=== PATIENT | male | born 1970 | race Caucasian/White ===

== ENCOUNTER 2016-03-05 14:32 | Inpatient (IN) | payer OTHER, MEDICARE ==
[~2016-03-05] VITALS: Ht 172.7 cm; Wt 78.0 kg
[~2016-03-05 14:32] MED LIST: ATIVAN0.5 M1 PO; AUGMENTIN 875 M1 TAB PO; CHLORDIAZEPOXID25 M3 PO; CLONAZEPAM0.5 MG PO; CLONAZEPAM1 M2 PO; CLONAZEPAM1 MG PO; CLONIDINE HCL0.1 MG PO; CLONIDINE0.1 MG PO; ESCITALOPRAM OX20 MG PO; ESCITALOPRAM20 MG PO; FAMOTIDINE20 MG PO; FOLIC ACID1 M1 PO; GABAPENTIN300 M2 PO; KLONOPIN1 M1 PO; LAMICTAL 25MG25 MG PO; LAMICTAL25 M1 PO; LAMOTRIGINE25 M3 PO; LEXAPRO10 M1 PO; MULTIVITAMINS1 EAC8 PO; NEURONTIN300 M1 PO; NEURONTIN300 MG; NEXIUM20 M1 PO; OMEPRAZOLE20 M2 PO; PERCOCET 5-3251 EACH PO; PRAVASTATIN SOD40 M2 PO; PRAVASTATIN40 MG PO; PROTONIX20 M1 PO; SUCRALFATE1 GM; TRAZODONE HCL100 M1 PO; TRAZODONE50 MG PO; VITAMIN B-1100 MG PO; ZOFRAN4 M2 PO
--- NOTE | 2016-03-05 14:43 | ED PSYCHIATRIC COMPLAINT ---
History of Present Illness General Chief Complaint: ETOH/Drug Related Complaint Stated Complaint: BIBA, ETOH, +SI Source: patient, old records, EMS Exam Limitations: intoxication Vital Signs & Intake/Output Vital Signs & Intake/Output Vital Signs Date Time Temp Pulse Resp B/P Pulse O2 O2 Flow FiO2 Ox Delivery Rate 03/06 814 96.2 93 18 135/96 03/06 0815 96.2 93 18 135/96 97 Room Air 03/06 0628 98.0 72 18 130/75 95 Room Air 03/06 0541 99.2 03/06 0530 Room Air 03/06 0530 99.2 89 18 136/82 03/06 0530 99.2 89 18 136/82 95 Room Air 03/06 0245 95 Room Air 03/06 0232 98.1 87 18 126/79 03/06 0232 98.1 87 18 126/79 95 Room Air 03/06 0010 94 Room Air 03/06 0008 98.4 100 18 132/82 03/06 0008 98.4 100 18 132/82 94 Room Air 03/05 2218 99.0 105 20 154/70 96 Room Air Room Air 03/05 2217 99.0 105 20 154/70 07 2046 97.8 95 18 140/86 03/05 2033 97.8 95 18 140/86 96 Room Air 03/05 1735 98.8 66 18 118/76 03/05 1735 98.8 66 18 118/76 96 Room Air Room Air 03/05 1500 96.6 86 20 134/90 07 1441 96.6 86 20 134/90 96 Room Air ED Intake and Output 03/06 0000 03/05 1200 Intake Total Output Total Balance Patient 200 lb Weight Allergies Coded Allergies: haloperidol (Severe, DIFFICULTY BREATHING 08/13/15) chlorpromazine (DYSTONIC REACTION 08/13/15) Reconcile Medications Clonazepam (Klonopin) 1 MG TABLET 1 TAB PO TID ALC WITHDRAWL Clonidine HCl 0.1 MG TABLET 1 TAB PO TID BP Escitalopram Oxalate (Lexapro) 10 MG TABLET 10 MG PO 0800 MENTAL HEALTH Folic Acid 1 MG TABLET 1 MG PO DAILY SUPPLEMENT Gabapentin (Neurontin) 300 MG CAPSULE 1 CAP PO TID MENTAL HEALTH/NERVE PAIN ( Reported) Lamotrigine 25 MG TABLET 2 TAB PO DAILY MENTAL HEALTH (Reported) Ondansetron HCl (Zofran) 4 MG TABLET 1 TAB PO DAILY PRN NAUSEA Pantoprazole Sodium (Protonix) 20 MG TABLET. 1 TAB PO DAILY HEARTBURN Pravastatin Sodium 40 MG TABLET 1 TAB PO QPM CHOLESTEROL Triage Nurses Notes Reviewed? yes HPI: Patient is a 45-year-old male presents complaining of suicidal ideation and requesting alcohol detox. Patient reports that he woke this morning with thoughts of "I want to kill myself". Patient reports he is having thoughts of hanging himself and has a rope at home. Patient reports stressors include his alcohol abuse and marijuana abuse. Patient with history of alcohol withdrawal seizures and has required ICU admission twice over the past one year. Last drink was approximately 30 minutes prior to arrival. Patient reports that he began drinking again on February 27, drinking approximately one half case to one case of beer a day and approximately 10 "nips" of Leo Beam. Patient is on clonazepam 1 mg 3 times a day, reports that about a week ago he started taking increasing doses to try to not drink, reports that he ran out of the clonazepam 5 days ago. Patient is unsure if he has sustained any traumatic injuries recently. Patient denies homicidal ideation, hallucinations. Patient also reports diffuse abdominal pain 2 days. Patient had associated nausea, he took Zofran prior to arrival with resolution of his nausea. Patient reports pain feels similar to previous pancreatitis. Denies change in bowel movements, urinary symptoms, fevers. (KAREN COLEMAN,JOSE) Past History Travel History Traveled to [place] past 21 day No Medical History Any Pertinent Medical History? see below for history Neurological: SEIZURE w/d EENT: NONE Cardiovascular: hypertension Respiratory: NONE Gastrointestinal: PANCREATITIS Hepatic: NONE Renal: NONE Musculoskeletal: left knee multiple tendon r. 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 Relation not specified for: FH: alcohol abuse Hx Contributory? No (JOSE ROSAS) Review of Systems Review of Systems Constitutional: Denies: chills, fever. EENTM: Reports: no symptoms. Respiratory: Denies: cough, short of breath. Cardiovascular: Denies: chest pain, syncope. GI: Reports: abdominal pain, nausea (took zofran prior to arrival). Genitourinary: Reports: no symptoms. Musculoskeletal: Reports: back pain. Skin: Reports: no symptoms. Neurological/Psychological: Reports: see HPI. Denies: headache. Hematologic/Endocrine: Denies: bruising, bleeding. Immunologic/Allergic: Denies: splenectomy. (JOSE ROSAS) Physical Exam Physical Exam General Appearance: well developed/nourished, alert, awake Head: atraumatic, normal appearance Eyes: Bilateral: normal appearance, PERRL. Ears, Nose, Throat: normal pharynx, normal ENT inspection, hearing grossly normal Neck: normal inspection, supple, full range of motion, no midline tenderness Respiratory: normal breath sounds, chest non-tender, no respiratory distress, lungs clear Cardiovascular: regular rate/rhythm Gastrointestinal: soft, mild diffuse abdominal tenderness. No rebound or guarding Extremities: normal range of motion, no signs of trauma Neurological/Psychiatric: awake, alert, calm, college president II-XII nml as tested, intoxicated appearing Appearance/Memory/Insight: disheveled Behavoir/Eye Contact/Speech: cooperative, good eye contact Thoughts/Hallucinations: no apparent hallucination Skin: intact, normal color, warm/dry SAD PERSONS SAD PERSONS Response Value Male Sex? yes 1 Age <19 or >45 years? yes 1 Depression/Hopelessness? yes 2 Excessive Ethanol/Drug Use? yes 1 Rational Thinking Loss? yes 2 Single//? yes 1 Social Support? has no support 1 Stated Future Intent? yes 2 Total 11 SAD PERSONS Done? yes CAGE (2/more=possible [place] CAGE (2/more=possible [place] Response Value Cut Down? yes 1 Annoyed? yes 1 Guilty? yes 1 Eye Buckle Frame Shaper? yes 1 Total 4 (JOSE ROSAS) Progress Differential Diagnosis: drug intoxication, drug overdose, drug withdrawal, electrolyte abnormality, encephalitis, hypoglycemia, IC hem/mass/tumor, benzodiazepine withdrawal, alcohol withdrawal, pancreatitis, intra-abdominal infection, intra-abdominal trauma Plan of Care: Orders Procedure Date/time Status Heart Healthy Diet 03/06 B Active CBC WITHOUT DIFFERENTIAL 03/06 0600 Complete BASIC ELECTROLYTES PLUS BUN&CR 03/06 06 Complete Teach/Educate 03/06 0545 Active Nutritional Intake, Monitor 03/06 0545 Active Isolation 03/06 0545 Active Patient Care Conference 03/06 0545 Active Activity/Ambulation 03/06 0545 Active TRC EVALUATION (GEN) 03/06 UNK Active Precautions 03/06 UNK Active Hemoccult 03/06 UNK Active EKG 03/06 UNK Active SOCIAL WORK CONSULT 03/06 UNK Active PSYCHIATRIC CONSULT 03/06 UNK Active Regular Diet 03/05 D Complete Saline Lock 03/05 2324 Active Pathway - chart 03/05 2324 Active House Staff 03/05 2324 Active Code Status 03/05 2324 Active Continuous Observation Monitor 03/05 2300 Active Patient Data 03/05 2252 Active Saline Lock 03/05 2221 Active Misc Message 03/05 2221 Active ED Holding Orders 03/05 2221 Active Admit to inpatient 03/05 2221 Active Vital Signs 03/05 2221 Active Code Status 03/05 2221 Complete Continuous Observation Monitor 03/05 1900 Active Add-on Test (ER Only) 03/05 1522 Active Add-on Test (ER Only) 03/05 1501 Active Continuous Observation Monitor 03/05 1500 Active URINALYSIS 03/05 1500 Complete Add-on Test (ER Only) 03/05 1437 Active CIWA 03/05 1437 Active URINE DRUGS OF ABUSE 03/05 1436 Complete MAGNESIUM 03/05 1436 Complete LIPASE 03/05 1436 Complete ETHANOL 03/05 1436 Complete COMPREHENSIVE METABOLIC PANEL 03/05 1436 Complete CBC WITHOUT DIFFERENTIAL 03/05 1436 Complete AMYLASE 03/05 1436 Complete VTE Mechanical Prophylaxis 03/05 UNK Active Vital Signs 03/05 UNK Active Patient Safety Monitor 03/05 UNK Active Intake & Output 03/05 UNK Active Current Medications Sig/Genoveva Start time Last Medication Dose Stop Time Status Admin Pravastatin Sodium 40 MG 1700 03/06 1700 AC (Pravachol) Clonidine 0.1 MG TID 03/06 1000 AC (Catapres) Enoxaparin Sodium 40 MG DAILY 03/06 1000 CAN (Lovenox) Folic Acid 1 MG DAILY 03/06 1000 AC (Folic Acid) Gabapentin 300 MG TID 01/08 1000 AC (Neurontin) Lamotrigine 50 MG DAILY 03/06 999 AC (LaMICtal) Multivitamins 1 TAB DAILY 03/06 999 AC (Theragran Vitamins) Nicotine 14 MG DAILY 03/06 999 AC (Nicotine Cq) Thiamine HCl 100 MG DAILY 03/06 999 AC (Vitamin B1) Acetaminophen 650 MG Q6P PRN 03/05 2329 AC (Tylenol) Ibuprofen 600 MG Q12P PRN 03/05 2329 AC (Motrin) Lorazepam 0 Q1P PRN 03/05 2329 AC (Ativan) Laboratory Tests 03/06/16 0559: CBC w Diff NO MAN DIFF REQ, RBC 4.23 L, MCV 95.3 H, MCH 33.0 H, RDW 13.6, MPV 6.5 L, Gran % 49.9, Lymphocytes % 42.0, Monocytes % 4.5, Eosinophils % 2.7, Basophils % 0.9, Absolute Granulocytes 2.7, Absolute Lymphocytes 2.3, Absolute Monocytes 0.2, Absolute Eosinophils 0.2, Absolute Basophils 0, PUBS MCHC 34.7 03/06/16 0549: Anion Gap 15, Estimated GFR > 60, BUN/Creatinine Ratio 14.4 03/05/16 1556: Urine Opiates Screen < 100.00, Methadone Screen < 40, Barbiturate Screen < 60, Ur Phencyclidine Scrn < 6.00, Amphetamines Screen < 100, U Benzodiazepines Scrn < 85, Urine Cocaine Screen < 50, Urine Cannabis Screen 68.00 H, Urine Color YEL , Urine Clarity CLEAR, Urine pH 6.0, Ur Specific [place] 1.020, Urine Protein TRACE H, Urine Ketones NEG, Urine Nitrite NEG, Urine Bilirubin NEG, Urine Urobilinogen 0.2, Ur Leukocyte Esterase NEG, Ur Microscopic SEDIMENT EXAMINED, Urine RBC RARE, Ur Epithelial Cells RARE, Urine Hemoglobin TRACE-INTACT H, Urine Glucose NEG 03/05/16 1516: Anion Gap 17 H, Estimated GFR > 60, BUN/Creatinine Ratio 13.0, Glucose 110 H, Calcium 9.4, Magnesium 1.9, Total Bilirubin 0.5, AST 69 H, ALT 34, Alkaline Phosphatase 105, Total Protein 7.5, Albumin 4.6, Globulin 2.9, Albumin/Globulin Ratio 1.6, Amylase < 30 L, Lipase 168, CBC w Diff NO MAN DIFF REQ, RBC 4.61 L, MCV 95.8 H, MCH 32.8 H, RDW 13.8, MPV 6.5 L, Gran % 56.4, Lymphocytes % 37.7, Monocytes % 4.0, Eosinophils % 1.1, Basophils % 0.8, Absolute Granulocytes 3.3, Absolute Lymphocytes 2.2, Absolute Monocytes 0.2, Absolute Eosinophils 0.1, Absolute Basophils 0, PUBS MCHC 34.2, Serum Alcohol 382.0 1500: Patient currently intoxicated. No signs of active hallucinations or DT's. While patient reports he has not had his clonazepam in 5 days, there are not any active signs of benzodiazepine withdrawal or alcohol withdrawal. Ativan deferred at this time. 1630: Patient's urine drug screen negative for benzodiazepines. Ativan ordered, patient at risk for benzodiazepine withdrawal seizure. 1840: Patient resting comfortably, results of blood work and CT scan discussed with patient. No apparent hallucinations or change in mental status. Patient continues to endorse suicidal ideation by hanging himself. Reports that he has a rope at home. Will continue to monitor CIWA scoring to determine whether patient needs to be admitted for alcohol detox and to obtain an inpatient psychiatric consultation or if the patient is to receive crisis evaluation once sober in the emergency department. 2100: Patient with CIWA score of 5, no hallucinations. Patient's alcohol level still above given presenting alcohol level. Further Ativan deferred at this time. IV fluids ordered. Signed out to Dr. Dailey(CIWA monitoring, if CIWA elevates then admission for medical detox and inpatient psychiatric evaluation. If CIWA scores remain stable and patient is sober then ED crisis evaluation.) (KAREN COLEMAN,JOSE) Diagnostic Imaging: Viewed by Me: CT Scan. Discussed w/RAD: CT Scan. Radiology Impression: PATIENT: PRAKASH NORRIS PRESENT AGE: 45 PATIENT ACCOUNT NO: [id number] : 68 LOCATION: [facility] ([place]) ORDERING PHYSICIAN: JOSE COLEMAN SERVICE DATE: 03/05/167740 EXAM TYPE: CAT - CT ABD & PELVIS W IV CONTRAST EXAMINATION: CT ABDOMEN AND PELVIS WITH CONTRAST CLINICAL INFORMATION: Diffuse abdominal pain. Low back pain. History of pancreatitis. Concern for trauma. COMPARISON: 09/16/2012. Ultrasound 02/03/2016. TECHNIQUE: Multidetector volumetric imaging was performed of the abdomen and pelvis before and after the IV administration of 95 mL of Optiray 320 intravenous contrast. Sagittal and coronal reformatted images were obtained on the technologist's workstation. DLP: 688.97 mGy-cm. FINDINGS: LUNG BASES: The visualized lung bases are unremarkable. LIVER, GALLBLADDER, AND BILIARY TREE: The liver is normal in size, shape, and attenuation. No focal hepatic lesion or biliary ductal dilatation is present. The gallbladder is somewhat distended measuring 11 cm in sagittal dimension. No wall thickening or pericholecystic fluid. The bile ducts are normal in caliber. PANCREAS: The pancreas enhances uniformly. No pancreatic ductal dilation. No focal pancreatic mass. No peripancreatic fluid or phlegmon. SPLEEN: A small accessory spleen under the left diaphragm is unchanged. The spleen is normal in size without focal findings. ADRENAL GLANDS: Unremarkable. KIDNEYS AND URETERS: The kidneys are symmetrically functioning. No hydronephrosis. Minor peripancreatic fat stranding left more than right is stable compared with 2013. Surgical clips are again noted along the course of the right renal artery unchanged since 2012. The renal arteries appear to enhance uniformly as do the renal veins. No mass or calculus. The ureters are nondilated. BLADDER: Unremarkable. GASTROINTESTINAL TRACT: No bowel obstruction. No free air or free fluid. Normal appendix. ABDOMINAL WALL: No significant hernia is appreciated. LYMPH NODES: Normal. VASCULAR: Unremarkable. PELVIC VISCERA: The prostate and seminal vesicles are within normal limits. No pelvic adenopathy or free fluid. OSSEOUS STRUCTURES: Degenerative changes in the spine. Moderate disc disease and spondylosis most pronounced at the L4-L5 level, increased in severity since 2012. IMPRESSION: 1. Worsening degenerative disease at the L4-L5 level when compared with 2013. 2. No evidence for pancreatitis. The pancreas is normal in appearance. 3. Mild gallbladder distention. No wall thickening, pericholecystic fluid or cholelithiasis noted. 4. Stable postoperative changes associated with the right renal artery. Symmetric renal function. DICTATED BY: DARIN CHEN MD DATE/TIME DICTATED:03/05/161639 AVIONICS REPAIR TECHNICIAN:CINTHIA DATE/TIME TRANSCRIBED:1639 CONFIDENTIAL, DO NOT COPY WITHOUT APPROPRIATE AUTHORIZATION. < Electronically signed in Other Vendor System> SIGNED BY: DARIN CHEN MD 09/12 1751 Hand-Off Endorsed To: JOSEMANUEL DAILEY MD Endorsed Time: 2100 Pending: other (CIWA monitoring, disposition) (JOSE ROSAS) Departure Departure Disposition: STILL A PATIENT Condition: Stable Clinical Impression Primary Impression: Alcoholic intoxication Qualifiers: Complication of substance-induced condition: with unspecified complication Qualified Code: F10.129 - Alcohol abuse with intoxication, unspecified Secondary Impressions: Abdominal pain Qualifiers: Abdominal location: generalized Qualified Code: R10.84 - Generalized abdominal pain Cannabis abuse Suicidal ideation Referrals: PATIENT HAS NO PRIMARY CARE DR Departure Forms: Customer Survey General Discharge Information (JOSE ROSAS) PA/SPINNING OPERATOR Co-Sign Statement Statement: ED Attending supervision documentation- [] I saw and evaluated the patient. I have also reviewed all the pertinent lab results and diagnostic results. I agree with the findings and the plan of care as documented in the PA's/SPINNING OPERATOR's documentation. [X] I have reviewed the ED Record and agree with the PA's/SPINNING OPERATOR's documentation. [] Additions or exceptions (if any) to the PAs/SPINNING OPERATOR's note and plan are summarized below: [] (YOAV ETIENNE,BARRERA) Admission Note Spoke With: WILLY CEBALLOS MD Documentation of Exam: Documentation of any treatments & extenuating circumstances including Concerns Regarding Discharge (functional status, medication knowledge or non-compliance, living conditions, etc.) that warrant an admission rather than observation: pt with alcohol dependence and now with increasing CIWA scores requiring multiple doses of ativan including ativan iv. Pt with recent icu admission requiring ativan gtt... pt merits admission for medical detox. PA/SPINNING OPERATOR Co-Sign Statement Statement: ED Attending supervision documentation- [] I saw and evaluated the patient. I have also reviewed all the pertinent lab results and diagnostic results. I agree with the findings and the plan of care as documented in the PA's/SPINNING OPERATOR's documentation. [x] I have reviewed the ED Record and agree with the PA's/SPINNING OPERATOR's documentation. [] Additions or exceptions (if any) to the PAs/SPINNING OPERATOR's note and plan are summarized below: [] (JOSEMANUEL DAILEY MD)
--- NOTE | 2016-03-05 14:45 | NUR ---
2 Personal belongings put in closet
--- NOTE | 2016-03-05 14:46 | NUR ---
PT BIBA FROM HOME FOR C/O ETOH AND +SI. PT STATED TO HIS MOTHER HE WANTED TO HANG HIMSELF. PT ADMITS TO HEAVY ETOH USE DAILY LATELY (9 NIPS, PINT OF ESTELA KRISTIN AND A CASE OF BEER). STATES TODAY HE HAD "A SIX PACK OF BEER AND A COUPLE SHOTS." ADMITS TO MARIJUANA USE. PT IS CALM/COOPERATIVE. APPEARS INTOXICATED, STRONG ODOR OF ETOH NOTED. VSS. PT AWAITING EVAL. 1:[address] SECURITY AT BEDSIDE FOR WANDING.
[2016-03-05 15:00] VITALS: BP 134/90
--- NOTE | 2016-03-05 15:08 | NUR ---
1 BELONGING BAG LOCKED IN CLOSET. NO VALUABLE BAGS NOTED. 1 BAG CONTAINING PT'S MEDS BROUGHT TO INPATIENT PHARMACY BY THIS RN.
--- NOTE | 2016-03-05 15:10 | NUR ---
urine trio sent to lab.
--- NOTE | 2016-03-05 15:18 | NUR ---
blood drawn and sent to lab. lav,sst
[2016-03-05 15:32] LABS: ABSOLUTE BASOPHIL COUNT 0 /CUMM (0.0-0.2); ABSOLUTE EOSINOPHIL COUNT 0.1 /CUMM (0.0-0.7); ABSOLUTE GRANULOCYTE CT 3.3 /CUMM (1.4-6.5); ABSOLUTE LYMPH COUNT 2.2 /CUMM (1.2-3.4); ABSOLUTE MONOCYTE COUNT 0.2 /CUMM (0.10-0.60); BASOPHIL % 0.8 % (0.0-2.0); EOSINOPHIL % 1.1 % (0-5); GRANULOCYTE % 56.4 % (42.2-75.2); HEMATOCRIT 44.2 % (42-52); MEAN CORPUSCULAR HGB 32.8 PG (27.0-31.0); MEAN CORPUSCULAR HGB CONC 34.2 G/DL (33.0-37.0); MEAN CORPUSCULAR VOLUME 95.8 FL (80.0-94.0); MEAN PLATELET VOLUME 6.5 FL (7.4-10.4); PLATELET COUNT 201 /CUMM (130-400); RBC DISTRIBUTION WIDTH 13.8 % (11.5-14.5); RED BLOOD CELL CT 4.61 /CUMM (4.70-6.10); WHITE BLOOD CELL COUNT 5.9 /CUMM (4.8-10.8)
--- NOTE | 2016-03-05 16:00 | NUR ---
URINE SAMPLE RESENT, CLEAR TOP ONLY.
--- NOTE | 2016-03-05 16:05 | NUR ---
LINE EST #20 TO [facility]FA. MEDICATED WITH TYLENOL FOR C/O HEADACHE. PT AND SITTER AWARE HE CAN NOT EAT UNTIL RESULS OF CAT SCAN ARE BACK.
--- NOTE | 2016-03-05 16:45 | NUR ---
PT MEDICATED PER EMAR.
[2016-03-05 17:35] VITALS: BP 118/76
--- NOTE | 2016-03-05 17:51 | CT SCAN REPORT ---
EXAMINATION: CT ABDOMEN AND PELVIS WITH CONTRAST CLINICAL INFORMATION: Diffuse abdominal pain. Low back pain. History of pancreatitis. Concern for trauma. COMPARISON: 09/16/2012. Ultrasound 02/03/2016. TECHNIQUE: Multidetector volumetric imaging was performed of the abdomen and pelvis before and after the IV administration of 95 mL of Optiray 320 intravenous contrast. Sagittal and coronal reformatted images were obtained on the technologist's workstation. DLP: 688.97 mGy-cm. FINDINGS: LUNG BASES: The visualized lung bases are unremarkable. LIVER, GALLBLADDER, AND BILIARY TREE: The liver is normal in size, shape, and attenuation. No focal hepatic lesion or biliary ductal dilatation is present. The gallbladder is somewhat distended measuring 11 cm in sagittal dimension. No wall thickening or pericholecystic fluid. The bile ducts are normal in caliber. PANCREAS: The pancreas enhances uniformly. No pancreatic ductal dilation. No focal pancreatic mass. No peripancreatic fluid or phlegmon. SPLEEN: A small accessory spleen under the left diaphragm is unchanged. The spleen is normal in size without focal findings. ADRENAL GLANDS: Unremarkable. KIDNEYS AND URETERS: The kidneys are symmetrically functioning. No hydronephrosis. Minor peripancreatic fat stranding left more than right is stable compared with 2013. Surgical clips are again noted along the course of the right renal artery unchanged since 2012. The renal arteries appear to enhance uniformly as do the renal veins. No mass or calculus. The ureters are nondilated. BLADDER: Unremarkable. GASTROINTESTINAL TRACT: No bowel obstruction. No free air or free fluid. Normal appendix. ABDOMINAL WALL: No significant hernia is appreciated. LYMPH NODES: Normal. VASCULAR: Unremarkable. PELVIC VISCERA: The prostate and seminal vesicles are within normal limits. No pelvic adenopathy or free fluid. OSSEOUS STRUCTURES: Degenerative changes in the spine. Moderate disc disease and spondylosis most pronounced at the L4-L5 level, increased in severity since 2012. IMPRESSION: 1. Worsening degenerative disease at the L4-L5 level when compared with 2013. 2. No evidence for pancreatitis. The pancreas is normal in appearance. 3. Mild gallbladder distention. No wall thickening, pericholecystic fluid or cholelithiasis noted. 4. Stable postoperative changes associated with the right renal artery. Symmetric renal function.
[2016-03-05 20:46] VITALS: BP 140/86
--- NOTE | 2016-03-05 20:47 | NUR ---
PT RESTING ON BED, REPORTS FEELING SHAKEY, NO VISIBLE TREMOR NOTED AT THIS TIME. PT REQUESTING A BANANA BAG BECAUSE "I KNOW MY BODY AND I KNOW WHEN I NEED FLUIDS." [place] JONES MADE AWARE. PT ENCOURAGED TO DRINK WATER AT THIS TIME.
--- NOTE | 2016-03-05 21:24 | NUR ---
NS @ 125ML/HR HUNG. PT RESTING ON BED REQUESTING SOME MEDICATION TO RELIEVE HIS SYMPTOMS, PT INFORMED THAT HE WILL BE RECHECKED AT 2200, AGREEABLE TO PLAN AT THIS TIME.
[2016-03-05 22:17] VITALS: BP 154/70
--- NOTE | 2016-03-05 22:27 | NUR ---
PT MEDICATED PER EMAR FOR CIWA SCORE OF 11. NURSING WILL CONTINUE TO MONITOR.
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
--- NOTE | 2016-03-05 22:54 | Admission Certification ---
Admission Certification Certification Statement - As attending physician, I certify that at the time of - admission, based on clinical presentation, severity of - symptoms, need for further diagnostic testing and - therapeutic interventions, and risk of adverse outcomes - without in-hospital treatment, in my clinical assessment, - this patient requires an acute hospital stay for a minimum - of two nights or longer. I have also considered psychsocial - factors such as support system, advanced age, financial - issues, cognitive issues, and failed out-patient treatments, - past re-admission history, safety of patient, and lack of - compliance as applicable. Specific rationale supporting this admission is: Alcohol withdrawal.
--- NOTE | 2016-03-05 23:18 | NUR ---
HOUSE STAFF AT BEDSIDE FOR EVALUATION
[2016-03-06] VITALS (13 sets, daily range): BP systolic 120–168; BP diastolic 70–100
--- NOTE | 2016-03-06 00:09 | NUR ---
PATIENT ALERT AND ORIENTED, CALM AND COOPERATIVE. REPORTING INTERMITTENT SLIGHT LARIOS, STATES "BUT THEY MEDICATED ME SO I AM FEELING MUCH BETTER SINCE THEN." NO OBVIOUS TREMORS NOTED. CIWA-4. PATIENT INFORMED WAITING FOR ADMISSION PROCESS.
--- NOTE | 2016-03-06 00:52 | NUR ---
PT HAS BED #230-1
--- NOTE | 2016-03-06 02:32 | NUR ---
PT SLEEPING AT THIS TIME, BILATERAL CHEST RISE AND FALL NOTED. PT OFFERS NO COMPLAINTS AT THIS TIME. SITTER AT BEDSIDE FOR SAFETY, NAD.
--- NOTE | 2016-03-06 03:54 | NUR ---
PER RN GENETICS TEACHER, WAITING FOR ROOM TO BE CLEANED FOR PATIENT ADMISSION UPDATIRS.
--- NOTE | 2016-03-06 05:46 | NUR ---
PATIENT MEDICATED W/ ATIVAN 2MG PER EMAR. TOLERATED WELL. CIWA-10. BANANA BAG RECIEVED FROM PHARMACY AND INITIATED AT 125ML/HR PER EMAR. TOLERATING WELL. PATIENT VERY CALM AND COOPERATIVE. PROVIDED PITCHER OF WATER PER REQUEST. REPEAT EKG AND LABS BEING COMPLETED.
--- NOTE | 2016-03-06 05:57 | NUR ---
IPOC INITIATED AND UP TO DATE
--- NOTE | 2016-03-06 06:02 | NUR ---
EKG DONE BLOOD DRAWN AND SENT TO LAB [facility]ST L[facility] BL[facility]
[2016-03-06 06:13] LABS: ABSOLUTE BASOPHIL COUNT 0 /CUMM (0.0-0.2); ABSOLUTE EOSINOPHIL COUNT 0.2 /CUMM (0.0-0.7); ABSOLUTE GRANULOCYTE CT 2.7 /CUMM (1.4-6.5); ABSOLUTE LYMPH COUNT 2.3 /CUMM (1.2-3.4); ABSOLUTE MONOCYTE COUNT 0.2 /CUMM (0.10-0.60); BASOPHIL % 0.9 % (0.0-2.0); EOSINOPHIL % 2.7 % (0-5); GRANULOCYTE % 49.9 % (42.2-75.2); HEMATOCRIT 40.3 % (42-52); MEAN CORPUSCULAR HGB CONC 34.7 G/DL (33.0-37.0); MEAN CORPUSCULAR VOLUME 95.3 FL (80.0-94.0); MEAN PLATELET VOLUME 6.5 FL (7.4-10.4); PLATELET COUNT 184 /CUMM (130-400); RBC DISTRIBUTION WIDTH 13.6 % (11.5-14.5); RED BLOOD CELL CT 4.23 /CUMM (4.70-6.10); WHITE BLOOD CELL COUNT 5.5 /CUMM (4.8-10.8)
--- NOTE | 2016-03-06 07:17 | NUR ---
REPORT GIVEN TO MICHAEL BASURTO
--- NOTE | 2016-03-06 08:00 | NUR ---
PER 2N, ROOM NOT CLEAN/READY YET
--- NOTE | 2016-03-06 08:13 | NUR ---
PT WOKEN TO MEDICATED WITH LEXAPRO. TOLERATED PILL WELL. PT REPORTS RELIEF OF SYMPTOMS AFTER PREVIOUSLY GIVEN ATIVAN. ONLY COMPLAINT AT THIS TIME IS "FEELING SWEATING BUT THATS PART OF IT". BANANA BAG CONTINUES TO INFUSE PER MAR. PT AWARE HE IS WAITING TO GO UPSTAIRS. DENIES NEEDING ANYTHING ELSE AT THIS TIME.
--- NOTE | 2016-03-06 08:19 | NUR ---
230 BED 1
--- NOTE | 2016-03-06 08:42 | NUR ---
ROOM READY. PER WOOD CAULKER ARIANA, CURRENT SITTER BASSEM TO ACCOMPANY PT UPSTAIRS UPDATED REPORT GIVEN TO NURSE ON 2N. MESSAGE LEFT ON TRANSPORT
--- NOTE | 2016-03-06 09:10 | NUR ---
PT ARRIVED FROM ER WITH DX: ETOH W/D, + SI, SITTER AT BEDSIDE,DENIES PAIN, SEE ANGELICA, PT ORIENTED TO ROOM, CALL LIGHT, AND PLAN OF CARE
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
--- NOTE | 2016-03-06 18:58 | PN- Gen Med ---
Assessment/Plan Assessment: 45M PMH EtOH dependence with history of withdrawal seizures, HTN, PTSD, bipolar disorder admitted for EtOH withdrawal and suicidal ideation. CIWA scores controlled. Patient reports rash on left abdomen which appears to be dry skin. Stable vitals. Labs reviewed. Problem List: 1. ALCOHOL WITHDRAWAL 2. Suicidal ideation 3. Bipolar affective disorder 4. DVT prophylaxis Plan: - Continue Ativan taper - Psychiatry eval - Continue home medications - ALPS for DVT PPx DVT/Prophylaxis: mechanical, pharmacological Subjective Subjective: Complains only of left abdominal pruritis. Otherwise no complaints. Review of Systems Constitutional: Reports: see HPI. EENTM: Reports: no symptoms. Cardiovascular: Reports: no symptoms. Respiratory: Reports: no symptoms. Gastrointestinal: Reports: no symptoms. Genitourinary: Reports: no symptoms. Musculoskeletal: Reports: no symptoms. Skin: Reports: see HPI. Neurological/Psychological: Reports: no symptoms. Hematologic/Endocrine: Reports: no symptoms. Immunologic/Allergic: Reports: no symptoms. Objective Last 24 Hrs of Vital Signs/I&O Vital Signs Date Time Temp Pulse Resp B/P Pulse O2 O2 Flow FiO2 Ox Delivery Rate 03/06 1744 89 160/88 03/06 1503 98.2 66 20 120/70 93 03/06 1417 Room Air 03/06 1132 97.6 82 20 158/100 /08 1100 97.6 82 20 158/100 94 Room Air 03/06 0930 98.8 90 20 160/100 / 0900 98.8 90 20 160/100 92 Room Air 03/06 0815 96.2 93 18 135/96 03/06 0815 96.2 93 18 135/96 97 Room Air 03/06 0628 98.0 72 18 130/75 95 Room Air 03/06 0541 99.2 03/06 0530 Room Air 03/06 0530 99.2 89 18 136/82 /08 0530 99.2 89 18 136/82 95 Room Air 03/06 0245 95 Room Air 03/06 0232 98.1 87 18 126/79 03/06 0232 98.1 87 18 126/79 95 Room Air 03/06 0010 94 Room Air 03/06 0008 98.4 100 18 132/82 03/06 0008 98.4 100 18 132/82 94 Room Air 03/05 2218 99.0 105 20 154/70 96 Room Air Room Air 03/05 2216 99.0 105 20 154/70 03/05 2045 97.8 95 18 140/86 03/05 2032 97.8 95 18 140/86 96 Room Air Intake & Output 03/06 1600 03/06 0800 03/06 0000 Intake Total 1325 Output Total Balance 1325 Intake, IV 625 Intake, Oral 700 Patient 78.018 kg Weight Physical Exam General Appearance: Alert, Oriented X3, Cooperative, No Acute Distress Skin: Dry skin on left abdomen HEENT: Atraumatic Neck: Supple Cardiovascular: Regular Rate Lungs: Normal Air Movement Abdomen: Soft Neurological: Normal Gait, Normal Speech Extremities: No Edema Vascular: Normal Pulses Last 24 Hrs of Labs/Mics: Laboratory Tests 03/06 03/06 0559 0549 Chemistry Sodium (137 - 145 mmol/L) 143 Potassium (3.5 - 5.1 mmol/L) 4.0 Chloride (98 - 107 mmol/L) 102 Carbon Dioxide (22 - 30 mmol/L) 26 Anion Gap (5 - 16) 15 BUN (9 - 20 mg/dL) 13 Creatinine (0.7 - 1.2 mg/dL) 0.9 Estimated GFR (>60 ml/min) > 60 BUN/Creatinine Ratio (7 - 25 %) 14.4 Hematology CBC w Diff NO MAN DIFF REQ WBC (4.8 - 10.8 /CUMM) 5.5 RBC (4.70 - 6.10 /CUMM) 4.23 L Hgb (14.0 - 18.0 G/DL) 14.0 Hct (42 - 52 %) 40.3 L MCV (80.0 - 94.0 FL) 95.3 H MCH (27.0 - 31.0 PG) 33.0 H RDW (11.5 - 14.5 %) 13.6 Plt Count (130 - 400 /CUMM) 184 MPV (7.4 - 10.4 FL) 6.5 L Gran % (42.2 - 75.2 %) 49.9 Lymphocytes % (20.5 - 51.1 %) 42.0 Monocytes % (1.7 - 9.3 %) 4.5 Eosinophils % (0 - 5 %) 2.7 Basophils % (0.0 - 2.0 %) 0.9 Absolute Granulocytes (1.4 - 6.5 /CUMM) 2.7 Absolute Lymphocytes (1.2 - 3.4 /CUMM) 2.3 Absolute Monocytes (0.10 - 0.60 /CUMM) 0.2 Absolute Eosinophils (0.0 - 0.7 /CUMM) 0.2 Absolute Basophils (0.0 - 0.2 /CUMM) 0 PUBS MCHC (33.0 - 37.0 G/DL) 34.7
[2016-03-07] VITALS: BP 140/94
--- NOTE | 2016-03-07 01:17 | NUR ---
ALERT AND ORIENTED X 3. 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 MEDICATION GIVEN ON ROOM AIR. NO DISTRESS NOTED. WILL CONTINUE TO MONITOR
[2016-03-07 06:00] VITALS: BP 124/100
[2016-03-07 06:59] VITALS: BP 124/100
--- NOTE | 2016-03-07 14:05 | PN- Housestaff ---
See Addendum Subjective Follow-up For: Alcohol intoxication Subjective: Patient seen and examined at bedside. He getting out of bed and ambulating. Reports improvement in anxiety and nausea but tremors and diaphoresis still persist. Denies suicidal/homicidal ideation. CIWA this morning is 0. Received a total of 10mg Ativan (2 doses of IV Ativan 1mg PRN and 3 doses of PO Ativan 2mg Q6). He continues to endorse GI complaints which he had had RIPRAP MAN. Patient reports abdominal pain in the bilateral lower quadrants with intermitten bloody diarrhea. This has been ongoing for 2 years. He was referred by his PCP to see a fabrication and layout craftsman Dr. Davis but he failed to show up at the appointment for colonoscopy because of intoxication. Patient was instructed to follow up with Dr. Davis outpatient. Will provide the referral accordingly. Review of Systems Constitutional: Reports: see HPI. Objective Last 24 Hrs of Vital Signs/I&O Vital Signs Date Time Temp Pulse Resp B/P Pulse O2 O2 Flow FiO2 Ox Delivery Rate 03/07 0843 85 124/100 03/07 0659 97.3 85 20 124/100 96 03/07 0600 97.3 85 20 124/100 03/07 0000 97.8 60 20 140/94 03/06 2233 97.8 60 20 140/94 96 03/06 2230 98.0 91 20 160/92 03/06 2115 90 160/92 03/06 2030 98.0 91 20 160/92 03/06 1830 98.0 20 91 160/92 03/06 1744 89 160/88 03/06 1630 97.8 89 20 168/70 03/06 1630 98.0 91 20 160/92 97 Room Air 03/06 1503 98.2 66 20 120/70 93 08 1417 Room Air Intake & Output 03/07 1600 03/07 0800 03/07 0000 Intake Total 100 600 Output Total Balance 100 600 Intake, IV 0 Intake, Oral 100 600 Number 1 Bowel Movements Physical Exam General Appearance: Alert, Oriented X3, Cooperative, No Acute Distress Other Physical Findings: Skin No Significant Lesion HEENT Atraumatic, PERRLA, EOMI Neck Supple Cardiovascular Regular Rate, Normal S1, Normal S2, No Murmurs, Gallops, Rubs Lungs Clear to Auscultation, Normal Air Movement Abdomen Normal Bowel Sounds, Soft, TTP in lower abdomen Neurological mild slurred speech Extremities Tremors in the UEs. No Edema Other Physical Findings: Skin No Significant Lesion HEENT Atraumatic, PERRLA, EOMI Neck Supple Cardiovascular Regular Rate, Normal S1, Normal S2, No Murmurs, Gallops, Rubs Lungs Clear to Auscultation, Normal Air Movement Abdomen Normal Bowel Sounds, Soft, TTP in lower abdomen Neurological mild slurred speech Extremities Tremors in the UEs. No Edema Current Medications: Current Medications Sig/Genoveva Start time Last Medication Dose Route Stop Time Status Admin Acetaminophen 650 MG Q6P PRN 03/05 2330 AC PO Amlodipine Besylate 5 MG ONCE ONE 03/06 2100 DC 03/06 PO 03/06 2101 2115 Clonidine 0.1 MG TID 03/06 1000 AC 03/07 PO 0943 Cyanocobalamin/ 1 BAG DAILY 03/06 0030 DC 03/06 Thiamine/Pyridoxine IV 0546 Dextrose/Water 1,000 ML Escitalopram Oxalate 10 MG 0800 03/06 0800 AC 03/07 PO 0915 Folic Acid 1 MG DAILY 03/06 1000 AC 03/07 PO 0943 Gabapentin 300 MG TID 03/06 1000 AC 03/07 PO 0945 Ibuprofen 800 MG .STK-MED ONE 03/06 1749 DC PO 03/06 1750 Ibuprofen 600 MG Q12P PRN 03/05 2330 AC 03/06 PO 1753 Lactated Ringer's 1,000 ML Q13H 03/07 1130 DC IV Lactated Ringer's 1,000 ML Q10H 03/07 1115 AC 03/07 IV 1220 Lamotrigine 50 MG DAILY 03/06 1000 AC 03/07 PO 0944 Lorazepam 2 MG Q6 03/05 2359 AC 03/07 PO 1229 Lorazepam 0 Q1P PRN 03/05 2330 AC 03/06 IV 2116 Multivitamins 1 TAB DAILY 03/06 1000 AC 03/07 PO 0945 Nicotine 14 MG DAILY 03/06 1000 AC TOP Omeprazole 20 MG DAILY AC 03/07 0700 AC 03/07 PO 0850 Ondansetron HCl 4 MG Q6P PRN 03/06 1015 AC 03/07 IV 0701 Pravastatin Sodium 40 MG 1700 03/06 1700 AC 03/06 PO 1741 Thiamine HCl 100 MG DAILY 03/06 1000 AC 03/07 PO 0945 Trazodone HCl 100 MG 2200 03/06 2245 AC 03/06 PO 2337 Last 24 Hrs of Lab/Toni Results Last 24 Hrs of Labs/Mics: Laboratory Tests 03/07/16 0600: Sodium Cancelled, Potassium Cancelled, Chloride Cancelled, Carbon Dioxide Cancelled, Anion Gap Cancelled, BUN Cancelled, Creatinine Cancelled, BUN/ Creatinine Ratio Cancelled Microbiology 03/07 1240 STOOL: Clostridium difficile Toxin A & B - RECD Assessment/Plan Assessment: 45-year-old male with PMH of alcohol abuse, alcohol withdrawal seizures, previous ICU admissions for alcohol withdrawal (twice in the past year), anxiety , depression, bipolar disorder, PTSD on marijuana, was brought in by ambulance at the request of his mother for alcohol detox and suicidal ideation. # Alcohol detox CIWA scores and w/d sxs improving on CIWA protocol with IV Ativan PRN. No longer suicidal. * Cont Ativan 2mg PO Q6 * Cont Ativan 1mg IV Q1P per CIWA protocol * Start LR IVF 75mL/hr * Discontinue banana bag. * Continue multivitamin, folic acid, thiamine daily * Social work & psych consulted, appreciate recs * Cont to hold clonazepam * Note: patient is reportedly allergic to Haldol and chlorpromazine # Abdominal pain with intermitten bloody diarrhea and nausea Patient reports chronic abdominal pain in the lower quadrants with bloody diarrhea intermittently for the past 2 years. Also assc with occasional nausea micah in the morning. CT abdomen done this admission negative. Denies any history of IBD, although grandmother had diverticulitis and colectomy. Follows with Dr. Davis outpatient with plan for colonoscopy which he failed to show up for last week. Guaiac stool test positive this morning. * Instruction provided for follow up outpatient with Dr. Davis for colonoscopy * Check C. diff * Continue protonix 20 mg daily * Continue zofran 4 mg # Anxiety, depression, bipolar * Continue lexapro 10 mg * Continue lamotrigine 50 mg daily * Continue gabapentin 300 mg tid * Continue Trazodone 100 mg at night # Nicotine dependence * Nicotine patch # HLD * Continue pravastatin 40 mg # Hypertension * Continue clonidine 0.1 mg tid - Diet: Regular - Pain pathway: Mild - DVT prophylaxis: subcutaneous Lovenox - Code status: Full Problem List: 1. Alcohol intoxication 2. ALCOHOL WITHDRAWAL 3. Feeling suicidal 4. Polysubstance dependence 5. DVT prophylaxis 6. Hyperlipidemia 7. Bipolar affective disorder 8. Anxiety 9. Depression 10. Abdominal pain 11. Tobacco abuse counseling 12. Cannabis abuse Pain Ratin Pain Location: Abdomen Pain Goal: Remain pain free Pain Plan: Mild pathway Tomorrow's Labs & Rationales: BEP to trend K in the setting of recent hypokalemia
[2016-03-07 14:24] VITALS: BP 134/86
--- NOTE | 2016-03-07 20:45 | NUR ---
Referral received this am via electronic border measurer and cutter. Romulo is a 45 year old man, well known to this life insurance underwriter from multiple previous admissions, nearly monthly since the summer. Leo was admitted to the hospital on 03/05 with ETOH dependence with withdrawal. He was placed on the CIWA for observation of withdrawal; currently scoring a 3 for anxiety and tremors having received 11 mg. of ativan in the past 24 hours. I met with Leo this am. He was alert and oriented, pleasant and engaged in interview. When I entered his room, he was finishing a phone call with his Hospice Director, and he did not ask me to speak with him. Most concerning to Leo today was the questionable HUSKY coverage that he has. Since he has been receiving medicare, his HUSKY benefits have been converted to the Qualified Medicare Beneficiary (QMB) benefit. Leo reports that without full HUSKY benefits, he will not be able to start court mandated treatment at the [facility]. He reports that his Hospice Director intends to make a request to get the mandated treatment covered. Leo further reports that he has a follow up appointment with Dr. Hutton later this week. Will follow and will asssit patient with coordinating his follow up appointments.
[2016-03-07 22:17] VITALS: BP 140/90
--- NOTE | 2016-03-08 06:19 | PN- Housestaff ---
See Addendum Subjective Follow-up For: Alcohol detox Subjective: Patient seen and examined at bedside. Continues to improve micah with his tremors and anxiety. Expresses wish to stay one more day on detox however. CIWA scores 0 this morning. Received no IV Ativan PRN doses over the past 24 hours. Getting out of bed and ambulating. Denies suicidal/homicidal ideation. Denies abdominal pain, constipation and diarrhea this morning. Review of Systems Constitutional: Reports: see HPI. Objective Last 24 Hrs of Vital Signs/I&O Vital Signs Date Time Temp Pulse Resp B/P Pulse O2 O2 Flow FiO2 Ox Delivery Rate 03/08 918 64 128/80 03/08 799 97.6 61 20 130/80 03/08 0701 97.6 61 20 130/80 96 Room Air 03/07 2217 97.6 52 20 140/90 96 Room Air 03/07 2102 78 150/90 03/07 1632 126/102 03/07 1424 98.1 65 20 134/86 96 Intake & Output 03/08 1600 03/08 0803/08 0000 Intake Total 100 600 Output Total Balance 100 600 Intake, IV 400 Intake, Oral 100 200 Number 1 Bowel Movements Physical Exam General Appearance: Alert, Oriented X3, Cooperative, No Acute Distress Other Physical Findings: Skin No Significant Lesion HEENT Atraumatic, PERRLA, EOMI Neck Supple Cardiovascular Regular Rate, Normal S1, Normal S2, No Murmurs, Gallops, Rubs Lungs Clear to Auscultation, Normal Air Movement Abdomen Normal Bowel Sounds, Soft, TTP in lower abdomen Neurological mild slurred speech Extremities Tremors in the UEs. No Edema Other Physical Findings: Skin No Significant Lesion Current Medications: Current Medications Sig/Genoveva Start time Last Medication Dose Route Stop Time Status Admin Acetaminophen 650 MG Q6P PRN 03/05 2330 AC PO Clonidine 0.1 MG TID 03/06 1000 AC 03/08 PO 918 Escitalopram Oxalate 10 MG 03/06 AC 03/08 PO 918 Folic Acid 1 MG DAILY 03/06 999 AC 03/08 PO 918 Gabapentin 300 MG TID 03/06 1000 AC 03/08 PO 09 Ibuprofen 600 MG Q12P PRN 03/05 2330 AC 03/06 PO 1753 Lactated Ringer's 1,000 ML Q13H 03/07 1130 DC IV Lactated Ringer's 1,000 ML Q10H 03/07 1115 DC 03/07 IV 03/07 2114 1220 Lamotrigine 50 MG DAILY 03/06 1000 AC 03/08 PO 0919 Lorazepam 2 MG Q8 03/08 1400 AC PO Lorazepam 2 MG Q6 03/05 2359 DC 03/08 PO 0603 Lorazepam 0 Q1P PRN 03/05 2330 AC 03/06 IV 2116 Multivitamins 1 TAB DAILY 03/06 1000 AC 03/08 PO 0919 Nicotine 14 MG DAILY 03/06 1000 AC TOP Omeprazole 20 MG DAILY AC 03/07 0700 AC 03/08 PO 0603 Ondansetron HCl 4 MG Q6P PRN 03/06 1015 AC 03/08 IV 0603 Patient Medication 1 ED .STK-MED ONE 03/07 1358 [place] Teaching ED 03/07 1359 Pravastatin Sodium 40 MG 1700 03/06 1700 AC 03/07 PO 1632 Thiamine HCl 100 MG DAILY 03/06 1000 AC 03/08 PO 0919 Trazodone HCl 100 MG 2200 03/06 2245 AC 03/07 PO 2102 Last 24 Hrs of Lab/Toni Results Last 24 Hrs of Labs/Mics: Laboratory Tests 03/08/16 0710: Anion Gap 15, Estimated GFR > 60, BUN/Creatinine Ratio 12.5 Microbiology 03/07 1402 STOOL: Clostridium difficile Toxin A & B - COLB 03/07 1240 STOOL: Clostridium difficile Toxin A & B - RECD Assessment/Plan Assessment: 45-year-old male with PMH of alcohol abuse, alcohol withdrawal seizures, previous ICU admissions for alcohol withdrawal (twice in the past year), anxiety , depression, bipolar disorder, PTSD on marijuana, was brought in by ambulance at the request of his mother for alcohol detox and suicidal ideation. # Alcohol detox CIWA scores and w/d sxs improving on CIWA protocol with IV Ativan PRN. No longer suicidal. * Decrease Ativan 2mg PO Q6 to Q8 * Cont Ativan 1mg IV Q1P per CIWA protocol * Discontinue LR IVF 75mL/hr * Continue multivitamin, folic acid, thiamine daily * Social work & psych consulted, appreciate recs * Cont to hold clonazepam * Note: patient is reportedly allergic to Haldol and chlorpromazine # Abdominal pain with intermitten bloody diarrhea and nausea Patient reports chronic abdominal pain in the lower quadrants with bloody diarrhea intermittently for the past 2 years. Also assc with occasional nausea micah in the morning. CT abdomen done this admission negative. Denies any history of IBD, although grandmother had diverticulitis and colectomy. Follows with Dr. Davis outpatient with plan for colonoscopy which he failed to show up for last week. Guaiac stool test positive this morning. * Instruction provided for follow up outpatient with Dr. Davis for colonoscopy * Follow C. diff - pending receipt * Continue protonix 20 mg daily * Continue zofran 4 mg # Anxiety, depression, bipolar * Continue lexapro 10 mg * Continue lamotrigine 50 mg daily * Continue gabapentin 300 mg tid * Continue Trazodone 100 mg at night # Nicotine dependence * Nicotine patch # HLD * Continue pravastatin 40 mg # Hypertension * Continue clonidine 0.1 mg tid - Diet: Regular - Pain pathway: Mild - DVT prophylaxis: subcutaneous Lovenox - Code status: Full Problem List: 1. Alcohol intoxication 2. Polysubstance dependence 3. DVT prophylaxis 4. Hyperlipidemia 5. Bipolar affective disorder 6. Anxiety 7. Depression Pain Ratin Pain Location: 0 Pain Goal: Remain pain free Pain Plan: Mild pathway Tomorrow's Labs & Rationales: None
[2016-03-08 07:01] VITALS: BP 130/80
--- NOTE | 2016-03-08 07:48 | Patient Discharge Instructions ---
Discharge Instructions General Discharge Information You were seen/treated for: Alcohol detoxification Special Instructions: Please follow up with Dr. Holly (psychiatry), Dr. Hua (primary care) and Dr. Davis (gastroenterology) within a week of discharge. Please follow up at [facility] as instructed.t. Acute Coronary Syndrome Inclusion Criteria At DC or during hospital stay patient has or had the following: ACS DIAGNOSIS No Discharge Core Measures Meds if any: Prescribed or Continued at Discharge Meds if any: NOT Prescribed or Continued at Discharge Congestive Heart Failure Inclusion Criteria At DC or during hospital stay patient has or had the following: CHF DIAGNOSIS No Discharge Core Measures Meds if any: Prescribed or Continued at Discharge Meds if any: NOT Prescribed or Continued at Discharge Cerebrovascular accident Inclusion Criteria At DC or during hospital stay patient has or had the following: CVA/TIA Diagnosis No Discharge Core Measures Meds if any: Prescribed or Continued at Discharge Meds if any: NOT Prescribed or Continued at Discharge Venous thromboembolism Inclusion Criteria VTE Diagnosis No VTE Type NONE VTE Confirmed by (Test) NONE Discharge Core Measures - Per Current guidelines, there needs to be overlap - treatment for the first 5 days of Warfarin therapy. - If discharged on Warfarin prior to 5 days of - overlap therapy, the patient will need to be - assessed for post discharge needs including - *Post discharge parental anticoagulation - *Warfarin and/or parental anticoagulation education - *Follow up date to check INR post discharge At least 5 days overlap therapy as Inpatient No Meds if any: Prescribed or Continued at Discharge Note: Overlap Therapy is Warfarin and Anticoagulant Meds if any: NOT Prescribed or Continued at Discharge
[2016-03-08 08:00] VITALS: BP 130/80
[2016-03-08 14:27] VITALS: BP 130/90
[2016-03-08 16:00] VITALS: BP 140/98
[2016-03-08 20:00] VITALS: BP 148/96
[2016-03-08 21:59] VITALS: BP 132/90
[2016-03-09] VITALS: BP 132/90
[2016-03-09 04:00] VITALS: BP 140/80
[2016-03-09 04:21] VITALS: BP 140/80
--- NOTE | 2016-03-09 06:19 | PN- Housestaff ---
TYRELL ETIENNE,BORIS 03/09/16 0619: Subjective Follow-up For: Alcohol detox Subjective: Patient seen and examined at bedside. Resting comfortably in bed with no new complaints. Denies diaphoresis, headache and anxiety. Tremors minimal. CIWA score 0 this morning. Received one time dose of PO Ativan 0.5mg last night but none intravenously over the past 24 hours. Getting out of bed and ambulating. Denies suicidal/homicidal ideation. Denies abdominal pain, constipation and diarrhea this morning. Review of Systems Constitutional: Reports: see HPI. Objective Last 24 Hrs of Vital Signs/I&O Vital Signs Date Time Temp Pulse Resp B/P Pulse O2 O2 Flow FiO2 Ox Delivery Rate 03/09 0903 80 128/88 03/09 08 97.7 80 20 128/88 03/09 08 97.7 80 18 128/88 96 Room Air 03/09 0421 97.6 58 20 140/80 96 Room Air 03/09 0400 97.6 58 20 140/80 03/09 0000 97.7 55 20 132/90 03/08 2159 97.7 55 20 132/90 95 03/08 2115 148/96 03/08 1999 148/96 Intake & Output 03/09 1600 03/09 0800 03/09 0000 Intake Total 600 860 610 Output Total Balance 600 860 610 Intake, IV 0 Intake, Oral 600 860 610 Number 1 Bowel Movements Physical Exam General Appearance: Alert, Oriented X3, Cooperative, No Acute Distress Other Physical Findings: Skin No Significant Lesion HEENT Atraumatic, PERRLA, EOMI Neck Supple Cardiovascular Regular Rate, Normal S1, Normal S2, No Murmurs, Gallops, Rubs Lungs Clear to Auscultation, Normal Air Movement Abdomen Normal Bowel Sounds, Soft, TTP in lower abdomen Neurological mild slurred speech Extremities Tremors in the UEs. No Edema Other Physical Findings: Skin No Significant Lesion Current Medications: Current Medications Sig/Genoveva Start time Last Medication Dose Route Stop Time Status Admin Acetaminophen 650 MG Q6P PRN 03/05 2330 DCD PO Clonidine 0.1 MG TID 03/06 999 DCD 03/09 PO 09 Escitalopram Oxalate 10 MG 0803/06 08 DCD 03/09 PO 09 Folic Acid 1 MG DAILY 03/06 999 DCD 03/09 PO 09 Gabapentin 300 MG TID 03/06 999 DCD 03/09 PO 0904 Ibuprofen 600 MG Q12P PRN 03/05 2330 DCD 03/06 PO 1753 Lamotrigine 50 MG DAILY 03/06 1000 DCD 03/09 PO 0904 Lorazepam 2 MG Q12 03/09 1000 DC PO Lorazepam 2 MG 0600,1800 03/09 0600 DCD PO Lorazepam 0.5 MG ONE ONE 03/08 2000 DC 03/08 PO 03/08 Lorazepam 2 MG Q8 03/08 1400 DC 03/09 PO 0539 Lorazepam 0 Q1P PRN 03/05 2330 DCD 03/06 IV 2116 Multivitamins 1 TAB DAILY 03/06 1000 DCD 03/09 PO 0904 Nicotine 14 MG DAILY 03/06 1000 DCD TOP Omeprazole 20 MG DAILY AC 03/07 0700 DCD 03/09 PO 0539 Ondansetron HCl 4 MG Q6P PRN 03/06 1015 DCD 03/09 IV 0540 Patient Medication 1 ED .STK-MED ONE 03/09 1345 [place] Teaching ED 03/09 1346 Pravastatin Sodium 40 MG 1700 03/06 1700 DCD 03/08 PO 1626 Thiamine HCl 100 MG DAILY 03/06 1000 DCD 03/09 PO 0904 Trazodone HCl 100 MG 2200 03/06 2245 DCD 03/08 PO 2115 Assessment/Plan Assessment: 45-year-old male with PMH of alcohol abuse, alcohol withdrawal seizures, previous ICU admissions for alcohol withdrawal (twice in the past year), anxiety , depression, bipolar disorder, PTSD on marijuana, was brought in by ambulance at the request of his mother for alcohol detox and suicidal ideation. # Alcohol detox CIWA scores and w/d sxs improving on CIWA protocol with IV Ativan PRN. No longer suicidal. * Discharge on Ativan at decreased dose 2mg PO Q12 (to be dinscontinued tmrw) * Cont Ativan 1mg IV Q1P per CIWA protocol * Continue multivitamin, folic acid, thiamine daily * Social work & psych consulted, appreciate recs * Cont to hold clonazepam - instructed to resumed after taking lase Ativan dose at home tmrw * Note: patient is reportedly allergic to Haldol and chlorpromazine # Abdominal pain with intermitten bloody diarrhea and nausea Patient reports chronic abdominal pain in the lower quadrants with bloody diarrhea intermittently for the past 2 years. Also assc with occasional nausea micah in the morning. CT abdomen done this admission negative. Denies any history of IBD, although grandmother had diverticulitis and colectomy. Follows with Dr. Davis outpatient with plan for colonoscopy which he failed to show up for last week. Guaiac stool test positive this morning. * Instruction provided for follow up outpatient with Dr. Davis for colonoscopy * Follow C. diff - negative * Continue protonix 20 mg daily * Continue zofran 4 mg # Anxiety, depression, bipolar * Continue lexapro 10 mg * Continue lamotrigine 50 mg daily * Continue gabapentin 300 mg tid * Continue Trazodone 100 mg at night # Nicotine dependence * Nicotine patch # HLD * Continue pravastatin 40 mg # Hypertension * Continue clonidine 0.1 mg tid - Diet: Regular - Pain pathway: Mild - DVT prophylaxis: subcutaneous Lovenox - Code status: Full Problem List: 1. ALCOHOL WITHDRAWAL Pain Ratin Pain Location: 0 Pain Goal: Remain pain free Pain Plan: Mild path Tomorrow's Labs & Rationales: None - d/c KERA ETIENNE,MARBELLA 03/09/16 1210: Attending MD Review Statement Attending Statement Attending MD Statement: examined this patient, discuss w/resident/PA/DESIGN ARCHITECT, agreed w/resident/PA/DESIGN ARCHITECT, reviewed EMR data (avail), discussed with nursing, discussed with case mgmt, amended to note Attending Assessment/Plan: Patient seen and examined. No issues overnight. CIWA remains low. No requirement for IV benzo. He is medically stable for discharge today. He is unable to follow up with our IOP as he is on chronic benzo therapy from his psychiatrist. He will be following up with his psychiathrist as an ou-pt.
[2016-03-09] MEDS ORDERED: LORAZEPAM1 M1 PO ×2 (07:41→11:42)
[2016-03-09 08:00] VITALS: BP 128/88
[2016-03-09 09:03] VITALS: BP 128/88
--- NOTE | 2016-03-09 09:32 | NUR ---
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
[2016-03-09] MEDS ORDERED: KLONOPIN1 M1 PO (11:22)
--- NOTE | 2016-03-09 11:47 | NUR ---
ALL OF PT'S LOCKED UP MEDICATION RETRIEVED FROM PHARMACY AND GIVEN BACK TO PT, PT SIGNED FOR CORRECT COUNT
--- NOTE | 2016-03-09 15:43 | NUR ---
Late Entry: Aware of patients discharge today. I met with patient earlier this morning. He was readying for discharge, but angry that his primary insurance (medicare) was not going to pay for his treatment at [facility]. Romulo was frustrated, "I'm going to have to get an claims attorney". Romulo plan was to report to his [employer] [facility] directly after his mom picked him up.
--- NOTE | 2016-03-09 18:47 | Discharge Summary ---
Visit Information Visit Dates Admission Date: 03/05/16 Discharge Date: 03/09/16 Hospital Course Course Attending Physician: MARBELLA COTE M.D Primary Care Physician: BETTY ETIENNE,GERARD Hammond Hospital Course: 45-year-old male with PMH significant for alcohol abuse, alcohol withdrawal seizures, multiple previous ICU admissions for alcohol withdrawal, anxiety, depression, bipolar disorder, PTSD on marijuana, was brought in by ambulance at the request of his mother for alcohol detox and suicidal ideation. The following problems were addressed and managed with the plans dsicussed as below: # Alcohol detox Patient was placed on Ativan 2mg PO Q6 which was tapered gradually. Patient was discharged on 2mg PO Q12, to be taken for one more day at home. Patient was also kept on Ativan 1mg IV Q1P per CIWA protocol and received a banana bag and IV hydration witl daily supplements including multivitamin, folic acid, and thiamine during the hospital stay. His CIWA scores improved rapidly and by the discharge day his CIWA scores were zero. * Note: patient is reportedly allergic to Haldol and chlorpromazine # Abdominal pain with intermitten bloody diarrhea and nausea Patient reported chronic abdominal pain in the lower quadrants with bloody diarrhea intermittently for the past 2 years. This was also associated with occasional nausea micah in the morning sometimes. CT abdomen done this admission did not show any acute abdominal pathology. Patient denied any history of IBD, although grandmother had diverticulitis and colectomy. Patient reportedly saw Dr. Davis outpatient [employer] with a plan for colonoscopy which he failed to show up for. Guaiac stool test was positive and Follow C. diff negative this admission. He was kept on protonix 20 mg daily and zofran 4 mg PRN. Patient was instructed to follow up outpatient with Dr. Davis for colonoscopy. # Anxiety, depression, bipolar * Continued lexapro 10 mg * Continued lamotrigine 50 mg daily * Continued gabapentin 300 mg tid * Continued Trazodone 100 mg at night # Nicotine dependence * Patient received Nicotine patch # HLD * Continued pravastatin 40 mg # Hypertension * Continued clonidine 0.1 mg tid - Diet: Regular - Pain pathway: Mild - DVT prophylaxis: subcutaneous Lovenox - Code status: Full Allergies: Coded Allergies: haloperidol (Severe, DIFFICULTY BREATHING 08/13/15) chlorpromazine (DYSTONIC REACTION 08/13/15) Disposition Summary Disposition Principal Diagnosis: Alochol intoxication/withdrawal Additional Diagnosis: N/A Discharge Disposition: home or self care Discharge Instructions General Discharge Information Code Status: Full Code Patient's Diet: Regular Patient's Activity: As tolerated Follow-Up Instructions/Appts: 1. Please follow up with Dr. Holly (psychiatry), Dr. Hua (primary care) and Dr. Davis (gastroenterology) within a week of discharge. 2. Please follow up at [facility] or [facility] as instructed. Medications at Discharge Discharge Medications: Continue taking these medications: Gabapentin (Neurontin) 300 MG CAPSULE 1 Capsule ORAL THREE TIMES DAILY Comments: Last Taken: 03/09/16 Time: 0900 Folic Acid (Folic Acid) 1 MG TABLET 1 Milligram ORAL DAILY Days = 18 Comments: Last Taken: 03/09/16 Time: 0900 Escitalopram Oxalate (Lexapro) 10 MG TABLET 10 Milligram ORAL DAILY @8 AM Days = 18 Comments: Last Taken: 03/09/16 Time: 0900 Lamotrigine (Lamotrigine) 25 MG TABLET 2 Tablet ORAL DAILY Qty = 60 Comments: Last Taken: 03/09/16 Time: 0900 Pravastatin Sodium (Pravastatin Sodium) 40 MG TABLET 1 Tablet ORAL Every night Days = 30 Comments: Last Taken: 03/08/16 Time: 5 PM Clonidine HCl (Clonidine HCl) 0.1 MG TABLET 1 Tablet ORAL THREE TIMES DAILY Days = 30 Comments: Last Taken: 03/09/16 Time: 0900 Pantoprazole Sodium (Protonix) 20 MG TABLET.DR 1 Tablet ORAL DAILY Qty = 30 Comments: Last Taken:03/09/16 Time:0600 ( PRILOSEC GIVEN IN HOSPITAL) Ondansetron HCl (Zofran) 4 MG TABLET 1 Tablet ORAL DAILY as needed for NAUSEA Qty = 10 Comments: NOT GIVEN IN HOSPITAL ( IV GIVEN IN HOSPITAL ) Clonazepam (Klonopin) 1 MG TABLET 1 Tablet ORAL THREE TIMES DAILY Qty = 18 Instructions: PLEASE HOLD WHILE TAKING ATIVAN. PLEASE RESUME AFTER YOU FINISH YOUR LAST ATIVAN DOSE TOMORROW (03/10/16). Comments: Last Taken: NOT GIVEN IN HOSPITAL Time: This prescription has been renewed Start taking the following new medications: Lorazepam (Lorazepam) 1 MG TABLET 2 Milligram ORAL EVERY 12 HOURS Qty = 4 No Refills Instructions: TAKE ONE DOSE TONIGHT (03/09) AND ANOTHER DOSE TOMORROW MORNING (03/10). Comments: Last Taken:03/09/16 Time: 0600 Copies To: BETTY ETIENNE,GERARD Hammond; FANNY ETIENNE,NENITA Canela MD Review Statement Documenting Attending: MARBELLA COTE M.D Other Findings: I have reviewed the discharge summary.
== END 2016-03-09 13:59 | DRG 897 ==
LOC: ERH 14:32 → ERHI 22:21 → ENPENDDIS 22:21 → 2NA 22:21
PROVIDERS: Emergency Medicine; Internal Medicine Hematology & Oncology; ADMIT Student in an Organized Health Care Education/Training Program
DX: F10.239 Alcohol dependence with withdrawal, unspecified (principal); F11.20 Opioid dependence, uncomplicated; E87.0 Hyperosmolality and hypernatremia; E87.2 Acidosis; E86.0 Dehydration; Y90.8 Blood alcohol level of 240 mg/100 ml or more; F41.8 Other specified anxiety disorders; F31.9 Bipolar disorder, unspecified; F17.210 Nicotine dependence, cigarettes, uncomplicated; E78.5 Hyperlipidemia, unspecified; F43.10 Post-traumatic stress disorder, unspecified
CPT/HCPCS: 2NASP; ERO; 36415; 74177; 80307; 81001; 82436; 93005; 93010; G0480; J1650; J2405; J3490; J7060; J7120

== ENCOUNTER 2016-03-25 23:41 | Inpatient (IN) | payer OTHER, MEDICARE ==
[~2016-03-25 23:41] MED LIST changes: +LORAZEPAM1 M1 PO
--- NOTE | 2016-03-25 23:59 | ED GENERAL ADULT ---
History of Present Illness General Chief Complaint: ETOH/Drug Related Complaint Stated Complaint: ETOH Source: patient Exam Limitations: no limitations Allergies Coded Allergies: haloperidol (Severe, DIFFICULTY BREATHING 08/13/15) chlorpromazine (DYSTONIC REACTION 08/13/15) Reconcile Medications Clonazepam (Klonopin) 1 MG TABLET 1 TAB PO TID ALC WITHDRAWL PLEASE HOLD WHILE TAKING ATIVAN. PLEASE RESUME AFTER YOU FINISH YOUR LAST ATIVAN DOSE TOMORROW (03/10/16). Clonidine HCl 0.1 MG TABLET 1 TAB PO TID BP Escitalopram Oxalate (Lexapro) 10 MG TABLET 10 MG PO 0800 MENTAL HEALTH Folic Acid 1 MG TABLET 1 MG PO DAILY SUPPLEMENT Gabapentin (Neurontin) 300 MG CAPSULE 1 CAP PO TID MENTAL HEALTH/NERVE PAIN ( Reported) Lamotrigine 25 MG TABLET 2 TAB PO DAILY MENTAL HEALTH (Reported) Lorazepam 1 MG TABLET 2 MG PO Q12 ALCOHOL INTOX TAKE ONE DOSE TONIGHT (03/09) AND ANOTHER DOSE TOMORROW MORNING (03/10). Ondansetron HCl (Zofran) 4 MG TABLET 1 TAB PO DAILY PRN NAUSEA Pantoprazole Sodium (Protonix) 20 MG TABLET.DR 1 TAB PO DAILY HEARTBURN Pravastatin Sodium 40 MG TABLET 1 TAB PO QPM CHOLESTEROL Triage Nurses Notes Reviewed? yes HPI: Patient is a 45-year-old male who was BIBA after feeling that he is going to alcohol and benzo withdrawal. Patient has a previous history of alcoholic withdrawal seizures having been admitted several times at [facility] for alcoholic detox. patient reports that this morning he took two shots of rubber alcohol and this evening started to feel shaky, hallucinating, and feeling that he will have seizures. He reported seeing 'ants on the ceiling' and feeling something is moving on his skin. Patient also reports headache, severe epigastric abdominal pain 9/10, nausea vomiting, loose stool (non bloody). Reports left sided chest pain since he had a fall 2 weeks ago (slipped on ice), reports coughing, sputum production ( yellowish), denies fever chills, denies LOC, or head trauma. reports SOB both at rest and on exertion. (MAY ETIENNE,VIC) Vital Signs & Intake/Output Vital Signs & Intake/Output Vital Signs Date Time Temp Pulse Resp B/P Pulse O2 O2 Flow FiO2 Ox Delivery Rate 03/26 0606 97.5 91 20 129/70 95 Room Air 03/26 0605 97.5 91 20 129/70 03/26 0427 97.8 98 22 144/78 03/26 0421 97.8 98 22 144/78 97 Room Air 03/26 0250 96.7 93 22 149/85 03/26 0230 96.7 93 20 149/85 96 Room Air 03/25 2353 97.8 107 20 153/91 99 Room Air Onset: Gradual Duration: hour(s): Timing: recent history Injury Environment: home Severity: moderate, severe Modifying Factors: Improves With: rest. Associated Symptoms: tremors (AILIN ETIENNE,JOSEMANUEL Ann) Past History Travel History Traveled to [place] past 21 day No Medical History Any Pertinent Medical History? see below for history Neurological: SEIZURE w/d EENT: NONE Cardiovascular: hypertension Respiratory: NONE Gastrointestinal: PANCREATITIS Hepatic: NONE Renal: NONE Musculoskeletal: left knee multiple tendon r. 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 FH: alcohol abuse grandmother FH: diverticulitis MOTHER Anxiety disorder FHx: bipolar disorder Hx Contributory? Yes (VIC OLVERA MD) Review of Systems Review of Systems Constitutional: Denies: chills, fever, weakness. EENTM: Reports: throat pain. Respiratory: Reports: cough, short of breath, sputum production. Cardiovascular: Denies: chest pain, palpitations, peripheral edema, syncope. GI: Reports: abdominal pain, diarrhea, nausea, vomiting. Genitourinary: Reports: no symptoms. Musculoskeletal: Reports: no symptoms. Skin: Reports: no symptoms. Neurological/Psychological: Reports: headache, tremors. Hematologic/Endocrine: Reports: no symptoms. (VIC OLVERA MD) Physical Exam Physical Exam General Appearance: well developed/nourished, no apparent distress, alert, awake , anxious, comfortable Head: atraumatic, normal appearance Eyes: Bilateral: PERRL, EOMI. Ears, Nose, Throat: normal pharynx, normal ENT inspection, hearing grossly normal Neck: normal inspection, supple, full range of motion Respiratory: wheezing and rhonchi bilaterally Cardiovascular: regular rate/rhythm Peripheral Pulses: 2+ radial (R), 2+ radial (L) Gastrointestinal: tenderness in epigaster and generalized mild tenderness in hypogastric, RLQ, LLQ Back: normal inspection, normal range of motion, no vertebral tenderness Extremities: normal inspection, normal capillary refill, normal range of motion, no edema Neurologic/Psych: no motor/sensory deficits, awake, alert, oriented x 3, coarse tremor in the upper extremities, head and trunk Skin: intact, normal color Core Measures ACS in differential dx? No CVA/TIA Diagnosis: No Severe Sepsis Present: No Septic Shock Present: No (VIC OLVERA MD) Progress Differential Diagnoses I considered the following diagnoses in my evaluation of the patient: [alcohol withdrawal, benzodiazepine withdrawal, rule out aspiration pneumonia] Diagnostic Imaging: Viewed by Me: Radiology Read. Discussed w/RAD: Radiology Read. Radiology Impression: no acute abnormality Initial ED EKG: NSR (VIC OLVERA MD) Differential Diagnoses I considered the following diagnoses in my evaluation of the patient: Plan of Care: Orders Procedure Date/time Status Code Status 03/26 0623 Active Pathway - chart 03/26 0547 Active House Staff 03/26 0547 Active Patient Data 03/26 0547 Active Code Status 03/26 0547 Complete Admit to inpatient 03/26 0535 Active Patient Data 03/26 0438 Active Pathway - chart 03/26 0311 Active CIWA 03/26 0311 Active Intake & Output 03/26 0309 Active HEPATIC FUNCTION PANEL 03/26 0010 Complete ETHANOL 03/26 0010 Complete VTE Mechanical Prophylaxis 03/26 UNK Active PSYCHIATRIC CONSULT 03/26 UNK Active EKG 03/25 2352 Active URINE DRUG SCREEN FOR ER ONLY 03/25 2349 Complete URINALYSIS 03/25 2347 Complete TROPONIN LEVEL 03/25 2347 Complete LIPASE 03/25 2347 Complete CBC WITHOUT DIFFERENTIAL 03/25 2347 Complete BASIC METABOLIC PANEL 03/25 2347 Complete Current Medications Sig/Genoveva Start time Last Medication Dose Stop Time Status Admin Cyanocobalamin/ 1 BAG DAILY 03/26 1000 UNVr Thiamine/Pyridoxine (Vitamin in I.V.) Dextrose/Water 1,000 ML (D5W 1000) Enoxaparin Sodium 40 MG DAILY 03/26 1000 UNVr (Lovenox) Acetaminophen 650 MG Q6P PRN 03/26 0630 UNVr (Tylenol) Lorazepam 2 MG Q2P PRN 03/26 314 AC (Ativan) Lorazepam 1 MG Q2P PRN 03/26 314 AC (Ativan) Lorazepam 1 MG Q2P PRN 03/26 314 AC (Ativan) Laboratory Tests 03/26/16 0420: Urine Opiates Screen < 100.00, Methadone Screen < 40, Barbiturate Screen < 60, Ur Phencyclidine Scrn < 6.00, Amphetamines Screen < 100, U Benzodiazepines Scrn 109, Urine Cocaine Screen < 50, Urine Cannabis Screen 39.50, Urine Color YEL, Urine Clarity CLEAR, Urine pH 6.0, Ur Specific Parks >= 1.030, Urine Protein 30 H, Urine Ketones TRACE H, Urine Nitrite NEG, Urine Bilirubin NEG, Urine Urobilinogen 0.2, Ur Leukocyte Esterase NEG, Ur Microscopic SEDIMENT EXAMINED, Urine RBC 1-3, Urine Mucus MANY H, Urine Hemoglobin NEG, Urine Glucose NEG 03/26/16 0010: Anion Gap 12, Estimated GFR > 60, BUN/Creatinine Ratio 7.0, Glucose 133 H, Calcium 9.2, Total Bilirubin 0.7, Direct Bilirubin 0.5 H, AST 90 H, ALT 30, Alkaline Phosphatase 111, Troponin I < 0.01, Total Protein 7.5, Albumin 4.5, Lipase 84, CBC w Diff NO MAN DIFF REQ, RBC 4.89, MCV 94.6 H, MCH 32.5 H, RDW 14.2, MPV 6.2 L, Gran % 46.3, Lymphocytes % 47.2, Monocytes % 5.7, Eosinophils % 0.3, Basophils % 0.5, Absolute Granulocytes 2.2, Absolute Lymphocytes 2.2, Absolute Monocytes 0.3, Absolute Eosinophils 0, Absolute Basophils 0, PUBS MCHC 34.3, Serum Alcohol < 10.0 03/25/16 8422: Total Bilirubin Cancelled, Direct Bilirubin Cancelled, AST Cancelled, ALT Cancelled, Alkaline Phosphatase Cancelled, Total Protein Cancelled, Albumin Cancelled, Serum Alcohol Cancelled Departure Departure Condition: Stable Clinical Impression Primary Impression: Alcohol withdrawal Secondary Impressions: Benzodiazepine abuse, Benzodiazepine withdrawal Referrals: BETTY ETIENNEGERARD (PCP/Family) Departure Forms: Customer Survey General Discharge Information Comments 4 am: Patient received a total of 4mg IV Ativan and 2 mg by mouth Ativan, still having tremors and hallucinating, was put on Ativan per CIWA protocol (MAY ETIENNE,VIC) Departure Disposition: STILL A PATIENT Admission Note Spoke With: ISH BROWN MD Documentation of Exam: Documentation of any treatments & extenuating circumstances including Concerns Regarding Discharge (functional status, medication knowledge or non-compliance, living conditions, etc.) that warrant an admission rather than observation: After ativan 2mg iv x 2, ativan 2mg po x 2, pt still with ciwa score of 13-14... Pt will require large amounts of ativan. Given this, he is best served in the ICU. Resident Co-Sign Statement Statement: ED Attending supervision documentation- [X] I saw and evaluated the patient. I have also reviewed all the pertinent lab results and diagnostic results. I agree with the findings and the plan of care as documented in the Resident's documentation. see admit note. [] I have reviewed the ED Record and agree with the Resident's documentation. [] Additions or exceptions (if any) to the Resident's note and plan are summarized below: [] (AILIN ETIENNE,JOSEMANUEL Ann) Critical Care Note Critical Care Note Critical Care Time: 30-74 min (AILIN ETIENNE,JOSEMANUEL Ann)
[2016-03-26] VITALS (8 sets, daily range): BP systolic 129–156; BP diastolic 70–100
--- NOTE | 2016-03-26 | NUR ---
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
[2016-03-26 00:23] LABS: ABSOLUTE BASOPHIL COUNT 0 /CUMM (0.0-0.2); ABSOLUTE EOSINOPHIL COUNT 0 /CUMM (0.0-0.7); ABSOLUTE GRANULOCYTE CT 2.2 /CUMM (1.4-6.5); ABSOLUTE LYMPH COUNT 2.2 /CUMM (1.2-3.4); ABSOLUTE MONOCYTE COUNT 0.3 /CUMM (0.10-0.60); BASOPHIL % 0.5 % (0.0-2.0); EOSINOPHIL % 0.3 % (0-5); GRANULOCYTE % 46.3 % (42.2-75.2); HEMATOCRIT 46.2 % (42-52); MEAN CORPUSCULAR HGB 32.5 PG (27.0-31.0); MEAN CORPUSCULAR HGB CONC 34.3 G/DL (33.0-37.0); MEAN CORPUSCULAR VOLUME 94.6 FL (80.0-94.0); MEAN PLATELET VOLUME 6.2 FL (7.4-10.4); RBC DISTRIBUTION WIDTH 14.2 % (11.5-14.5); RED BLOOD CELL CT 4.89 /CUMM (4.70-6.10); WHITE BLOOD CELL COUNT 4.7 /CUMM (4.8-10.8)
--- NOTE | 2016-03-26 00:35 | NUR ---
NEFTALI TROY AND SHOWN TO DR. PARISI.
[2016-03-26 00:43] LABS: PLATELET COUNT 218 /CUMM (130-400)
--- NOTE | 2016-03-26 01:00 | NUR ---
TREMORS CONTINUE BUT ARE NOT SEVERE. HR = 86.
--- NOTE | 2016-03-26 01:44 | RADIOLOGY REPORT ---
EXAMINATION: XR PORTABLE CHEST CLINICAL INFORMATION: Coughing/alcohol withdrawal COMPARISON: Chest x-ray 01/05/2016 TECHNIQUE: Portable AP view of the chest was obtained. FINDINGS: Low lung volumes. No focal consolidation, pleural effusion, or pneumothorax. Cardiac silhouette size is normal. There are no acute osseous findings. IMPRESSION: No acute pulmonary process.
--- NOTE | 2016-03-26 02:20 | NUR ---
TREMORS RETURNED. STATES HE IS SEEING"HIS GRANDMOTHER AND SHE HAS BEEN FOR MANY YRS"
--- NOTE | 2016-03-26 02:50 | NUR ---
ATIVAN 2MG IV GIVEN
--- NOTE | 2016-03-26 03:12 | NUR ---
PROGRAM SPECIALIST IN TO [facility]
--- NOTE | 2016-03-26 04:30 | NUR ---
DR PARISI IN TO RE EVAL-- PT TO BE ADMITTED
--- NOTE | 2016-03-26 04:35 | NUR ---
ATIVAN GIVEN ORDERED.
--- NOTE | 2016-03-26 05:11 | NUR ---
HOUSE STAFF HERE TO EVAL AND WRITE ADMIT ICU ORDERS.
--- NOTE | 2016-03-26 06:05 | History & Physical ---
WILMER [facility]TIENNE,[facility] [place]/26/16 0604: General Information and HPI MD Statement: I have seen and personally examined PRAKASH JOHNSON and documented this H&P. The patient is a 45 year old M who presented with a patient stated chief complaint of alcohol withdrawal and suicidal ideation. Source of Information: patient, old records Exam Limitations: no limitations History of Present Illness: Mr. Johnson is a 45 y/o M with PMHx of alcohol abuse c/b alcohol withdrawal seizures and multiple admissions for alcohol withdrawal, bipolar disorder, anxiety and PTSD who presents with alcohol withdrawal symptoms and suicideal ideation. Patient reports drinking 1 L of 90% alcohol in the morning on the day prior to current presentation. In the evening, he developed jitteriness and tremors as well as visual hallucinations. He felt like he was going to have a seizure and called 911 and was subsequently brought to the ED. He endorses visual hallucinations and depression with suicidal ideation. He reports LUQ tenderness, nausea, vomiting and loose stools. He also complains of shortness of breath both at rest and with exertion and cough productive of yellow sputum. He denies fever or chills. He also reports left-sided chest pain which he attributes to a fall after slipping on ice two weeks ago. He denies head trauma or loss of consciousness. Allergies/Medications Allergies: Coded Allergies: haloperidol (Severe, DIFFICULTY BREATHING 08/13/15) chlorpromazine (DYSTONIC REACTION 08/13/15) Past History Travel History Traveled to [place] past 21 day No Medical History Neurological: SEIZURE w/d EENT: NONE Cardiovascular: hypertension Respiratory: NONE Gastrointestinal: PANCREATITIS Hepatic: NONE Renal: NONE Musculoskeletal: left knee multiple tendon r. 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 FH: alcohol abuse grandmother FH: diverticulitis MOTHER Anxiety disorder FHx: bipolar disorder Psychosocial History Where do you live? Home Who Do You Live With? parent Services at Home: None Primary Language: Czech ETOH Use: alcoholic Living Will? no Functional Ability ADLs Independent: dressing, eating, toileting, bathing. Ambulation: independent IADLs Independent: shopping, housework, finances, food prep, telephone, transportation , medication admin. Review of Systems Review of Systems Constitutional: Denies: chills, fever. EENTM: Reports: no symptoms. Cardiovascular: Reports: chest pain. Respiratory: Reports: cough, short of breath, sputum production. GI: Reports: abdominal pain, nausea, changes in stool, vomiting. Genitourinary: Reports: no symptoms. Musculoskeletal: Reports: no symptoms. Skin: Reports: no symptoms. Neurological/Psychological: Reports: depressed, tremors. Hematologic/Endocrine: Reports: no symptoms. Immunologic/Allergic: Reports: no symptoms. All Other Systems: Reviewed and Negative Exam & Diagnostic Data Last 24 Hrs of Vital Signs/I&O Vital Signs Date Time Temp Pulse Resp B/P Pulse O2 O2 Flow FiO2 Ox Delivery Rate 03/26 1001 98.4 86 20 130/75 03/26 0957 98.4 86 20 130/75 96 Room Air 03/26 0900 97.8 89 18 156/91 03/26 0858 97.8 89 18 156/91 96 03/26 0732 97.0 89 22 135/89 03/26 0730 97.0 89 22 135/89 97 Room Air 03/26 0606 97.5 91 20 129/70 95 Room Air 03/26 0605 97.5 91 20 129/70 03/26 0427 97.8 98 22 144/78 03/26 0421 97.8 98 22 144/78 97 Room Air 03/26 0250 96.7 93 22 149/85 03/26 0230 96.7 93 20 149/85 96 Room Air 03/25 2353 97.8 107 20 153/91 99 Room Air Intake & Output 03/26 1600 03/26 0800 03/26 0000 Intake Total 1000 Output Total Balance 1000 Intake, IV 1000 Physical Exam General Appearance Alert, Oriented X3, No Acute Distress Skin No Rashes HEENT PERRLA Neck Supple, No JVD Cardiovascular Regular Rate, Normal S1, Normal S2 Lungs Clear to Auscultation Abdomen Soft, No Tenderness, Positive Bowel Sounds Neurological Normal Speech, Strength at 5/5 X4 Ext, Cranial Nerves 3-12 NL, No Gross Focal Deficits Noted, Tremors Appreciated Extremities No Clubbing, No Cyanosis, No Edema Last 24 Hrs of Labs/Otni: Laboratory Tests 03/26/16 0420: Urine Opiates Screen < 100.00, Methadone Screen < 40, Barbiturate Screen < 60, Ur Phencyclidine Scrn < 6.00, Amphetamines Screen < 100, U Benzodiazepines Scrn 109, Urine Cocaine Screen < 50, Urine Cannabis Screen 39.50, Urine Color YEL, Urine Clarity CLEAR, Urine pH 6.0, Ur Specific [place] >= 1.030, Urine Protein 30 H, Urine Ketones TRACE H, Urine Nitrite NEG, Urine Bilirubin NEG, Urine Urobilinogen 0.2, Ur Leukocyte Esterase NEG, Ur Microscopic SEDIMENT EXAMINED, Urine RBC 1-3, Urine Mucus MANY H, Urine Hemoglobin NEG, Urine Glucose NEG 03/26/16 0010: Anion Gap 12, Estimated GFR > 60, BUN/Creatinine Ratio 7.0, Glucose 133 H, Calcium 9.2, Total Bilirubin 0.7, Direct Bilirubin 0.5 H, AST 90 H, ALT 30, Alkaline Phosphatase 111, Troponin I < 0.01, Total Protein 7.5, Albumin 4.5, Lipase 84, CBC w Diff NO MAN DIFF REQ, RBC 4.89, MCV 94.6 H, MCH 32.5 H, RDW 14.2, MPV 6.2 L, Gran % 46.3, Lymphocytes % 47.2, Monocytes % 5.7, Eosinophils % 0.3, Basophils % 0.5, Absolute Granulocytes 2.2, Absolute Lymphocytes 2.2, Absolute Monocytes 0.3, Absolute Eosinophils 0, Absolute Basophils 0, PUBS MCHC 34.3, Serum Alcohol < 10.0 03/25/16 2352: Total Bilirubin Cancelled, Direct Bilirubin Cancelled, AST Cancelled, ALT Cancelled, Alkaline Phosphatase Cancelled, Total Protein Cancelled, Albumin Cancelled, Serum Alcohol Cancelled Microbiology 03/26 112 UPPER RESP: Surveillance Culture - ORD 03/26 1126 GI: Surveillance Culture - ORD Diagnostic Data EKG Results NSR CXR Results No acute pulmonary process. Assessment/Plan Assessment: 45 y/o M with PMHx of alcohol abuse c/b alcohol withdrawal seizures and multiple admissions for alcohol withdrawal, bipolar disorder and PTSD who presents with alcohol withdrawal symptoms and suicideal ideation. #Alcohol withdrawal: CIWA scores have been elevated to a maximum of 16 despite receiving 7 mg of IV and 6 mg of PO Ativan. * Admit to ICU for IV Ativan drip. * Start IV Ativan drip at 2 mg/hr and uptitrate as needed. * Banana bag started. * Fall and seizure precautions. * Zofran PRN for nausea. #Bipolar disorder/anxiety/PTSD: Has been endorsing suicidal ideation. * Psych consult placed. Appreciate their recs. * Psych medications on hold. Consider resuming after discussing with psychiatrist. #Diet: Regular #DVT PPx: Lovenox and ALPs #CODE: FULL As Ranked By This Provider Problem List: 1. ALCOHOL WITHDRAWAL 2. Suicidal ideation 3. Bipolar 1 disorder 4. Alcohol abuse 5. PTSD (post-traumatic stress disorder) 6. Anxiety Core Measures/Miscellaneous Acute Coronary Syndrome ACS Diagnosis: No Cerebrovascular Accident CVA/TIA Diagnosis: No Congestive Heart Failure CHF Diagnosis: No Venous Thromboembolism VTE Risk Factors: Acute medical illness, Age > 40 VTE Prophylaxis Ordered Inpt: Mech & Pharm No Mech VTE prophylaxis d/t: No contraindications No VTE Pharm Prophylaxis d/t: No contraindications VTE Diagnosis: No VTE Type: NONE VTE Confirmed by (Test): NONE Severe Sepsis Severe Sepsis Present: No Septic Shock Septic Shock Present: No Miscellaneous Documentation Attending Case Discussed With: ISH BROWN MD Primary Care Physician: GERARD HERNÁNDEZ MD Patient sees these Specialists N/A Level of Patient Care: Critical Care (CRI) ELIAZARDOTTIEMEG 03/26/16 0604: Resident Review Statement Resident Statement: examined this patient, discussed with internet developer, agreed with internet developer Other Findings: Patient is a 45-year-old woman with past medical history significant for Alcohol abuse, alcohol withdrawal seizures, multiple previous ICU admissions for alcohol withdrawal, anxiety, depression, bipolar disorder, PTSD on marijuana, recently admitted to [facility] for alcohol abuse and suicidal ideation presented to the ED with a similar complaints. Patient reported that he had 1 L of 90% alcoholic the morning yesterday. In the evening he started feeling shaky/jerky. Also reported visual visual hallucinations and had a feeling that he is going to seize and called 911 and was brought to the ER for further assessment. In the ER patient reported headaches with left upper quadrant tenderness with nausea vomiting, loose stool (non bloody). Reports left sided chest pain since he had a fall 2 weeks ago (slipped on ice), reports coughing, sputum production (yellowish), denies fever chills, denies LOC, or head trauma. reports SOB both at rest and on exertion. In the ER patient was having tremors, he received 12 mg of IV and by mouth Ativan in the ED without much improvement in his symptoms CIWA scores remained high around 15 and also reported visual hallucinations, was depressed and had suicidal ideations. Vitals on admission to , pulse 107, respiratory rate 20, blood pressure 153/91 on room air On examination general Appearance: Alert, No Acute Distress Skin: Grossly normal HEENT: PEERLA Neck: Supple, No JVD Cardiovascular: S1 plus S2 +0 without any murmurs Lungs: bilateral basal crackles Abdomen: Normal Bowel Sounds, Soft, No Tenderness Neurological: Bilateral tremors on exam .Normal Speech, Strength at 5/5 X4 Ext, Cranial Nerves 3-12 NL, Reflexes 2+ Extremities: No edema in the lower lower extremity Pertinent labs on admission The pupils equal 4.7, H&H 15.9, 46.2, MCV 94 elevated direct bilirubin 0.5, AST 90 urine toxicology negative urinalysis benign Chest x-ray no acute pathology Assessment and plan 1. Alcohol abuse with withdrawal with suicidal ideation: * Patient will be admitted to the ICU * We'll start the patient on IV Ativan drip at a rate of 2 mg per hour. * Continue with banana bag * Psych consult in the morning * Continue home medications * Watch for any seizures * Fall precautions * Neurochecks every 2 hours. 2. History of depression, anxiety and bipolar * Resume medications after discussing with the psych. 3 Left upper quadrant pain/epigastric discomfort * IV Protonix * Zofran as needed for nausea 4. History of hypertension * Continue clonidine. 5. Patient is currently very depressed does not want to be this is related please readdress the CODE STATUS in the morning. TALIB VARGHESE MD 03/26/16 8996: General Information and HPI Allergies/Medications Home Med list Clonazepam (Klonopin) 1 MG TABLET 1 TAB PO TID ALC WITHDRAWL PLEASE HOLD WHILE TAKING ATIVAN. PLEASE RESUME AFTER YOU FINISH YOUR LAST ATIVAN DOSE TOMORROW (03/10/16). Clonidine HCl 0.1 MG TABLET 1 TAB PO TID BP Escitalopram Oxalate (Lexapro) 10 MG TABLET 10 MG PO 0800 MENTAL HEALTH Folic Acid 1 MG TABLET 1 MG PO DAILY SUPPLEMENT Gabapentin (Neurontin) 300 MG CAPSULE 1 CAP PO TID MENTAL HEALTH/NERVE PAIN ( Reported) Lamotrigine 25 MG TABLET 2 TAB PO DAILY MENTAL HEALTH (Reported) Lorazepam 1 MG TABLET 2 MG PO Q12 ALCOHOL INTOX TAKE ONE DOSE TONIGHT (03/09) AND ANOTHER DOSE TOMORROW MORNING (03/10). Ondansetron HCl (Zofran) 4 MG TABLET 1 TAB PO DAILY PRN NAUSEA Pantoprazole Sodium (Protonix) 20 MG TABLET.DR 1 TAB PO DAILY HEARTBURN Pravastatin Sodium 40 MG TABLET 1 TAB PO QPM CHOLESTEROL Trazodone HCl 100 MG TABLET 1 TAB PO DAILY ANXIETY (Reported) Review of Systems Review of Systems Constitutional: Denies: no symptoms. Attending MD Review Statement Attending Statement Attending MD Statement: examined this patient, discuss w/resident/PA/MATERIAL DISPATCHER, agreed w/resident/PA/MATERIAL DISPATCHER, reviewed EMR data (avail), discussed with nursing, amended to note Attending Assessment/Plan: The patient is a 45 yo male with h/o EtOH abuse and complicated withdrawals, bipolar disorder, and anxiety who presented in the ED with suicidal ideation and acute alcohol withdrawal. He had been drinking "rubbing alcohol". He was requiring significant amounts of Ativan in ED with high CIWA scores and was placed on an Ativan drip. He also noted some LUQ abdominal discomfort. Physical Exam: VS: T 97.8, P 107, R 20, BP 153/91 PO 99% initial 97.8 89 20 135/89 subsequent HEENT: eyes- PERRLA, non-icteric brendan- dry mucosa Neck: no adenopathy Chest: diminished BS at bases, clear Cor: RRR, nl S1, S2 w/o murm Abd: BS+, soft, non-tender Ext: no edema, pulses 2+ Neuro: alert at time of my exam, anxious, non-focal, + mild tremor Labs/Tests: as above Impression/Plan: #Acute Alcohol Withdrawal/Ingestion- with high CIWA and large amount of Ativan given in ED. Has h/o complicated withdrawal and concern. Was placed on Ativan drip in ED. Concern that ingestion included rubbing alcohol, vanilla extract, Listerine and vodka. He denied any visual blurring, scotomata, blindness, or flank pain/hematuria. Plan: Admit to ICU. Ativan drip and titrate as per CIWA protocol. Watch closely for seizures. Will need social service and psych input when stable MVI, thiamine, folate as per protocol. #Bipolar Disorder/Anxiety/PTSD- known to psychiatry. with Suicidal Ideation. Plan: Psychiatry consult. Close monitoring. Psych to determine psych medications. #GERD- on Pantoprazole as OP. Plan: Omeprazole while in hospital. #HL- on Pravastatin. Plan: Hold at present with GI upset.
--- NOTE | 2016-03-26 06:08 | NUR ---
ATIVAN DRIP STARTED AT 2MG/HR
--- NOTE | 2016-03-26 06:56 | NUR ---
CO LARIOS--TYLENOL 2 TABS PO GIVEN
--- NOTE | 2016-03-26 07:45 | NUR ---
ASSUMED CARE OF THIS PATIENT, REPORT RECEIVED FROM MICHAEL SCHAEFER. PT RESTING ON STRETCHER IN ERH RM 2 COMPLAINS OF FEELING SHAKY, HEAD AND RIB PAIN. STATES RIB PAIN IS S/P FALL ONTO A LOG A FEW WEEKS AGO AND WAS TOLD HE HAD RIB CONTUSIONS. STATES HEAD PAIN IS RELATED TO ALCOHOL WITHDRAWAL. DENIES ANY HALLUCINATIONS AT PRESENT BUT HAS SOME NAUSEA. ATIVAN DRIP INFUSING PER ORDERS, NO CHANGES TO DRIP MADE. SAS SCORE = 4, CIWA SCORE = 14 WILL CONTINUE TO MONITOR.
--- NOTE | 2016-03-26 07:51 | NUR ---
PT MEDICATED WITH PO ATIVAN PER ORDERS
--- NOTE | 2016-03-26 08:50 | Admission Certification ---
Admission Certification Certification Statement - As attending physician, I certify that at the time of - admission, based on clinical presentation, severity of - symptoms, need for further diagnostic testing and - therapeutic interventions, and risk of adverse outcomes - without in-hospital treatment, in my clinical assessment, - this patient requires an acute hospital stay for a minimum - of two nights or longer. I have also considered psychsocial - factors such as support system, advanced age, financial - issues, cognitive issues, and failed out-patient treatments, - past re-admission history, safety of patient, and lack of - compliance as applicable. Specific rationale supporting this admission is: Patient presents with acute alcohol withdrawal/DT's. Requiring large amounts of Ativan. Needs ICU admit for IV Ativan drip and CIWA/detox protocol. Also with epigastric pain (?gastritis). Was drinking rubbing alcohol at home.
--- NOTE | 2016-03-26 09:05 | NUR ---
MEDICATED WITH 1 MG IV ATIVAN FOR CIWA SCORE 10 SAS SCORE REMAINS 4. REFUSED AM BREAKFAST TRAY WHEN DELIVERED BUT NOW REQUESTING COFFEE.
--- NOTE | 2016-03-26 09:18 | NUR ---
PER HERVE GARCÍA MD, PT TO REMAIN ICU ADMIT AT THIS TIME. DANIEL, STAINED GLASS WINDOW DESIGNER, PAGED FOR SAME.
--- NOTE | 2016-03-26 09:28 | NUR ---
BANANA BAG REQUESTED FROM PHARMACY PER ORDERS
--- NOTE | 2016-03-26 09:50 | NUR ---
PT MEDICATED WITH 10 AM LOVENOX INJECTION AND WITH IV ZOFRAN PER ORDERS OF MD SARABIA PAGER #[phone] BANANA BAG NOT YET READY FROM PHARMACY
--- NOTE | 2016-03-26 10:12 | NUR ---
IV PUMP REQUESTED FROM [facility] FOR IV BANANA BAG INFUSION
--- NOTE | 2016-03-26 10:14 | NUR ---
PT GOING TO ICU RM 105 REPORT GIVEN TO ANITA
--- NOTE | 2016-03-26 10:56 | NUR ---
PT TRANSPORTED WITHOUT INCIDENT
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
[2016-03-26] MEDS ORDERED: TRAZODONE HCL100 M1 PO (14:36)
--- NOTE | 2016-03-26 20:55 | NUR ---
PT ADMITTED FROM ER. BEDSIDE REPORT RECEIVED. PT IS ALERT, CIWA IS 19-20, ATIVAN DRIP INCREASED TO 6MG PER HOUR. PO MEDS STARTED. MONITOR NSR.
[2016-03-27] VITALS: BP 150/80
--- NOTE | 2016-03-27 00:32 | NUR ---
PT ALERT AND AWAKE, DENIES PAIN AT THIS TIME. ON ATIVAN GTT AT 6MG. NSR70;S, MANUAL BP 150/80. SATURATION ON RA 95%. VOIDING SPONTANEOUSLY TO CLEAR YELLOW URINE.
[2016-03-27 02:00] VITALS: BP 150/96
[2016-03-27 04:00] VITALS: BP 152/90
--- NOTE | 2016-03-27 04:26 | NUR ---
PT WANTS TO SIGHN OUT AMA. , AND IN TO SEE PT. REFUSED LABS AND TOOK OFF ALL HIS MONITOR LEADS. WANTS ATIVAN GTT OFF WELL.
--- NOTE | 2016-03-27 04:44 | Event Note ---
Event Note Event Note: At 4 AM, we were alerted by nursing staff that patient had expressed his wish to leave AMA. I explained the risks of leaving AMA including seizures and even from alcohol withdrawal to the patient, yet he continued to express his desire to leave. This was followed by a long and detailed conversation between my resident Dr. Minor and attending Dr. Leyva, where we stressed the importance of staying inpatient for continued treatment and the risks of leaving AMA. We offered to discontinue the Ativan IV drip and place the patient on PO scheduled Ativan and IV Ativan per [facility] protocol as he complained about being hooked up to the drip, but he remained adamant about leaving. Patient was discharged AMA around 5:15 AM. Paperwork was completed and signed.
--- NOTE | 2016-03-27 05:05 | Patient Discharge Instructions ---
Discharge Instructions General Discharge Information You were seen/treated for: Alcohol withdrawal Special Instructions: Please see your primary physician Dr. Chan within one week of discharge. Diet Continue normal diet: Yes Activity Full Activity/No Limits: Yes Acute Coronary Syndrome Inclusion Criteria At DC or during hospital stay patient has or had the following: ACS DIAGNOSIS No Discharge Core Measures Meds if any: Prescribed or Continued at Discharge Meds if any: NOT Prescribed or Continued at Discharge Congestive Heart Failure Inclusion Criteria At DC or during hospital stay patient has or had the following: CHF DIAGNOSIS No Discharge Core Measures Meds if any: Prescribed or Continued at Discharge Meds if any: NOT Prescribed or Continued at Discharge Cerebrovascular accident Inclusion Criteria At DC or during hospital stay patient has or had the following: CVA/TIA Diagnosis No Discharge Core Measures Meds if any: Prescribed or Continued at Discharge Meds if any: NOT Prescribed or Continued at Discharge Venous thromboembolism Inclusion Criteria VTE Diagnosis No VTE Type NONE VTE Confirmed by (Test) NONE Discharge Core Measures - Per Current guidelines, there needs to be overlap - treatment for the first 5 days of Warfarin therapy. - If discharged on Warfarin prior to 5 days of - overlap therapy, the patient will need to be - assessed for post discharge needs including - *Post discharge parental anticoagulation - *Warfarin and/or parental anticoagulation education - *Follow up date to check INR post discharge At least 5 days overlap therapy as Inpatient No Meds if any: Prescribed or Continued at Discharge Note: Overlap Therapy is Warfarin and Anticoagulant Meds if any: NOT Prescribed or Continued at Discharge
--- NOTE | 2016-03-27 05:13 | NUR ---
ATIVAN GTT D/C AT 0500 ORDERED. [place] D/C WELL. PT WANTS TO GET THE BUS IN [place] AT 0530 TODAY. AND AWARE.
--- NOTE | 2016-03-27 05:24 | NUR ---
PT MARIA VICTORIA FOR AMA. ASSISTED TO THE [facility] LOBBY.
--- NOTE | 2016-03-28 03:16 | Discharge Summary ---
Visit Information Visit Dates Admission Date: 03/26/16 Discharge Date: 03/27/16 Hospital Course Course Attending Physician: Markel WALLACE MD Primary Care Physician: GERARD HERNÁNDEZ MD Consulting Request: Consulting Specialty: Critical Care Consulting Physician: Trinity Wallace MD Reason for Consult: ETOH withdrawal Hospital Course: 45 y/o M with PMHx of alcohol abuse, bipolar disorder, anxiety, depression and PTSD, with multiple hospitalizations for alcohol detox/withdrawal and suicidal ideation, who presented to the ED with tremors, hallucinations and suicidal ideation after drinking 90% rubbing alcohol, vanilla extract, vodka and Listerine at home. On initial presentation, vitals were significant for tachycardia with heart rate of 107 which later improved and elevated blood pressure of 153/91. Bicarbonate and anion gap were within normal limits. CBC and BMP were unremarkable. ABG showed only very mild respiratory alkalosis. Patient required high doses of Ativan in the ED with persistently elevated CIWA scores, thus was placed on Ativan drip and admitted to the ICU for close monitoring. Below are the issues that were addressed during current admission: #Acute alcohol withdrawal/ingestion: Patient was continued on the Ativan IV drip in the ICU. His CIWA scores initially remained high in the 10-20 range but trended down to <10 within 24 hours. Urine toxicology and serum alcohol were ordered which came back negative, but patient had elevated acetone levels. He received IV multivitamins, thiamine and folate. Approximately 24 hours after admission, he expressed his wish to leave AMA. The risks of leaving AMA including seizures and even from alcohol withdrawal as well as the importance of staying inpatient for continued treatment were explained in detail and length to the patient by the medical team including attending Dr. Leyva. However patient was adamant about leaving AMA and demanded to be unhooked from the Ativan drip. The option of discontinuing the Ativan drip and ordering PO scheduled Ativan and IV Ativan per CIWA protocol was offered to the patient but patient refused and left AMA. #Bipolar disorder/PTSD/anxiety: Patient's prior to admission psychiatric medications were confirmed by speaking to his pharmacy. He was taking gabapentin 300 mg PO TID, trazodone 100 mg PO QD, lamotrigine 50 mg PO QD, Lexapro 10 mg PO QD, clonazepam 1 mg PO TID and clonidine 0.1 mg PO TID. All medications were continued except for clonazepam as patient was on the Ativan IV drip. The plan was to consult psychiatry on Monday03/28/16, but patient had left AMA before then. Allergies: Coded Allergies: haloperidol (Severe, DIFFICULTY BREATHING 08/13/15) chlorpromazine (DYSTONIC REACTION 08/13/15) Disposition Summary Disposition Principal Diagnosis: Acute alcohol ingestion/withdrawal Additional Diagnosis: N/A Discharge Disposition: left against medical adv Discharge Instructions General Discharge Information Code Status: Full Code Patient's Diet: Regular Patient's Activity: Full Activity/No Limits Follow-Up Instructions/Appts: Please see your primary physician Dr. Hernández within one week of discharge. Medications at Discharge Discharge Medications: Stop taking the following medications: Lorazepam (Lorazepam) 1 MG TABLET ORAL EVERY 12 HOURS Qty = 4 Continue taking these medications: Gabapentin (Neurontin) 300 MG CAPSULE 1 Capsule ORAL THREE TIMES DAILY Comments: Last Taken: 03/09/16 Time: 0900 Folic Acid (Folic Acid) 1 MG TABLET 1 Milligram ORAL DAILY Days = 18 Comments: Last Taken: 03/09/16 Time: 0900 Escitalopram Oxalate (Lexapro) 10 MG TABLET 10 Milligram ORAL DAILY @8 AM Days = 18 Comments: Last Taken: 03/09/16 Time: 0900 Lamotrigine (Lamotrigine) 25 MG TABLET 2 Tablet ORAL DAILY Qty = 60 Comments: Last Taken: 03/09/16 Time: 0900 Pravastatin Sodium (Pravastatin Sodium) 40 MG TABLET 1 Tablet ORAL Every night Days = 30 Comments: Last Taken: 03/08/16 Time: 5 PM Clonidine HCl (Clonidine HCl) 0.1 MG TABLET 1 Tablet ORAL THREE TIMES DAILY Days = 30 Comments: Last Taken: 03/09/16 Time: 0900 Pantoprazole Sodium (Protonix) 20 MG TABLET.DR 1 Tablet ORAL DAILY Qty = 30 Comments: Last Taken:03/09/16 Time:0600 ( PRILOSEC GIVEN IN HOSPITAL) Ondansetron HCl (Zofran) 4 MG TABLET 1 Tablet ORAL DAILY as needed for NAUSEA Qty = 10 Comments: NOT GIVEN IN HOSPITAL ( IV GIVEN IN HOSPITAL ) Clonazepam (Klonopin) 1 MG TABLET 1 Tablet ORAL THREE TIMES DAILY Qty = 18 Instructions: PLEASE HOLD WHILE TAKING ATIVAN. PLEASE RESUME AFTER YOU FINISH YOUR LAST ATIVAN DOSE TOMORROW (03/10/16). Comments: Last Taken: NOT GIVEN IN HOSPITAL Time: Trazodone HCl (Trazodone HCl) 100 MG TABLET 1 Tablet ORAL DAILY Copies To: BETTY ETIENNE,GERARD Hammond
== END 2016-03-27 05:30 | disposition left against medical advice (07) | DRG 894 ==
LOC: ENRESERVTM → ENRESERVDT → ERH 23:41 → ERHI 03-26 05:35 → CRI 03-26 05:35 → CMPBEDREQ 03-26 05:52 → ERHI 03-26 06:06 → CRI 03-26 10:42 → ERHI 03-26 10:42 → CRI 03-27 05:30
PROVIDERS: Ophthalmology; ADMIT Internal Medicine
DX: F10.239 Alcohol dependence with withdrawal, unspecified (principal); I10 Essential (primary) hypertension; F31.9 Bipolar disorder, unspecified; F43.10 Post-traumatic stress disorder, unspecified; F41.9 Anxiety disorder, unspecified; Y90.8 Blood alcohol level of 240 mg/100 ml or more
CPT/HCPCS: CCU; 80307; 81001; 82436; 84600; 93005; 93010; 96374; G0480; J1650; J2060; J2405; J2765; J7060

== ENCOUNTER 2016-04-13 20:36 | Inpatient (IN) | payer OTHER, MEDICARE ==
[~2016-04-13] VITALS: Ht 170.2 cm; Wt 90.7 kg
--- NOTE | 2016-04-13 20:42 | ED GI/GU/ABDOMINAL COMPLAINT ---
See Addendum History of Present Illness General Chief Complaint: Abdominal Pain/Flank Pain Stated Complaint: ABD PAIN Source: patient, old records Exam Limitations: intoxication Vital Signs & Intake/Output Vital Signs & Intake/Output Vital Signs Date Time Temp Pulse Resp B/P Pulse O2 O2 Flow FiO2 Ox Delivery Rate 04/14 0542 97.1 77 18 138/87 96 Room Air 04/14 0400 95.8 78 16 148/96 04/14 0400 95.8 78 16 148/96 96 Nasal 2.0L Cannula 04/14 0120 98.0 80 16 131/77 04/14 0114 98.0 80 16 131/77 95 Room Air 04/13 2340 98.2 79 18 138/86 04/13 2340 98.2 79 18 138/86 96 Room Air 04/13 2231 98.0 94 20 156/90 04/13 2043 98.3 87 18 136/89 97 Room Air ED Intake and Output 04/14 0000 04/13 1200 Intake Total 1000 Output Total Balance 1000 Intake, IV 1000 Allergies Coded Allergies: haloperidol (Severe, DIFFICULTY BREATHING 04/13/16) chlorpromazine (DYSTONIC REACTION 04/13/16) Triage Nurses Notes Reviewed? yes Onset: Abrupt Duration: hour(s): (FEW) Timing: recent history Severity Numbers: 10 HPI: 45-year-old male with history of alcohol abuse who presents to the ER with chief complaint of feeling like he is withdrawing. Today he states he didn't have enough money to buy his regular amount of alcohol. Usually drinks about half a gallon of vodka. He states he is also having some abdominal pain and he feels like his previous pancreatic tightness. He thinks he has been having some dark stools. Denies any fever or chills. Denies any SI or HI. (YOAV ETIENNE,BARRERA) Reconcile Medications Clonazepam (Klonopin) 1 MG TABLET 1 TAB PO TID ALC WITHDRAWL PLEASE HOLD WHILE TAKING ATIVAN. PLEASE RESUME AFTER YOU FINISH YOUR LAST ATIVAN DOSE TOMORROW (03/10/16). Clonidine HCl 0.1 MG TABLET 1 TAB PO TID BP Escitalopram Oxalate (Lexapro) 10 MG TABLET 10 MG PO 0800 MENTAL HEALTH Folic Acid 1 MG TABLET 1 MG PO DAILY SUPPLEMENT Gabapentin (Neurontin) 300 MG CAPSULE 1 CAP PO TID MENTAL HEALTH/NERVE PAIN ( Reported) Lamotrigine 25 MG TABLET 2 TAB PO DAILY MENTAL HEALTH (Reported) Lorazepam (Ativan) 1 MG TABLET 1-2 TAB PO TID PRN withdrawal symptoms ten....[id number] Lorazepam 1 MG TABLET 2 MG PO Q12 ALCOHOL INTOX TAKE ONE DOSE TONIGHT (03/09) AND ANOTHER DOSE TOMORROW MORNING (03/10). Ondansetron HCl (Zofran) 4 MG TABLET 1 TAB PO DAILY PRN NAUSEA Pantoprazole Sodium (Protonix) 20 MG TABLET.DR 1 TAB PO DAILY HEARTBURN Pravastatin Sodium 40 MG TABLET 1 TAB PO QPM CHOLESTEROL Trazodone HCl 100 MG TABLET 1 TAB PO DAILY ANXIETY (Reported) (AILIN ETIENNE,JOSEMANUEL Ann) Past History Travel History Traveled to [place] past 21 day No Medical History Any Pertinent Medical History? see below for history Neurological: SEIZURE w/d EENT: NONE Cardiovascular: hypertension Respiratory: NONE Gastrointestinal: PANCREATITIS Hepatic: NONE Renal: NONE Musculoskeletal: left knee multiple tendon r. 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 FH: alcohol abuse grandmother FH: diverticulitis MOTHER Anxiety disorder FHx: bipolar disorder Hx Contributory? No (YOAV ETIENNE,BARRERA) Review of Systems Review of Systems Constitutional: Denies: chills, fever. EENTM: Reports: no symptoms. Respiratory: Denies: cough, short of breath. Cardiovascular: Denies: chest pain, palpitations. GI: Denies: abdominal pain. Genitourinary: Reports: no symptoms. Musculoskeletal: Reports: no symptoms. Skin: Reports: no symptoms. Neurological/Psychological: Reports: depressed, emotional problems. Hematologic/Endocrine: Denies: bruising, bleeding, polyuria, polydipsia. Immunologic/Allergic: Denies: splenectomy. All Other Systems: Reviewed and Negative (BARRERA CASON MD) Physical Exam Physical Exam General Appearance: well developed/nourished, alert, awake, anxious, moderate distress, intoxicated Head: atraumatic, normal appearance Eyes: Bilateral: normal appearance, PERRL, EOMI. Ears, Nose, Throat, Mouth: hearing grossly normal, moist mucous membrane Neck: normal inspection, supple, full range of motion Respiratory: normal breath sounds, chest non-tender, no respiratory distress Cardiovascular: regular rate/rhythm Peripheral Pulses: 2+ radial (R), 2+ radial (L) Gastrointestinal: normal bowel sounds, soft, tenderness (EPIGASTRIC) Back: normal inspection, normal range of motion Extremities: normal range of motion Neurologic/Psych: no motor/sensory deficits, awake, alert, oriented x 3 Core Measures ACS in differential dx? No Severe Sepsis Present: No Septic Shock Present: No (YOAV ETIENNE,BARRERA) Progress Differential Diagnosis: ALCOHOL ABUSE, PANCREATITIS, HEPATITIS Plan of Care: Orders Procedure Date/time Status ED CRISIS PSYCH CONSULT 04/14 516 Active CASE MANAGEMENT CONSULT 04/14 516 Active Add-on Test (ER Only) 04/13 2052 Active CIWA 04/13 2052 Active EKG 04/13 2050 Active ETHANOL 04/13 2044 Complete URINE DRUG SCREEN FOR ER ONLY 04/13 2043 Complete URINALYSIS 04/13 2043 Complete TROPONIN LEVEL 04/13 2043 Complete MAGNESIUM 04/13 2043 Complete LIPASE 04/13 2043 Complete COMPREHENSIVE METABOLIC PANEL 04/13 2043 Complete CBC WITHOUT DIFFERENTIAL 04/13 2043 Complete AMYLASE 04/13 2043 Complete Laboratory Tests 04/13/162052: Urine Opiates Screen < 100.00, Methadone Screen < 40, Barbiturate Screen < 60, Ur Phencyclidine Scrn < 6.00, Amphetamines Screen < 100, U Benzodiazepines Scrn > 800 H, Urine Cocaine Screen < 50, Urine Cannabis Screen 6.00, Urine Color YEL , Urine Clarity CLEAR, Urine pH 6.0, Ur Specific [place] 1.025, Urine Protein NEG, Urine Ketones NEG, Urine Nitrite NEG, Urine Bilirubin NEG, Urine Urobilinogen 0.2, Ur Leukocyte Esterase NEG, Ur Microscopic EXAM NOT REQUIRED, Urine Hemoglobin NEG, Urine Glucose NEG 04/13/162048: CBC w Diff NO MAN DIFF REQ, RBC 4.39 L, MCV 95.7 H, MCH 33.2 H, RDW 14.7 H, MPV 6.3 L, Gran % 48.5, Lymphocytes % 43.9, Monocytes % 5.6, Eosinophils % 0.8, Basophils % 1.2, Absolute Granulocytes 3.2, Absolute Lymphocytes 2.9, Absolute Monocytes 0.4, Absolute Eosinophils 0.1, Absolute Basophils 0.1, PUBS MCHC 34.7 04/13/162044: Anion Gap 11, Estimated GFR > 60, BUN/Creatinine Ratio 17.8, Glucose 97, Calcium 8.8, Magnesium 1.9, Total Bilirubin 0.4, AST 55, ALT 35, Alkaline Phosphatase 94 , Troponin I < 0.01, Total Protein 7.2, Albumin 4.2, Globulin 3.0, Albumin/ Globulin Ratio 1.4, Amylase < 30 L, Lipase 91, Serum Alcohol 298.0 Initial ED EKG: NSR Hand-Off Endorsed To: JOSEMANUEL PARISI MD Endorsed Time: 2302 Pending: other (CIWA MONITORING) (BARRERA CASON MD) Hand-Off Endorsed To: BJ WILL MD Endorsed Time: 0700 Pending: other (and crises) (JOSEMANUEL PARISI MD) Departure Departure Disposition: STILL A PATIENT Condition: Stable Referrals: BETTY ETIENNE,GERARD Hammond (PCP/Family) Departure Forms: Customer Survey General Discharge Information (BARRERA CASON MD) Departure Clinical Impression Primary Impression: Alcoholic intoxication Secondary Impressions: Depression Prescriptions: Current Visit Scripts Lorazepam (Ativan) 1-2 TAB PO TID PRN withdrawal symptoms #10 TAB Ref 1 ten....[id number] Comments 04/14/16, 5:30am... pt reports feeling "a little shakey" but still scores low on his ciwa scale. He notes also, "I am afraid of what I might do to myself." He admits to passive suicidal thoughts. Will have crises and case management evaluate. pt signed out to dr. will at 7am. (AILIN ETIENNE,JOSEMANUEL Ann)
[2016-04-13 20:59] LABS: ABSOLUTE BASOPHIL COUNT 0.1 /CUMM (0.0-0.2); ABSOLUTE EOSINOPHIL COUNT 0.1 /CUMM (0.0-0.7); ABSOLUTE GRANULOCYTE CT 3.2 /CUMM (1.4-6.5); ABSOLUTE LYMPH COUNT 2.9 /CUMM (1.2-3.4); ABSOLUTE MONOCYTE COUNT 0.4 /CUMM (0.10-0.60); BASOPHIL % 1.2 % (0.0-2.0); EOSINOPHIL % 0.8 % (0-5); GRANULOCYTE % 48.5 % (42.2-75.2); MEAN CORPUSCULAR HGB 33.2 PG (27.0-31.0); MEAN CORPUSCULAR HGB CONC 34.7 G/DL (33.0-37.0); MEAN CORPUSCULAR VOLUME 95.7 FL (80.0-94.0); MEAN PLATELET VOLUME 6.3 FL (7.4-10.4); PLATELET COUNT 325 /CUMM (130-400); RBC DISTRIBUTION WIDTH 14.7 % (11.5-14.5); RED BLOOD CELL CT 4.39 /CUMM (4.70-6.10); WHITE BLOOD CELL COUNT 6.6 /CUMM (4.8-10.8)
[2016-04-13 22:31] VITALS: BP 156/90
[2016-04-13 23:40] VITALS: BP 138/86
[2016-04-14] VITALS (10 sets, daily range): BP systolic 131–180; BP diastolic 77–106
[2016-04-14] MEDS ORDERED: ATIVAN1 M1 PO (01:52)
--- NOTE | 2016-04-14 12:03 | History & Physical ---
TOO ETIENNE,SANIA 04/14/16 1203: General Information and HPI MD Statement: I have seen and personally examined PRAKASH NORRIS and documented this H&P. The patient is a 45 year old M who presented with a patient stated chief complaint of [alcohol withdrawal and detox.]. Source of Information: patient, old records History of Present Illness: This is a 45-year-old male with a past medical history of hypertension, previous history of acute alcohol withdrawal and seizures, depression, multiple admissions in the past for alcohol detox/withdrawal/seizures with the last one being in February 2016, anxiety, depression, bipolar disorder and posttraumatic stress disorder. The patient is currently being admitted for acute alcohol detox after he vomited himself in the emergency department today to be admitted for alcohol withdrawal. The patient last drink was 24 hours back and had couple of names of TONIA and Sallie. Two days prior the patient also reported an incident of urinary incontinence, and frothing of the sputum in his mouth and generalized seizure activity that lasted for about less than 1 minute and was witnessed by his friend. The patient was back to his baseline after that . He didn't feel the need to come to the emergency department and continued with his drinking routine. The patient denies any suicidal ideation, homicidal ideation at this point. He also denies any ingestion of antifreeze or any other toxic substance. He denies any IV drug use or any sniffing products. The patient has multiple admissions reported in the past in which he left AMA. Allergies/Medications Allergies: Coded Allergies: haloperidol (Severe, DIFFICULTY BREATHING 04/13/16) chlorpromazine (DYSTONIC REACTION 04/13/16) Home Med list Clonazepam (Klonopin) 1 MG TABLET 1 TAB PO TID ALC WITHDRAWL PLEASE HOLD WHILE TAKING ATIVAN. PLEASE RESUME AFTER YOU FINISH YOUR LAST ATIVAN DOSE TOMORROW (03/10/16). Clonidine HCl 0.1 MG TABLET 1 TAB PO TID BP Escitalopram Oxalate (Lexapro) 10 MG TABLET 10 MG PO 0800 MENTAL HEALTH Folic Acid 1 MG TABLET 1 MG PO DAILY SUPPLEMENT Gabapentin (Neurontin) 300 MG CAPSULE 1 CAP PO TID MENTAL HEALTH/NERVE PAIN ( Reported) Lamotrigine 25 MG TABLET 2 TAB PO DAILY MENTAL HEALTH (Reported) Ondansetron HCl (Zofran) 4 MG TABLET 1 TAB PO DAILY PRN NAUSEA Pantoprazole Sodium (Protonix) 20 MG TABLET.DR 1 TAB PO DAILY HEARTBURN Pravastatin Sodium 40 MG TABLET 1 TAB PO QPM CHOLESTEROL Trazodone HCl 100 MG TABLET 1 TAB PO DAILY ANXIETY (Reported) Compliance With Home Meds: POOR Past History Travel History Traveled to [place] past 21 day No Medical History Neurological: SEIZURE w/d EENT: NONE Cardiovascular: hypertension Respiratory: NONE Gastrointestinal: PANCREATITIS Hepatic: NONE Renal: NONE Musculoskeletal: left knee multiple tendon r. 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 FH: alcohol abuse grandmother FH: diverticulitis MOTHER Anxiety disorder FHx: bipolar disorder Psychosocial History Who Do You Live With? parent Services at Home: None Primary Language: Tuvaluan Living Will? no Functional Ability ADLs Independent: dressing, eating, toileting, bathing. Ambulation: independent IADLs Independent: shopping, housework, finances, food prep, telephone, transportation , medication admin. Review of Systems Review of Systems Constitutional: Reports: see HPI. EENTM: Reports: see HPI. Cardiovascular: Denies: see HPI, chest pain, edema, orthopena. Respiratory: Reports: see HPI. Denies: cough, hemoptysis, orthopnea, short of breath, sputum production. GI: Denies: abdominal pain, bloating, constipation, diarrhea, bowel incontinence, melena. Genitourinary: Denies: discharge, dysuria, frequency, hematuria. Musculoskeletal: Denies: back pain, gout, joint pain, joint swelling. Skin: Denies: change in skin color, change in hair/nails, dryness, erythema, jaundice. Neurological/Psychological: Denies: ataxia, cognitive dysfunction, confusion, depressed, dementia, headache. Exam & Diagnostic Data Last 24 Hrs of Vital Signs/I&O Vital Signs Date Time Temp Pulse Resp B/P Pulse O2 O2 Flow FiO2 Ox Delivery Rate 04/14 1055 97.5 87 18 143/85 96 Nasal 2.5L Cannula 04/14 0919 91 148/106 04/14 0838 97.7 04/14 0833 97.7 91 20 148/106 97 Nasal 2.0L Cannula 04/14 0831 97.7 91 20 148/106 04/14 0542 97.1 77 18 138/87 96 Room Air 04/14 0400 95.8 78 16 148/96 04/14 0400 95.8 78 16 148/96 96 Nasal 2.0L Cannula 04/14 0120 98.0 80 16 131/77 04/14 0114 98.0 80 16 131/77 95 Room Air 04/13 2340 98.2 79 18 138/86 04/13 2340 98.2 79 18 138/86 96 Room Air 04/13 2231 98.0 94 20 156/90 04/13 204 98.3 87 18 136/89 97 Room Air Intake & Output 04/14 1600 04/14 0800 04/14 0000 Intake Total 1000 Output Total Balance 1000 Intake, IV 1000 Physical Exam General Appearance Alert, Oriented X3, Cooperative Skin No Rashes, No Breakdown HEENT Atraumatic, PERRLA Neck Supple, No JVD, No thryomegaly Lymphatic Axillary nl, Cervical nl Cardiovascular Regular Rate, Normal S1, Normal S2 Lungs Clear to Auscultation, Normal Air Movement Abdomen Normal Bowel Sounds, Soft, No Tenderness Neurological Normal Speech, Strength at 5/5 X4 Ext, Normal Tone, Sensation Intact Last 24 Hrs of Labs/Toni: Laboratory Tests 04/13/162052: Urine Opiates Screen < 100.00, Methadone Screen < 40, Barbiturate Screen < 60, Ur Phencyclidine Scrn < 6.00, Amphetamines Screen < 100, U Benzodiazepines Scrn > 800 H, Urine Cocaine Screen < 50, Urine Cannabis Screen 6.00, Urine Color YEL , Urine Clarity CLEAR, Urine pH 6.0, Ur Specific [place] 1.025, Urine Protein NEG, Urine Ketones NEG, Urine Nitrite NEG, Urine Bilirubin NEG, Urine Urobilinogen 0.2, Ur Leukocyte Esterase NEG, Ur Microscopic EXAM NOT REQUIRED, Urine Hemoglobin NEG, Urine Glucose NEG 04/13/162048: CBC w Diff NO MAN DIFF REQ, RBC 4.39 L, MCV 95.7 H, MCH 33.2 H, RDW 14.7 H, MPV 6.3 L, Gran % 48.5, Lymphocytes % 43.9, Monocytes % 5.6, Eosinophils % 0.8, Basophils % 1.2, Absolute Granulocytes 3.2, Absolute Lymphocytes 2.9, Absolute Monocytes 0.4, Absolute Eosinophils 0.1, Absolute Basophils 0.1, PUBS MCHC 34.7 04/13/162044: Anion Gap 11, Estimated GFR > 60, BUN/Creatinine Ratio 17.8, Glucose 97, Calcium 8.8, Magnesium 1.9, Total Bilirubin 0.4, AST 55, ALT 35, Alkaline Phosphatase 94 , Troponin I < 0.01, Total Protein 7.2, Albumin 4.2, Globulin 3.0, Albumin/ Globulin Ratio 1.4, Amylase < 30 L, Lipase 91, Serum Alcohol 298.0 Assessment/Plan Assessment: This is a 45-year-old male with a past medical history of alcohol withdrawal, detox, multiple admissions for detox and 68 out AMA, alcohol induced seizures, bipolar disorder, anxiety, depression who presented to the [facility] emergency department with the intention to go through alcohol withdrawal. The patient had an episode of seizure-like activity prior coming to the emergency department 2 days back. The patient currently denies any suicidal or homicidal ideation Vitals : Temperature 97.5, pulse rate of 87, respiration rate of 18, blood pressure 143/ 85, saturation of 96% on room air. Labs shows Normal WBC and hemoglobin and hematocrit serum alcohol level of 298,, normal lipase and amylase levels. EKG shows normal sinus rhythm Assessment 1. Acute alcohol withdrawal 2. Alcohol withdrawal/induced seizures 3. History of anxiety and depression, 4. History of bipolar disorder 5. History of suicidal and homicidal ideation 6. History of hypertension Plan Admit to general medicine floor Start the patient on IV Ativan 2 mg every 6 and continue with IV Ativan as per [facility] protocol Continue with patient's home medications including clonazepam and gabapentin.( This was discussed with the psychiatric staff who recommended to not to hold these medications while the patient is being Ativan) Continue with clonidine for blood pressure control We will discontinue the patient's one-to-one sitter as the patient doesn't have any suicidal or homicidal ideation. Continue with multivitamin, thiamine, and folate supplementation The patient would require a social work consult for final disposition. Psych consult has been appreciated. dvt PPX at all time FC As Ranked By This Provider Problem List: 1. ALCOHOL WITHDRAWAL 2. Alcoholic gastritis 3. Alcoholic psychosis with hallucinosis 4. Alcohol dependence with withdrawal 5. DVT prophylaxis 6. Full code status Core Measures/Miscellaneous Acute Coronary Syndrome ACS Diagnosis: No Cerebrovascular Accident CVA/TIA Diagnosis: No Congestive Heart Failure CHF Diagnosis: No Venous Thromboembolism VTE Risk Factors: Acute medical illness, Age > 40 VTE Prophylaxis Ordered Inpt: Pharm- Lovenox No Mech VTE prophylaxis d/t: No contraindications No VTE Pharm Prophylaxis d/t: No contraindications VTE Diagnosis: No VTE Type: NONE VTE Confirmed by (Test): NONE Severe Sepsis Severe Sepsis Present: No Septic Shock Septic Shock Present: No Miscellaneous Documentation Attending Case Discussed With: TALIB VARGHESE MD Primary Care Physician: GERARD HERNÁNDEZ MD Patient sees these Specialists none Level of Patient Care: General Medicine TALIB VARGHESE MD 04/14/16 6945: Attending MD Review Statement Attending Statement Attending Statement: examined this patient, discuss w/resident/PA/WEB PRESS OPERATOR HELPER OFFSET, agreed w/resident/PA/WEB PRESS OPERATOR HELPER OFFSET, reviewed EMR data (avail), discussed with nursing, reviewed images, amended to note Attending Assessment/Plan: The patient is a 45 yo male with h/o HTN, ETOH abuse and multiple admissions, depression, ?seizures, and PTSD who presented on the day of admission in the ED after vomiting with epigastric discomfort. States he has been drinking large amounts of vodka at home. Last admission he signed out of ICU AMA at night. On prior admit he also had drank rubbing alcohol and vanilla extract. He denies any other ingestions at present. No hematemesis. ED note mentions "passive suicidal ideation", however not noted when I questioned him myself. He has a h/o non- compliance with follow-up. CIWA score was 10 in the ED. He stated that prior to coming in he "may have had a seizure" as friend stated he was frothing at mouth and he had urinary incontinence, however his blood alcohol level on arrival was 296 so withdrawal seizure would be unlikely. Physical Exam: VS: T 97.5, P 87, R 18, BP 143/85, PO 96% on nasal 2 L HEENT: eyes- PERRLA, EOMI, non-icteric brendan- dry mucosa Neck: no bruits or JVD Chest: clear Cor: RRR, nl S1, S2 w/o murm Abd: BS+, soft, minimal epigastric tenderness w/o guarding or rebound Ext: no edema Neuro: sedated, however easily aroused and oriented, non-focal exam, + mild tremor Labs- as above Impression/Plan: #Alcohol Dependence and Acute Alcohol Withdrawal- chart states h/o complicated withdrawal in past. Appears under control at present with Ativan given in ED. Plan: Admit to medical floor. CIWA scoring, Ativan, MVI, thiamine, MVI, folic acid as per protocol. Social Service Consult. #Anxiety/Depression/?Passive Suicidal Ideation (per ED note)- patient with long history. Plan: Psych consult appreciated. Patient normally on Lexapro/Klonopin/Trazodone #Abdominal Pain- most c/w alcohol induced gastritis. No evidence of bleeding and amylase/lipase normal. Plan: Will hydrate IV and give Zofran prn. Add PPI omeprazole when able to take oral. Follow symptoms. #Hyperlipidemia- on Atorvastatin as OP. Plan: Hold due to GI upset and restart once taking food po. #HTN- ? patient on Clonidine for Hypertension? Plan: Will need to review chart regarding this medication. Unclear why this was chosen. May consider alternative.
--- NOTE | 2016-04-14 16:46 | Admission Certification ---
Admission Certification Certification Statement - As attending physician, I certify that at the time of - admission, based on clinical presentation, severity of - symptoms, need for further diagnostic testing and - therapeutic interventions, and risk of adverse outcomes - without in-hospital treatment, in my clinical assessment, - this patient requires an acute hospital stay for a minimum - of two nights or longer. I have also considered psychsocial - factors such as support system, advanced age, financial - issues, cognitive issues, and failed out-patient treatments, - past re-admission history, safety of patient, and lack of - compliance as applicable. Specific rationale supporting this admission is: The patient presents initially with alcohol intoxication and then severe withdrawal with "h/o seizures". Needs admission for medical detox. IV Ativan, MVI, thiamine, etc. Social service consult. Psych evaluation for "passive suicidal ideation" noted by ED physician.
--- NOTE | 2016-04-14 19:22 | Event Note ---
See Addendum Event Note Event Note: I visited the patient in ED room [address] Thomas Montoya today, 04/14/16, in the early afternoon, prior to the patient's admission to the medical service, and prior to the consult request. He presented on 04/13/16 with a request to be treated for alcohol withdrawal, with his last drink in the morning of 04/13/16. The patient reports a seizure in his friends truck two days before presentation; the patient was not driving. He has a history of delirium tremens and seizures in the setting of alcohol withdrawal. He denied SI/HI! and denied AVH. He is not currently suicidal, delirious, nor psychotic. He does not need a sitter at this time. He reports that he is followed by Dr. Adalgisa Holly for psychiatry, who prescibes his home dosing of clonazepam. Suggestions: 1. Confirm the patients psychotropic medications with his psychiatrist. 2. Hold psychotropic medications for now, with the exception of his clonazepam, which should be converted to the equivalent of lorazepam, and added to the current ETOH Detox regimen, holding it for oversedation or respiratory depression. 3. Please start the 5 day 'ETOH Detox' order set, including vitamins. 4. Notifiy test conductor psychiatry if you need assist with management of hallucinosis or DTs, if they occur. 5. SW consult to assist with aftercare. 6. Baseline EKG. We had not been requested to consult on the patient at the time of this visit, but understand a consult request was placed later in the day. We will continue to follow. Shadi Bravo APRN, Pager [phone]
[2016-04-15] VITALS (7 sets, daily range): BP systolic 138–156; BP diastolic 78–114
--- NOTE | 2016-04-15 07:19 | PN- Housestaff ---
DMITRY WILLINGHAM 04/15/16 0718: Subjective Follow-up For: alcohol withdrawal and detox Subjective: Patient seen and examined at bedside. His CIWA scores over the past 24 hours have ranged between 0-12. He currently denies any symptoms including hallucinations, tremors. Review of Systems Constitutional: Denies: chills, fever. EENTM: Reports: no symptoms. Cardiovascular: Denies: chest pain, palpitations, peripheral edema. Respiratory: Denies: cough, short of breath, sputum production. Gastrointestinal: Denies: abdominal pain, nausea, vomiting. Genitourinary: Reports: no symptoms. Musculoskeletal: Reports: no symptoms. Neurological/Psychological: Denies: headache, numbness, tonic-clonic seizures, weakness. Objective Last 24 Hrs of Vital Signs/I&O Vital Signs Date Time Temp Pulse Resp B/P Pulse O2 O2 Flow FiO2 Ox Delivery Rate 04/15 0044 98.0 58 20 148/94 99 Room Air 04/14 2200 98.1 88 18 176/96 04/14 2154 80 158/98 04/14 2000 97.9 82 18 178/98 04/14 1800 97.9 80 18 160/82 04/14 1640 88 170/96 04/14 1609 98.4 80 20 180/100 96 04/14 1600 98.0 88 18 170/96 04/14 1337 99.0 80 18 140/100 94 Room Air Room Air 04/14 1230 97.7 84 15 144/86 04/14 1230 97.7 86 15 144/86 94 Room Air Room Air 04/14 1055 97.5 87 18 143/85 96 Nasal 2.5L Cannula 04/14 0919 91 148/106 04/14 0838 97.7 04/14 0833 97.7 91 20 148/106 97 Nasal 2.0L Cannula 04/14 0831 97.7 91 20 148/106 Intake & Output 04/15 0800 04/15 0000 04/14 1600 Intake Total 300 120 Output Total Balance 300 120 Intake, Oral 300 120 Number 1 Bowel Movements Patient 200 lb Weight Physical Exam General Appearance: Alert, Oriented X3, Cooperative, No Acute Distress HEENT: Atraumatic, PERRLA, EOMI, Mucous Membr. moist/pink Neck: Supple, No JVD, No thryomegaly, +2 Carotid Pulse wo Bruit, No LAD Cardiovascular: Regular Rate, Normal S1, Normal S2, No Murmurs Lungs: Clear to Auscultation, Normal Air Movement Abdomen: Normal Bowel Sounds, Soft Neurological: Normal Gait, Normal Speech, Strength at 5/5 X4 Ext, Normal Tone, Sensation Intact, Cranial Nerves 3-12 NL, Reflexes 2+ Extremities: No Clubbing, No Cyanosis, No Edema, Normal Pulses, No Tenderness/ Swelling Current Medications: Current Medications Sig/Genoveva Start time Last Medication Dose Route Stop Time Status Admin Acetaminophen 650 MG Q6P PRN 04/14 1215 AC PO Clonazepam 1 MG TID 04/14 1600 AC 04/14 PO 04/21 1559 2256 Clonidine 0.1 MG TID 04/14 1000 AC 04/14 PO 2154 Clonidine 0.1 MG ONCE ONE 04/14 0915 DC PO 04/14 0916 Clonidine 0 .STK-MED ONE 04/14 0909 DC PO Enoxaparin Sodium 40 MG DAILY 04/14 1300 AC 04/14 SC 1640 Escitalopram Oxalate 10 MG 0800 04/15 0800 AC PO Folic Acid 1 MG DAILY 04/15 1000 AC PO Gabapentin 300 MG TID 04/14 1000 AC 04/14 PO 2152 Gabapentin 0 .STK-MED ONE 04/14 0911 DC PO Lamotrigine 50 MG DAILY 04/14 1000 AC 04/14 PO 0919 Lorazepam 2 MG Q6 04/14 1800 AC 04/15 IV 0535 Lorazepam 0 Q1P PRN 04/14 1300 AC 04/15 IV 0136 Lorazepam 0 .STK-MED ONE 04/14 1121 DC PO Lorazepam 0 .STK-MED ONE 04/14 1121 DC .ROUTE Lorazepam 2 MG ONE ONE 04/14 1115 DC 04/14 IV 04/14 1116 1125 Lorazepam 2 MG ONCE ONE 04/14 1115 DC 04/14 PO 04/14 1116 1125 Multivitamins 1 TAB DAILY 04/14 1353 AC 04/14 PO 1641 Omeprazole 20 MG DAILY AC 04/15 0700 AC 04/15 PO 0535 Oxycodone HCl 10 MG Q6P PRN 04/14 1215 AC 04/15 PO 0657 Oxycodone/ 1 TAB Q6P PRN 04/14 1215 AC Acetaminophen PO Pravastatin Sodium 20 MG 1700 04/14 1700 AC 04/14 PO 1642 Thiamine HCl 100 MG DAILY 04/14 1353 AC 04/14 PO 1640 Trazodone HCl 100 MG ONCE ONE 04/14 2345 DC 04/15 PO 04/14 2346 0134 Last 24 Hrs of Lab/Toni Results Last 24 Hrs of Labs/Mics: Laboratory Tests 04/15/16 0617: Sodium Pending, Potassium Pending, Chloride Pending, Carbon Dioxide Pending, Anion Gap Pending, BUN Pending, Creatinine Pending, BUN/Creatinine Ratio Pending , Magnesium Pending Orders CIWA Score (last 24 hrs): 0-12 Assessment/Plan Assessment: This is a 45-year-old male with a past medical history of alcohol withdrawal, detox, multiple admissions for detox and 70 out AMA, alcohol induced seizures, bipolar disorder, anxiety, depression who presented to the [facility] emergency department with the intention to go through alcohol withdrawal. The patient had an episode of seizure-like activity prior coming to the emergency department 2 days back. The patient currently denies any suicidal or homicidal ideation Assessment 1. Acute alcohol withdrawal 2. Alcohol withdrawal/induced seizures 3. History of anxiety and depression, 4. History of bipolar disorder 5. History of suicidal and homicidal ideation 6. History of hypertension 7. Chronic abdominal pain Plan We'll transition to Ativan 1.5 mg every 6 by mouth and continue with IV Ativan as per CIWA protocol Continue with patient's home medications including clonazepam and gabapentin.( This was discussed with the psychiatric staff who recommended to not to hold these medications while the patient is being Ativan) Continue with clonidine for blood pressure control. Will discuss with his primary care physician regarding tapering off clonidine Continue with multivitamin, thiamine, and folate supplementation Follow-up social work consult for final disposition. Psych consult has been appreciated. We'll discontinue Lamictal as per their recommendations. He has an outpatient appointment with Dr. Davis on 12 May 2016 for OP colonoscopy. I spoke with Dr. Davis's office today. dvt PPX at all time FC Problem List: 1. ALCOHOL WITHDRAWAL Pain Ratin Pain Location: abdominal Pain Goal: Pain 4 or less Pain Plan: tyelnol Tomorrow's Labs & Rationales: n/a TALIB VARGHESE MD 04/15/16 1726: Attending MD Review Statement Attending Statement Attending MD Statement: examined this patient, discuss w/resident/PA/DAY SPA MANAGER, agreed w/resident/PA/DAY SPA MANAGER, reviewed EMR data (avail), discussed with nursing, amended to note Attending Assessment/Plan: The patient was seen and discussed with house staff. Will increase PPI to bid for gastritis. Continue CIWA/Ativan taper as per protocol.
--- NOTE | 2016-04-15 20:54 | Cons- Psychiatry ---
Psychiatric Consult Date of Consult: 04/15/16 Reason for Consult: "Alcohol detox, ?SI" History of Present Illness: 04/15/2016 1045: A formal consult had not been placed this morning; we added the following to the event note from yesterday when we were asked to look in on the patient, found that his suicidality had resolved, and wanted to followup today, 04/15/2016. MSE: A+OX4, denies AVH/no luh delusions, denies SI/HI. Insight and judgment intact. Impression: The patient is stating that he cannot drink anymore. He reacts to stressors by drinking, and realizes that this is maladaptive. He states that he will be "going right from here to my probation office, and ask that he see if he can commit me for six months, and I'm also going right to my classes at [employer] [employer] ( [facility]). He reports that he is still being followed by Dr. Holly for psychiatry. He is willing to give AA another change, with a goal of finding a sponsor. CIWA [id number] VS: 146/78, 76, 97.7, 20RR, 96% RA The patient's PCP, Dr. Chan, is discussing a referral to neurology, given the patient's history of concussions/?TBI. The patient missed an appointment for a colonoscopy/?EGD yesterday, 04/14/16, with Dr. Davis. With the patient's written permission, I spoke with his psychiatrist today, Dr. Adalgisa Mcknight, who reports that she will continue to follow him as an outpatient , and agrees with the decision to discontinue the lamotrigine, to continue clonazepam 1 mg by mouth 3 times per day as his baseline and to continue escitalopram 10 mg by mouth daily Plan: 1. Continue 'ETOH Detox' order set for Ativan taper a. Change to PO administration of lorazepam/Ativan b. Continue daily thiamine, folate and MVI c. Decrease scheduled Ativan by no more than 20% daily 2. Continue home dosing of clonazepam. 3. Stop lamotrigine. The patient reports his psychiatrist had been tapering him off this med, and the last order on 04/08/16 was for 50 mg PO daily for one week and stop. The patient had stopped this med at home. 4. Continue escitalopram 10 mg PO daily 5. Continue gabapentin 300 mg PO 3X/day 6. SW to assist with aftercare planning. 7. Assist the patient in resetting his outpatient appt with Dr. Davis. 8. Consider discussing neurology referral with the patient and Dr. Kayleen Chan. 9. Please notify us if the patient becomes delirious or begins to exhibit signs of DTs. We do not anticipate further visits. Please consult if psychiatric matters arise. Shadi Bravo APRN, Pager [phone] Allergies: Coded Allergies: haloperidol (Severe, DIFFICULTY BREATHING 04/13/16) chlorpromazine (DYSTONIC REACTION 04/13/16) Current Medications: Current Medications Sig/Genoveva Start time Last Medication Dose Route Stop Time Status Admin Acetaminophen 650 MG Q6P PRN 04/14 1215 AC PO Clonazepam 1 MG TID 04/14 1600 AC 04/15 PO 04/21 1559 1634 Clonidine 0.1 MG TID 04/14 1000 AC 04/15 PO 1634 Enoxaparin Sodium 40 MG DAILY@1600 04/15 1600 AC 04/15 SC 1636 Enoxaparin Sodium 40 MG DAILY 04/14 1300 DC 04/14 SC 1640 Escitalopram Oxalate 10 MG 0800 04/15 0800 AC 04/15 PO 0822 Folic Acid 1 MG DAILY 04/15 1000 AC 04/15 PO 0822 Gabapentin 300 MG TID 04/14 1000 AC 04/15 PO 1634 Lamotrigine 50 MG DAILY 04/14 1000 DC 04/15 PO 0822 Lorazepam 1.5 MG Q6 04/15 0826 AC 04/15 PO 1752 Lorazepam 2 MG Q6 04/14 1800 DC 04/15 IV 0535 Lorazepam 0 Q1P PRN 04/14 1300 AC 04/15 IV 1931 Multivitamins 1 TAB DAILY 04/14 1353 AC 04/15 PO 0822 Omeprazole 40 MG DAILY AC 04/16 0700 AC PO Omeprazole 20 MG DAILY AC 04/15 0700 DC 04/15 PO 0535 Oxycodone HCl 10 MG Q6P PRN 04/14 1215 AC 04/15 PO 1751 Oxycodone/ 1 TAB Q6P PRN 04/14 1215 AC Acetaminophen PO Pravastatin Sodium 20 MG 1700 04/14 1700 AC 04/15 PO 1634 Thiamine HCl 100 MG DAILY 04/14 1353 AC 04/15 PO 0823 Trazodone HCl 100 MG AT BEDTIME 04/150 DC PO Trazodone HCl 150 MG AT BEDTIME 04/15 2200 AC PO Trazodone HCl 100 MG ONCE ONE 04/14 2345 DC 04/15 PO 04/14 2346 0134 Past History Past Medical History Neurological: SEIZURE w/d EENT: NONE Cardiovascular: hypertension Respiratory: NONE Gastrointestinal: PANCREATITIS Hepatic: NONE Renal: NONE Musculoskeletal: left knee multiple tendon r. 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 Lab Results: Laboratory Tests 04/15 0617 Chemistry Sodium (137 - 145 mmol/L) 138 Potassium (3.5 - 5.1 mmol/L) 3.6 Chloride (98 - 107 mmol/L) 102 Carbon Dioxide (22 - 30 mmol/L) 26 Anion Gap (5 - 16) 9 BUN (9 - 20 mg/dL) 11 Creatinine (0.7 - 1.2 mg/dL) 0.9 Estimated GFR (>60 ml/min) > 60 BUN/Creatinine Ratio (7 - 25 %) 12.2 Magnesium (1.6 - 2.3 mg/dL) 1.8 Impression: See above. Provisional Treatment Plan: See above.
[2016-04-16 00:13] VITALS: BP 120/96
[2016-04-16 08:00] VITALS: BP 140/100
[2016-04-16 08:44] VITALS: BP 146/98
--- NOTE | 2016-04-16 10:30 | PN- Housestaff ---
EVARISTO ETIENNE,INA 04/16/16 1011: Subjective Follow-up For: Alcohol withdrawal and detoxification Complaints: abdominal pain Subjective: Patient seen and examined at bedside. Complains of abdominal pain that has been present since admission today ranging 5/10, dull aching, centrally located. Denies fevers, chills, reports eating well, and having a bowel movement yesterday. Review of Systems Constitutional: Denies: chills, fever, malaise, weakness. EENTM: Reports: no symptoms. Cardiovascular: Denies: chest pain, edema, orthopena, palpitations. Respiratory: Denies: cough, short of breath, sputum production, wheezing. Gastrointestinal: Reports: abdominal pain. Denies: constipation, diarrhea, distention, melena, nausea, bloody stool, changes in stool, vomiting. Genitourinary: Reports: no symptoms. Musculoskeletal: Reports: no symptoms. Neurological/Psychological: Reports: no symptoms. Objective Last 24 Hrs of Vital Signs/I&O Vital Signs Date Time Temp Pulse Resp B/P Pulse O2 O2 Flow FiO2 Ox Delivery Rate 04/16 0848 79 146/98 04/16 0844 97.8 79 18 146/98 94 Room Air 04/16 0013 97.5 63 19 120/96 94 Room Air 04/15 2153 79 138/92 04/15 2000 79 138/92 04/15 1634 81 144/80 04/15 1611 97.7 81 20 144/80 97 04/15 1600 97.7 81 20 144/80 Intake & Output 04/16 1600 04/16 0800 04/16 0000 Intake Total 500 800 Output Total Balance 500 800 Intake, Oral 500 800 Physical Exam General Appearance: Alert, Oriented X3, Cooperative, No Acute Distress Skin: No Rashes, No Breakdown HEENT: Atraumatic, PERRLA, EOMI, Mucous Membr. moist/pink Neck: Supple, No JVD Cardiovascular: Regular Rate, Normal S1, Normal S2, No Murmurs Lungs: Clear to Auscultation, Normal Air Movement Abdomen: Normal Bowel Sounds, Soft, mild epigastric tenderness Neurological: Normal Gait, Normal Speech, Strength at 5/5 X4 Ext, Normal Tone Extremities: No Clubbing, No Cyanosis, No Edema, Normal Pulses Current Medications: Current Medications Sig/Genoveva Start time Last Medication Dose Route Stop Time Status Admin Acetaminophen 650 MG Q6P PRN 04/14 1215 AC PO Clonazepam 1 MG TID 04/14 1600 AC 04/16 PO 04/21 1559 0847 Clonidine 0.1 MG TID 04/14 1000 AC 04/16 PO 0848 Enoxaparin Sodium 40 MG DAILY@1600 04/15 1600 AC 04/15 SC 1636 Escitalopram Oxalate 10 MG 0800 04/15 0800 AC 04/16 PO 0847 Folic Acid 1 MG DAILY 04/15 1000 AC 04/16 PO 0847 Gabapentin 300 MG TID 04/14 1000 AC 04/16 PO 0848 Lamotrigine 50 MG DAILY 04/14 1000 DC 04/15 PO 0822 Lorazepam 1.5 MG Q6 04/15 0826 AC 04/16 PO 0556 Lorazepam 0 Q1P PRN 04/14 1300 AC 04/16 IV 0452 Multivitamins 1 TAB DAILY 04/14 1353 AC 04/16 PO 0848 Omeprazole 40 MG DAILY AC 04/16 0700 AC 04/16 PO 0619 Omeprazole 20 MG DAILY AC 04/15 0700 DC 04/15 PO 0535 Oxycodone HCl 10 MG Q6P PRN 04/14 1215 AC 04/16 PO 0557 Oxycodone/ 1 TAB Q6P PRN 04/14 1215 AC Acetaminophen PO Pravastatin Sodium 20 MG 1700 04/14 1700 AC 04/15 PO 1634 Tetrahydrozoline HCl 1 GTT Q8 04/16 0600 AC 04/16 OPH 0619 Thiamine HCl 100 MG DAILY 04/14 1353 AC 04/16 PO 0848 Trazodone HCl 100 MG AT BEDTIME 04/15 2200 DC PO Trazodone HCl 150 MG AT BEDTIME 04/15 2200 AC 04/15 PO 2153 Orders CIWA Score (last 24 hrs): 3, 3, 10, 0, 4, 1, 3, 8 Assessment/Plan Assessment: 45-year-old male with a past medical history of alcohol withdrawal, detox, multiple admissions for detox. Has left AMA in the past, alcohol induced seizures, bipolar disorder, anxiety, depression who presented to the [facility] emergency department with the intention to go through alcohol withdrawal. The patient had an episode of seizure-like activity prior coming to the emergency department 2 days back. He currently denies any suicidal or homicidal ideation. Is motivated to undergo treatment, reports having set up follow-up appointments as outpatient. He reports ongoing abdominal pain, that has been present since admission. Today 5 out of 10 in intensity. Reports eating well, with regular bowel movements, denies any recent fever or chills. Was seen earlier in the morning walking around the unit comfortably. Labs done 04/15/2016 did not display any abnormalities. Amylase and lipase were checked on 04/13/16, amylase 30, lipase 91. We will continue his Prilosec at this time we will monitor his pain, and if it increases in intensity we will work it up further. Assessment 1. Acute alcohol withdrawal 2. Alcohol withdrawal/induced seizures 3. History of anxiety and depression, 4. History of bipolar disorder 5. History of suicidal and homicidal ideation 6. History of hypertension 7. Chronic abdominal pain Plan We'll transition to Ativan 1.5 mg every 6 by mouth and continue with IV Ativan as per [facility] protocol Continue with patient's home medications including clonazepam and gabapentin.( This was discussed with the psychiatric staff who recommended to not to hold these medications while the patient is being Ativan) Continue with clonidine for blood pressure control. Will discuss with his primary care physician regarding tapering off clonidine Continue with multivitamin, thiamine, and folate supplementation Follow-up social work consult for final disposition. Psych consult has been appreciated. We'll discontinue Lamictal as per their recommendations. dvt PPX at all time FC Problem List: 1. ALCOHOL WITHDRAWAL 2. Abdominal pain 3. Full code status 4. DVT prophylaxis Pain Ratin Pain Location: Abdominal pain Pain Goal: Pain 4 or less Pain Plan: monitor pain, will need further workup if pain levels persist Tomorrow's Labs & Rationales: will check labs if pain intensifies DVT/Prophylaxis: pharmacological Consulting Request: Consulting Specialty: Psychiatry MONICA ETIENNE,[facility] 04/16/16 1354: Attending MD Review Statement Attending Statement Attending MD Statement: examined this patient, discuss w/resident/PA/HOTEL SERVICES SALES REPRESENTATIVE, agreed w/resident/PA/HOTEL SERVICES SALES REPRESENTATIVE, discussed with family, reviewed EMR data (avail), discussed with nursing, discussed with case mgmt, reviewed images, amended to note Attending Assessment/Plan: Sitting comfortably in bed has been ambulating without any issues. Reports of some abdominal pain/discomfort points to what is the epigastric region. He says it is present since admission and is stable. Denies any nausea, vomiting, difficulty in bowel movements, he had a bowel movement yesterday and has been passing gas today. Abdominal exam: mild tenderness in epigastric area. If the pain worsens can check Lipase & Amylse. Plan: 1. Continue Ativan as per CIWA protocol. 2. Continue PPI.
[2016-04-16 15:52] VITALS: BP 130/88
[2016-04-17 00:04] VITALS: BP 124/84
[2016-04-17 08:04] VITALS: BP 130/92
--- NOTE | 2016-04-17 10:17 | PN- Housestaff ---
MEG MARI 04/17/16 1017: Subjective Follow-up For: Alcohol withdrawal and detoxification Complaints: insomnia Subjective: Patient is seen and examined .Could not sleep well overnight, reports hallucinations/recent thoughts. Abdominal pain is better today. Denies fevers, chills, nausea. CIWA scores in the last 24 hours remained low, continue Ativan as per CIWA protocol. Taper schedule Ativan to 1.5 mg 3 times a day. Review of Systems Constitutional: Denies: chills, diaphoresis, fever. EENTM: Denies: blurred vision, visual changes, eye pain, eye drainage. Cardiovascular: Denies: chest pain, edema, orthopena. Respiratory: Denies: cough, hemoptysis, orthopnea. Gastrointestinal: Denies: abdominal pain, bloating, constipation. Genitourinary: Denies: discharge, dysuria, frequency. Musculoskeletal: Denies: back pain, gout, joint pain. Objective Last 24 Hrs of Vital Signs/I&O Vital Signs Date Time Temp Pulse Resp B/P Pulse O2 O2 Flow FiO2 Ox Delivery Rate 04/17 0813 74 130/92 04/17 0804 97.5 74 20 130/92 97 Room Air 04/17 0004 98.0 80 19 124/84 96 Room Air 04/16 2128 140/88 04/16 1601 80 130/88 04/16 1552 97.4 77 18 130/88 95 Intake & Output 04/17 1600 04/17 0800 04/17 0000 Intake Total 650 Output Total Balance 650 Intake, Oral 650 Physical Exam General Appearance: Alert, Oriented X3 Skin: No Rashes, No Breakdown HEENT: Atraumatic, PERRLA Neck: Supple, No JVD Cardiovascular: Regular Rate, Normal S1 Lungs: Clear to Auscultation, Normal Air Movement Current Medications: Current Medications Sig/Genoveva Start time Last Medication Dose Route Stop Time Status Admin Acetaminophen 650 MG Q6P PRN 04/14 1215 AC PO Clonazepam 1 MG TID 04/14 1600 AC 04/17 PO 04/21 1559 0813 Clonidine 0.1 MG TID 04/14 1000 AC 04/17 PO 0813 Enoxaparin Sodium 40 MG DAILY@1600 04/15 1600 AC 04/16 SC 1601 Escitalopram Oxalate 10 MG 0800 04/15 0800 AC 04/17 PO 0812 Folic Acid 1 MG DAILY 04/15 1000 AC 04/17 PO 0813 Gabapentin 300 MG TID 04/14 1000 AC 04/17 PO 0813 Lorazepam 1.5 MG Q8 04/17 1400 UNVr PO Lorazepam 1.5 MG Q6 04/15 0826 DC 04/17 PO 0612 Lorazepam 0 Q1P PRN 04/14 1300 AC 04/17 IV 0457 Multivitamins 1 TAB DAILY 04/14 1353 AC 04/17 PO 0813 Omeprazole 40 MG DAILY AC 04/16 0700 AC 04/17 PO 0612 Oxycodone HCl 10 MG Q6P PRN 04/14 1215 AC 04/17 PO 0813 Oxycodone/ 1 TAB Q6P PRN 04/14 1215 AC Acetaminophen PO Pravastatin Sodium 20 MG 1700 04/14 1700 AC 04/16 PO 1601 Tetrahydrozoline HCl 1 GTT Q8 04/16 0600 AC 04/16 OPH 1401 Thiamine HCl 100 MG DAILY 04/14 1353 AC 04/17 PO 0813 Trazodone HCl 150 MG AT BEDTIME 04/15 2200 AC 04/17 PO 0043 Assessment/Plan Assessment: 45-year-old male with a past medical history of alcohol withdrawal, detox, multiple admissions for detox. Has left AMA in the past, alcohol induced seizures, bipolar disorder, anxiety, depression who presented to the [facility] emergency department with the intention to go through alcohol withdrawal. The patient had an episode of seizure-like activity prior coming to the emergency department 2 days back. He currently denies any suicidal or homicidal ideation. Is motivated to undergo treatment, reports having set up follow-up appointments as outpatient. He reports ongoing abdominal pain, that has been present since admission. Today 5 out of 10 in intensity. Reports eating well, with regular bowel movements, denies any recent fever or chills. Was seen earlier in the morning walking around the unit comfortably. Labs done 04/15/2016 did not display any abnormalities. Amylase and lipase were checked on 04/13/16, amylase 30, lipase 91. We will continue his Prilosec at this time we will monitor his pain, and if it increases in intensity we will work it up further. Assessment 1. Acute alcohol withdrawal 2. Alcohol withdrawal/induced seizures 3. History of anxiety and depression, 4. History of bipolar disorder 5. History of suicidal and homicidal ideation 6. History of hypertension 7. Chronic abdominal pain Plan CIWA scores in the last 24 hours remained low, continue Ativan as per CIWA protocol. Taper schedule Ativan to 1.5 mg 3 times a day. Continue with patient's home medications including clonazepam and gabapentin.( This was discussed with the psychiatric staff who recommended to not to hold these medications while the patient is being Ativan) Continue with clonidine for blood pressure control. Will discuss with his primary care physician regarding tapering off clonidine Continue with multivitamin, thiamine, and folate supplementation Follow-up social work consult for final disposition. Psych consult has been appreciated. We'll discontinue Lamictal as per their recommendations. dvt PPX at all time FC Problem List: 1. ALCOHOL WITHDRAWAL Pain Ratin Pain Location: No pain at this time Pain Goal: Remain pain free Pain Plan: When necessary Tylenol Tomorrow's Labs & Rationales: No need of labs tomorrow Consulting Request: Consulting Specialty: Psychiatry MONICA ETIENNE,ENRIQUETA 04/17/16 1200: Attending Review Statement Attending Statement Attending MD Statement: examined this patient, discuss w/resident/PA/PLATE GRINDER, agreed w/resident/PA/PLATE GRINDER, discussed with family, reviewed EMR data (avail), discussed with nursing, discussed with case mgmt, reviewed images, amended to note Attending Assessment/Plan: Sitting comfortably in bed has been ambulating without any issues. Denies any nausea, vomiting, difficulty in bowel movements. Plan: 1. Continue Ativan as per CIWA protocol. 2. Continue PPI. He scheduled for outpatient GI workup with Dr. Davis on May 12.
[2016-04-17 15:47] VITALS: BP 114/94
[2016-04-17 16:00] VITALS: BP 114/94
[2016-04-17 23:33] VITALS: BP 130/78
--- NOTE | 2016-04-18 07:19 | PN- Housestaff ---
TOO ETIENNE,SANIA 04/18/16 0718: Subjective Follow-up For: Alcohol Withdrawal Complaints: no complaints Subjective: Patient is doing better and has been scoring low on the CIWA. He has been complaining of persistent right upper quadrant pain. No episodes of diarrhea or vomiting. The patient had solid formed bowel movement yesterday. Patient remained afebrile. Review of Systems Constitutional: Reports: see HPI. Objective Last 24 Hrs of Vital Signs/I&O Vital Signs Date Time Temp Pulse Resp B/P Pulse O2 O2 Flow FiO2 Ox Delivery Rate 04/18 0817 98.1 65 20 132/78 96 Room Air 04/17 2333 97.5 61 20 130/78 95 04/17 2110 75 140/80 04/17 1613 60 114/94 04/17 1600 97.6 60 20 114/94 04/17 1547 97.6 60 20 114/94 96 Intake & Output 04/18 1600 04/18 0800 04/18 0000 Intake Total 800 Output Total Balance 800 Intake, Oral 800 Physical Exam General Appearance: Alert, Oriented X3, Cooperative, No Acute Distress Skin: No Rashes, No Breakdown HEENT: Atraumatic, PERRLA Neck: Supple, No JVD Lymphatic: Axillary nl Cardiovascular: Normal S1, Normal S2 Lungs: Clear to Auscultation, Normal Air Movement Abdomen: normal bowel sounds, right upper quadrant pain Neurological: Normal Gait, Normal Speech Assessment/Plan Assessment: 45-year-old male with a past medical history of alcohol withdrawal, detox, multiple admissions for detox. Has left AMA in the past, alcohol induced seizures, bipolar disorder, anxiety, depression who presented to the [facility] emergency department with the intention to go through alcohol withdrawal. The patient had an episode of seizure-like activity prior coming to the emergency department 2 days back. He currently denies any suicidal or homicidal ideation. Is motivated to undergo treatment, reports having set up follow-up appointments as outpatient. He reports ongoing abdominal pain, that has been present since admission. Today 7 out of 10 in intensity. Reports eating well, with regular bowel movements, denies any recent fever or chills. Was seen earlier in the morning walking around the unit comfortably. Labs done 04/15/2016 did not display any abnormalities. Amylase and lipase were checked on 04/13/16, amylase 30, lipase 91. Assessment 1. Acute alcohol withdrawal 2. Alcohol withdrawal/induced seizures 3. History of anxiety and depression, 4. History of bipolar disorder 5. History of suicidal and homicidal ideation 6. History of hypertension 7. Chronic abdominal pain Plan CIWA scores in the last 24 hours remained low, 0-8-0-0-9, She required 3 mg of IV Ativan in the last 24 hours. We will continue with Ativan taper and was switched to by mouth Ativan 1 mg every 12 The patient already has an appointment at [facility] on 04/21/2015 We will repeat basic electrolyte panel along with LFTs and amylase and lipase and elevated we will do an ultrasound to rule out any gallbladder stones Continue with patient's home medications including clonazepam and gabapentin.( This was discussed with the psychiatric staff who recommended to not to hold these medications while the patient is being Ativan) Continue with clonidine for blood pressure control. Continue with multivitamin, thiamine, and folate supplementation Psych consult has been appreciated. We'll discontinue Lamictal as per their recommendations. dvt PPX at all time FC Problem List: 1. ALCOHOL WITHDRAWAL 2. PTSD (post-traumatic stress disorder) 3. DVT prophylaxis 4. Full code status Pain Ratin Pain Location: Abdominal pain Pain Goal: Pain 4 or less Pain Plan: . Tylenol as needed Tomorrow's Labs & Rationales: Basic electrolyte panel Consulting Request: Consulting Specialty: Psychiatry TALIB VARGHESE MD 04/18/16 1350: Attending Review Statement Attending Statement Attending Statement: examined this patient, discuss w/resident/PA/DIAGNOSTIC IMAGING MANAGER, agreed w/resident/PA/DIAGNOSTIC IMAGING MANAGER, reviewed EMR data (avail), discussed with nursing, amended to note Attending Assessment/Plan: The patient was seen and discussed with house staff. Agree with the plan of care as outlined.
[2016-04-18 08:17] VITALS: BP 132/78
--- NOTE | 2016-04-18 11:34 | Discharge Summary ---
Visit Information Visit Dates Admission Date: 04/14/16 Discharge Date: 04/19/16 Hospital Course Course Attending Physician: TALIB VARGHESE MD Primary Care Physician: BETTY ETIENNE,GERARD Hammond Consulting Request: Consulting Specialty: Psychiatry Hospital Course: This is a 45-year-old male with a past medical history of alcohol withdrawal, alcohol detox, alcohol withdrawal seizures, post traumatic stress disorder, liver disorder, anxiety, depression presented to the [facility] with the intention to get involved in alcohol withdrawal. The patient also apparently had a generalized seizures prior coming to the hospital.. his last drink was 24 hours prior coming to the hospital. The patient didn't have any suicidal or homicidal ideation at the time of admission Vital signs, labs were within normal limits. The patient alcohol levels were greater than 290 Assessment 1. Acute alcohol withdrawal 2. Alcohol dependence 3. Acute delirium 4. Chronic abdominal pain 5. History of pancreatitis 6. History of posttraumatic stress disorder 7. History of anxiety and bipolar disorder Hospital course The patient was admitted to the general medicine floor and was started on Ativan taper. Completed the Ativan taper in the hospital The patient would be discharged on an Ativan taper 1 mg TID on 04/19,1mg BID on 04/20,0.5 mg BD on 04/21 and then 0.5 mg one dose and then stop The patient has an appointment at [facility] on 04/21/2016 for an outpatient rehabilitation and detox alcohol The patient lamotrigine was discontinued in the hospital for the post matter disorder which the patient was not taking at home as well. The patient complained of persistent abdominal pain. The patient's hepatic function and pancreatic function test were within normal limits. No imaging was done. This was most likely gastritis and hence the patient was continued on omeprazole which we increased to 40 mg BID. The patient has an appointment with Dr. Davis on 05/12/2016 to follow-up for his history of pancreatitis. Allergies: Coded Allergies: haloperidol (Severe, DIFFICULTY BREATHING 04/13/16) chlorpromazine (DYSTONIC REACTION 04/13/16) Pertinent Lab Results: Laboratory Tests 04/18 04/18 0837 0837 Chemistry Sodium (137 - 145 mmol/L) 139 Potassium (3.5 - 5.1 mmol/L) 4.1 Chloride (98 - 107 mmol/L) 103 Carbon Dioxide (22 - 30 mmol/L) 29 Anion Gap (5 - 16) 8 BUN (9 - 20 mg/dL) 15 Creatinine (0.7 - 1.2 mg/dL) 0.8 Estimated GFR (>60 ml/min) > 60 BUN/Creatinine Ratio (7 - 25 %) 18.8 Total Bilirubin (0.2 - 1.3 mg/dL) 0.4 Direct Bilirubin (< 0.4 mg/dL) 0.4 AST (17 - 59 U/L) 53 ALT (21 - 72 U/L) 34 Alkaline Phosphatase (< 127 U/L) 118 Total Protein (6.3 - 8.2 g/dL) 6.9 Albumin (3.5 - 5.0 g/dL) 4.0 Amylase (30 - 110 U/L) < 30 L Lipase (23 - 300 U/L) 82 Disposition Summary Disposition Principal Diagnosis: ALCOHOL WITHDRAWAL Additional Diagnosis: HYPERTENSION ANXIETY PTSD Discharge Disposition: home or self care Discharge Instructions General Discharge Information Code Status: Full Code Patient's Diet: TOLERATED Patient's Activity: TOLERATED Follow-Up Instructions/Appts: PLEASE F/U WITH PCP IN1 WEEK Medications at Discharge Discharge Medications: Stop taking the following medications: Pantoprazole Sodium (Protonix) 20 MG TABLET.DR ORAL DAILY Qty = 30 Continue taking these medications: Gabapentin (Neurontin) 300 MG CAPSULE 1 Capsule ORAL THREE TIMES DAILY Comments: Last Taken: 04/19/16 Time: 0800 Folic Acid (Folic Acid) 1 MG TABLET 1 Milligram ORAL DAILY Days = 18 Comments: Last Taken: 04/19/16 Time: 0800 Escitalopram Oxalate (Lexapro) 10 MG TABLET 10 Milligram ORAL DAILY @8 AM Days = 18 Comments: Last Taken: 04/19/16 Time: 0800AM Pravastatin Sodium (Pravastatin Sodium) 40 MG TABLET 1 Tablet ORAL Every night Days = 30 Comments: Last Taken: 04/18/16 Time: 5 PM Clonidine HCl (Clonidine HCl) 0.1 MG TABLET 1 Tablet ORAL THREE TIMES DAILY Days = 30 Comments: Last Taken: 04/19/16 Time: 0800AM Ondansetron HCl (Zofran) 4 MG TABLET 1 Tablet ORAL DAILY as needed for NAUSEA Qty = 10 Comments: NOT GIVEN IN HOSPITAL ( IV GIVEN IN HOSPITAL ) Clonazepam (Klonopin) 1 MG TABLET 1 Tablet ORAL THREE TIMES DAILY Qty = 18 Instructions: PLEASE HOLD WHILE TAKING ATIVAN. PLEASE RESUME AFTER YOU FINISH YOUR LAST ATIVAN DOSE TOMORROW (03/10/16). Comments: Last Taken: 04/19/16 Time: 0800AM Trazodone HCl (Trazodone HCl) 100 MG TABLET 1 Tablet ORAL DAILY Comments: Last Taken:04/18/16 Time: 2200PM Start taking the following new medications: Thiamine HCl (Vitamin B-1) 100 MG TABLET 100 Milligram ORAL DAILY Qty = 60 No Refills Comments: Last Taken: 04/19/16 Time: 0800AM Multivitamin (One Daily Multivitamin) 1 EACH TABLET 1 Tablet ORAL DAILY Qty = 60 No Refills Comments: Last Taken: 04/19/16 Time: 0800AM Lorazepam (Ativan) 1 MG TABLET 1 Tablet ORAL SEE ADMIN CR Qty = 6 No Refills Instructions: take 1 mg 3 times(breakfast,lunch,dinner) on 04/19/16 take 1 mg 2 times(breakfat and dinner) on 04/20/16 take 0.5 mg 2 times(breakfast and dinner) on 04/21/16 take 0.5 mg once on 04/22/16(breakfast) and then stop Comments: Last Taken: 04/19/16 Time: 0800AM Pantoprazole Sodium (Protonix) 40 MG TABLET.DR 1 Tablet ORAL TWICE DAILY Qty = 30 No Refills Comments: PRILOSEC GIVEN 04/19/16 @0800AM Copies To: BETTY ETIENNE,GERARD Hammond Attending MD Review Statement Documenting Attending: TALIB VARGHESE MD Other Findings: The patient was seen on the day of discharge and agree with the plan of care as outlined.
[2016-04-18] MEDS ORDERED: ONE DAILY MULT1 EAC2 PO (11:35)
[2016-04-18] MEDS ORDERED: VITAMIN B-1100 MG PO (11:35)
--- NOTE | 2016-04-18 11:36 | Patient Discharge Instructions ---
Discharge Instructions General Discharge Information You were seen/treated for: acute alcohol withdrawal Special Instructions: please f/u with pcp in 1 week please f/u with Dr Davis in 05/12/16 Acute Coronary Syndrome Inclusion Criteria At DC or during hospital stay patient has or had the following: ACS DIAGNOSIS No Discharge Core Measures Meds if any: Prescribed or Continued at Discharge Meds if any: NOT Prescribed or Continued at Discharge Congestive Heart Failure Inclusion Criteria At DC or during hospital stay patient has or had the following: CHF DIAGNOSIS No Discharge Core Measures Meds if any: Prescribed or Continued at Discharge Meds if any: NOT Prescribed or Continued at Discharge Cerebrovascular accident Inclusion Criteria At DC or during hospital stay patient has or had the following: CVA/TIA Diagnosis No Discharge Core Measures Meds if any: Prescribed or Continued at Discharge Meds if any: NOT Prescribed or Continued at Discharge Venous thromboembolism Inclusion Criteria VTE Diagnosis No VTE Type NONE VTE Confirmed by (Test) NONE Discharge Core Measures - Per Current guidelines, there needs to be overlap - treatment for the first 5 days of Warfarin therapy. - If discharged on Warfarin prior to 5 days of - overlap therapy, the patient will need to be - assessed for post discharge needs including - *Post discharge parental anticoagulation - *Warfarin and/or parental anticoagulation education - *Follow up date to check INR post discharge At least 5 days overlap therapy as Inpatient No Meds if any: Prescribed or Continued at Discharge Note: Overlap Therapy is Warfarin and Anticoagulant Meds if any: NOT Prescribed or Continued at Discharge
[2016-04-18 16:01] VITALS: BP 110/94
[2016-04-18 23:00] VITALS: BP 115/88
--- NOTE | 2016-04-19 05:06 | PN- Housestaff ---
TOO ETIENNE,SANIA 04/19/16 0506: Subjective Follow-up For: Alcohol withdrawal and detox Complaints: no complaints Subjective: HAS BEEEN DOING WELL. Has been reuqiring less IV ativan as on PRN basis. Review of Systems Constitutional: Reports: see HPI. Objective Last 24 Hrs of Vital Signs/I&O Vital Signs Date Time Temp Pulse Resp B/P Pulse O2 O2 Flow FiO2 Ox Delivery Rate 04/19 0814 98.3 78 18 130/90 96 04/18 2300 97.9 77 18 115/88 97 Room Air 04/18 2126 77 115/88 04/18 1614 87 128/88 04/18 1601 97.4 87 19 110/94 96 04/18 0924 98.1 65 20 132/78 Physical Exam General Appearance: Alert, Oriented X3 Skin: No Rashes, No Breakdown HEENT: Atraumatic, PERRLA Neck: Supple, No JVD, No thryomegaly Lymphatic: Axillary nl, Cervical nl Cardiovascular: Normal S1, Normal S2 Lungs: Clear to Auscultation, Normal Air Movement Assessment/Plan Assessment: 45-year-old male with a past medical history of alcohol withdrawal, detox, multiple admissions for detox. Has left AMA in the past, alcohol induced seizures, bipolar disorder, anxiety, depression who presented to the [facility] emergency department with the intention to go through alcohol withdrawal. The patient had an episode of seizure-like activity prior coming to the emergency department 2 days back. He currently denies any suicidal or homicidal ideation. Is motivated to undergo treatment, reports having set up follow-up appointments as outpatient. He reports ongoing abdominal pain, that has been present since admission. Today 7 out of 10 in intensity. Reports eating well, with regular bowel movements, denies any recent fever or chills. Was seen earlier in the morning walking around the unit comfortably. Labs done 04/15/2016 did not display any abnormalities. Amylase and lipase were checked on 04/13/16, amylase 30, lipase 91. Assessment 1. Acute alcohol withdrawal 2. Alcohol withdrawal/induced seizures 3. History of anxiety and depression, 4. History of bipolar disorder 5. History of suicidal and homicidal ideation 6. History of hypertension 7. Chronic abdominal pain Plan CIWA scores in the last 24 hours remained low, 0-1--01-2 She required 2 mg of IV Ativan in the last 24 hours. We will continue with Ativan taper and was switched to by mouth Ativan 1mg q8 and then q12 in 24 hrs -->0.5 mg BID-->0.5 daily and then stop He will complete the taper at home-will provide him with scripts for the ativan The patient already has an appointment at [facility] on 04/21/2015 Continue with patient's home medications including clonazepam and gabapentin.( This was discussed with the psychiatric staff who recommended to not to hold these medications while the patient is being Ativan) Continue with clonidine for blood pressure control. Continue with multivitamin, thiamine, and folate supplementation Will increase his Omperazaole to 40 mg BID Psych consult has been appreciated. We'll discontinue Lamictal as per their recommendations. dvt PPX at all time FC Patient is stable for discharge at this point. The plan of care was discussd with the patinet in detail and was in agrremnet with the plan. He will arrange for his mother for transport Problem List: 1. PTSD (post-traumatic stress disorder) 2. DVT prophylaxis 3. Full code status Pain Ratin Pain Location: abdomnla pain Pain Goal: Remain pain free Pain Plan: po tylenol as needed Tomorrow's Labs & Rationales: none Consulting Request: Consulting Specialty: Psychiatry TALIB VARGHESE MD 04/19/16 1410: Attending MD Review Statement Attending Statement Attending MD Statement: examined this patient, discuss w/resident/PA/WARP PREPARER, agreed w/resident/PA/WARP PREPARER, reviewed EMR data (avail), discussed with nursing, amended to note Attending Assessment/Plan: The patient was seen and discussed with house staff. Agree with the plan of care as outlined.
[2016-04-19] MEDS ORDERED: PROTONIX40 M3 PO (08:02)
[2016-04-19 08:14] VITALS: BP 130/90
[2016-04-19] MEDS ORDERED: ATIVAN1 M1 PO (08:52)
== END 2016-04-19 09:43 | DRG 897 ==
LOC: ENRESERVDT → ENRESERVTM → ERH 20:36 → 2NB 04-14 11:49 → ERHI 04-14 11:49 → ENPENDDIS 04-14 11:49 → 2NB 04-14 13:28
PROVIDERS: Emergency Medicine; ADMIT Internal Medicine
DX: F10.239 Alcohol dependence with withdrawal, unspecified (principal); F11.20 Opioid dependence, uncomplicated; I10 Essential (primary) hypertension; F10.229 Alcohol dependence with intoxication, unspecified; K29.20 Alcoholic gastritis without bleeding; Y90.8 Blood alcohol level of 240 mg/100 ml or more; F13.10 Sedative, hypnotic or anxiolytic abuse, uncomplicated; F31.9 Bipolar disorder, unspecified; E78.5 Hyperlipidemia, unspecified; F41.8 Other specified anxiety disorders
CPT/HCPCS: 2NBSP; 86618; 36415; 80307; 81003; 82436; 93005; 93010; 96374; 96375; 96376; 99232; G0463; G0480; J0131; J1650; J3490

== ENCOUNTER 2016-04-26 02:11 | Inpatient (IN) | payer OTHER, MEDICARE ==
[2016-04-26] VITALS (10 sets, daily range): BP systolic 128–167; BP diastolic 73–101
[~2016-04-26] VITALS: Ht 170.2 cm; Wt 90.7 kg
[~2016-04-26 02:11] MED LIST changes: +ATIVAN1 M1 PO; +ONE DAILY MULT1 EAC2 PO; +PROTONIX40 M3 PO
--- NOTE | 2016-04-26 02:20 | ED GENERAL ADULT ---
History of Present Illness General Chief Complaint: Abdominal Pain/Flank Pain Stated Complaint: BIBA, LOWER ABD PAIN Source: patient, old records, EMS Exam Limitations: no limitations Vital Signs & Intake/Output Vital Signs & Intake/Output Vital Signs Date Time Temp Pulse Resp B/P Pulse O2 O2 Flow FiO2 Ox Delivery Rate 04/27 0958 140/80 04/27 0800 Room Air 04/27 0048 97.5 68 20 130/80 97 Room Air 04/26 2134 146/84 04/26 1945 98.2 71 20 136/90 04/26 1917 98.2 71 20 136/90 97 04/26 1831 66 16 167/99 04/26 1830 66 16 167/99 99 Room Air 04/26 1636 96.8 85 16 152/98 04/26 1635 96.8 85 16 152/98 98 Room Air 04/26 1303 97.5 90 16 145/101 04/26 1302 97.5 90 16 145/101 96 Room Air ED Intake and Output 04/27 0000 04/26 1200 Intake Total 780 Output Total Balance 780 Intake, IV 300 Intake, Oral 480 Patient 200 lb 185 lb Weight Allergies Coded Allergies: haloperidol (Severe, DIFFICULTY BREATHING 04/13/16) chlorpromazine (DYSTONIC REACTION 04/13/16) Reconcile Medications Clonazepam (Klonopin) 1 MG TABLET 1 TAB PO TID ALC WITHDRAWL PLEASE HOLD WHILE TAKING ATIVAN. PLEASE RESUME AFTER YOU FINISH YOUR LAST ATIVAN DOSE TOMORROW (03/10/16). Clonidine HCl 0.1 MG TABLET 1 TAB PO TID BP Escitalopram Oxalate (Lexapro) 10 MG TABLET 10 MG PO 0800 MENTAL HEALTH Folic Acid 1 MG TABLET 1 MG PO DAILY SUPPLEMENT Gabapentin (Neurontin) 300 MG CAPSULE 1 CAP PO TID MENTAL HEALTH/NERVE PAIN ( Reported) Lorazepam (Ativan) 1 MG TABLET 1 TAB PO SEE ADMIN CR alcohol detox take 1 mg 3 times(breakfast,lunch,dinner) on 04/19/16 take 1 mg 2 times(breakfat and dinner) on 04/20/16 take 0.5 mg 2 times(breakfast and dinner) on 04/21/16 take 0.5 mg once on 04/22/16(breakfast) and then stop Multivitamin (One Daily Multivitamin) 1 EACH TABLET 1 TAB PO DAILY supplement Ondansetron HCl (Zofran) 4 MG TABLET 1 TAB PO DAILY PRN NAUSEA Pantoprazole Sodium (Protonix) 40 MG TABLET.DR 1 TAB PO BID heartburn Pravastatin Sodium 40 MG TABLET 1 TAB PO QPM CHOLESTEROL Thiamine HCl (Vitamin B-1) 100 MG TABLET 100 MG PO DAILY supplement Trazodone HCl 100 MG TABLET 1 TAB PO DAILY ANXIETY (Reported) Triage Nurses Notes Reviewed? yes HPI: Patient presents with abdominal pain and requesting detox from alcohol. Patient is released from [facility] 1 week ago after admission for alcohol detox. Patient has multiple admissions over the past few months for the same. Patient states that he started drinking immediately upon discharge. Patient states that his abdominal pain is constant for the past week. The pain is sharp and stabbing in nature. Pain is periumbilical. Patient denies radiation. The pain is 10 out of 10. Patient denies nausea or vomiting. (INOCENTE ETIENNE,STACEY Martinez) Past History Travel History Traveled to [facility] past 21 day No Medical History Any Pertinent Medical History? see below for history Neurological: SEIZURE w/d EENT: NONE Cardiovascular: hypertension Respiratory: NONE Gastrointestinal: PANCREATITIS Hepatic: NONE Renal: NONE Musculoskeletal: left knee multiple tendon r. rotator Psychiatric: alcohol dependence, anxiety, bipolar disease, depression, opioid dependence, PTSD benzodiazepine abuse Endocrine: NONE Blood Disorders: NONE Cancer(s): NONE CT TECHNICIAN/Reproductive: NONE History of MRSA: No History of VRE: No History of CDIFF: No Surgical History Surgical History: EXPLORATORY LAPAROTOMY Psychosocial History Who do you live with Mother Services at Home None What is your primary language American Tobacco Use: Current Daily Use Daily Tobacco Use Amount/Type: => 5 Cigarettes daily ETOH Use: alcoholic Illicit Drug Use: denies illicit drug use Family History Family History, If Any: FATHER, . FH: alcohol abuse grandmother FH: diverticulitis MOTHER Anxiety disorder FHx: bipolar disorder Hx Contributory? No (INOCENTE ETIENNE,STACEY Martinez) Review of Systems Review of Systems Constitutional: Reports: no symptoms. EENTM: Reports: no symptoms. Respiratory: Reports: no symptoms. Cardiovascular: Reports: no symptoms. GI: Reports: see HPI, abdominal pain. Genitourinary: Reports: no symptoms. Musculoskeletal: Reports: no symptoms. Skin: Reports: no symptoms. Neurological/Psychological: Reports: no symptoms. Hematologic/Endocrine: Reports: no symptoms. Immunologic/Allergic: Reports: no symptoms. All Other Systems: Reviewed and Negative (INOCENTE ETIENNE,STACEY Martinez) Physical Exam Physical Exam General Appearance: well developed/nourished, alert, awake, anxious, moderate distress Head: atraumatic, normal appearance Eyes: Bilateral: PERRL, EOMI, other (ANICTERIC). Ears, Nose, Throat: normal pharynx, normal ENT inspection, hearing grossly normal Neck: normal inspection, supple, full range of motion Respiratory: normal breath sounds, chest non-tender, no respiratory distress, lungs clear Cardiovascular: regular rate/rhythm, normal peripheral pulses Gastrointestinal: normal bowel sounds, soft, non-tender, no organomegaly Back: normal inspection, normal range of motion Extremities: normal inspection, normal capillary refill, normal range of motion, no edema Neurologic/Psych: no motor/sensory deficits, awake, alert, oriented x 3, normal gait, normal mood/affect Skin: intact, normal color, warm/dry Lymphatic: no anterior cervical douglas Core Measures ACS in differential dx? No CVA/TIA Diagnosis: No Severe Sepsis Present: No Septic Shock Present: No (INOCENTE ETIENNE,STACEY Martinez) Progress Differential Diagnoses I considered the following diagnoses in my evaluation of the patient: [Alcohol withdrawal, dependency, pancreatitis, or abnormality] Plan of Care: Orders Procedure Date/time Status Regular Diet 04/27 B Active LYME TITRE 04/27 2052 Active Continuous Observation Monitor 04/27 0811 Complete CBC WITHOUT DIFFERENTIAL 04/27 06 Complete BASIC ELECTROLYTES PLUS BUN&CR 04/27 0600 Complete Regular Diet 04/26 D Complete Vital Signs 04/26 1927 Complete Teach/Educate 04/26 1927 Active Nutritional Intake, Monitor 04/26 1927 Active Isolation 04/26 1928 Active Intake & Output 04/26 192 Complete Patient Care Conference 04/26 192 Active Activity/Ambulation 04/26 1928 Active Pathway - chart 04/26 1635 Active House Staff 04/26 1635 Active Patient Data 04/26 1635 Active Code Status 04/26 1635 Active Pathway - chart 04/26 1633 Active Misc Message 04/26 1449 Active ED Holding Orders 04/26 1449 Active Vital Signs 04/26 1449 Active Code Status 04/26 1449 Complete Patient Data 04/26 1347 Active Admit to inpatient 04/26 1316 Active Intake & Output 04/26 0255 Active VTE Mechanical Prophylaxis 04/26 UNK Active Nursing Misc 04/26 UNK Active CIWA 04/26 UNK Complete SOCIAL WORK CONSULT 04/26 UNK Active PSYCHIATRIC CONSULT 04/26 UNK Active Current Medications Sig/Genoveva Start time Last Medication Dose Stop Time Status Admin Trazodone HCl 50 MG AT BEDTIME 04/27 2200 CAN (Desyrel) Lorazepam 1.5 MG Q6 04/27 1200 AC (Ativan) Lorazepam 1.5 MG Q6H 04/27 0000 CAN (Ativan) 04/27 1201 Lorazepam 2 MG Q6 04/26 1800 CAN (Ativan) Laboratory Tests 04/27/16 0700: Anion Gap 8, Estimated GFR > 60, BUN/Creatinine Ratio 13.3, CBC w Diff NO MAN DIFF REQ, RBC 4.20 L, MCV 95.8 H, MCH 32.8 H, RDW 14.5, MPV 7.2 L, Gran % 44.0, Lymphocytes % 44.2, Monocytes % 7.1, Eosinophils % 3.7, Basophils % 1.0, Absolute Granulocytes 1.9, Absolute Lymphocytes 1.9, Absolute Monocytes 0.3, Absolute Eosinophils 0.2, Absolute Basophils 0, PUBS MCHC 34.2 Initial ED EKG: none Hand-Off Endorsed To: REBEKAH ETIENNE,BJ Kim Endorsed Time: 0700 Pending: consult (CRISIS) Comments: I advised the patient that he really needs long-term inpatient treatment for his alcoholism. Patient has multiple hospital admission for the same in a very short period of time. Patient advised that the patient to the hospital is not going to help him that he really needs long-term care. Patient states that [facility] has a three-month wait list. Patient advised that [facility] also had a detox facility and he can do both right there however if he were to find a long-term inpatient rehabilitation at does not offer detox and he can come back here and we will get him medically detoxed and then be able to discharge her straight to long-term inpatient rehabilitation. When presented with this the patient then stated that he told himself that if he were to drink again he was going to kill himself and that he really means it and is now having suicidal thoughts. (INOCENTE ETIENNE,STACEY Martinez) Comments: 04/26/2016 1:06:24 PM patient's case discussed with Dr. Rowley, patient to be admitted. 04/26/2016 4:44:20 PM I was just notified by the glass blowing lathe operator that this patient has a history of drinking rubbing alcohol. I have conveyed this to the MOD. (BJ WELCH MD) Departure Departure Disposition: STILL A PATIENT Condition: Stable Departure Forms: Customer Survey General Discharge Information (STACEY BROWRE MD) Departure Clinical Impression Primary Impression: Alcohol withdrawal Qualifiers: Complication of substance-induced condition: uncomplicated Qualified Code: F10.230 - Alcohol dependence with withdrawal, uncomplicated Secondary Impressions: Alcohol abuse Alcoholic intoxication Qualifiers: Complication of substance-induced condition: uncomplicated Qualified Code: F10.120 - Alcohol abuse with intoxication, uncomplicated Suicidal ideation Referrals: GERARD HERNÁNDEZ MD (PCP/Family) Admission Note Spoke With: ROSA ROWLEY MD Documentation of Exam: Documentation of any treatments & extenuating circumstances including Concerns Regarding Discharge (functional status, medication knowledge or non-compliance, living conditions, etc.) that warrant an admission rather than observation: pt is in active etoh w/d. he hx of recent etoh w/d seizure. he is at high risk of seizures, injury and respiratory arrest. he is also at risk of hallucinations and delerium tremens. he is therefor a poor candidate for outpt treatment. he has also has a hx of sobriety non compliance and would likely continue drinking. this would place him at high risk of liver diease (hepatitis and cirrhosis), aspiration and injury secondary to falling. i therefor feel he requires a multiple day hospitalization for detox, treatment with ativan to prevent w/d complications. psychiatry consult should be obtained due to expressed si. (BJ WELCH MD) Critical Care Note Critical Care Note Critical Care Time: non-applicable (STACEY BROWER MD) Critical Care Note Critical Care Time: 30-74 min (BJ WELCH MD)
--- NOTE | 2016-04-26 02:21 | NUR ---
PT BIBA C/O LOWER ABDOMINAL PAIN 10/06. PT STATES HE HAS HX OF PANCREATITIS. PT ADMITS TO USING ALCOHOL DAILY, LAST DRINK WAS 5 HOURS AGO. LAST TIME PT WAS HERE PT HAD A SEZIURE AND WAS ADMITTED FOR ETOH DETOX.
--- NOTE | 2016-04-26 02:35 | NUR ---
LABS DRAWN --- SST,LAV,BLUE ALL SENT
--- NOTE | 2016-04-26 02:44 | NUR ---
EKG DONE AND SHOWN TO DR. BROWER.
--- NOTE | 2016-04-26 02:55 | NUR ---
PATIENT AMBULATORY TO BATHROOM W/ STABLE GAIT NOTED TO OBTAIN URINE SPECIMEN.
[2016-04-26 03:21] LABS: ABSOLUTE BASOPHIL COUNT 0.1 /CUMM (0.0-0.2); ABSOLUTE EOSINOPHIL COUNT 0.1 /CUMM (0.0-0.7); ABSOLUTE GRANULOCYTE CT 1.5 /CUMM (1.4-6.5); ABSOLUTE LYMPH COUNT 2.1 /CUMM (1.2-3.4); ABSOLUTE MONOCYTE COUNT 0.2 /CUMM (0.10-0.60); GRANULOCYTE % 38.8 % (42.2-75.2); HEMATOCRIT 34.8 % (42-52); MEAN CORPUSCULAR HGB 33.6 PG (27.0-31.0); MEAN CORPUSCULAR VOLUME 93.4 FL (80.0-94.0); MEAN PLATELET VOLUME 7.2 FL (7.4-10.4); PLATELET COUNT 105 /CUMM (130-400); RBC DISTRIBUTION WIDTH 14.3 % (11.5-14.5); RED BLOOD CELL CT 3.73 /CUMM (4.70-6.10)
--- NOTE | 2016-04-26 03:37 | NUR ---
PATIENT SPEAKING TO MD BROWER AT THIS TIME.
--- NOTE | 2016-04-26 03:40 | NUR ---
PATIENT INFORMED BY MD BROWER THAT NO ATIVAN WILL BE GIVEN AT THIS TIME, PATIENT NOW STATING HE IS +SI AND IS REQUESTING CRISIS EVAL. PATIENT MOVED TO , OKAY PER MD. SITTER MADE AWARE OF PATIENT HX AND AWARE TO INFORM RN IS ANY SEIZURE ACTIVITY. RNS WILL CONTINUE TO CLOSELY MONITOR.
--- NOTE | 2016-04-26 04:02 | NUR ---
PER PT "CAN I GET SOMETHING TO HELP ME CALM DOWN, EVERY TIME I COME HERE THEY GIVE ME ATIVAN. I NEED SOMETHING TO CALM DOWN, I SHOULD HAVE GONE TO ANOTHER HOSPITAL. GET THE DOCTOR I NEED ATIVAN."
--- NOTE | 2016-04-26 06:22 | NUR ---
PT SLEEPING AT THIS TIME, OFFERING NO COMPLAINTS, AWAKE FOR VITAL SIGNS, NO DISTRESS NOTED. SITTER IN PLACE.
--- NOTE | 2016-04-26 07:39 | NUR ---
ASSUMED CARE OF THIS PATIENT, REPORT RECEIVED FROM MICHAEL BLACKMON PT SLEEPING IN SIDE LYING POSITION WITH REGULAR RESPIRATIONS NOTED BREAKFAST TRAY AT BEDSIDE SITTER REMAINS AT DOOR
--- NOTE | 2016-04-26 09:35 | NUR ---
PT BREATHOLYZED .116 AT THIS TIME
--- NOTE | 2016-04-26 10:11 | NUR ---
FINGER FOOD TRAY ORDERED
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
--- NOTE | 2016-04-26 11:02 | NUR ---
PT COMPLAINS OF FEELING LIKE HE IS GOING TO HAVE A SEIZURE. COMPLAINS OF ABD PAIN, NAUSEA, RINGING IN EARS AND TIGHTENING IN JAW. CIWA SCORE = 11, NO VISIBLE SIGNS OF TREMORS NOTED. DR WELCH MADE AWARE OF SAME.
--- NOTE | 2016-04-26 12:18 | NUR ---
PT MEDICATED WITH ATIVAN 1MG PO
--- NOTE | 2016-04-26 13:05 | NUR ---
PT REPORTS NO RELIEF FROM ATIVAN 1MG. PT AMBULATORY TO RESTROOM. PT VISIBLY TREMULOUS AND REPORTS NAUSEA. WILL LET DR WELCH KNOW
--- NOTE | 2016-04-26 13:22 | NUR ---
PT MEDICATED WITH ATIVAN 2MG AND ZOFRAN 4MG ODT
--- NOTE | 2016-04-26 14:17 | NUR ---
PT REPORTS NAUSEA HAS LESSENED AND PT'S TREMORS HAVE DECREASED
--- NOTE | 2016-04-26 15:53 | NUR ---
HOUSE STAFF MD AT BEDSIDE
--- NOTE | 2016-04-26 16:07 | History & Physical ---
NAHUM ETIENNE,HOOD 04/26/16 1606: General Information and HPI MD Statement: I have seen and personally examined PRAKASH NORRIS and documented this H&P. The patient is a 45 year old M who presented with a patient stated chief complaint of [alcohol detoxification]. Source of Information: patient, EMS Exam Limitations: no limitations History of Present Illness: patient is a 45 YO M with PMH significant for extensive psychiatric history including Bipolar, Anxiety, depression, PTSD, polysubstance abuse, Pancreatitits , alcoholic seizure, multiple alcohol withdrawls with last being a week ago ( discharged on 04/19/16). He came to the ER today with severe abdominal pain, nausea, diarrhea for the past few days and requesting for detoxification. His last drink was yesterday with vokda and beer. After his recent discharge he has been on and off alcohol, he consumed around 2L of vokda, 12 pack beers which was less than his usual. Currently he denies any suicidal/homicidal ideation with depressed mood. He was recently joined in [employer] program, claims he went. He reports that his abdominal pain is similar to his pancreatitis pain. he denies any fever, shortness of breath, chills, chest pain, changes in urination. Allergies/Medications Allergies: Coded Allergies: haloperidol (Severe, DIFFICULTY BREATHING 04/13/16) chlorpromazine (DYSTONIC REACTION 04/13/16) Home Med list Clonazepam (Klonopin) 1 MG TABLET 1 TAB PO TID ALC WITHDRAWL PLEASE HOLD WHILE TAKING ATIVAN. PLEASE RESUME AFTER YOU FINISH YOUR LAST ATIVAN DOSE TOMORROW (03/10/16). Clonidine HCl 0.1 MG TABLET 1 TAB PO TID BP Escitalopram Oxalate (Lexapro) 10 MG TABLET 10 MG PO 0800 MENTAL HEALTH Folic Acid 1 MG TABLET 1 MG PO DAILY SUPPLEMENT Gabapentin (Neurontin) 300 MG CAPSULE 1 CAP PO TID MENTAL HEALTH/NERVE PAIN ( Reported) Lorazepam (Ativan) 1 MG TABLET 1 TAB PO SEE ADMIN CR alcohol detox take 1 mg 3 times(breakfast,lunch,dinner) on 04/19/16 take 1 mg 2 times(breakfat and dinner) on 04/20/16 take 0.5 mg 2 times(breakfast and dinner) on 04/21/16 take 0.5 mg once on 04/22/16(breakfast) and then stop Multivitamin (One Daily Multivitamin) 1 EACH TABLET 1 TAB PO DAILY supplement Ondansetron HCl (Zofran) 4 MG TABLET 1 TAB PO DAILY PRN NAUSEA Pantoprazole Sodium (Protonix) 40 MG TABLET. 1 TAB PO BID heartburn Pravastatin Sodium 40 MG TABLET 1 TAB PO QPM CHOLESTEROL Thiamine HCl (Vitamin B-1) 100 MG TABLET 100 MG PO DAILY supplement Trazodone HCl 100 MG TABLET 1 TAB PO DAILY ANXIETY (Reported) Compliance With Home Meds: UNKNOWN Past History Travel History Traveled to [place] past 21 day No Medical History Neurological: SEIZURE w/d EENT: NONE Cardiovascular: hypertension Respiratory: NONE Gastrointestinal: PANCREATITIS Hepatic: NONE Renal: NONE Musculoskeletal: left knee multiple tendon r. rotator Psychiatric: alcohol dependence, anxiety, bipolar disease, depression, opioid dependence, PTSD benzodiazepine abuse Endocrine: NONE Blood Disorders: NONE Cancer(s): NONE ASTRONOMY INSTRUCTOR/Reproductive: NONE History of MRSA: No History of VRE: No History of CDIFF: No Surgical History Surgical History: EXPLORATORY LAPAROTOMY Past Family/Social History Family History Relations & Conditions if any FATHER, . FH: alcohol abuse grandmother FH: diverticulitis MOTHER Anxiety disorder FHx: bipolar disorder Psychosocial History Who Do You Live With? parent Services at Home: None Primary Language: Telugu ETOH Use: alcoholic Illicit Drug Use: denies illicit drug use Living Will? no Functional Ability ADLs Independent: dressing, eating, toileting, bathing. Ambulation: independent IADLs Independent: shopping, housework, finances, food prep, telephone, transportation , medication admin. Review of Systems Review of Systems Constitutional: Reports: see HPI. EENTM: Reports: see HPI. GI: Reports: abdominal pain, diarrhea, steatorrhea. Genitourinary: Reports: see HPI. Musculoskeletal: Reports: see HPI. Skin: Reports: see HPI. Comments ROS as noted in HPI Exam & Diagnostic Data Last 24 Hrs of Vital Signs/I&O Vital Signs Date Time Temp Pulse Resp B/P Pulse O2 O2 Flow FiO2 Ox Delivery Rate 04/264 146/84 04/26 1945 98.2 71 20 136/90 04/26 1917 98.2 71 20 136/90 97 04/26 1831 66 16 167/99 04/26 1830 66 16 167/99 99 Room Air 04/26 1636 96.8 85 16 152/98 04/26 1635 96.8 85 16 152/98 98 Room Air 04/26 1303 97.5 90 16 145/101 04/26 1302 97.5 90 16 145/101 96 Room Air 04/26 1101 96.5 62 20 128/81 04/26 0933 97.7 60 20 151/73 04/26 0932 97.7 60 20 151/73 97 Room Air 04/26 0622 96.0 69 18 130/84 04/26 0622 96.0 69 18 130/84 96 Room Air 04/26 0404 96.4 72 20 154/95 04/26 0354 96.4 72 20 154/95 96 Room Air 04/26 0221 96.5 75 18 142/99 96 Room Air 04/26 0219 96.5 75 18 142/99 Intake & Output 04/26 1600 04/26 0800 04/26 0000 Intake Total Output Total Balance Patient 83.915 kg Weight Physical Exam General Appearance Alert, Oriented X3, Cooperative, Moderate Distress Skin No Rashes, No Breakdown HEENT Atraumatic, PERRLA, EOMI Neck Supple Cardiovascular Regular Rate, Normal S1, Normal S2, No Murmurs Lungs Clear to Auscultation, Normal Air Movement Abdomen Normal Bowel Sounds, Soft, No Tenderness Neurological Normal Speech, Normal Tone Extremities No Clubbing, No Cyanosis, No Edema Vascular Normal Pulses, Pulses Symmetrical Last 24 Hrs of Labs/Toni: Laboratory Tests 04/26/16 0343: Urine Opiates Screen < 100.00, Methadone Screen < 40, Barbiturate Screen < 60, Ur Phencyclidine Scrn < 6.00, Amphetamines Screen < 100, U Benzodiazepines Scrn 422 H, Urine Cocaine Screen 56, Urine Cannabis Screen 12.10, Urine Color YEL, Urine Clarity CLEAR, Urine pH 6.5, Ur Specific [place] 1.020, Urine Protein NEG, Urine Ketones NEG, Urine Nitrite NEG, Urine Bilirubin NEG, Urine Urobilinogen 1.0, Ur Leukocyte Esterase NEG, Ur Microscopic EXAM NOT REQUIRED, Urine Hemoglobin NEG, Urine Glucose NEG 04/26/16 0225: Anion Gap 12, Estimated GFR > 60, BUN/Creatinine Ratio 16.0, Glucose 100 H, Calcium 9.3, Total Bilirubin 0.9, AST 115 H, ALT 45, Alkaline Phosphatase 72, Total Protein 7.3, Albumin 4.4, Globulin 2.9, Albumin/Globulin Ratio 1.5, Amylase < 30 L, Lipase 104, CBC w Diff NO MAN DIFF REQ, RBC 3.73 L, MCV 93.4, MCH 33.6 H, RDW 14.3, MPV 7.2 L, Gran % 38.8 L, Lymphocytes % 52.2 H, Monocytes % 5.0, Eosinophils % 2.0, Basophils % 2.0, Absolute Granulocytes 1.5, Absolute Lymphocytes 2.1, Absolute Monocytes 0.2, Absolute Eosinophils 0.1, Absolute Basophils 0.1, PUBS MCHC 36.0, Serum Alcohol 204.0 Assessment/Plan Assessment: Patient is a 45 YO M with extensive psychiatric hsitory , heavy alcoholic - court mandated to go to [facility], came to the ER for alcohol detoxification with abdominal pain, nausea, diarrhea ER Course Vital Signs Afebrile, HR 75-90, BP 142/99mmHg on room air. Significant labs alcohol level of 422 Plan Alcohol detoxification * On IVF, clear liquid diet * CIWA protocol * folate, multivitamin, thiamine * clonidine 0.1mg TID * omez and ondansetrone for possible alcoholic gastritis * Psych and social work consult DVT prophylaxis * ALPS Code status * full code As Ranked By This Provider Problem List: 1. ALCOHOL WITHDRAWAL 2. Alcohol intoxication 3. Polysubstance dependence 4. DVT prophylaxis Core Measures/Miscellaneous Acute Coronary Syndrome ACS Diagnosis: No Cerebrovascular Accident CVA/TIA Diagnosis: No Congestive Heart Failure CHF Diagnosis: No Venous Thromboembolism VTE Risk Factors: Immobility, paresis VTE Prophylaxis Ordered Inpt: Mechanical (ALPS[facility]TEDS) [facility] prophylaxis d/t: No contraindications No VTE Pharm Prophylaxis d/t: No contraindications VTE Diagnosis: No VTE Type: NONE VTE Confirmed by (Test): NONE Severe Sepsis Severe Sepsis Present: No Septic Shock Septic Shock Present: No Miscellaneous Documentation Attending Case Discussed With: SASHA MALLORY MD Primary Care Physician: GERARD HERNÁNDEZ MD Patient sees these Specialists unknown Level of Patient Care: General Medicine SASHA MALLORY MD 04/26/16 1611: Attending Review Statement Attending Statement Attending MD Statement: examined this patient, discuss w/resident/PA/REAL ESTATE PHOTOGRAPHER, agreed w/resident/PA/REAL ESTATE PHOTOGRAPHER, reviewed EMR data (avail), amended to note Attending Assessment/Plan: 45-year-old male with past medical history significant for alcohol dependence, anxiety, bipolar disease, depression, opioid dependence, PTSD benzodiazepine use , recent admission for alcohol intoxication now coming in again with alcohol intoxication. He claims that he went to [facility] but he got overwhelmed. He has all these doctors appointments and just could not take it anymore. He has been continuing to drink since last week. He is drinking Vodka, as well as beer. He also complained off this chronic abdominal pain which she had from before. He denies any nausea or vomiting. Vital Signs Date Time Temp Pulse Resp B/P Pulse O2 O2 Flow FiO2 Ox Delivery Rate 04/26 1303 97.5 90 16 145/101 04/26 1302 97.5 90 16 145/101 96 Room Air 04/26 1101 96.5 62 20 128/81 04/26 0933 97.7 60 20 151/73 04/26 0932 97.7 60 20 151/73 97 Room Air 04/26 0622 96.0 69 18 130/84 04/26 0622 96.0 69 18 130/84 96 Room Air 04/26 0404 96.4 72 20 154/95 04/26 0354 96.4 72 20 154/95 96 Room Air 04/26 0221 96.5 75 18 142/99 96 Room Air 04/26 0219 96.5 75 18 142/99 on exam; aox3, nad. cv; s1,s2, rrr. resp; clear. abd; soft, mild epigastric tenderness, bs+ ext; no edema. Laboratory Tests 04/26 04/26 0343 0225 Chemistry Sodium (137 - 145 mmol/L) 142 Potassium (3.5 - 5.1 mmol/L) 4.6 Chloride (98 - 107 mmol/L) 107 Carbon Dioxide (22 - 30 mmol/L) 24 Anion Gap (5 - 16) 12 BUN (9 - 20 mg/dL) 16 Creatinine (0.7 - 1.2 mg/dL) 1.0 Estimated GFR (>60 ml/min) > 60 BUN/Creatinine Ratio (7 - 25 %) 16.0 Glucose (65 - 99 mg/dL) 100 H Calcium (8.4 - 10.2 mg/dL) 9.3 Total Bilirubin (0.2 - 1.3 mg/dL) 0.9 AST (17 - 59 U/L) 115 H ALT (21 - 72 U/L) 45 Alkaline Phosphatase (< 127 U/L) 72 Total Protein (6.3 - 8.2 g/dL) 7.3 Albumin (3.5 - 5.0 g/dL) 4.4 Globulin (1.9 - 4.2 gm/dL) 2.9 Albumin/Globulin Ratio (1.1 - 2.2 %) 1.5 Amylase (30 - 110 U/L) < 30 L Lipase (23 - 300 U/L) 104 Hematology CBC w Diff NO MAN DIFF REQ WBC (4.8 - 10.8 /CUMM) 4.0 L RBC (4.70 - 6.10 /CUMM) 3.73 L Hgb (14.0 - 18.0 G/DL) 12.5 L Hct (42 - 52 %) 34.8 L MCV (80.0 - 94.0 FL) 93.4 MCH (27.0 - 31.0 PG) 33.6 H RDW (11.5 - 14.5 %) 14.3 Plt Count (130 - 400 /CUMM) 105 L MPV (7.4 - 10.4 FL) 7.2 L Gran % (42.2 - 75.2 %) 38.8 L Lymphocytes % (20.5 - 51.1 %) 52.2 H Monocytes % (1.7 - 9.3 %) 5.0 Eosinophils % (0 - 5 %) 2.0 Basophils % (0.0 - 2.0 %) 2.0 Absolute Granulocytes (1.4 - 6.5 /CUMM) 1.5 Absolute Lymphocytes (1.2 - 3.4 /CUMM) 2.1 Absolute Monocytes (0.10 - 0.60 /CUMM) 0.2 Absolute Eosinophils (0.0 - 0.7 /CUMM) 0.1 Absolute Basophils (0.0 - 0.2 /CUMM) 0.1 PUBS MCHC (33.0 - 37.0 G/DL) 36.0 Toxicology Urine Opiates Screen (>2000 NG/ML) < 100.00 Methadone Screen (>300 NG/ML) < 40 Barbiturate Screen (>200 NG/ML) < 60 Ur Phencyclidine Scrn (>25 NG/ML) < 6.00 Amphetamines Screen (>1000 NG/ML) < 100 U Benzodiazepines Scrn (>200 NG/ML) 422 H Urine Cocaine Screen (>300 NG/ML) 56 Urine Cannabis Screen (>50 NG/ML) 12.10 Serum Alcohol (<10 MG/DL) 204.0 Urines Urine Color (YEL,AMB,STR) YEL Urine Clarity (CLEAR) CLEAR Urine pH (5.0 - 8.0) 6.5 Ur Specific [place] (1.001 - 1.035) 1.020 Urine Protein (NEG,<30 MG/DL) NEG Urine Ketones (NEG) NEG Urine Nitrite (NEG) NEG Urine Bilirubin (NEG) NEG Urine Urobilinogen (0.1 - 1.0 EU/dl) 1.0 Ur Leukocyte Esterase (NEG) NEG Ur Microscopic EXAM NOT REQUIRED Urine Hemoglobin (NEG) NEG Urine Glucose (N MG/DL) NEG A/P; 45-year-old male with past medical history significant for alcohol dependence, anxiety, bipolar disease, depression, opioid dependence, PTSD benzodiazepine use, recent admission for alcohol intoxication now admitted with acute alcohol intoxication. Abdominal pain likely secondary to alcoholic gastritis. Patient admitted to medicine. He will be started on scheduled and when necessary Ativan. He should also be on CIWA protocol. Please start the patient on multivitamin, folate and thiamine. Please confirm and resume his psych medications. Please consult psychiatry. Social work consult. Please keep the patient on PPI. DVT prophylaxis: ALPS. full code. BRYSON ETIENNE,[facility] 04/26/16 1734: Resident Review Statement Resident Statement: examined this patient, discussed with advertising intern, agreed with advertising intern Other Findings: Admitted for ETOH detox. Reports h/o seizures as an outpatient. Was recently discharged, but has not followed up with [facility]. Started drinking as soon as he left. Admission for ETOH detox. PO ativan ATC And IV ativan per CIWA. PO thiamine, MVI and folate. Hold home Klonopin for now. Psych consult, Social work consult. DVT PPX: ALPS 2/2 thrombocytopenia. Full Code. Clear Liquid Dier for now.
--- NOTE | 2016-04-26 16:10 | NUR ---
PT AMBULATORY TO RESTROM. GAIT STEADY.
--- NOTE | 2016-04-26 16:50 | NUR ---
HUNG 1 LITER BAG OF NS, GAVE 2MG IV ATIVAN AND TYLENOL 650MG FOR HEADACHE.
--- NOTE | 2016-04-26 17:29 | NUR ---
PT MEDICATED WITH MULTIVITAMIN AND PRILOSEC 40MG.
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
--- NOTE | 2016-04-27 00:33 | NUR ---
PT A&0X3, 1:1 SITTER AT BEDSIDE +SI, PT CURRENTLY ON CIWA- SCHEDULE PO ATIVAN GIVEN AT THIS TIME. PT REQUESTING ALL HIS HOME MEDICATIONS AT THIS TIME (KLONOPIN 1MG) DR. VINOD ELLIS #[id number] MADE AWARE- NEW ORDERS AT THIS TIME.
[2016-04-27 00:48] VITALS: BP 130/80
[2016-04-27 08:32] LABS: ABSOLUTE BASOPHIL COUNT 0 /CUMM (0.0-0.2); ABSOLUTE EOSINOPHIL COUNT 0.2 /CUMM (0.0-0.7); ABSOLUTE GRANULOCYTE CT 1.9 /CUMM (1.4-6.5); ABSOLUTE LYMPH COUNT 1.9 /CUMM (1.2-3.4); ABSOLUTE MONOCYTE COUNT 0.3 /CUMM (0.10-0.60); EOSINOPHIL % 3.7 % (0-5); MEAN CORPUSCULAR HGB 32.8 PG (27.0-31.0); MEAN CORPUSCULAR HGB CONC 34.2 G/DL (33.0-37.0); MEAN CORPUSCULAR VOLUME 95.8 FL (80.0-94.0); MEAN PLATELET VOLUME 7.2 FL (7.4-10.4); RBC DISTRIBUTION WIDTH 14.5 % (11.5-14.5); WHITE BLOOD CELL COUNT 4.3 /CUMM (4.8-10.8)
[2016-04-27 09:07] LABS: HEMATOCRIT 40.2 % (42-52); PLATELET COUNT 233 /CUMM (130-400)
--- NOTE | 2016-04-27 09:22 | PN- Housestaff ---
NAHUM ETIENNE,HOOD 04/27/16 0921: Subjective Follow-up For: Alcohol withdrawl Subjective: I saw and examined the patient today morning He is doing better than yesterday, asking for food. changed to regular diet. Reports significant sweating all over the bed. Denies any suicidality and homicidality. Review of Systems Constitutional: Reports: see HPI. Comments: ROS negative except above. Objective Last 24 Hrs of Vital Signs/I&O Vital Signs Date Time Temp Pulse Resp B/P Pulse O2 O2 Flow FiO2 Ox Delivery Rate 04/27 0800 Room Air 04/27 0048 97.5 68 20 130/80 97 Room Air 04/26 2134 146/84 04/26 1945 98.2 71 20 136/90 04/26 1917 98.2 71 20 136/90 97 04/26 1831 66 16 167/99 04/26 1830 66 16 167/99 99 Room Air 04/26 1636 96.8 85 16 152/98 04/26 1635 96.8 85 16 152/98 98 Room Air 04/26 1303 97.5 90 16 145/101 04/26 1302 97.5 90 16 145/101 96 Room Air 04/26 1101 96.5 62 20 128/81 04/26 0933 97.7 60 20 151/73 04/26 0932 97.7 60 20 151/73 97 Room Air Intake & Output 04/27 1600 04/27 0800 04/27 0000 Intake Total 920 780 Output Total Balance 920 780 Intake, IV 800 300 Intake, Oral 120 480 Patient 90.718 kg Weight Physical Exam General Appearance: Alert, Oriented X3, Cooperative Skin: No Rashes, No Breakdown HEENT: Atraumatic, PERRLA, EOMI Neck: Supple Cardiovascular: Regular Rate, Normal S1, Normal S2, No Murmurs Lungs: Clear to Auscultation, Normal Air Movement Abdomen: Normal Bowel Sounds, Soft, No Tenderness Neurological: Normal Speech, Strength at 5/5 X4 Ext, Normal Tone, Sensation Intact Extremities: No Clubbing, No Cyanosis, No Edema Current Medications: Current Medications Sig/Genoveva Start time Last Medication Dose Route Stop Time Status Admin Acetaminophen 650 MG Q6P PRN 04/26 1645 AC 04/27 PO 0812 Acetaminophen 0 .STK-MED ONE 04/26 1643 DC PO Clonidine 0.1 MG TID 04/26 2200 AC 04/26 PO 2134 Folic Acid 1 MG DAILY 04/26 1633 AC PO 04/28 1001 Lorazepam 1.5 MG Q6H 04/27 0000 CAN IV 04/27 1201 Lorazepam 0 .STK-MED ONE 04/26 1835 DC PO Lorazepam 2 MG Q6 04/26 1800 AC 04/27 PO 0523 Lorazepam 2 MG Q6 04/26 1800 CAN PO Lorazepam 0 .STK-MED ONE 04/26 1643 DC .ROUTE Lorazepam 2 MG Q2P PRN 04/26 1630 AC 04/27 IV 0654 Lorazepam 1 MG Q2P PRN 04/26 1630 AC 04/27 IV 0819 Lorazepam 0 .STK-MED ONE 04/26 1322 DC PO Lorazepam 2 MG ONCE ONE 04/26 1315 DC 04/26 PO 04/26 1316 1322 Lorazepam 1 MG ONE ONE 04/26 1145 DC 04/26 PO 04/26 1146 1150 Lorazepam 0 .STK-MED ONE 04/26 1145 DC PO Melatonin 5 MG AT BEDTIME 04/26 2300 AC 04/27 PO 0118 Multivitamins 0 .STK-MED ONE 04/26 1719 DC PO Multivitamins 1 TAB DAILY 04/26 1633 AC 04/26 PO 1728 Omeprazole 0 .STK-MED ONE 04/26 1719 DC PO Omeprazole 40 MG DAILY AC 04/26 1637 AC 04/27 PO 0522 Ondansetron HCl 4 MG ONCE ONE 04/26 1730 DC 04/26 IV 04/26 1731 1728 Ondansetron HCl 0 .STK-MED ONE 04/26 1722 DC .ROUTE Ondansetron HCl 0 .STK-MED ONE 04/26 1322 DC PO Ondansetron HCl 4 MG ONCE ONE 04/26 1315 DC 04/26 PO 04/26 1316 1322 Sodium Chloride 1,000 ML .Q10H 04/26 1645 AC 04/27 IV 0524 Thiamine HCl 100 MG DAILY 04/27 1000 AC PO 04/29 1001 Trazodone HCl 50 MG AT BEDTIME 04/27 2200 CAN PO Last 24 Hrs of Lab/Toni Results Last 24 Hrs of Labs/Mics: Laboratory Tests 04/27/16 0700: Anion Gap 8, Estimated GFR > 60, BUN/Creatinine Ratio 13.3, CBC w Diff NO MAN DIFF REQ, RBC 4.20 L, MCV 95.8 H, MCH 32.8 H, RDW 14.5, MPV 7.2 L, Gran % 44.0, Lymphocytes % 44.2, Monocytes % 7.1, Eosinophils % 3.7, Basophils % 1.0, Absolute Granulocytes 1.9, Absolute Lymphocytes 1.9, Absolute Monocytes 0.3, Absolute Eosinophils 0.2, Absolute Basophils 0, PUBS MCHC 34.2 Lines/Diet/Fluids Lines: peripheral lines Assessment/Plan Assessment: Assessment: Patient is a 45 YO M with extensive psychiatric hsitory , heavy alcoholic - court mandated to go to [facility], came to the ER for alcohol detoxification with abdominal pain, nausea, diarrhea ER Course Vital Signs Afebrile, HR 75-90, BP 142/99mmHg on room air. Significant labs alcohol level of 422 Plan Alcohol detoxification * Started on regular diet today. * CIWA protocol - on 1.5mg lorazepam Q6hr for 5doses. * folate, multivitamin, thiamine * clonidine 0.1mg TID and clonazepam 1mg TID * omez and ondansetrone for possible alcoholic gastritis * Psych and social work consult * Started on Escitalopram 10mg and trazodone 100mg at bedtime * can leave AMA as per psychiatry recommendations. DVT prophylaxis * ALPS Code status * full code Problem List: 1. ALCOHOL WITHDRAWAL 2. Alcohol intoxication 3. Polysubstance dependence 4. Suicidal ideation Pain Ratin Pain Location: abdomen Pain Goal: Pain 4 or less Pain Plan: tylenol prn Tomorrow's Labs & Rationales: none CHINTAN MALLORY MDA 04/27/16 1425: Attending MD Review Statement Attending Statement Attending MD Statement: examined this patient, discuss w/resident/PA/CDL A DRIVER, agreed w/resident/PA/CDL A DRIVER, reviewed EMR data (avail), discussed with nursing, discussed with case mgmt, amended to note Attending Assessment/Plan: Patient seen and examined, remains anxious. CIWA scores are not too bad. Seen by psychiatry. Patient is admitted with acute alcohol intoxication. Please decrease Ativan to 1.5 g every 6 hours and follow further psychiatric recommendations. Patient is on multivitamin, folate and thiamine. Social work evaluation pending. Patient wants to leave by Monday because he has DMV appointment to get his license renewed. DVT px; ALPS.
--- NOTE | 2016-04-27 11:46 | Cons- Psychiatry ---
See Addendum Psychiatric Consult Date of Consult: 04/27/16 Reason for Consult: Depression History of Present Illness: 45 M BIBA on 04/26/16 at 0221 with CC lower abdominal pain 10/06. Last drink 5 hours ago. He has a history of seizure. He was discharged from on 04/19/16 after 5 days of alcohol detox. Allergies: Coded Allergies: haloperidol (Severe, DIFFICULTY BREATHING 04/13/16) chlorpromazine (DYSTONIC REACTION 04/13/16) Current Medications: Current Medications Sig/Genoveva Start time Last Medication Dose Route Stop Time Status Admin Acetaminophen 650 MG Q6P PRN 04/26 1645 AC 04/27 PO 0812 Acetaminophen 0 .STK-MED ONE 04/26 1643 DC PO Clonidine 0.1 MG TID 04/26 2200 AC 04/27 PO 0958 Folic Acid 1 MG DAILY 04/26 1633 AC 04/27 PO 04/28 1001 0958 Lorazepam 1.5 MG Q6 04/27 1200 AC PO Lorazepam 1.5 MG Q6H 04/27 0000 CAN IV 04/27 1201 Lorazepam 0 .STK-MED ONE 04/26 1835 DC PO Lorazepam 2 MG Q6 04/26 1800 DC 04/27 PO 0523 Lorazepam 2 MG Q6 04/26 1800 CAN PO Lorazepam 0 .STK-MED ONE 04/26 1643 DC .ROUTE Lorazepam 2 MG Q2P PRN 04/26 1630 AC 04/27 IV 1026 Lorazepam 1 MG Q2P PRN 04/26 1630 AC 04/27 IV 0819 Lorazepam 0 .STK-MED ONE 04/26 1322 DC PO Lorazepam 2 MG ONCE ONE 04/26 1315 DC 04/26 PO 04/26 1316 1322 Melatonin 5 MG AT BEDTIME 04/26 2300 AC 04/27 PO 0118 Multivitamins 0 .STK-MED ONE 04/26 1719 DC PO Multivitamins 1 TAB DAILY 04/26 1633 AC 04/27 PO 0958 Omeprazole 0 .STK-MED ONE 04/26 1719 DC PO Omeprazole 40 MG DAILY AC 04/26 1637 AC 04/27 PO 0522 Ondansetron HCl 4 MG ONCE ONE 04/26 1730 DC 04/26 IV 04/26 1731 1728 Ondansetron HCl 0 .STK-MED ONE 04/26 1722 DC .ROUTE Ondansetron HCl 0 .STK-MED ONE 04/26 1322 DC PO Ondansetron HCl 4 MG ONCE ONE 04/26 1315 DC 04/26 PO 04/26 1316 1322 Sodium Chloride 1,000 ML .Q10H 04/26 1645 AC 04/27 IV 0524 Thiamine HCl 100 MG DAILY 04/27 1000 AC 04/27 PO 04/29 1001 0958 Trazodone HCl 50 MG AT BEDTIME 04/27 2200 CAN PO Past History Past Medical History Neurological: SEIZURE w/d EENT: NONE Cardiovascular: hypertension Respiratory: NONE Gastrointestinal: PANCREATITIS Hepatic: NONE Renal: NONE Musculoskeletal: left knee multiple tendon r. 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 MACHINE TENDER/Reproductive: NONE Past Surgical History Surgical History: EXPLORATORY LAPAROTOMY Psychosocial History Strengths/Capabilities: Engaged in out pt tx, motivated for sobriety Physical Limitations (Interventions): denies Psychiatric Treatment History Diagnosis: AUD, PTSD, Bipolar do, polysubstance abuse Risk Factors: high anxiety/distress, history of suicide atmpts, SA/MH hospitalized, substance abuse, poor impulse control, male Assessment/Plan Mental Status Mental Status Exam: A+OX4 Lab Results: Laboratory Tests 04/27 0700 Chemistry Sodium (137 - 145 mmol/L) 140 Potassium (3.5 - 5.1 mmol/L) 3.9 Chloride (98 - 107 mmol/L) 107 Carbon Dioxide (22 - 30 mmol/L) 25 Anion Gap (5 - 16) 8 BUN (9 - 20 mg/dL) 12 Creatinine (0.7 - 1.2 mg/dL) 0.9 Estimated GFR (>60 ml/min) > 60 BUN/Creatinine Ratio (7 - 25 %) 13.3 Hematology CBC w Diff NO MAN DIFF REQ WBC (4.8 - 10.8 /CUMM) 4.3 L RBC (4.70 - 6.10 /CUMM) 4.20 L Hgb (14.0 - 18.0 G/DL) 13.8 L Hct (42 - 52 %) 40.2 L MCV (80.0 - 94.0 FL) 95.8 H MCH (27.0 - 31.0 PG) 32.8 H RDW (11.5 - 14.5 %) 14.5 Plt Count (130 - 400 /CUMM) 233 MPV (7.4 - 10.4 FL) 7.2 L Gran % (42.2 - 75.2 %) 44.0 Lymphocytes % (20.5 - 51.1 %) 44.2 Monocytes % (1.7 - 9.3 %) 7.1 Eosinophils % (0 - 5 %) 3.7 Basophils % (0.0 - 2.0 %) 1.0 Absolute Granulocytes (1.4 - 6.5 /CUMM) 1.9 Absolute Lymphocytes (1.2 - 3.4 /CUMM) 1.9 Absolute Monocytes (0.10 - 0.60 /CUMM) 0.3 Absolute Eosinophils (0.0 - 0.7 /CUMM) 0.2 Absolute Basophils (0.0 - 0.2 /CUMM) 0 PUBS MCHC (33.0 - 37.0 G/DL) 34.2 Diffential Diagnosis: Alcohol dependence Benzodiazepine abuse Substance-induced mood d/o Bipolar d/o PTSD R/O DUSTY History of opioid dependence Impression: The patient denies current suicidality, but there is a report by the mother to our Crisis department, that the patient has been stating suicidal ideation at home, and has been threatening to his mother in the home. The patient is refusing permission to speak with his mother today, with whom he lives. The mother does not want the patient to know that she spoke with someone in the ED, fearing retribution. CIWA as of 1000: [id number]3-11-8 VS 0048 and 0958: 140/80, 68, 97.5PO, 20, 97% RA. The patient has received in the last 24 hours: Lorazepam 19 mg from all orders Lorazepam 6 mg PO scheduled Lorazepam 13 mg IV and PO, as needed/one time Restarting his home dosing of clonazepam should reduce his demand for PRN lorazepam. 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 He is currently not open to transfer to a longer-term alcohol rehab, stating that "They won't give me my Klonopin there." The patient and I discussed the roadblocks and conditions he puts on aftercare treatment, thus sabotaging plans. He insists that he had intent to follow the plan at the last discharge, but describes an inability to manage any stress. Provisional Treatment Plan: Plan: 1. Continue 'ETOH Detox' order set for Ativan taper a. Change to PO administration of lorazepam/Ativan b. Continue daily thiamine, folate and MVI c. Decrease scheduled Ativan by no more than 20% daily 2. Please start home dosing of clonazepam 1 mg PO 3X/day, and this should be continued at discharge. He has filled a 30 day order for this on 04/19/[address] Holly, psychiatrist. a. When this is started, please advance the ETOH Detox order set. We suggest lorazepam 1.5 mg PO every 6 hours for 5 doses, etc. 3. Start escitalopram 10 mg PO daily 4. Start trazodone 100 mg PO at bedtime for insomnia 5. Start gabapentin 300 mg PO 3X/day 6. SW to assist with aftercare planning. Elise Mirza LCSW, director of psychiatry, has suggested some possible longer-term placements for him. 7. At the last discharge last month, the patient had an outpatient appt with Dr. Davis. Please help the patient reset this, if it has not already been done. 8. At the last discharge last month, Dr. Kayleen Chan had discussed a neurology referral with the patient, due to his history of concussion; please consider following up with her on this. 9. Please notify us if the patient becomes delirious or begins to exhibit signs of DTs. If these occur, the patient may not have haloperidol, please use olanzepine, either PO, SL or IM. 10. The patient denies SI and the 1:1 sitter may be discharged, unless there are other reasons, as determined by nursing. We may have more suggestions later today or tomorrow. We will continue to follow along with you. Shadi Bravo APRN, Pager [phone]
[2016-04-27 14:30] VITALS: BP 148/90
--- NOTE | 2016-04-27 19:51 | NUR ---
Referral received yesteday via casefind. This patient is a 45 year old man, who is a chronic alcoholic and benzo dependent. He has multiple admissions; sabotages his own discharge plans and is not able to remain sober. He has not allowed the medical team here to speak with his benzo prescriber and both psychiatry and myself are doubtful that his prescriber is aware of his ETOH dependence. 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 Will collaborate with psychiatry. Follow.
[2016-04-27 22:37] VITALS: BP 138/86
--- NOTE | 2016-04-28 06:42 | PN- Housestaff ---
NAHUM ETIENNE,HOOD 04/28/16 0641: Subjective Follow-up For: alcohol withdrawl Subjective: I saw and examined the patient today morning. He is doing better withdrawl ulloa, CIWA scores are acceptable. Currently worried about placement. Asking for placement in [facility]. Review of Systems Constitutional: Reports: see HPI. Objective Last 24 Hrs of Vital Signs/I&O Vital Signs Date Time Temp Pulse Resp B/P Pulse O2 O2 Flow FiO2 Ox Delivery Rate 04/27 2331 97.0 20 98 04/27 2237 60 138/86 04/27 2236 60 138/86 04/27 1645 160/90 04/27 1430 97.6 80 20 148/90 97 Room Air 04/27 0958 140/80 04/27 0800 Room Air Intake & Output 04/28 0800 04/28 0000 04/27 1600 Intake Total 240 2660 Output Total 450 Balance 240 2210 Intake, IV 800 Intake, Oral 240 1860 Number 0 Bowel Movements Output, Urine 450 Physical Exam General Appearance: Alert, Oriented X3, Cooperative, wandering around Skin: No Rashes, No Breakdown HEENT: Atraumatic, PERRLA, EOMI Neck: Supple, No JVD Cardiovascular: Normal S1, Normal S2 Lungs: Clear to Auscultation, Normal Air Movement Abdomen: Normal Bowel Sounds, Soft, No Tenderness Neurological: Normal Gait, Normal Speech, anxious Extremities: No Clubbing, No Cyanosis, No Edema Current Medications: Current Medications Sig/Genoveva Start time Last Medication Dose Route Stop Time Status Admin Acetaminophen 650 MG .STK-MED ONE 04/27 0809 DC PO 04/27 0810 Acetaminophen 650 MG Q6P PRN 04/26 1645 AC 04/27 PO 0812 Clonazepam 1 MG TID 04/27 1206 AC 04/27 PO 05/04 1205 2108 Clonidine 0.1 MG TID 04/26 2200 AC 04/27 PO 2236 Escitalopram Oxalate 10 MG DAILY 04/27 1305 AC 04/27 PO 1643 Folic Acid 1 MG DAILY 04/26 1633 AC 04/27 PO 04/28 1001 0958 Gabapentin 300 MG Q8 04/27 1400 AC 04/28 PO 0552 Lorazepam 1.5 MG Q6 04/27 1200 AC 04/28 PO 0552 Lorazepam 2 MG Q6 04/26 1800 DC 04/27 PO 0523 Lorazepam 2 MG Q2P PRN 04/26 1630 AC 04/27 IV 2108 Lorazepam 1 MG Q2P PRN 04/26 1630 AC 04/28 IV 0207 Melatonin 5 MG AT BEDTIME 04/26 2300 AC 04/27 PO 2236 Multivitamins 1 TAB DAILY 04/26 1633 AC 04/27 PO 0958 Omeprazole 40 MG DAILY AC 04/26 1637 AC 04/28 PO 0552 Patient Medication 1 ED ONE ONE 04/27 1345 DC Teaching ED 04/27 1346 Sodium Chloride 1,000 ML .Q10H 04/26 1645 DC 04/27 IV 0524 Thiamine HCl 100 MG DAILY 04/27 1000 AC 04/27 PO 04/29 1001 0958 Trazodone HCl 100 MG AT BEDTIME 04/27 2200 AC 04/27 PO 2236 Last 24 Hrs of Lab/Toni Results Last 24 Hrs of Labs/Mics: Laboratory Tests 04/27/162047: Lyme Disease Antibody Pending Lines/Diet/Fluids Lines: peripheral lines Assessment/Plan Assessment: Patient is a 45 YO M with extensive psychiatric hsitory , heavy alcoholic - court mandated to go to [facility], came to the ER for alcohol detoxification with abdominal pain, nausea, diarrhea ER Course Vital Signs Afebrile, HR 75-90, BP 142/99mmHg on room air. Significant labs alcohol level of 422 Plan admitted to gen med floor. Alcohol detoxification * Started on regular diet today. * [facility] protocol - on lorazepam 1mg TID. * folate, multivitamin, thiamine * clonidine 0.1mg TID and clonazepam 1mg TID * omez and ondansetrone for possible alcoholic gastritis * Psych and social work consult - working on discharge planning, considering application to [facility] in [place]. * Started on Escitalopram 10mg and trazodone 100mg at bedtime * can leave AMA as per psychiatry recommendations. * Patient mother is not willing to get him home, agrees with inpatient psychiatry. DVT prophylaxis * ALPS Code status * full code Problem List: 1. ALCOHOL WITHDRAWAL 2. Alcohol intoxication 3. Anxiety Pain Ratin Pain Location: n/a Pain Goal: Pain 4 or less Pain Plan: Tylenol PRN Tomorrow's Labs & Rationales: NONE MOHAMUD ETIENNE,SASHA 04/28/16 1200: Attending MD Review Statement Attending Statement Attending MD Statement: examined this patient, discuss w/resident/PA/HANDLE MAKER, agreed w/resident/PA/HANDLE MAKER, reviewed EMR data (avail), discussed with nursing, discussed with case mgmt, amended to note Attending Assessment/Plan: Patient seen and examined, feels anxious. CIWA scores are running in acceptable range. Patient wants to go to residential rehabilitation. At this point I agree with the further decreasing his scheduled Ativan. Continue his Klonopin. Continue his multivitamin, folate and thiamine as well as when necessary Ativan. We'll discuss with psychiatry and social work about finding him a bed at one of the residential rehabs. Continue all other current medications.
[2016-04-28 07:18] VITALS: BP 126/88
[2016-04-28 14:22] VITALS: BP 130/80
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
--- NOTE | 2016-04-28 19:42 | NUR ---
Met with patient twice today in the company of psychiatric AUTO PARTS MANAGER's Rudolph Bravo and Sammy Lamb. Romulo reports that he is interested an inpatient dual diagnosis program, and he has information that [facility] in [place] has beds available. Romulo signed a release and appropriate clinical information has been FAXED there and a receipt was received. Clinical has also been FAXED to [facility], [facility], and [facility], all with receipts. Call placed to Leo's clinician at [facility]- they believe that Romulo is in need of a higher level of care. While Leo is verbalizing a desire to go to inpatient treatment, I believe his motive may be related to his Probation status and his risk of violation. Unless Leo is willing ot detox from his benzos, it will remain difficult to find an appropriate facility for this patient. Im not jose luis he is willing to do this. Will need to discuss this situation with both medical and psychiatric team in AM and may need to ask Parking Meter Installer to assist with securing [facility] bed. Follow.
[2016-04-28 22:44] VITALS: BP 130/80
--- NOTE | 2016-04-29 06:58 | PN- Housestaff ---
NAHUM ETIENNE,HOOD 04/29/16 0657: Subjective Follow-up For: Alcohol withdrawl Subjective: I saw the patient today morning. He is wandering in the floors very well, anxious about placement. Reports his with Review of Systems Constitutional: Reports: see HPI. Comments: ROS negative except the above. Objective Last 24 Hrs of Vital Signs/I&O Vital Signs Date Time Temp Pulse Resp B/P Pulse O2 O2 Flow FiO2 Ox Delivery Rate 04/28 2244 97.9 81 20 130/80 96 04/28 1422 97.8 58 20 130/80 99 Room Air 04/28 0718 97.8 77 20 126/88 97 Room Air Intake & Output 04/29 0800 04/29 0000 04/28 1600 Intake Total 480 500 500 Output Total Balance 480 500 500 Intake, Oral 480 500 500 Physical Exam General Appearance: Alert, Oriented X3, Cooperative, anxious Skin: No Rashes, No Breakdown HEENT: Atraumatic, PERRLA Neck: Supple, No JVD Cardiovascular: Regular Rate, Normal S1, Normal S2, No Murmurs Lungs: Clear to Auscultation, Normal Air Movement Abdomen: Normal Bowel Sounds, Soft, No Tenderness Neurological: Normal Gait, Normal Speech, Strength at 5/5 X4 Ext Extremities: No Clubbing, No Cyanosis, No Edema Current Medications: Current Medications Sig/Genoveva Start time Last Medication Dose Route Stop Time Status Admin Acetaminophen 650 MG Q6P PRN 04/26 1645 AC 04/27 PO 0812 Clonazepam 1 MG TID 04/27 1206 AC 04/28 PO 05/04 1205 2233 Clonidine 0.1 MG TID 04/26 2200 AC 04/28 PO 2233 Escitalopram Oxalate 20 MG DAILY 04/29 1000 AC PO Escitalopram Oxalate 10 MG DAILY 04/27 1305 DC 04/28 PO 1317 Folic Acid 1 MG DAILY 04/26 1633 DC 04/28 PO 04/28 1001 1317 Gabapentin 300 MG Q8 04/27 1400 AC 04/29 PO 0639 Lorazepam 1 MG TID 04/28 1000 AC 04/28 PO 2233 Lorazepam 1.5 MG Q6 04/27 1200 DC 04/28 PO 0552 Lorazepam 2 MG Q2P PRN 04/26 1630 AC 04/27 IV 2108 Lorazepam 1 MG Q2P PRN 04/26 1630 AC 04/29 IV 0331 Melatonin 5 MG AT BEDTIME 04/26 2300 AC 04/28 PO 2233 Multivitamins 1 TAB DAILY 04/26 1633 AC 04/28 PO 0945 Omeprazole 40 MG DAILY AC 04/26 1637 AC 04/29 PO 0639 Thiamine HCl 100 MG DAILY 04/27 1000 AC 04/28 PO 04/29 1001 0945 Trazodone HCl 100 MG AT BEDTIME 04/27 2200 AC 04/28 PO 2235 Lines/Diet/Fluids Lines: peripheral lines Assessment/Plan Assessment: Patient is a 45 YO M with extensive psychiatric hsitory , heavy alcoholic - court mandated to go to [facility], came to the ER for alcohol detoxification with abdominal pain, nausea, diarrhea ER Course Vital Signs Afebrile, HR 75-90, BP 142/99mmHg on room air. Significant labs alcohol level of 422 Plan admitted [facility] floor. Alcohol detoxification * Started on regular diet today. * [facility] protocol - on lorazepam taper - 1mg BID today, 0.5mg BID, 0.5mg once a day. * folate, multivitamin, thiamine * clonidine 0.1mg TID and clonazepam 1mg TID * omez and ondansetrone for possible alcoholic gastritis. Escitalopram 20mg and trazodone 100mg at bedtime * Psych and social work consult - worked on discharge planning. * Patient mother is not willing to get him home, agrees with inpatient psychiatry. * Today got a placement at [facility] in [place] for inpatient psychiatry and transfered. DVT prophylaxis * ALPS Code status * full code Problem List: 1. ALCOHOL WITHDRAWAL 2. Alcohol abuse 3. Alcohol dependence Pain Ratin Pain Location: n/a Pain Goal: Pain 4 or less Pain Plan: tylenol PRN Tomorrow's Labs & Rationales: NONE MOHAMUD ETIENNE,SASHA 04/29/16 1334: Attending MD Review Statement Attending Statement Attending MD Statement: examined this patient, discuss w/resident/PA/BILINGUAL MEDICAL RECEPTIONIST, agreed w/resident/PA/BILINGUAL MEDICAL RECEPTIONIST, reviewed EMR data (avail), discussed with nursing, discussed with case mgmt, amended to note Attending Assessment/Plan: Patient seen and examined, denies any complaints. Has a bed available at one of the residential rehabs for alcohol rehabilitation. Hemodynamically stable. He will be discharged today.
[2016-04-29 07:50] VITALS: BP 148/100
--- NOTE | 2016-04-29 08:46 | Discharge Summary ---
See Addendum Visit Information Visit Dates Admission Date: 04/26/16 Discharge Date: 04/29/16 Hospital Course Course Attending Physician: SASHA MALLORY MD Primary Care Physician: BETTY ETIENNE,GERARD Hammond Hospital Course: patient is a 45 YO M with PMH significant for extensive psychiatric history including Bipolar, Anxiety, depression, PTSD, polysubstance abuse, Pancreatitits , alcoholic seizure, multiple alcohol withdrawls with last being a week ago ( discharged on 04/19/16). He came to the ER today with severe abdominal pain, nausea, diarrhea for the past few days and requesting for detoxification. His last drink was yesterday with vokda and beer. After his recent discharge he has been on and off alcohol, he consumed around 2L of vokda, 12 pack beers which was less than his usual. Currently he denies any suicidal/homicidal ideation with depressed mood Vital Signs Afebrile, HR 75-90, BP 142/99mmHg on room air. Significant labs alcohol level of 422 Hospital course 1. ETOH dependnce: Patient was admitted to general medical floor. He was placed on IV fluids, CIWA protocol with IV ativan PRN and scheduled PO ativan. He was seen by social media director during the hospital stay, and he requested that he would prefer to go to inpatient rehab facility. His PO ativan was tapered pt is on probation because he called the police and made a false report that her mother is suicidal while she was not and 2 of pt's friends explained this to the police. His guest relation officer is Jesus Green ext [phone] 2. Depression: He was seen by psychiatry while in the hospital. He was on Lexapro 10 mg at home and his home dose was increased to 20 daily. He denied SI/ HI while he was in the hospital. Follow up is recommended while he is in the facility. Allergies: Coded Allergies: haloperidol (Severe, DIFFICULTY BREATHING 04/13/16) chlorpromazine (DYSTONIC REACTION 04/13/16) Pertinent Lab Results: Laboratory Tests 04/27 04/27 2048 0700 Chemistry Sodium (137 - 145 mmol/L) 140 Potassium (3.5 - 5.1 mmol/L) 3.9 Chloride (98 - 107 mmol/L) 107 Carbon Dioxide (22 - 30 mmol/L) 25 Anion Gap (5 - 16) 8 BUN (9 - 20 mg/dL) 12 Creatinine (0.7 - 1.2 mg/dL) 0.9 Estimated GFR (>60 ml/min) > 60 BUN/Creatinine Ratio (7 - 25 %) 13.3 Hematology CBC w Diff NO MAN DIFF REQ WBC (4.8 - 10.8 /CUMM) 4.3 L RBC (4.70 - 6.10 /CUMM) 4.20 L Hgb (14.0 - 18.0 G/DL) 13.8 L Hct (42 - 52 %) 40.2 L MCV (80.0 - 94.0 FL) 95.8 H MCH (27.0 - 31.0 PG) 32.8 H RDW (11.5 - 14.5 %) 14.5 Plt Count (130 - 400 /CUMM) 233 MPV (7.4 - 10.4 FL) 7.2 L Gran % (42.2 - 75.2 %) 44.0 Lymphocytes % (20.5 - 51.1 %) 44.2 Monocytes % (1.7 - 9.3 %) 7.1 Eosinophils % (0 - 5 %) 3.7 Basophils % (0.0 - 2.0 %) 1.0 Absolute Granulocytes (1.4 - 6.5 /CUMM) 1.9 Absolute Lymphocytes (1.2 - 3.4 /CUMM) 1.9 Absolute Monocytes (0.10 - 0.60 /CUMM) 0.3 Absolute Eosinophils (0.0 - 0.7 /CUMM) 0.2 Absolute Basophils (0.0 - 0.2 /CUMM) 0 PUBS MCHC (33.0 - 37.0 G/DL) 34.2 Serology Lyme Disease Antibody Pending Disposition Summary Disposition Principal Diagnosis: 1. ETOH dependence 2. Bipolar 3. Anxiety/ depression Additional Diagnosis: 1. PTSD 2. polysubstance abuse Discharge Disposition: other general hospital Discharge Instructions General Discharge Information Code Status: Full Code Patient's Diet: Regular diet Patient's Activity: As tolerated Follow-Up Instructions/Appts: 1. Follow up with PCP in a week upon discharge 2. Follow up with Psychiatry as per their recommedation Medications at Discharge Discharge Medications: Stop taking the following medications: Escitalopram Oxalate (Lexapro) 10 MG TABLET ORAL DAILY @8 AM Days = 18 Lorazepam (Ativan) 1 MG TABLET ORAL SEE ADMIN CR Qty = 6 Pantoprazole Sodium (Protonix) 40 MG TABLET.DR ORAL TWICE DAILY Qty = 30 Continue taking these medications: Gabapentin (Neurontin) 300 MG CAPSULE 1 Capsule ORAL THREE TIMES DAILY Comments: Last Taken: 04/29/16 Time: 0630 Folic Acid (Folic Acid) 1 MG TABLET 1 Milligram ORAL DAILY Days = 18 Comments: Last Taken: 04/29/16 Time: 1000 Pravastatin Sodium (Pravastatin Sodium) 40 MG TABLET 1 Tablet ORAL Every night Days = 30 Comments: Last Taken: 04/18/16 Time: 5 PM Clonidine HCl (Clonidine HCl) 0.1 MG TABLET 1 Tablet ORAL THREE TIMES DAILY Days = 30 Comments: Last Taken: 04/29/16 Time: 1000 Ondansetron HCl (Zofran) 4 MG TABLET 1 Tablet ORAL DAILY as needed for NAUSEA Qty = 10 Comments: NOT GIVEN IN HOSPITAL ( IV GIVEN IN HOSPITAL ) Clonazepam (Klonopin) 1 MG TABLET 1 Tablet ORAL THREE TIMES DAILY Qty = 18 Instructions: PLEASE HOLD WHILE TAKING ATIVAN. PLEASE RESUME AFTER YOU FINISH YOUR LAST ATIVAN DOSE TOMORROW (03/10/16). Comments: Last Taken: 04/29/16 Time: 1000 Trazodone HCl (Trazodone HCl) 100 MG TABLET 1 Tablet ORAL DAILY Comments: Last Taken: 04/28/16 Time: 2230 Thiamine HCl (Vitamin B-1) 100 MG TABLET 100 Milligram ORAL DAILY Qty = 60 Comments: Last Taken: Time: Multivitamin (One Daily Multivitamin) 1 EACH TABLET 1 Tablet ORAL DAILY Qty = 60 Comments: Last Taken: 04/29/16 Time: 1000 Lorazepam (Ativan) 1 MG TABLET 1 Tablet ORAL SEE ADMIN CR Qty = 6 Instructions: take 1 mg AT BEDTIME TODAY take 0.5 mg 2 times(breakfat and dinner) on 04/30/16 take 0.5 mg ONCE A DAY(breakfast ) on 05/01/16 THEN STOP Comments: Last Taken: 04/29/16 Time: 1000 This prescription has been renewed Start taking the following new medications: Escitalopram Oxalate (Lexapro) 20 MG TABLET 1 Tablet ORAL DAILY Qty = 30 No Refills Comments: Last Taken: 04/29/16 Time: 1000 Pantoprazole Sodium (Protonix) 40 MG TABLET.DR 1 Tablet ORAL DAILY Qty = 30 No Refills Comments: NOT GIVEN IN HOSPITAL, PRILOSEC GIVEN 04/29/16 AT 0630 Copies To: BETTY ETIENNE,GERARD Hammond
[2016-04-29] MEDS ORDERED: LEXAPRO20 M1 PO (09:10)
--- NOTE | 2016-04-29 09:11 | Patient Discharge Instructions ---
Discharge Instructions General Discharge Information You were seen/treated for: Alcohol related gastritis Alcohol detoxification Special Instructions: Please follow up with your outpatient program after discharge Please follow up with your psychiatrist in a week after discharge Diet Continue normal diet: Yes Activity Full Activity/No Limits: Yes Acute Coronary Syndrome Inclusion Criteria At DC or during hospital stay patient has or had the following: ACS DIAGNOSIS No Discharge Core Measures Meds if any: Prescribed or Continued at Discharge Meds if any: NOT Prescribed or Continued at Discharge Congestive Heart Failure Inclusion Criteria At DC or during hospital stay patient has or had the following: CHF DIAGNOSIS No Discharge Core Measures Meds if any: Prescribed or Continued at Discharge Meds if any: NOT Prescribed or Continued at Discharge Cerebrovascular accident Inclusion Criteria At DC or during hospital stay patient has or had the following: CVA/TIA Diagnosis No Discharge Core Measures Meds if any: Prescribed or Continued at Discharge Meds if any: NOT Prescribed or Continued at Discharge Venous thromboembolism Inclusion Criteria VTE Diagnosis No VTE Type NONE VTE Confirmed by (Test) NONE Discharge Core Measures - Per Current guidelines, there needs to be overlap - treatment for the first 5 days of Warfarin therapy. - If discharged on Warfarin prior to 5 days of - overlap therapy, the patient will need to be - assessed for post discharge needs including - *Post discharge parental anticoagulation - *Warfarin and/or parental anticoagulation education - *Follow up date to check INR post discharge At least 5 days overlap therapy as Inpatient No Meds if any: Prescribed or Continued at Discharge Note: Overlap Therapy is Warfarin and Anticoagulant Meds if any: NOT Prescribed or Continued at Discharge
[2016-04-29] MEDS ORDERED: ATIVAN1 M1 PO (09:41)
[2016-04-29] MEDS ORDERED: PROTONIX40 M3 PO (09:42)
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
[2016-04-29 10:46] VITALS: BP 126/70
--- NOTE | 2016-04-29 11:36 | NUR ---
Late Entry: Aware of patietnsts discharge this am. Patient had accepted a bed offer at [facility] in [place]. A completed discharge summary, W-10, H&P, CMR and (signed) voluntary admission paperwork sent with patient. Additional information was provided to facility yesterday as part of the admission screening process. Patient transported by [facility].
== END 2016-04-29 11:30 | disposition other institution (70) | DRG 897 ==
LOC: ENRESERVTM → ENRESERVDT → ERH 02:11 → ERHI 13:16 → 2NB 13:16
PROVIDERS: Emergency Medicine; Internal Medicine; ADMIT Hospitalist
DX: F10.239 Alcohol dependence with withdrawal, unspecified (principal); F11.20 Opioid dependence, uncomplicated; R56.9 Unspecified convulsions; F13.20 Sedative, hypnotic or anxiolytic dependence, uncomplicated; I10 Essential (primary) hypertension; F31.9 Bipolar disorder, unspecified; K29.20 Alcoholic gastritis without bleeding; F41.9 Anxiety disorder, unspecified
CPT/HCPCS: 2NSBP; 86618; 36415; 80307; 81003; 82436; 93005; 93010; 96374; 99232; G0480; J2405; J3101; J3490

== ENCOUNTER 2016-05-04 17:40 | Emergency (ER) | payer OTHER, MEDICARE ==
[~2016-05-04] VITALS: Ht 172.7 cm; Wt 86.2 kg
[~2016-05-04 17:40] MED LIST changes: +LEXAPRO20 M1 PO
--- NOTE | 2016-05-04 17:50 | ED PSYCHIATRIC COMPLAINT ---
History of Present Illness General Chief Complaint: Psychiatric Related Complaint Stated Complaint: BIBA +SI +HI Source: patient, EMS, police Exam Limitations: intoxication Vital Signs & Intake/Output Vital Signs & Intake/Output Vital Signs Date Time Temp Pulse Resp B/P Pulse O2 O2 Flow FiO2 Ox Delivery Rate 05/06 1004 96.9 83 20 120/77 97 Room Air 05/06 0911 88 126/94 03/ 0733 97.0 88 20 126/94 03 0731 97.0 88 20 126/94 98 Room Air 05/06 0626 96.5 79 18 157/98 99 Room Air 05/06 0501 75 16 123/62 95 05/06 0303 70 16 113/75 05/06 0301 98.3 70 16 113/75 96 05/06 0100 73 16 123/69 96 05/05 2301 95 18 138/95 / 2252 96.7 95 18 138/95 96 05/05 2251 96.7 95 18 138/95 / 1850 98.1 112 18 164/95 95 Room Air 05/05 1834 97.9 116 20 140/106 / 1712 97.9 / 1624 140/106 / 1622 97.9 116 20 140/106 96 Room Air 05/05 1348 98.2 92 18 136/88 97 Room Air 05/05 1126 116 16 140/90 99 Room Air 05/05 1123 116 18 140/90 Allergies Coded Allergies: haloperidol (Severe, DIFFICULTY BREATHING 04/13/16) chlorpromazine (DYSTONIC REACTION 04/13/16) Reconcile Medications Clonazepam (Klonopin) 1 MG TABLET 1 TAB PO TID ALC WITHDRAWL PLEASE HOLD WHILE TAKING ATIVAN. PLEASE RESUME AFTER YOU FINISH YOUR LAST ATIVAN DOSE TOMORROW (03/10/16). Clonidine HCl 0.1 MG TABLET 1 TAB PO TID BP Escitalopram Oxalate (Lexapro) 20 MG TABLET 1 TAB PO DAILY depression Folic Acid 1 MG TABLET 1 MG PO DAILY SUPPLEMENT Gabapentin (Neurontin) 300 MG CAPSULE 1 CAP PO TID MENTAL HEALTH/NERVE PAIN ( Reported) Lorazepam (Ativan) 1 MG TABLET 1 TAB PO SEE ADMIN CR alcohol detox take 1 mg AT BEDTIME TODAY take 0.5 mg 2 times(breakfat and dinner) on 3/4/17 take 0.5 mg ONCE A DAY(breakfast ) on 05/01/16 THEN STOP Multivitamin (One Daily Multivitamin) 1 EACH TABLET 1 TAB PO DAILY supplement Ondansetron HCl (Zofran) 4 MG TABLET 1 TAB PO DAILY PRN NAUSEA Pantoprazole Sodium (Protonix) 40 MG TABLET.DR 1 TAB PO DAILY STOMACH Pravastatin Sodium 40 MG TABLET 1 TAB PO QPM CHOLESTEROL Thiamine HCl (Vitamin B-1) 100 MG TABLET 100 MG PO DAILY supplement Trazodone HCl 100 MG TABLET 1 TAB PO DAILY ANXIETY (Reported) Triage Nurses Notes Reviewed? yes Onset: Abrupt Duration: hour(s): (1) Timing: single episode today Severity: severe Associated Symptoms: suicidal ideation, HI, INTOXICATED HPI: 45-year-old male brought in by police and ambulance intoxicated after making reports to his amphibious operations officer that he wanted to kill himself and kill little children. He told his sheriff officer that he went outside with a rope to hang himself. Patient was searched for for over an hour and they finally found him in a bar brought him in here. Patient arrives awake and alert, intoxicated and combative. Multiple attempts to verbally calm him down as well as to ask him to cooperate have failed. Patient required I am sedation and restraints. (BARRERA CASON MD) Past History Medical History Any Pertinent Medical History? see below for history Neurological: SEIZURE w/d EENT: NONE Cardiovascular: hypertension Respiratory: NONE Gastrointestinal: PANCREATITIS Hepatic: NONE Renal: NONE Musculoskeletal: left knee multiple tendon r. rotator Psychiatric: alcohol dependence, anxiety, bipolar disease, depression, opioid dependence, PTSD benzodiazepine abuse Endocrine: NONE Blood Disorders: NONE Cancer(s): NONE SORT OPERATIONS SUPERVISOR/Reproductive: NONE History of MRSA: No History of VRE: No History of CDIFF: No Surgical History Surgical History: EXPLORATORY LAPAROTOMY Psychosocial History Who do you live with Mother Services at Home None What is your primary language Danish Family History Family History, If Any: FATHER, . FH: alcohol abuse grandmother FH: diverticulitis MOTHER Anxiety disorder FHx: bipolar disorder Hx Contributory? No (BARRERA CASON MD) Review of Systems Review of Systems Constitutional: Reports: see HPI (UNABLE TO OBTAIN(AGITATED)). (BARRERA CASON MD) Physical Exam Physical Exam General Appearance: well developed/nourished, alert, awake, severe distress, intoxicated Head: atraumatic Eyes: Bilateral: PERRL. Neck: full range of motion Respiratory: normal breath sounds, chest non-tender, no respiratory distress Cardiovascular: regular rate/rhythm Gastrointestinal: soft, non-tender, OBESE Extremities: normal range of motion Neurological/Psychiatric: AGITATED, COMBATIVE Appearance/Memory/Insight: disheveled, impaired insight Behavoir/Eye Contact/Speech: uncooperative, increased rate of speech Thoughts/Hallucinations: incoherent SAD PERSONS Done? unobtained due to conditi (BARRERA CASON MD) Progress Differential Diagnosis: ALCOHOL INTOXICATION, SI, HI Plan of Care: Orders Procedure Date/time Status Patient Safety Monitor 05/06 0347 Active ED CRISIS PSYCH CONSULT 05/05 1531 Active Current Medications Sig/Genoveva Start time Last Medication Dose Stop Time Status Admin Trazodone HCl 100 MG AT BEDTIME 05/06 2200 AC (Desyrel) Pravastatin Sodium 20 MG 1700 05/06 1700 UNVr (Pravachol) Trazodone HCl 100 MG DAILY 05/06 1000 CAN (Desyrel) Ondansetron HCl 4 MG Q8P PRN 05/05 1815 AC (Zofran) 05/04/2016 6:28:37 PM Patient sleeping, currently in restraints which we will be discontinued. Vital signs being monitored. Labs are in process. (BARRERA CASON MD) Hand-Off Endorsed To: JOSEMANUEL PARISI MD Endorsed Time: 2314 Pending: consult (CRISIS), labs (UTOX) (BARRERA CASON MD) Hand-Off Endorsed To: STACEY BROWER MD Endorsed Time: 699 Pending: consult, labs (JOSEMANUEL PARISI MD) Hand-Off Endorsed To: MADISYN RAMOS MD Endorsed Time: 2017 Pending: consult (STACEY BROWER MD) Hand-Off Endorsed To: BJ LEON DO Endorsed Time: 699 Pending: other (amphibious operations officer discussion) (MADISYN RAMOS MD) Departure Departure Disposition: STILL A PATIENT Condition: Stable Clinical Impression Primary Impression: Alcohol intoxication Secondary Impressions: Suicidal ideation Referrals: BETTY ETIENNE,GERARD Hammond (PCP/Family) Departure Forms: Customer Survey General Discharge Information (BARRERA CASON MD) Departure Comments 05/06/16 9 am Patient signed out to me by Dr. Ramos, awaiting disposition by Crisis. 05/06/16 10 AM Patient seen evaluated and cleared by crisis (BJ LEON DO) Critical Care Note Critical Care Note Critical Care Time: 30-74 min (BARRERA CASON MD) 10 AM Patient seen evaluated and cleared by crisis (BJ LEON DO) Critical Care Note Critical Care Note Critical Care Time: 30-74 min (BARRERA CASON MD) Critical Care Note Critical Care Note Critical Care Time: 30-74 min (BARRERA CASON MD) Departure Forms: Customer Survey General Discharge Information (BARRERA CASON MD) Critical Care Note Critical Care Note Critical Care Time: 30-74 min (BARRERA CASON MD)
[2016-05-04 18:53] LABS: ABSOLUTE BASOPHIL COUNT 0 /CUMM (0.0-0.2); ABSOLUTE EOSINOPHIL COUNT 0.1 /CUMM (0.0-0.7); ABSOLUTE GRANULOCYTE CT 2.9 /CUMM (1.4-6.5); ABSOLUTE LYMPH COUNT 2.5 /CUMM (1.2-3.4); ABSOLUTE MONOCYTE COUNT 0.4 /CUMM (0.10-0.60); BASOPHIL % 0.6 % (0.0-2.0); EOSINOPHIL % 1.8 % (0-5); GRANULOCYTE % 48.2 % (42.2-75.2); HEMATOCRIT 41.3 % (42-52); MEAN CORPUSCULAR HGB 32.6 PG (27.0-31.0); MEAN CORPUSCULAR HGB CONC 33.8 G/DL (33.0-37.0); MEAN CORPUSCULAR VOLUME 96.4 FL (80.0-94.0); MEAN PLATELET VOLUME 6.7 FL (7.4-10.4); PLATELET COUNT 264 /CUMM (130-400); RBC DISTRIBUTION WIDTH 14.9 % (11.5-14.5); RED BLOOD CELL CT 4.28 /CUMM (4.70-6.10)
--- NOTE | 2016-05-05 19:23 | ED PSYCH CRISIS CONSULTATION ---
Crisis Consult Basic Assessment Date of Consult: 05/05/16 Responsible Person/Accompanied By: None Insurance Authorization: Insurance #1: Insurance name: MEDICARE A Phone number: Policy number: [id number] Group number: Authorization number: ED Provider: Patient's ED Provider: BARRERA CASON MD Primary Care Physician: Patient's PCP: GERARD HERNÁNDEZ MD PCP's Current Psychiatrist: Dr. Holly Chief Complaint: Psychiatric Related Complaint Patient's Quote: "I was drinking and said some things, I shouldn't have." Present Illness: The patient is a 45 year old, , male presenting to the ED, by ambulance, on a PEER, after making suicidal and homicidal statements. The PEER states that he "stated he wanted to kill others and children, stated he wanted to kill himself." Per Dr. Cason's note, the patient called his special officer and stated he would hang himself, which prompted the police to look for him. Dr. Cason notes that he was found in a bar and brought to the ED on a PEER. The patient confirms that he was intoxicated and found at a the bar, by the police. He states that he was upset and intoxicated and that he may have made suicidal statements, however is adamant that he did not make any homicidal statements. He states that the police department "made it up," as they have done in the past to him. He currently denies any SI or HI. He admits to one previous suicide attempt , 20 years ago, in which he attempted to hang himself. He has a long history of mental health and substance abuse issues with subsequent treatment. He was last hospitalized for detox at [facility] and then transferred to [facility] to their psychiatric unit. The patient notes that he was discharged 2 days ago. He is currently in OP treatment with Dr. Holly and notes that his next appointment is on May 10. He does report drinking immediately after discharge, noting he would like to stop, but does not want to go to detox. He denies any current depression and states that he is more anxious. He admits to feeling overwhelmed by being denied re-entry into the program at [facility]. He is having difficulty finding another substance abuse program and states that if he does not find a program to attend, that he will be sent back to [facility]. He does not want to stay in the hospital and would like to be discharged to follow up with Dr. Holly. Patient's Address: [address] [place] [address] Other Phone Number: Who Do You Live With? Mother Family/Informants Interviewed: The plan is to call his police or patrol park officer for collateral tomorrow AM- Per Dr. Milan Allergies - Coded Allergies: haloperidol (Severe, DIFFICULTY BREATHING 04/13/16) chlorpromazine (DYSTONIC REACTION 04/13/16) Current Medications - Scheduled Medications Clonazepam (Klonopin) 1 MG TABLET 1 TAB PO TID ALC WITHDRAWL #18 Prescribed by BORIS SANTILLAN MD on 03/09/16 Clonidine HCl 0.1 MG TABLET 1 TAB PO TID BP 30 Days Prescribed by JAYLENE ALVAREZ on 02/08/16 Escitalopram Oxalate (Lexapro) 20 MG TABLET 1 TAB PO DAILY depression #30 TAB Prescribed by HOOD SIDHU MD on 04/29/16 Folic Acid 1 MG TABLET 1 MG PO DAILY SUPPLEMENT 18 Days Prescribed by CORINNA MERINO on 11/09/15 Gabapentin (Neurontin) 300 MG CAPSULE 1 CAP PO TID MENTAL HEALTH/NERVE PAIN ( Reported) Entered as Reported by MARIAM FIERRO on 06/06/15 1700 Lorazepam (Ativan) 1 MG TABLET 1 TAB PO SEE ADMIN CR alcohol detox #6 TAB Prescribed by DANO BUSTOS MD on 04/29/16 Multivitamin (One Daily Multivitamin) 1 EACH TABLET 1 TAB PO DAILY supplement #60 Prescribed by SANIA GAGE MD on 04/18/16 Pantoprazole Sodium (Protonix) 40 MG TABLET. 1 TAB PO DAILY STOMACH #30 TAB Prescribed by DANO BUSTOS MD on 04/29/16 Pravastatin Sodium 40 MG TABLET 1 TAB PO QPM CHOLESTEROL 30 Days Prescribed by JAYLENE ALVAREZ on 02/08/16 Thiamine HCl (Vitamin B-1) 100 MG TABLET 100 MG PO DAILY supplement #60 Prescribed by SANIA GAGE MD on 04/18/16 Trazodone HCl 100 MG TABLET 1 TAB PO DAILY ANXIETY (Reported) Entered as Reported by HERVE GARCÍA on 03/26/16 1436 Scheduled PRN Medications Ondansetron HCl (Zofran) 4 MG TABLET 1 TAB PO DAILY PRN NAUSEA #10 TAB Prescribed by JAYLENE ALVAREZ on 02/08/16 Discontinued Medications Escitalopram Oxalate (Lexapro) 10 MG TABLET 10 MG PO 0800 MENTAL HEALTH 18 Days Discontinued reason: Changed Dose Lorazepam (Ativan) 1 MG TABLET 1 TAB PO SEE ADMIN CR alcohol detox #6 TAB Discontinued reason: Changed Dose Pantoprazole Sodium (Protonix) 40 MG TABLET.DR 1 TAB PO BID heartburn #30 TAB Discontinued reason: Changed how often to take Laboratory Results: Laboratory Tests 05/05/16 1102: Urine Opiates Screen < 100.00, Methadone Screen 54, Barbiturate Screen < 60, Ur Phencyclidine Scrn < 6.00, Amphetamines Screen < 100, U Benzodiazepines Scrn > 800 H, Urine Cocaine Screen < 50, Urine Cannabis Screen < 5.00 05/04/16 1840: Anion Gap 14, Estimated GFR > 60, BUN/Creatinine Ratio 17.5, Glucose 103 H, Calcium 9.5, Magnesium 2.0, Total Bilirubin 0.3, AST 42, ALT 36, Alkaline Phosphatase 71, Total Protein 7.3, Albumin 4.4, Globulin 2.9, Albumin/Globulin Ratio 1.5, CBC w Diff NO MAN DIFF REQ, RBC 4.28 L, MCV 96.4 H, MCH 32.6 H, RDW 14.9 H, MPV 6.7 L, Gran % 48.2, Lymphocytes % 42.0, Monocytes % 7.4, Eosinophils % 1.8, Basophils % 0.6, Absolute Granulocytes 2.9, Absolute Lymphocytes 2.5, Absolute Monocytes 0.4, Absolute Eosinophils 0.1, Absolute Basophils 0, PUBS MCHC 33.8, Serum Alcohol 298.0 (EMERSON DYE EXPERT,SARAH) Past History Past Medical History Neurological: SEIZURE w/d EENT: NONE Cardiovascular: hypertension Respiratory: NONE Gastrointestinal: PANCREATITIS Hepatic: NONE Renal: NONE Musculoskeletal: left knee multiple tendon r. 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 has insight into his need for treatment and is motivated to attend. Physical Limitations (Interventions): The patient notes having knee and back problems. Psychiatric Treatment History Psych Treatment Psychiatric Treatment Yes Inpatient Treatment Yes Outpatient Treatment Yes Location of Treatment [facility], [facility] and Dr. Holly Reason for Treatment Depression, +SI and alcohol abuse. Dates of Treatment Multiple- current with Dr. Holly and last D/C [facility] 2 days ago Response to Treatment Despite multiple treatment episodes the patient has not been able to stop drinking and continually requires Diagnosis by History: PTSD, Bipolar do, polysubstance abuse Substance Use/Abuse History Drug Use/Abuse Substances Used/Abused Yes Substance Used/Abused Alcohol First Use "10 years old." Last Used "2 days ago" How much used/taken "it depends." The pt. elaborates to say at least a 6-pack daily. How often daily For how long chronic half-way use Route of use Oral Substance Abuse Treatment Substance Abuse Treatment Past Substance Abuse [place] Yes Inpatient Treatment Yes Outpatient Treatment Yes Location of Treatment [facility], [facility] and [facility] Reason for Treatment Alcohol abuse Dates of Treatment D/c from [facility] yesterday...Multiple dates for [place] and [facility] Response to Treatment Despite multiple treatment episodes the patient continues to drink. Comments: N/A (EMERSON ZAMORANO,SARAH) Current Mental Status Mental Status Orientation: Person, Place, Situation Affect: WNL Speech: WNL Neuro-vegetative: WNL (Per patient) Appearance Appearance- Dress/Hygiene: The patient was sitting on the bed, in hospital scrubs unkempt and disheveled. He did have good eye contact and participation in the evaluation. Behaviors Thought Process: WNL Thought Content: WNL Memory: WNL Insight: WNL SI/HI Risk Assessment Past Suicidal Ideation/Attempts Yes (1 previous suicide attempt) Current Suicidal Ideation/Att No Past Homicidal Ideation/Att: No Current Homicidal Ideation/Attempts No Degree of Intent: The patient notes that he attempted suicide one time, 20 years ago, via hanging., The patient was brought in on a PEER after making suicidal and homicidal comments. The patient notes that he may have made the suicidal statements while intoxicated, however does not believe that he said he would hurt anyone else. Danger To: Per PEER, he made homicidal statements. Gravely Disabled: N/A Risk Factors: high anxiety/distress, history of suicide atmpts, SA/MH hospitalized, substance abuse, poor impulse control, male, limited support Lethality Ratin PTSD Checklist PTSD Score: PTSD Score: Response Value Disturbing memories,thoughts,images of stressful experience? A little bit 2 Disturbing dreams of stressful experience from past? A little bit 2 Suddenly acting/feeling as if reliving stressful experience? A little bit 2 Unpleasant feeling when reminded of stressful experience? A little bit 2 Physical reactions when reminded of stressful experience? A little bit 2 Avoid thinking/talking of stressful exp. to avoid reactions? A little bit 2 Avoid activities/situations that remind of stressful exp.? A little bit 2 Trouble remembering important parts of stressful experience? A little bit 2 Loss of interest in things that you used to enjoy? A little bit 2 Feeling distant or cut off from other people? Not at all 1 Feeling emotionally numb/unable to love those close to you? Not at all 1 Feeling as if your future will somehow be cut short? A little bit 2 Trouble falling or staying asleep? A little bit 2 Feeling irritable or having angry outbursts? A little bit 2 Having difficulty concentrating? A little bit 2 Being super alert or watchful on guard? A little bit 2 Feeling jumpy or easily startled? A little bit 2 Total 32 ED Management Sitter: Yes Restraints: Yes (Last evening) (EMERSON ZAMORANO,SARAH) DSM5/PS Stressors/Medical Prob Diagnosis' (DSM 5, Stressors, Medical): F32.9 Unspecified Depressive Disorder, F41.9 Unspecified Anxiety Disorder and F10.20 Alcohol Use Disorder. Current GAF: 28 Comments: N/A (SARAH NORMAN LCSW) Departure Disposition Psych Medical Clearance Date: 05/05/16 Medically Cleared at: 1700 Time Started: 1715 Time Ended: 1800 Psychiatrist Consulted: Brandon Milan MD Date Disposition Established: 05/05/16 Time Disposition Established: 1800 Plan for Disposition - Modality: Hold over for coordination with Brand Marketing Coordinator in the AM Contact: N/A Telephone: N/A Rationale for Disposition: The patient persents on a PEER after making suicidal and homicidal statements. The patient became upset with his Brand Marketing Coordinator and told him that he was going to kill himself, which led to the police searching for him. The patient was intoxicated when he presented to the ED. The patient is currently denying SI and HI. Case discussed with Dr. Milan and he would like to hold the patient over and for Crisis to speak with the special officer in the AM, before making final disposition. Additional Instructions: N/A Referrals BETTY ETIENNE,GERARD Hammond (PCP/Family) (EMERSON ZAMORANO,SARAH) Disposition Psych Medical Clearance Date: 05/06/16 Medically Cleared at: 829 Time Started: 829 Time Ended: 914 Psychiatrist Consulted: Bjorn ETIENNE,Brandon Date Disposition Established: 05/06/16 Time Disposition Established: 914 Plan for Disposition - Modality: [facility] Facility: [facility] Rationale for Disposition: pt denies any SI HI and is agreeable to follow-up tx (TROY MURRAY LCSW) Addendum Addendum Pt was re-evaluated this morning. He presents with a normal range of affect. He denies any SI/HI toward anyone including children. Pt requesting discharge. [facility] spoke to Pt's special officer Jesus Morataya ext [phone] who is in agreement pt may be discharged, but would like pt to be referred to [facility] prior to discharge. He informed that Pt was told that he can no longer go to [facility]. He asked if he could go to [facility], but he is not able as he is currently prescribed benzos. He suggested a referral to [facility]. This clinician called [facility], but they informed that they do not take Medicare for IOP. [facility] called [facility] to ask if they would consider taking pt back, but they declined stating they are not able to manage his mental health needs as they primarily address substance abuse. [facility] called [facility] in [place] and they informed that they are able to accept pt on benzo medication, with dual dx, and on medicare. Pt was agreeable to attend their [facility] and will go to their walk in clinic for an intake. Pt was provided with the train and bus schedule for transportation. Pt's special officer was informed of this. Dr. Milan approved dispo and pt will be discharged to follow-up at [facility]. (TROY MURRAY LCSW)
[2016-05-06 10:04] VITALS: BP 120/77
== END 2016-05-06 11:24 ==
LOC: ERH 17:40
PROVIDERS: Emergency Medicine
DX: F10.129 Alcohol abuse with intoxication, unspecified (principal); R45.851 Suicidal ideations; R45.1 Restlessness and agitation
CPT/HCPCS: 80307; 96372; 99291; G0463; G0480; J1200; J3490

== ENCOUNTER 2016-05-31 13:55 | Inpatient (IN) | payer OTHER, MEDICARE ==
[~2016-05-31] VITALS: Ht 170.2 cm; Wt 90.7 kg
--- NOTE | 2016-05-31 13:59 | NUR ---
SECURIETY AT BEDSIDE FOR WANDING AND CHANGING INTO BLUE SCRUBS
--- NOTE | 2016-05-31 13:59 | NUR ---
PT BIBA FOR ETOH. PT'S MOTHER CALLED 911. PT REPORTS HE DRANK "A LOT" TODAY. PT DENIES DRUG USE.
--- NOTE | 2016-05-31 14:06 | NUR ---
DR RAMOS AT BEDSIDE
--- NOTE | 2016-05-31 14:43 | NUR ---
(1) one belongings bag locked in closet and (1) one valuables bag given to Pod 2 RN.
--- NOTE | 2016-05-31 16:05 | NUR ---
LABS SENT (BLUE SST BHARDWAJ LAV)
[2016-05-31 16:19] LABS: ABSOLUTE BASOPHIL COUNT 0.1 /CUMM (0.0-0.2); ABSOLUTE EOSINOPHIL COUNT 0 /CUMM (0.0-0.7); ABSOLUTE GRANULOCYTE CT 4.3 /CUMM (1.4-6.5); ABSOLUTE LYMPH COUNT 1.8 /CUMM (1.2-3.4); ABSOLUTE MONOCYTE COUNT 0.2 /CUMM (0.10-0.60); BASOPHIL % 0.8 % (0.0-2.0); EOSINOPHIL % 0.2 % (0-5); GRANULOCYTE % 67.2 % (42.2-75.2); HEMATOCRIT 39.4 % (42-52); MEAN CORPUSCULAR HGB CONC 34.3 G/DL (33.0-37.0); MEAN CORPUSCULAR VOLUME 93.3 FL (80.0-94.0); MEAN PLATELET VOLUME 6.1 FL (7.4-10.4); PLATELET COUNT 312 /CUMM (130-400); RBC DISTRIBUTION WIDTH 14.4 % (11.5-14.5); RED BLOOD CELL CT 4.22 /CUMM (4.70-6.10); WHITE BLOOD CELL COUNT 6.4 /CUMM (4.8-10.8)
--- NOTE | 2016-05-31 16:40 | NUR ---
PT ASLEEP AT THIS TIME. RESPIRATIONS EQUAL AND UNLABORED. SITTER AT DOOR FOR SAFETY.
--- NOTE | 2016-05-31 16:48 | ED PSYCHIATRIC COMPLAINT ---
History of Present Illness General Chief Complaint: ETOH/Drug Related Complaint Stated Complaint: ETOH Source: patient, old records, EMS Exam Limitations: intoxication Vital Signs & Intake/Output Vital Signs & Intake/Output Vital Signs Date Time Temp Pulse Resp B/P Pulse O2 O2 Flow FiO2 Ox Delivery Rate 04/ 1000 64 130/96 04/05 0918 64 130/96 04/05 0905 Room Air Room Air 04/05 0816 64 130/100 04/05 0800 68 130/100 04/05 0800 64 130/100 04/05 0636 97.7 74 20 140/100 92 Room Air 04/05 0300 97.8 75 20 130/90 92 Room Air 04/05 0248 97.3 74 18 133/75 04/05 0238 97.3 74 18 133/75 96 Room Air 04/05 0028 96.5 84 16 142/94 04/04 2243 Room Air 04/04 2243 95.4 96 16 123/81 95 Room Air 04/04 2241 95.4 96 16 123/81 04/04 2102 95.8 80 16 121/70 04/04 2043 95.8 80 16 121/70 96 Room Air 04/04 1810 98.3 96 16 131/92 04/04 1809 98.3 96 16 131/92 94 Room Air 04/04 1635 95.2 70 20 120/74 91 Room Air 04/04 1539 Room Air 04/04 1449 98.2 67 18 120/74 97 Room Air Allergies Coded Allergies: haloperidol (Severe, DIFFICULTY BREATHING 04/13/16) chlorpromazine (DYSTONIC REACTION 04/13/16) Reconcile Medications Clonazepam (Klonopin) 1 MG TABLET 1 TAB PO TID ALC WITHDRAWL PLEASE HOLD WHILE TAKING ATIVAN. PLEASE RESUME AFTER YOU FINISH YOUR LAST ATIVAN DOSE TOMORROW (03/10/16). Clonidine HCl 0.1 MG TABLET 1 TAB PO TID BP Escitalopram Oxalate (Lexapro) 20 MG TABLET 1 TAB PO DAILY depression Folic Acid 1 MG TABLET 1 MG PO DAILY SUPPLEMENT Gabapentin (Neurontin) 300 MG CAPSULE 1 CAP PO TID MENTAL HEALTH/NERVE PAIN ( Reported) Lorazepam (Ativan) 1 MG TABLET 1 TAB PO SEE ADMIN CR alcohol detox take 1 mg AT BEDTIME TODAY take 0.5 mg 2 times(breakfat and dinner) on 04/30/16 take 0.5 mg ONCE A DAY(breakfast ) on 05/01/16 THEN STOP Multivitamin (One Daily Multivitamin) 1 EACH TABLET 1 TAB PO DAILY supplement Ondansetron HCl (Zofran) 4 MG TABLET 1 TAB PO DAILY PRN NAUSEA Pantoprazole Sodium (Protonix) 40 MG TABLET.DR 1 TAB PO DAILY STOMACH Pravastatin Sodium 40 MG TABLET 1 TAB PO QPM CHOLESTEROL Thiamine HCl (Vitamin B-1) 100 MG TABLET 100 MG PO DAILY supplement Trazodone HCl 100 MG TABLET 1 TAB PO DAILY ANXIETY (Reported) Triage Note: PT BIBA FOR ETOH. PT STATES HE DRANK "A LOT" TODAY. PT DENIES SI OR HI. PT REPORTS RECENT MARIJUANA USE. Triage Nurses Notes Reviewed? yes Onset: Just prior to arrival Duration: constant, continues in ED Timing: unknown Severity: severe Associated Symptoms: impaired concentration HPI: Patient brought in by EMS for alcohol intoxication. He denies fever chills nausea vomiting diarrhea abdominal pain chest pain shortness breath headache dysuria rash bleeding suicidal ideation homicidal ideation. At this time he does not requests detox. (MADISYN RAMOS MD) Past History Travel History Traveled to [place] past 21 day No Medical History Any Pertinent Medical History? see below for history Neurological: SEIZURE w/d EENT: NONE Cardiovascular: hypertension Respiratory: NONE Gastrointestinal: PANCREATITIS Hepatic: NONE Renal: NONE Musculoskeletal: left knee multiple tendon r. 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 FH: alcohol abuse grandmother FH: diverticulitis MOTHER Anxiety disorder FHx: bipolar disorder Hx Contributory? No (MADISYN RAMOS MD) Review of Systems Review of Systems Constitutional: Reports: see HPI. EENTM: Reports: no symptoms. Respiratory: Reports: no symptoms. Cardiovascular: Reports: no symptoms. GI: Reports: no symptoms. Genitourinary: Reports: no symptoms. Musculoskeletal: Reports: no symptoms. Skin: Reports: no symptoms. Neurological/Psychological: Reports: no symptoms. Hematologic/Endocrine: Reports: no symptoms. Immunologic/Allergic: Reports: no symptoms. All Other Systems: Reviewed and Negative (MADISYN RAMOS MD) Physical Exam Physical Exam General Appearance: well developed/nourished, alert, awake, anxious, intoxicated Head: atraumatic, normal appearance Eyes: Bilateral: normal appearance, PERRL, EOMI. Ears, Nose, Throat: normal pharynx, normal ENT inspection, hearing grossly normal Neck: normal inspection, supple, full range of motion Respiratory: normal breath sounds, chest non-tender, no respiratory distress, quiet respiration, lungs clear Cardiovascular: regular rate/rhythm, normal peripheral pulses, norml femoral pulses equa Gastrointestinal: normal bowel sounds, soft, non-tender, no organomegaly Extremities: normal range of motion Neurological/Psychiatric: awake, normal mood/affect, enterprise services manager II-XII nml as tested Appearance/Memory/Insight: disheveled, impaired insight Behavoir/Eye Contact/Speech: cooperative Thoughts/Hallucinations: no apparent hallucination Skin: intact, normal color, warm/dry SAD PERSONS Done? patient not suicidal (MADISYN RAMOS MD) Progress Differential Diagnosis: drug intoxication, drug overdose, drug withdrawal, electrolyte abnormality, hypoglycemia Plan of Care: Orders Procedure Date/time Status Heart Healthy Diet 06/01 B Active RT: Evaluation 06/01 904 Active Change service to 06/02 835 Active Pathway - chart 06/01 0400 Active Vital Signs 06/01 357 Active Teach/Educate 06/01 357 Complete Pain Treatment and Response 06/01 357 Complete Nutritional Intake, Monitor 06/01 357 Complete Isolation 06/01 357 Active Intake & Output 06/01 357 Active Patient Care Conference 06/01 357 Active Activity/Ambulation 06/01 357 Active Teach/Educate 06/01 356 Active Pain Treatment and Response 06/01 356 Active Nutritional Intake, Monitor 06/01 356 Active Isolation 06/01 356 Active Patient Care Conference 06/01 356 Complete Activity/Ambulation 06/01 356 Active Lab Add-on Test 06/02 123 Active TRC EVALUATION (GEN) 06/01 114 Complete OXYGEN SETUP (GEN) 06/01 114 Complete Pathway - chart 06/01 114 Active House Staff 06/01 114 Active Patient Data 06/01 114 Active Code Status 04/05 0115 Active Patient Data 06/01 40 Active Admit to inpatient 06/01 0039 Active Vital Signs 06/01 0039 Complete Code Status 06/01 003 Complete THERAPIST ORDERS 06/01 UNK Complete VTE Mechanical Prophylaxis 06/01 UNK Active Vital Signs 06/01 UNK Active MISTAKE 06/01 UNK Active Seizure Precautions 06/01 UNK Active Precautions 06/01 UNK Active Intake & Output 06/01 UNK Active Hemoccult 06/01 UNK Active CIWA 06/01 UNK Complete SOCIAL WORK CONSULT 06/01 UNK Active PSYCHIATRIC CONSULT 06/01 UNK Active Regular Diet 05/31 D Complete Patient Safety Monitor 05/31 1615 Complete THYROID STIMULATING HORMONE 05/31 1555 Complete FOLIC ACID 05/31 1555 Complete VITAMIN B12 05/31 1555 Complete URINE DRUG SCREEN FOR ER ONLY 05/31 1434 Complete Patient Safety Monitor 05/31 1416 Complete Current Medications Sig/Genoveva Start time Last Medication Dose Stop Time Status Admin Ibuprofen 400 MG Q6P PRN 06/01 1330 AC (Motrin) Enoxaparin Sodium 40 MG DAILY 06/01 1000 AC (Lovenox) Folic Acid 1 MG DAILY 06/01 1000 AC (Folic Acid) Multivitamins 1 TAB DAILY 06/01 1000 AC (Theragran Vitamins) Nicotine 21 MG DAILY 06/01 1000 AC (Nicoderm) Thiamine HCl 100 MG BID 06/01 1000 AC (Vitamin B1) Laboratory Tests 05/31/16 1555: Anion Gap 14, Estimated GFR > 60, BUN/Creatinine Ratio 17.0, Glucose 116 H, Calcium 8.6, Magnesium 1.8, Total Bilirubin 0.7, AST 94 H, ALT 66, Alkaline Phosphatase 81, Total Protein 6.9, Albumin 4.2, Globulin 2.7, Albumin/Globulin Ratio 1.6, Vitamin B12 305, Folate 18.2, TSH 1.230, CBC w Diff NO MAN DIFF REQ, RBC 4.22 L, MCV 93.3, MCH 32.0 H, RDW 14.4, MPV 6.1 L, Gran % 67.2, Lymphocytes % 28.2, Monocytes % 3.6, Eosinophils % 0.2, Basophils % 0.8, Absolute Granulocytes 4.3, Absolute Lymphocytes 1.8, Absolute Monocytes 0.2, Absolute Eosinophils 0, Absolute Basophils 0.1, PUBS MCHC 34.3, Serum Alcohol 367.0 05/31/16 1437: Urine Opiates Screen < 100.00, Methadone Screen < 40, Barbiturate Screen < 60, Ur Phencyclidine Scrn < 6.00, Amphetamines Screen < 100, U Benzodiazepines Scrn 141, Urine Cocaine Screen < 50, Urine Cannabis Screen 5.60 7:15 PM PATIENT SIGNED OUT TO ME BY DR RAMOS. MONITORING FOR ALCOHOL WITHDRAWAL. 12:40 am Patient requiring several doses of IV ativan, CIWA scores climbing. He requires medical admission for detox at this time. IV fluids ordered. (BARRERA CASON MD) Hand-Off Endorsed To: BARRERA CASON MD Endorsed Time: 1899 Pending: other (sobriety) (MADISYN RAMOS MD) Departure Departure Disposition: STILL A PATIENT Condition: Stable Referrals: BETTY ETIENNE,GERARD Hammond (PCP/Family) Departure Forms: Customer Survey General Discharge Information (MADISYN RAMOS MD) Departure Time of Disposition: 0200 Clinical Impression Primary Impression: Alcohol withdrawal Secondary Impressions: Alcohol intoxication delirium Admission Note Spoke With: WILLY CEBALLOS MD Documentation of Exam: Documentation of any treatments & extenuating circumstances including Concerns Regarding Discharge (functional status, medication knowledge or non-compliance, living conditions, etc.) that warrant an admission rather than observation: [IV Ativan, fluids, CIWA monitoring, seizure precautions, crisis consultation when stable for rehabilitation placement as patient has had multiple hospitalizations for DTs] (BARRERA CASON MD)
[2016-05-31 18:10] VITALS: BP 131/92
--- NOTE | 2016-05-31 18:42 | NUR ---
PT MEDICATED WITH ATIVAN 2MG PO AND ZOFRAN 4MG ODT FOR CIWA = 14. PT CALM AND COOPERATIVE AT THIS TIME. SITTER AT DOOR FOR SAFETY.
--- NOTE | 2016-05-31 20:01 | NUR ---
PT RESING ON MED IN ROOM 14. PT REPORTS HEADACHE, NAUSEA, TREMORS. SITTER AT DOORWAY FOR SAFETY. PT CALM AND COOPERATIVE AT THIS TIME.
[2016-05-31 21:02] VITALS: BP 121/70
--- NOTE | 2016-05-31 22:30 | NUR ---
MERRILL ADVISED THIS RN THAT PT WAS REPORTING HEADACHE. THIS RN WILL MAKE DR CASON AWARE.
[2016-05-31 22:41] VITALS: BP 123/81
--- NOTE | 2016-05-31 23:00 | NUR ---
PT MEDICATED WITH ATIVAN 2MG FOR WITHDRAWAL SYMPTOMS. SITTER OUTSIDE DOOR FOR SAFETY.
[2016-06-01] VITALS (11 sets, daily range): BP systolic 124–152; BP diastolic 75–102
--- NOTE | 2016-06-01 00:50 | NUR ---
MD MADE AWARE OF CIWA SCORE OF 12 AND THAT PT "FEELS LIKE A SEIZURE IS COMING ON." PT MOVED TO HALLWAY IN FRONT OF DESK. 2 UNSUCCESSFUL ATTEMPTS AT IV ACCESS BY THIS RN, SARI RODRIGUEZ AT BEDSIDE TO ATTEMPT IV ACCESS.
--- NOTE | 2016-06-01 00:57 | NUR ---
20G IV ESTABLISHED IN LAC PT MEDICATED WITH ATIVAN PER EMAR. WILL CONTINUE TO MONITOR. HOUSESTAFF AT BEDSIDE.
--- NOTE | 2016-06-01 01:12 | History & Physical ---
BOB JAUREGUI 06/01/16 0111: General Information and HPI MD Statement: I have seen and personally examined PRAKASH NORRIS and documented this H&P. The patient is a 45 year old M who presented with a patient stated chief complaint of alcohol detoxification. Source of Information: patient, old records Exam Limitations: no limitations History of Present Illness: This is a 45 year old male with past medical history significant for alcohol abuse, multiple alcohol detoxification admissions, withdrawal seizures, hypertension, hyperlipidemia, pancreatitis, alcohol dependence, anxiety, bipolar disorder, depression, opioid dependence, posttraumatic stress disorder, polysubstance abuse, nerve pain presented to the [facility] emergency department this evening requesting for alcohol detoxification. According to the patient, he has long-standing history of alcohol abuse. He takes vodka and beer Every day. His last drink was 2 PM this afternoon before coming to the hospital. He has multiple admissions in the past for alcohol detoxification. He was recently discharged from [facility] on 04/29/16 after alcohol detoxification treatment. After that he was admitted at [facility] for alcohol detoxification. Patient reports tremors, nausea, diarrhea, sweating this afternoon. He feels that he has been withdrawing. He denied any withdrawal seizures. Last seizure was 6 weeks ago. He is alert, awake and oriented to time place and person. Denied any anxiety, agitation. He reported visual hallucinations. Denied any tactile or auditory hallucinations. Mood was depressed. However denied any suicidal or homicidal ideations. Patient also reported abdominal pain, 8/10, for 3 days, associated with diarrhea. Denied any fever, chills, chest pain, racing of heart, headache, weakness or sensory changes, numbness or tingling sensation, gait or vision changes. Denied any constipation. No sick contacts or travel history. He smokes one pack per day. Allergies/Medications Allergies: Coded Allergies: haloperidol (Severe, DIFFICULTY BREATHING 04/13/16) chlorpromazine (DYSTONIC REACTION 04/13/16) Home Med list Clonazepam (Klonopin) 1 MG TABLET 1 TAB PO TID ALC WITHDRAWL PLEASE HOLD WHILE TAKING ATIVAN. PLEASE RESUME AFTER YOU FINISH YOUR LAST ATIVAN DOSE TOMORROW (03/10/16). Clonidine HCl 0.1 MG TABLET 1 TAB PO TID BP Escitalopram Oxalate (Lexapro) 20 MG TABLET 1 TAB PO DAILY depression Folic Acid 1 MG TABLET 1 MG PO DAILY SUPPLEMENT Gabapentin (Neurontin) 300 MG CAPSULE 1 CAP PO TID MENTAL HEALTH/NERVE PAIN ( Reported) Lorazepam (Ativan) 1 MG TABLET 1 TAB PO SEE ADMIN CR alcohol detox take 1 mg AT BEDTIME TODAY take 0.5 mg 2 times(breakfat and dinner) on 04/30/16 take 0.5 mg ONCE A DAY(breakfast ) on 05/01/16 THEN STOP Multivitamin (One Daily Multivitamin) 1 EACH TABLET 1 TAB PO DAILY supplement Ondansetron HCl (Zofran) 4 MG TABLET 1 TAB PO DAILY PRN NAUSEA Pantoprazole Sodium (Protonix) 40 MG TABLET.DR 1 TAB PO DAILY STOMACH Pravastatin Sodium 40 MG TABLET 1 TAB PO QPM CHOLESTEROL Thiamine HCl (Vitamin B-1) 100 MG TABLET 100 MG PO DAILY supplement Trazodone HCl 100 MG TABLET 1 TAB PO DAILY ANXIETY (Reported) Compliance With Home Meds: GOOD Past History Travel History Traveled to [place] past 21 day No Medical History Neurological: SEIZURE w/d EENT: NONE Cardiovascular: hypertension Respiratory: NONE Gastrointestinal: PANCREATITIS Hepatic: NONE Renal: NONE Musculoskeletal: left knee multiple tendon r. 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 FH: alcohol abuse grandmother FH: diverticulitis MOTHER Anxiety disorder FHx: bipolar disorder Psychosocial History Who Do You Live With? parent Services at Home: None Primary Language: Estonian Smoking Status: Current Everyday Smoker ETOH Use: heavy use Illicit Drug Use: marijuana Living Will? no Functional Ability ADLs Independent: dressing, eating, toileting, bathing. Ambulation: independent IADLs Independent: shopping, housework, finances, food prep, telephone, transportation , medication admin. Review of Systems Review of Systems Constitutional: Denies: chills, diaphoresis, fever, malaise, weakness, unexplained weight loss. EENTM: Denies: blurred vision, visual changes, hearing changes. Cardiovascular: Denies: chest pain, edema, orthopena, palpitations, peripheral edema, syncope. Respiratory: Denies: cough, hemoptysis, orthopnea, short of breath, sputum production, stridor, wheezing. GI: Reports: abdominal pain, diarrhea, distention, nausea. Denies: constipation, vomiting. Genitourinary: Denies: frequency, nocturia, urgency. Musculoskeletal: Denies: back pain, joint pain. Skin: Denies: no symptoms. Neurological/Psychological: Reports: anxiety, tremors. Denies: confusion, depressed, dementia, emotional problems, headache, numbness, tingling, weakness. Exam & Diagnostic Data Last 24 Hrs of Vital Signs/I&O Vital Signs Date Time Temp Pulse Resp B/P Pulse O2 O2 Flow FiO2 Ox Delivery Rate 06/01 0028 96.5 84 16 142/94 / 2243 Room Air 05/31 2243 95.4 96 16 123/81 95 Room Air 04/ 2241 95.4 96 16 123/81 04/ 2102 95.8 80 16 121/70 04/04 2043 95.8 80 16 121/70 96 Room Air / 1810 98.3 96 16 131/92 04/04 1809 98.3 96 16 131/92 94 Room Air 04/ 1635 95.2 70 20 120/74 91 Room Air /04 1539 Room Air 04/04 1449 98.2 67 18 120/74 97 Room Air Physical Exam General Appearance Alert, Oriented X3, Cooperative, No Acute Distress Skin No Rashes, No Breakdown HEENT Atraumatic, PERRLA, EOMI Neck Supple, No JVD, No thryomegaly Lymphatic Axillary nl, Cervical nl Cardiovascular Regular Rate, Normal S1, Normal S2, No Murmurs Lungs Normal Air Movement Abdomen Normal Bowel Sounds, Soft, No Hepatospenomegaly, tender lower abdomen Neurological Normal Speech, Strength at 5/5 X4 Ext, Normal Tone, Cranial Nerves 3-12 NL, Reflexes 2+ Extremities No Clubbing, No Cyanosis, No Edema, Normal Pulses, No Tenderness/ Swelling Vascular Normal Pulses, Pulses Symmetrical Assessment/Plan Assessment: This is a 45 year old male with past medical history significant for alcohol abuse, multiple alcohol detoxification admissions, withdrawal seizures, hypertension, hyperlipidemia, pancreatitis, alcohol dependence, anxiety, bipolar disorder, depression, opioid dependence, posttraumatic stress disorder, polysubstance abuse, nerve pain presented to the [facility] emergency department this evening requesting for alcohol detoxification. According to the patient, he has long-standing history of alcohol abuse. He takes vodka and beer Every day. His last drink was 2 PM this afternoon before coming to the hospital. He has multiple admissions in the past for alcohol detoxification. He was recently discharged from [facility] on 04/29/16 after alcohol detoxification treatment. After that he was admitted at [facility] for alcohol detoxification. Vitals on admission afebrile, heart rate 67 and respiratory rate 18, blood pressure 120/70, saturating at 97% on room air. CBC BEP normal. AST elevated 94. Problem list 1. Alcohol withdrawl 2. Hypertension 3. Hyperlipidemia 4. Depression 5. Anxiety 6. Polysubstance use Alcohol withdrawal: Patient came in with nausea, shaking tremors, anxiety, thought he was having withdrawals. his last drink was before coming to hospital. Has been consuming 30 beers per day. Came To the hospital requesting for intoxication. * Admitted to general medical floor for further treatment of alcohol withdrawal * Monitor vitals every shift * Monitor him on CIWA * monitor for nausea, vomiting, anxiety, agitation, tremors, hallucinations, disorientation. * Patient was on scheduled doses of Ativan * He was placed on when necessary Ativan doses * banana bag * Continue multivitamins * Continue folate * Continue thiamine * Continue seizure precautions * CIWA scores 6-18. continue to monitor * Psychiatrist consult * detention worker consult Abdominal pain Patient reported lower abdominal pain, 8/10, nonradiating. Associated with 5 episodes of diarrhea. Loose stools, nonbloody. AST elevated to 94 , most possibly from alcohol abuse. * We'll continue to monitor Bipolar disorder Recently stopped lamotrigine. Nerve pain Continue gabapentin Anxiety Continue clonapin depression: Chronic and stable Denies any suicidal or homicidal ideation Continue home meds- escitalopram Appreciate psych consult Hypertension Continue clonidine Insomnia Continue home dose of trazodone GERD Continue pantoprazole hyperlipidemia Continue statins Full code Regular diet DVT prophylaxis- subcutaneous Lovenox Mild pain pathway-Tylenol As Ranked By This Provider Problem List: 1. ALCOHOL WITHDRAWAL Core Measures/Miscellaneous Acute Coronary Syndrome ACS Diagnosis: No Cerebrovascular Accident CVA/TIA Diagnosis: No Congestive Heart Failure CHF Diagnosis: No Venous Thromboembolism VTE Risk Factors: Age > 40, Smoking No [facility] VTE prophylaxis d/t: No contraindications No VTE Pharm Prophylaxis d/t: No contraindications VTE Diagnosis: No VTE Type: NONE VTE Confirmed by (Test): NONE Severe Sepsis Severe Sepsis Present: No Septic Shock Septic Shock Present: No Miscellaneous Documentation Attending Case Discussed With: dr. ascencio Primary Care Physician: GERARD HERNÁNDEZ MD Patient sees these Specialists psyciatry Level of Patient Care: General Medicine LOUIS MCKEON 05/31/16 0119: Resident Review Statement Resident Statement: examined this patient, discussed with manager of internal, agreed with manager of internal Other Findings: Chief complaint: EtOH withdrawal This is a 45-year-old gentleman with past medical history significant for EtOH dependence, withdrawal seizures, hypertension, hyperlipidemia, pancreatitis, anxiety, bipolar disorder, depression, multi-substance abuse who presents to the hospital for EtOH withdrawal. He was discharged from [facility] on 2016 to [facility] for inpatient rehabilitation for similar complaints. He was also admitted to [facility] 2 weeks ago for detox. The patient reports epigastric and lower abdominal pain and occasional visual hallucinations. The patient denies any nausea, vomiting, headache, withdrawal seizures. He denies any SI or HI. Please see above for more details. Vital signs on admission: Temperature 96.5, pulse rate 84, respiratory rate 16, blood pressure 142/94, oxygen saturation 96% on room air. Pertinent physical exam at the time of admission: AAO 3, NAD. HEENT: H NCAT, PERRLA, EOMI, normal pharynx. Neck: Supple, no JVD, no headache, no thyromegaly. CV: RRR, normal murmur. Lungs: CTA BL. Abdomen: Normal bowel sounds, tenderness to palpation epigastric and hypogastric region. No organomegaly, no rebound tenderness. Extremities: No edema, normal pulses. Neurology: Normal speech, cranial nerves III-12 intact, [id number] intact, normal strength, normal reflexes, normal sensation. No asterixis, no nystagmus. Pertinent lab data: Hemoglobin 13.5, hematocrit 39.4, MCV 93.3, platelet 312. No electrolyte abnormality. AST 94, ALT 66, alkaline phosphatase 81. Toxicology screen negative for methadone, opiates and cocaine. Serum alcohol level 367. Problem list/plan: #EtOH withdrawal: Aspiration and seizure precautions. Monitor CIWA, IV Ativan per CIWA, will start the patient on by mouth Ativan 2 mg every 6. Banana bag, multivitamins, thiamine, and folate starting tomorrow. Psych and social consult. #Abdominal discomfort: Pt has epigastric tenderness. Likely gastritis 2/2 ETOH use. Will maintain the patient on PO PPIs. #Tobacco dependence: Smoking cessation counseling provided. Maintain the patient on nicotine patch. #Continue COMMERCIAL SINGER clonidine and Lexapro. #DVT prophylaxis: Subcutaneous Lovenox. #CODE STATUS: Full code. TUCKER ETIENNE, [facility] 06/01/16 0214: Attending MD Review Statement Attending Statement Attending MD Statement: examined this patient, discuss w/resident/PA/OFFICE NURSE PRACTITIONER, agreed w/resident/PA/OFFICE NURSE PRACTITIONER Attending Assessment/Plan: 45 yo M smoker, with h/o alcohol dependence with multiple admissions for detox, h/o withdrawal seizures (last 6 weeks ago), pancreatitis, HTN, recurrent PTSD, bipolar d/o, panic disorder, last detoxed at [facility] (04/26 04/29) then discharged to [facility] for inpatient rehab, again admitted to [facility] 2 weeks ago for detox, is brought by EMS after he was found intoxicated, now requesting detox. No SI or HI. C/o mid abdominal discomfort, nausea and diarrhea. Visual hallucinations+. VSS. Labs: unremarkable except elevated AST and alcohol level of 367. 1. Alcohol withdrawal. GM admit, seizure and aspiration precautions, CIWA, IV ativan per CIWA. PO ativan 2 mg Q6 then taper, banana bag, Psych and Social work consult. Continue PO PPI. 2. Smoking cessation counseling, nicotine patch. 3. Resume clonidine, zolpidem, lexapro. DVT ppx Lovenox. Full code.
--- NOTE | 2016-06-01 02:32 | NUR ---
PT BED ASSIGNMENT 206
--- NOTE | 2016-06-01 03:01 | NUR ---
MICHAEL NOGUEIRA ON 2NB STATES SHE DOES NOT NEED REPORT, "SEND PATIENT UP."
--- NOTE | 2016-06-01 03:14 | NUR ---
PER HOUSESTAFF MEDICATE PT WITH 1MG ATIVAN PO INSTEAD OF 2MG PO AT THIS TIME.
--- NOTE | 2016-06-01 03:19 | NUR ---
PT TAKEN TO FLOOR ALONG WITH 1 VALUABLE BAG AND 1 BELONGING BAG.
--- NOTE | 2016-06-01 04:20 | NUR ---
PT ARRIVED TO FLOOR 0322 VIA WHEELCHAIR. NO FAMILY AT PT SIDE. PT AOX2, SOME CONFUSION. SECOND CLASS WELDER AT BEDSIDE. VSS. IV BOLUS RUNNING. IV IN PLACE & FLUSHES WELL. SKIN INTACT. SEIZ PRECAUTIONS SETUP IN ROOM, BED ALARM PLACED. PT REFUSED ALPS, MOTORCYCLE SERVICE TECHNICIAN AWARE 06/01/16 @0348. BED IN LOWEST POSITION. PT RESTING COMFORTABLY AT THIS TIME.
--- NOTE | 2016-06-01 07:36 | NUR ---
PT AOX3 WITHOUT CONFUSION. PT SAFETY NO LONGER AN ISSUE AT THIS TIME. SPOKE WITH ELECTRIC WELL LOGGING OPERATOR AND ORDER FOR SITTER WILL BE DISCONTINUED.
--- NOTE | 2016-06-01 08:25 | NUR ---
NURSING NOTE: 0800 CIWA 5, BP 130/100 P 64, AM CLONIDINE GIVEN AT THIS TIME PER 156. WILL RECHECK PATIENT IN 30 MINUTES, BED ALARM IN PLACE, A&OX3, CONTINUE TO MONITOR.
--- NOTE | 2016-06-01 10:20 | Cons- Psychiatry ---
Psychiatric Consult Date of Consult: 06/01/16 Reason for Consult: ETOH withdrawal History of Present Illness: 45 M BIBA 05/31/16 1359 for ETOH detox. 9th admission since October, for same. History of seizure. Allergies: Coded Allergies: haloperidol (Severe, DIFFICULTY BREATHING 04/13/16) chlorpromazine (DYSTONIC REACTION 04/13/16) Current Medications: Current Medications Sig/Genoveva Start time Last Medication Dose Route Stop Time Status Admin Clonidine 0.1 MG TID 06/01 1000 AC 06/01 PO 0816 Cyanocobalamin/ 1 BAG DAILY 06/01 1000 AC 06/01 Thiamine/Pyridoxine IV 06/01 1759 0945 Sodium Chloride 1,000 ML Enoxaparin Sodium 40 MG DAILY 06/01 1000 AC SC Escitalopram Oxalate 20 MG DAILY 06/01 1000 AC 06/01 PO 0816 Folic Acid 1 MG DAILY 06/01 1000 AC PO Lorazepam 2 MG Q6 06/01 0600 AC 06/01 PO 0625 Lorazepam 0 .STK-MED ONE 06/01 0310 DC PO Lorazepam 0 Q1P PRN 06/01 0130 AC 06/01 IV 0448 Lorazepam 1 MG TID 06/01 0121 DC 06/01 PO 0310 Lorazepam 0 .STK-MED ONE 06/01 0050 DC .ROUTE Lorazepam 2 MG ONE ONE 06/01 0045 DC 06/01 IV 06/01 0046 0057 Lorazepam 2 MG ONCE ONE 05/31 2300 DC 05/31 PO 05/31 2301 2300 Lorazepam 0 .STK-MED ONE 05/31 2259 DC PO Lorazepam 2 MG ONCE ONE 05/31 1845 DC 05/31 PO 05/31 1846 1842 Lorazepam 0 .STK-MED ONE 05/31 1839 DC PO Multivitamins 1 TAB DAILY 06/01 1000 AC PO Nicotine 21 MG DAILY 06/01 1000 AC TOP Omeprazole 40 MG DAILY AC 06/01 0700 AC 06/01 PO 0625 Ondansetron HCl 4 MG ONCE ONE 05/31 1845 DC 05/31 PO 05/31 1846 1842 Ondansetron HCl 0 .STK-MED ONE 05/31 1840 DC PO Sodium Chloride 1,000 ML BOLUS ONE 06/01 0200 DC 06/01 IV 06/01 0259 0304 Thiamine HCl 100 MG BID 06/01 1000 AC PO Past History Past Medical History Neurological: SEIZURE w/d, Hx concussion as a child, EENT: NONE Cardiovascular: hypertension Respiratory: NONE Gastrointestinal: PANCREATITIS Hepatic: NONE Renal: NONE Musculoskeletal: left knee multiple tendon r. 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 has insight into his need for treatment and is motivated to attend. Physical Limitations (Interventions): The patient notes having knee and back problems. Psychiatric Treatment History Psych Treatment Psychiatric Treatment Yes Inpatient Treatment Yes Outpatient Treatment Yes Location of Treatment , ?[facility], [facility], Dr. Holly Diagnosis: PTSD, Bipolar do, polysubstance abuse, benzo dependence, alcohol use d/o severe recurrent Risk Factors: high anxiety/distress, history of suicide atmpts, SA/MH hospitalized, substance abuse, poor impulse control, male, limited support Substance Use/Abuse History Drug Use/Abuse Substances Used/Abused Yes Substance Used/Abused Alcohol Last Used 05/31/16 How much used/taken UNK How often Daily Substance Abuse Treatment Substance Abuse Treatment Past Substance Abuse TX Yes Assessment/Plan Mental Status Mental Status Exam: Drowsy, arousable, lying on bed with eyes closed. Speech slurred. Last drink 05/31/16, amount UNK, relapse date UNK Denies AVTH; presents no luh delusions. Denies SI/HI No longer being followed by Dr. Adalgisa Holly, psychiatrist. Lab Results: Laboratory Tests 05/31 05/31 1555 1437 Chemistry Sodium (137 - 145 mmol/L) 139 Potassium (3.5 - 5.1 mmol/L) 4.4 Chloride (98 - 107 mmol/L) 98 Carbon Dioxide (22 - 30 mmol/L) 26 Anion Gap (5 - 16) 14 BUN (9 - 20 mg/dL) 17 Creatinine (0.7 - 1.2 mg/dL) 1.0 Estimated GFR (>60 ml/min) > 60 BUN/Creatinine Ratio (7 - 25 %) 17.0 Glucose (65 - 99 mg/dL) 116 H Calcium (8.4 - 10.2 mg/dL) 8.6 Magnesium (1.6 - 2.3 mg/dL) 1.8 Total Bilirubin (0.2 - 1.3 mg/dL) 0.7 AST (17 - 59 U/L) 94 H ALT (21 - 72 U/L) 66 Alkaline Phosphatase (< 127 U/L) 81 Total Protein (6.3 - 8.2 g/dL) 6.9 Albumin (3.5 - 5.0 g/dL) 4.2 Globulin (1.9 - 4.2 gm/dL) 2.7 Albumin/Globulin Ratio (1.1 - 2.2 %) 1.6 Vitamin B12 (239 - 931 pg/mL) 305 Folate (2.76 - 20.0 ng/mL) 18.2 TSH (0.270 - 4.200 uIU/mL) 1.230 Hematology CBC w Diff NO MAN DIFF REQ WBC (4.8 - 10.8 /CUMM) 6.4 RBC (4.70 - 6.10 /CUMM) 4.22 L Hgb (14.0 - 18.0 G/DL) 13.5 L Hct (42 - 52 %) 39.4 L MCV (80.0 - 94.0 FL) 93.3 MCH (27.0 - 31.0 PG) 32.0 H RDW (11.5 - 14.5 %) 14.4 Plt Count (130 - 400 /CUMM) 312 MPV (7.4 - 10.4 FL) 6.1 L Gran % (42.2 - 75.2 %) 67.2 Lymphocytes % (20.5 - 51.1 %) 28.2 Monocytes % (1.7 - 9.3 %) 3.6 Eosinophils % (0 - 5 %) 0.2 Basophils % (0.0 - 2.0 %) 0.8 Absolute Granulocytes (1.4 - 6.5 /CUMM) 4.3 Absolute Lymphocytes (1.2 - 3.4 /CUMM) 1.8 Absolute Monocytes (0.10 - 0.60 /CUMM) 0.2 Absolute Eosinophils (0.0 - 0.7 /CUMM) 0 Absolute Basophils (0.0 - 0.2 /CUMM) 0.1 PUBS MCHC (33.0 - 37.0 G/DL) 34.3 Toxicology Urine Opiates Screen (>2000 NG/ML) < 100.00 Methadone Screen (>300 NG/ML) < 40 Barbiturate Screen (>200 NG/ML) < 60 Ur Phencyclidine Scrn (>25 NG/ML) < 6.00 Amphetamines Screen (>1000 NG/ML) < 100 U Benzodiazepines Scrn (>200 NG/ML) 141 Urine Cocaine Screen (>300 NG/ML) < 50 Urine Cannabis Screen (>50 NG/ML) 5.60 Serum Alcohol (<10 MG/DL) 367.0 Diffential Diagnosis: Alcohol use disorder, severe, recurrent Benzodiazepine dependence Impression: The patient needs to complete his alcohol detox safely. We suggest the ETOH Detox order set for medication management. He no longer has a prescriber for clonazepam 1 mg PO up to 3X/day, which was his previous baseline when entering a lorazepam detox protocol. The patient has probably been self-medicationg with alcohol, and possibly street-purchased benzos since he has left the care of his psychiatrist. Consider adding some portion of the equivalent dose of clonazepam above only if an outpatient prescriber can be located. Otherwise, the patient will need to taper off all benzodiazepines. Provisional Treatment Plan: 1. Continue 'ETOH Detox' order set for Ativan taper a. Change to PO administration of lorazepam/Ativan b. Continue daily thiamine, folate and MVI c. Decrease scheduled Ativan by no more than 20% daily 2. Please evaluate need for clonazepam 0.1 mg PO 3X/day. This was last filled on 04/19/[address] Holly, psychiatrist, whom he no longer sees. 3. Stop escitalopram 10 mg PO daily. The patient has no current followup for psychotropic meds. 4. Start trazodone 100 mg PO at bedtime as needed for insomnia 5. SW to assist with aftercare planning. The patient will need psychiatric aftercare, but his status at the [facility] program is unknown. 6. At the last discharge two months ago, the patient had an outpatient appt with Dr. Davis. Please help the patient reset this, if it has not already been done. 7. At the last discharge two months ago, Dr. Kayleen Chan had discussed a neurology referral with the patient, due to his history of concussion; please consider following up with her on this. 8. Please notify us if the patient becomes delirious or begins to exhibit signs of DTs. If these occur, the patient may not have haloperidol, please use olanzepine, either PO, SL or IM. We will sign off now. Please re-consult if other psychiatric matters arise. Thank-you for asking us to participate in Romulo' care. Shadi Bravo APRN, Pager [phone]
--- NOTE | 2016-06-01 13:29 | PN- Att Addend ---
Attending Addendum Attending Brief Note patient seen and examined. Lying in bed agitated, tremulous. CIWA was as high as 12 overnight. Since admission he has received about 12 mg of Ativan orally and intravenously. He is currently alert and oriented 3. He denies any pain. Vital Signs Date Time Temp Pulse Resp B/P Pulse O2 O2 Flow FiO2 Ox Delivery Rate 06/01 1000 64 130/96 04/05 0918 64 130/96 04/05 0905 Room Air Room Air 04/05 0816 64 130/100 04/05 0800 68 130/100 04/05 0800 64 130/100 04/05 0636 97.7 74 20 140/100 92 Room Air 04/05 0300 97.8 75 20 130/90 92 Room Air 04/05 0248 97.3 74 18 133/75 04/05 0238 97.3 74 18 133/75 96 Room Air 04/05 0028 96.5 84 16 142/94 04/04 2243 Room Air 04/04 2243 95.4 96 16 123/81 95 Room Air 04/04 2241 95.4 96 16 123/81 04/04 2102 95.8 80 16 121/70 04/04 2043 95.8 80 16 121/70 96 Room Air 04/04 1810 98.3 96 16 131/92 04/04 1809 98.3 96 16 131/92 94 Room Air 04/04 1635 95.2 70 20 120/74 91 Room Air 04/04 1539 Room Air 04/04 1449 98.2 67 18 120/74 97 Room Air Gen. appearance: Well-developed, visibly tremulous. Heart: S1-S2 regular Lungs: Clear bilaterally Abdomen: Soft, nontender with normal bowel sounds Changes: No pedal edema Skin: Intact with no rashes Laboratory Tests 05/31/16 1555: Anion Gap 14, Estimated GFR > 60, BUN/Creatinine Ratio 17.0, Glucose 116 H, Calcium 8.6, Magnesium 1.8, Total Bilirubin 0.7, AST 94 H, ALT 66, Alkaline Phosphatase 81, Total Protein 6.9, Albumin 4.2, Globulin 2.7, Albumin/Globulin Ratio 1.6, Vitamin B12 305, Folate 18.2, TSH 1.230, CBC w Diff NO MAN DIFF REQ, RBC 4.22 L, MCV 93.3, MCH 32.0 H, RDW 14.4, MPV 6.1 L, Gran % 67.2, Lymphocytes % 28.2, Monocytes % 3.6, Eosinophils % 0.2, Basophils % 0.8, Absolute Granulocytes 4.3, Absolute Lymphocytes 1.8, Absolute Monocytes 0.2, Absolute Eosinophils 0, Absolute Basophils 0.1, PUBS MCHC 34.3, Serum Alcohol 367.0 05/31/16 1437: Urine Opiates Screen < 100.00, Methadone Screen < 40, Barbiturate Screen < 60, Ur Phencyclidine Scrn < 6.00, Amphetamines Screen < 100, U Benzodiazepines Scrn 141, Urine Cocaine Screen < 50, Urine Cannabis Screen 5.60 Problems: 1. Alcohol withdrawal syndrome 2. Benzodiazepine dependence Plan: -Continue IV hydration. -Recommend increasing dose of his Ativan to 2 mg orally every 4 hours from every 6 hours as he is currently not in acute withdrawal phase. Continue IV Ativan when necessary elevated CIWA. -Psychiatric evaluation appreciated. Patient has not been taking his clonazepam for a few weeks as he no longer has a prescribing psychiatrist. In view of this patient will not be discharged home on benzodiazepine therapy. He will be weaned off completely prior to discharge. He will be referred to IOP service upon discharge. -Apparently patient was considered for neurology and gastroenterology referral as an outpatient according to the psychiatry service. He currently has no acute needs for these consultations particularly with his current state of alcohol withdrawal. He will be referred to his primary care provider to follow-up with his referrals upon discharge. Hopefully patient will be compliant with recommendations for his long-term care as an outpatient. We'll follow-up with the social work supervisor for referral to an outpatient support program
--- NOTE | 2016-06-01 15:00 | NUR ---
NURSING NOTE: PATIENTS BP IS 124/102, P 77 AT THIS TIME. MD ADAMS MADE AWARE, RECHECK IN 30 MINS PER MD. NEXT SHIFT MADE AWARE. CONT TO MONITOR.
--- NOTE | 2016-06-01 15:01 | NUR ---
Referral received this am via electronic cut order hand. This patient is a 45 year old man, admitted to the hospital early this am with ETOH withdrawal. This patient is well known to members of the multidisciplinary team here at [facility], due to his frequent readmissions. Romulo is a gentleman who has battled mental health and chronic alcohol dependence for many years. Until very recently he was on chronic benzos for anxiety, and unknown to his prescriber, drinking ETOH at the same time. His prescriber has now discharged him from the practice. Additonally, Romulo has a legal charge pending, and mandated substance abuse treatment has long been a term of his probation. At this time, I am uncertain if his legal status has changed. He is agiated and tremulous today; on ativan as ordered for the treatment of ETOH Withdrawal. Psychiatry has recommended slow benzo taper and absolutely NO BENZOS ON DISCHARGE. Have noted that patient had an intake scheduled at our IOP earlier in this week. Follow to better assess discharge needs.
[2016-06-02 06:38] VITALS: BP 112/78
--- NOTE | 2016-06-02 07:18 | PN- Housestaff ---
BK ETIENNE,[facility] 06/02/16 0718: Subjective Follow-up For: Alcohol detoxification Subjective: Patient was seen and examined this morning, he complained of abdominal pain, watery diarrhea 3 times since yesterday, headache, tremors, nausea but no vomiting today, had one episodes of vomiting yesterday morning. Patient requested regular diet consistent of heart healthy diet. Patient reported that he wants to restart the gabapentin and escitalopram home medication. CIWA score this morning at 8 am was 0, he was scored 15 around 9am and got 1 dose of Ativan when necessary. Patient denied chest pain, palpitation, shortness of breath. Review of Systems Constitutional: Reports: see HPI. Objective Last 24 Hrs of Vital Signs/I&O Vital Signs Date Time Temp Pulse Resp B/P Pulse O2 O2 Flow FiO2 Ox Delivery Rate 06/02 1412 98.0 92 18 130/80 98 Room Air 06/02 1054 51 112/78 06/02 0638 98.1 51 20 112/78 98 Room Air 06/01 2246 98.8 60 16 152/98 97 Room Air 06/01 2131 60 152/98 06/01 1611 142/90 06/01 1600 98.2 77 20 142/90 Intake & Output 06/02 1600 /06 0800 / 0000 Intake Total 490 850 Output Total Balance 490 850 Intake, IV 10 250 Intake, Oral 480 600 Physical Exam General Appearance: Alert, Oriented X3, Cooperative, No Acute Distress Skin: No Rashes, No Breakdown, No Significant Lesion HEENT: Atraumatic, PERRLA, EOMI, Mucous Membr. moist/pink Neck: Supple, No JVD Cardiovascular: Regular Rate, Normal S1, Normal S2, No Murmurs Lungs: Clear to Auscultation, Normal Air Movement Abdomen: Normal Bowel Sounds, Soft, No Tenderness, No Hepatospenomegaly, No Masses Neurological: Normal Gait, Normal Speech, Strength at 5/5 X4 Ext, Normal Tone, Sensation Intact, Cranial Nerves 3-12 NL, Reflexes 2+, fine tremors Extremities: No Clubbing, No Cyanosis, No Edema, Normal Pulses Assessment/Plan Assessment: This is a 45 year old male with past medical history significant for alcohol abuse, multiple alcohol detoxification admissions, withdrawal seizures, hypertension, hyperlipidemia, pancreatitis, alcohol dependence, anxiety, bipolar disorder, depression, opioid dependence, posttraumatic stress disorder, polysubstance abuse, nerve pain presented to the [facility] emergency department requesting for alcohol detoxification. Problem list 1. Alcohol withdrawl 2. Depression and Anxiety 3. Hypertension and hyperlipidemia Alcohol withdrawal: * Start taper lorazepam 1.5 mg every 4 hours, will go down in the dose and keep short duration between doses * Lorazepam when necessary dose by mouth 1 mg every per CIWA score (patient is very hard stick and wasn't able to get peripheral IV line) * Ibuprofin 400 mg every 6 when necessary for headache * Folic acid, thiamine 100 twice a day and multivitamin daily * Nicotine patch * Omeprazole 40 mg daily for meal Depression and anxiety * Trazodone 100 mg at bedtime and 50 mg at bedtime when necessary * Start gabapentin 300 every 6 * Clonazepam and escitalopram were discontinued based on psychiatric recommendation * Psych recommendation was obtained, thanks the recommendation * Will obtain social work therapist consultation for IOP after discharge Hypertension and hyperlipidemia * Clonidine 0.1 mg by mouth 3 times a day * Statin is on hold for elevated AST on admission Full code Regular diet DVT prophylaxis- subcutaneous Lovenox Consultation psych, social work therapist Problem List: 1. Alcohol intoxication Pain Ratin Pain Location: Abdominal pain Pain Goal: Pain 4 or less Pain Plan: Mild pain pathway Tomorrow's Labs & Rationales: None MARBELLA COTE MD 06/02/16 1158: Attending MD Review Statement Attending Statement Attending MD Statement: examined this patient, discuss w/resident/PA/MIDDLE SCHOOL PROFESSIONAL, agreed w/resident/PA/MIDDLE SCHOOL PROFESSIONAL, reviewed EMR data (avail), discussed with nursing, discussed with case mgmt, amended to note Attending Assessment/Plan: Patient seen and examined. Blood pressure has improved overnight. His CIWA overnight was 0 on different occasions however this morning became agitated again with CIWA or 15. He required only 4 mg of when necessary Ativan for the past 24 hours. We'll continue CIWA protocol. Continue patient on oral Ativan at 1.5 mg orally every 4 hours. Resume his gabapentin which she was taking at home for anxiety as well.
--- NOTE | 2016-06-02 13:55 | NUR ---
Following patients progress as it relates to patients detox. Patient has been on the CIWA for observation of withdrawal symptoms; scores have been fluctuating as high as 15 , requiring 11mg. ativan in the past 24 hours. I met with Romulo late this morning, along with psychiatric MARINE TECHNICIAN. Romulo reports that he was only able to stay at [facility] for 2 days last month after he was sent there from here. He reports having no formal aftercare plan or referrals in place. Today Leo reports that he is no longer on the benzos and stopped them himself, as a way to get into residential ETOH treatment. Currently, his primary payor source is medicare which does not have a benefit for residential treatment. Leo reports still being on probation, and signed a release so I could speak with his PO. Release form signed and FAXED to probation office; call placed; message left and await return call. Question will be whether Leo would be eligible to a [facility]rections bed at [facility]. Leo is aware that will be the "ask" of the student officer. In the meantime, Leo says he plans to come to the IOP here at [facility]; he was a "no show" for a scheduled intake earlier this week; uncertain if IOP will allow him to return. Will follow for medical stability to provide appropriate aftercare referrals.
[2016-06-02 14:12] VITALS: BP 130/80
[2016-06-02 16:00] VITALS: BP 130/80
--- NOTE | 2016-06-02 16:26 | NUR ---
LATE ENTRY: LOST IV ACESS ATTEMPTING TO ADMINISTER IV ATIVAN. PT IS DIFFICULT STICK, DESK OPERATOR TRIED TO PLACE IV, ICU NURSE TRIED, MD ADAMS WAS CONTACTED ABOUT POSSIBILITY OF CENTRAL LINE. MEDICAL TEAM ORDERED PO ATIVAN FOR PRN CIWA. NO FURTHER ORDERS AT THIS TIME.
[2016-06-02 18:00] VITALS: BP 130/80
[2016-06-02 19:43] VITALS: BP 134/82
[2016-06-02 21:59] VITALS: BP 132/82
[2016-06-03 07:26] VITALS: BP 154/106
[2016-06-03 08:00] VITALS: BP 130/80
--- NOTE | 2016-06-03 08:53 | PN- Housestaff ---
BK ETIENNE,[facility] 06/03/16 0852: Subjective Follow-up For: Alcohol detoxification Subjective: Patient was seen and examined this morning, he reported not feeling well because he had 7 episodes of diarrhea over the last 2-3 hours, C. difficile is pending, denied abdominal pain, nausea or vomiting. Patient reported also low back pain, throbbing headache, tremors. Vital signs are stable, CIWA score this morning at 8 am was 1, maximum CIWA overnight was 12 mainly for anxiety No overnight events reported by the nurse of the patient. Review of Systems Constitutional: Reports: see HPI. Objective Last 24 Hrs of Vital Signs/I&O Vital Signs Date Time Temp Pulse Resp B/P Pulse O2 O2 Flow FiO2 Ox Delivery Rate 06/03 0846 97.6 50 20 130/80 06/03 0800 97.6 50 20 130/80 06/03 0726 97.6 50 20 154/106 98 Room Air 06/02 2201 84 134/82 / 2159 98.2 56 20 132/82 95 Room Air 06/02 1943 98.4 84 20 134/82 /06 1800 98.0 92 18 130/80 04/06 1720 92 130/80 04/06 1600 98.0 92 18 130/80 04/06 1412 98.0 92 18 130/80 98 Room Air 06/02 1054 51 112/78 Intake & Output 06/03 1600 06/03 0800 06/03 0000 Intake Total 600 600 Output Total 600 Balance 600 0 Intake, Oral 600 600 Output, Urine 600 Physical Exam General Appearance: Alert, Oriented X3, Cooperative, No Acute Distress Skin: No Rashes, No Breakdown, No Significant Lesion HEENT: Atraumatic, PERRLA, EOMI, Mucous Membr. moist/pink Neck: Supple, No JVD Cardiovascular: Regular Rate, Normal S1, Normal S2, No Murmurs Lungs: Clear to Auscultation, Normal Air Movement Abdomen: Normal Bowel Sounds, Soft, No Tenderness Neurological: Normal Gait, Normal Speech, Strength at 5/5 X4 Ext, Normal Tone, Sensation Intact, Cranial Nerves 3-12 NL, Reflexes 2+, lower back reproducible pain, no muscle spasm Extremities: No Clubbing, No Cyanosis, No Edema, Normal Pulses Assessment/Plan Assessment: This is a 45 year old male with past medical history significant for alcohol abuse, multiple alcohol detoxification admissions, withdrawal seizures, hypertension, hyperlipidemia, pancreatitis, alcohol dependence, anxiety, bipolar disorder, depression, opioid dependence, posttraumatic stress disorder, polysubstance abuse, nerve pain presented to the [facility] emergency department requesting for alcohol detoxification. Problem list 1. Alcohol withdrawl 2. Depression and Anxiety 3. Hypertension and hyperlipidemia Alcohol withdrawal: * We'll continue same dose of Ativan 1.5 mg every 4 hours * Lorazepam when necessary dose by mouth 1 mg every per CIWA score (patient is very hard stick and wasn't able to get peripheral IV line) * Ibuprofin 400 mg every 6 when necessary for headache and low back pain * Folic acid, thiamine 100 twice a day and multivitamin daily * Nicotine patch * Omeprazole 40 mg daily for meal Depression and anxiety * Trazodone 100 mg at bedtime and 50 mg at bedtime when necessary * Continue gabapentin 300 every 6 * Clonazepam and escitalopram were discontinued based on psychiatric recommendation * Psych recommendation was obtained, thanks the recommendation * Will obtain director of social work consultation for IOP after discharge Hypertension and hyperlipidemia * Clonidine 0.1 mg by mouth 3 times a day * Statin is on hold for elevated AST on admission Full code Regular diet DVT prophylaxis- subcutaneous Lovenox Consultation psych, director of social work Problem List: 1. ALCOHOL WITHDRAWAL Pain Ratin Pain Location: Abdominal pain Pain Goal: Pain 4 or less Pain Plan: Ibuprofin 400 mg every 6 when necessary for headache and back pain Tomorrow's Labs & Rationales: None KERA ETIENNE,MARBELLA 06/03/16 0930: Attending MD Review Statement Attending Statement Attending MD Statement: examined this patient, discuss w/resident/PA/RURAL MAIL CONTRACTOR, agreed w/resident/PA/RURAL MAIL CONTRACTOR, reviewed EMR data (avail), discussed with nursing, discussed with case mgmt, amended to note Attending Assessment/Plan: Patient seen ambulating freely around the nursing unit. Does not appear to be any acute distress. His CIWA has been on the low side however patient continues to report anxiety requesting when necessary doses of Ativan. Overnight he got only 3 mg total of when necessary Ativan. Appears that a significant portion of his symptoms are due to his underlying anxiety disorder rather than alcohol withdrawal. I have discussed this with the psychiatric service. Recommendations are for the patient to follow-up with the psychiatry service as an outpatient upon discharge.
--- NOTE | 2016-06-03 11:38 | PN- Psychiatry ---
Assessment/Plan Impression: We would appreciate assistance from case management, outpatient psychiatry, and the medical and nursing teams to arrange a same-day admission to [facility] when he is ready for discharge. We will be happy to arrange to walk the patient across the street to [address] [place] [address] at the appropriate time. The patient has an appt with Dr. Chan, PCP, for lab draw on 06/06/16. I have asked the staff to determine what these tests might be and draw them during this admission. He has a follow-up appt with her on 06/08/16, which may need to be rescheduled. He has an appt with his zoology technical officer on 06/14/16. I have amended the patient's allergy/adverse event record to reflect his current report of which medications he has failed, including Prozac, Zoloft, risperidone and quetiapine. He cannot take haloperidol (allergy) or risperidone, but has tolerated olanzapine in the past. He felt improvement with quetiapine/Seroquel, but 50 mg made him somnelent throughout the day. Future consideration might be given to supplementing the current SSRI, escitalopram/Lexapro, with either olanzapine or lurasidone. This should be reviewed with his insurance company first. He is responding well to trazodone at bedtime, and had about 6 hours of sleep last night. He is reporting that he is having nightmares every night, although history of PTSD is not clear. The use of prazosin for nightmares of any etiology is off-label. The patient reports that he had a vague reaction to a "red and white capsule," given for nightmares, which might have been Minipress 2 mg. We propose starting prazosin at 1 mg at bedtime, and monitor for adverse reaction. The patient asked about the risk of seizure from trazodone. The patient denies history of seizure outside the setting of alcohol or benzo withdrawal. He has tolerated this medicine at much larger doses in the past, and since he is on a lorazepam detox protocol, feel the risk for seizure is low. Suggestion: 1. Continue the ETOH detox protocol. The patient has had Ativan 9 mg scheduled and 3 mg PRN for a total of 12 mg in the last 24 hours, as of 1120 today. If CIWA scores are decreasing, and the vital signs are stable, the total daily dose can decrease by 2 - 2.5 mg. 2. In anticipation of re-starting escitalopram and a possible supplement later, please order an EKG. Last study was on 04/26/16. 3. Please ask the patient's PCP, Dr. Kayleen Chan, what labs she was expecting to draw for the patient this coming Monday, June 06, 2016. Please consider drawing them here in the hospital. 4. Please restart escitalopram 10 mg PO daily for 3-4 days, after which this may be increased to the former home dose of 20 mg daily. The patient reports his last dose of 20 mg was 4 days ago. This will help with anxiety and depression. a. Monitor EKG for arrhythmia or QTc greater than 475 mS, and hold the medication, until cardiology can comment. b. Monitor for hyponatremia, and hold if this occurs. 5. Consider starting prazosin 1 mg PO at bedtime for nightmares, off-label use. a. Monitor blood pressure and pulse. We will continue to follow along with you. Shadi Bravo APRN, Pager [phone] Subjective Subjective: A+OX4 Denies AVTH; presents no luh delusions Denies SI/HI. 6 hours sleep last night with trazodone. Appetite is "fairly good." C/O tinnitus/buzzing in his ears C/O back pain, "BM like coffee grounds," nursing aware. Objective Last 24 Hrs of Vital Signs/I&O Vital Signs Date Time Temp Pulse Resp B/P Pulse O2 O2 Flow FiO2 Ox Delivery Rate 06/03 1611 97.7 65 20 146/91 92 Room Air 06/03 0846 97.6 50 20 130/80 06/03 0800 97.6 50 20 130/80 06/03 0726 97.6 50 20 154/106 98 Room Air 06/02 2201 84 134/82 06/02 2159 98.2 56 20 132/82 95 Room Air 06/02 1943 98.4 84 20 134/82 06/02 1800 98.0 92 18 130/80 Intake & Output 06/03 1600 07 0800 06/03 0000 Intake Total 500 600 600 Output Total 600 Balance 500 600 0 Intake, Oral 500 600 600 Output, Urine 600 Current Medications: Current Medications Sig/Genoveva Start time Last Medication Dose Route Stop Time Status Admin Clonidine 0.1 MG TID 06/01 1000 AC 06/03 PO 1626 Enoxaparin Sodium 40 MG DAILY 06/01 1000 AC SC Folic Acid 1 MG DAILY 06/01 1000 AC 06/03 PO 0846 Gabapentin 300 MG Q6 06/02 1800 AC 06/03 PO 1221 Glycerin/Mineral Oil 1 SHIRA TID PRN 06/03 1645 AC TOP Hydrocortisone 1 SHIRA BID 06/03 2200 AC EXT Ibuprofen 400 MG Q6P PRN 06/01 1330 AC 06/03 PO 0853 Lorazepam 1.5 MG Q4 06/02 1400 AC 06/03 PO 1430 Lorazepam 1 MG Q1P PRN 06/02 1045 AC 06/03 PO 06/09 1044 1626 Multivitamins 1 TAB DAILY 06/01 1000 AC 06/03 PO 0847 Nicotine 21 MG DAILY 06/01 1000 AC 06/03 TOP 0849 Omeprazole 40 MG DAILY AC 06/01 0700 AC 06/03 PO 0505 Patient Medication 1 ED .STK-MED ONE 06/03 1412 DC Teaching ED 06/03 1413 Thiamine HCl 100 MG BID 06/01 1000 AC 06/03 PO 0846 Trazodone HCl 50 MG AT BEDTIME PRN 06/02 1315 AC PO Trazodone HCl 100 MG AT BEDTIME PRN 06/01 2200 AC 06/02 PO 2201
--- NOTE | 2016-06-03 15:11 | NUR ---
Following patients progress; consulted with psychiatric RETAIL SEASONAL SPECIALIST regarding their recommendations for the initiation of medications (not benzos). His current benzo taper will last throughout the weekend. Call received from patients media liaison officer this afternoon. He is not able to secure a [facility] bed at [facility] immediately, so is suggesting that patient wait list himself there and in the meantime start the IOP here. I have not made a formal referral to our IOP at this time since his benzo taper will take him through the weekend. I provided Romulo with the phone number for [facility] admissions and he reports familiarity with wait list process. Follow.
[2016-06-03 16:11] VITALS: BP 146/91
[2016-06-03 23:25] VITALS: BP 104/63
[2016-06-03 23:37] VITALS: BP 152/89
--- NOTE | 2016-06-04 00:09 | NUR ---
1630: PATIENT COMPLAINING OF RASH ON LEFT BARAH[place]. SMALL RASH LOCALIZED. MD BOURGEOIS CAME TO ASSESS PATIENT. LUBRIDERM AND HYDROCORTISONE CREAM ORDERED.
[2016-06-04 07:09] VITALS: BP 153/90
--- NOTE | 2016-06-04 08:24 | PN- Housestaff ---
BK ETIENNE,[facility] 06/04/16 0824: Subjective Follow-up For: Alcohol detoxification Subjective: Patient was seen and examined this morning, vital signs are stable, no overnight events reported by the nurse or the patient. CIWA score this morning 1, overnight maximum of 2. Patient reported anxiety, fine tremors, denied any abdominal pain, headache, nausea, diarrhea. Patient reported that he wants to get an access to IOP after discharge as soon as possible to prevent him from drinking again because he wanted to be on benzoyl anxiety. Patient wants to have PRN order for Zofran for nausea, I explained to him that we need an EKG to see his QTc in order to scribe Zofran, patient understands and willing to have an EKG after he refused the study yesterday. Review of Systems Constitutional: Reports: see HPI. Objective Last 24 Hrs of Vital Signs/I&O Vital Signs Date Time Temp Pulse Resp B/P Pulse O2 O2 Flow FiO2 Ox Delivery Rate 06/04 0947 148/88 06/04 0709 97.4 58 20 153/90 92 Room Air 06/03 2337 97.8 62 18 152/89 98 Room Air 06/03 1611 97.7 65 20 146/91 92 Room Air Intake & Output 06/04 1600 06/04 0800 06/04 0000 Intake Total 800 Output Total Balance 800 Intake, Oral 800 Physical Exam General Appearance: Alert, Oriented X3, Cooperative, No Acute Distress Skin: No Rashes, No Breakdown, No Significant Lesion HEENT: Atraumatic, PERRLA, EOMI, Mucous Membr. moist/pink Neck: Supple, No JVD Cardiovascular: Regular Rate, Normal S1, Normal S2, No Murmurs Lungs: Clear to Auscultation, Normal Air Movement Abdomen: Normal Bowel Sounds, Soft, No Tenderness Neurological: Normal Gait, Normal Speech, Strength at 5/5 X4 Ext, Normal Tone, Sensation Intact, Cranial Nerves 3-12 NL, Reflexes 2+ Extremities: No Clubbing, No Cyanosis, No Edema, Normal Pulses, an area of erythema and itch marking over the baker of left leg, Lubriderm and hydrocortisone cream was prescribed yesterday, improved Assessment/Plan Assessment: This is a 45 year old male with past medical history significant for alcohol abuse, multiple alcohol detoxification admissions, withdrawal seizures, hypertension, hyperlipidemia, pancreatitis, alcohol dependence, anxiety, bipolar disorder, depression, opioid dependence, posttraumatic stress disorder, polysubstance abuse, nerve pain presented to the [facility] emergency department requesting for alcohol detoxification. Problem list 1. Alcohol withdrawl 2. Depression and Anxiety 3. Hypertension and hyperlipidemia Alcohol withdrawal: * Decrease Ativan 1 mg every 4 hours today and 0.5 Q4 tomorrow * Lorazepam when necessary dose by mouth 1 mg every per CIWA score (patient is very hard stick and wasn't able to get peripheral IV line) * Ibuprofin 400 mg every 6 when necessary for headache and low back pain * Folic acid, thiamine 100 twice a day and multivitamin daily * Nicotine patch * Omeprazole 40 mg daily for meal Depression and anxiety * Trazodone 100 mg at bedtime and 50 mg at bedtime when necessary * Continue gabapentin 300 every 6 * Start escitalopram 10 mg daily * Start Prazosin 1 mg at bedtime for nightmares * Psych recommendation was obtained, thanks the recommendation * Will obtain social work professor consultation for IOP after discharge Hypertension and hyperlipidemia * Clonidine 0.1 mg by mouth 3 times a day * Statin is on hold for elevated AST on admission Full code Regular diet DVT prophylaxis- subcutaneous Lovenox Consultation psych, social work professor Problem List: 1. ALCOHOL WITHDRAWAL Pain Ratin Pain Location: NONE Pain Goal: Pain 4 or less Pain Plan: Mild pain pathway Tomorrow's Labs & Rationales: GERALDINE COTE MD,MARBELLA 06/04/16 1125: Attending MD Review Statement Attending Statement Attending MD Statement: examined this patient, discuss w/resident/PA/ARTIFICIAL STONE SETTER, agreed w/resident/PA/ARTIFICIAL STONE SETTER, reviewed EMR data (avail), discussed with nursing, amended to note Attending Assessment/Plan: patient seen and examined. Again observed ambulating freely around the unit. He repeatedly follows up with his nurse asking for anxiolytic therapy. On conversation with the patient is very anxious about being discharged home for fear of relapsing into alcohol use. He is requesting a prolonged benzodiazepine taper while here in the hospital. He reports that he did wean off clonazepam as an outpatient however he relapsed into alcohol use. His elevated CIWA is mainly due to anxiety and agitation. It is unclear leave these tremors noted on and off due to alcohol withdrawal versus anxiety. He is not tachycardic. He is not tachypneic. He is not diaphoretic. He has no other objective evidence of alcohol withdrawal. Recommendations: -His symptoms appear to be secondary to his underlying anxiety disorder. Recommendations from psychiatry service appreciated. Patient may benefit from being admitted to the inpatient psychiatric service for further management. -Continue to taper down his Ativan therapy. Wean patient down to Ativan 1 mg orally every 4 hours today. Tomorrow transition patient to 0.5 mg orally every 4 hours. -Continue on his other anxiolytic regimen including Lexapro, gabapentin, trazodone and Minipress as recommended by the psychiatric service. Follow-up with psychiatry service on Monday whether patient should be transferred to the inpatient psychiatric unit. It is unlikely that any longer taper would prevent him from relapsing into alcohol use upon discharge. - Would recommend that if he doesn't go to the inpatient psychiatric unit he should have an outpatient IOP appointment as soon as possible.
--- NOTE | 2016-06-04 11:29 | NUR ---
NURSING NOTE: ANGELICA 13 AT THIS TIME, PT STATES "IM ANXIOUS AFTER TALKING TO MY MOM,IM SHAKY I HAVE A HEADACHE TOO" "YOU PROBABLY THINK IM A DRUG SEEKER" ATIVAN GIVEN PER FACUNDOMS PROTOCOL. CONT TO MONITOR.
[2016-06-04 11:50] VITALS: BP 138/96
--- NOTE | 2016-06-04 12:27 | NUR ---
NURSING NOTE: CIWA REASSESSED AT THIS TIME; SEE INTERVENTION, NOT REQUIRING OTHER PRN MEDS AT THIS TIME. PT STATES "I KNOW I CAN GET IT EVERY HOUR IF I NEED IT, I READ IT ON THE TABLET IN MY ROOM, THEY ARE TAPERING ME DOWN BUT I NEED TO GO TO IN PATIENT BECAUSE OF MY ANXIETY, IM GOING TO [facility] WHEN I LEAVE HERE" 156 MADE AWARE OF ABOVE. CONT TO MONITOR.
[2016-06-04 22:00] VITALS: BP 130/98
[2016-06-04 22:23] VITALS: BP 130/98
[2016-06-05 06:00] VITALS: BP 120/96
[2016-06-05 07:00] VITALS: BP 120/96
--- NOTE | 2016-06-05 08:25 | PN- Housestaff ---
BK ETIENNE,[facility] 06/05/16 0825: Subjective Follow-up For: Alcohol detoxification Subjective: Patient was seen and examined this morning, he denied any problems except anxiety, no chest pain, palpitation, shortness of breath, no abdominal pain, nausea vomiting, diarrhea. Vital signs are stable, no overnight events reported by the nurse of the patient. CIWA 0, patient continued to have low scores and all of a sudden there is 13 or 14 on CIWA score, I asked the nurse about that and she mentioned that patient is able to give symptoms Tums to get when necessary Ativan. Review of Systems Constitutional: Reports: see HPI. Objective Last 24 Hrs of Vital Signs/I&O Vital Signs Date Time Temp Pulse Resp B/P Pulse O2 O2 Flow FiO2 Ox Delivery Rate 06/05 07 97.5 97 20 120/96 96 Room Air 06/05 0600 97.5 97 20 120/96 06/04 2223 97.7 74 19 130/98 97 Room Air 06/04 2207 130/98 06/04 2207 130/98 06/04 2200 97.7 74 19 130/98 06/04 1619 58 148/88 06/04 1150 98.4 86 20 138/96 100 Room Air Intake & Output 06/05 1600 06/05 0800 06/05 0000 Intake Total 120 240 Output Total Balance 120 240 Intake, Oral 120 240 Physical Exam General Appearance: Alert, Oriented X3, Cooperative, No Acute Distress Skin: No Rashes, No Breakdown, No Significant Lesion HEENT: Atraumatic, PERRLA, EOMI, Mucous Membr. moist/pink Neck: Supple, No JVD Cardiovascular: Regular Rate, Normal S1, Normal S2, No Murmurs Lungs: Clear to Auscultation, Normal Air Movement Abdomen: Normal Bowel Sounds, Soft, No Tenderness Neurological: Normal Gait, Normal Speech, Strength at 5/5 X4 Ext, Normal Tone, Sensation Intact, Cranial Nerves 3-12 NL, Reflexes 2+ Extremities: No Clubbing, No Cyanosis, No Edema, Normal Pulses Assessment/Plan Assessment: This is a 45 year old male with past medical history significant for alcohol abuse, multiple alcohol detoxification admissions, withdrawal seizures, hypertension, hyperlipidemia, pancreatitis, alcohol dependence, anxiety, bipolar disorder, depression, opioid dependence, posttraumatic stress disorder, polysubstance abuse, nerve pain presented to the [facility] emergency department requesting for alcohol detoxification. Problem list 1. Alcohol withdrawl 2. Depression and Anxiety 3. Hypertension and hyperlipidemia Alcohol withdrawal: * Decrease Ativan 0.5 mg every 4 hours today and 0.5 Q6 tomorrow * Lorazepam when necessary dose by mouth 1 mg every per CIWA score (patient is very hard stick and wasn't able to get peripheral IV line) * Ibuprofin 400 mg every 6 when necessary for headache and low back pain * Folic acid, thiamine 100 twice a day and multivitamin daily * Nicotine patch * Omeprazole 40 mg daily for meal Depression and anxiety * Trazodone 100 mg at bedtime and 50 mg at bedtime when necessary * Continue gabapentin 300 every 6 * escitalopram 10 mg daily * Prazosin 1 mg at bedtime for nightmares * Psych recommendation was obtained, thanks the recommendation * Will obtain social work job titles consultation for IOP after discharge Hypertension and hyperlipidemia * Clonidine 0.1 mg by mouth 3 times a day * Statin is on hold for elevated AST on admission Full code Regular diet DVT prophylaxis- subcutaneous Lovenox Consultation psych, social work job titles Problem List: 1. ALCOHOL WITHDRAWAL Pain Ratin Pain Location: none Pain Goal: Pain 4 or less Pain Plan: Mild pain pathway Tomorrow's Labs & Rationales: NONE MARBELLA COTE MD 06/05/16 1045: Attending MD Review Statement Attending Statement Attending MD Statement: examined this patient, discuss w/resident/PA/LINE PREP COOK, agreed w/resident/PA/LINE PREP COOK, reviewed EMR data (avail), discussed with nursing, amended to note Attending Assessment/Plan: Patient is again noted resting comfortably and not in any distress. No events overnight reported by nursing staff although he continues to request for when necessary dose of Ativan intermittently. It is difficult to gauge his CIWA score as he has persistently has low numbers then occasionally gets a score of 13/14 and receives a dose of when necessary Ativan. We we will continue the slow benzodiazepine taper for management of his alcohol withdrawal, while we continue his other anxiolytic regimen in the psychiatric service will not manage him on the inpatient service he will need a close referral for outpatient follow -up. Taper Ativan to 0.5 mg every 6 hours tomorrow.
[2016-06-05 11:30] VITALS: BP 128/88
--- NOTE | 2016-06-05 11:30 | NUR ---
NURSING NOTE: PT WAS SLEEPING AT 1000AM, SNORING IN BED UNDER THE BLANKETS, PT WOKE UP AT THIS TIME, AMBULATED TO NURSES STATION, PT STATES "IM NAUSEOS AND SHAKY" PTS ARM SHAKE WHEN HE PUT THEM OUT IN FRONT OF HIM BUT NO TREMORS NOTED WHEN PT OBSERVED IN ROOM OR SITTING, AM MEDS GIVEN; NO TREMORS NOTED WHEN PT REACHED FOR CUP OF WATER. PT STATES "ITS BECUASE THEY ARE CUTTING MY DOSE OF ATIVAN AND IM A FULL BLOWN ALCOHLIC AND NEED A SLOW TAPER" PT REFUSING NICOTINE PATCH AND LOVENOX. 156 MADE AWARE. CONT TO MONITOR. SCHEDULED ATIVAN GIVEN AT THIS TIME.
--- NOTE | 2016-06-05 12:33 | NUR ---
NURSINGNOTE: PT C/O NAUSEA AND DRY HEAVING, BEING ANXIOUS AND HEADACHE, PRN ATIVAN GIVEN, CONT TO MONITOR.
--- NOTE | 2016-06-05 13:07 | Event Note ---
Event Note Event Note: The nurse mentioned that she was approched by the patient asking for ativan. He reported feeling shaky (extended his arms and started to shake them), he told her that he knows how to get the when necessary Ativan.
[2016-06-05 13:53] VITALS: BP 132/78
--- NOTE | 2016-06-05 21:54 | NUR ---
AT THIS TIME PT BLOOD PRESSURE 130/100 AND PULSE 84, THIS RN CALLED [employer] #[id number], PER [employer] GIVE 2200 MEDS AND RECHECK BLOOD PRESSURE IN AN HOUR, WILL CONT TO MONITOR
[2016-06-05 22:25] VITALS: BP 130/100
--- NOTE | 2016-06-05 22:49 | NUR ---
AT THIS TIME PT BLOOD PRESSURE 140/102 AND PULSE 86, PT SAYS "MY EARS ARE RINGING AND MY JAW IS TIGHT, I FEEL LIKE IM GOING TO HAVE A SEIZURE" THIS RN CALLED [employer] #[id number] AND MADE HER AWARE, NO FURTHER ORDERS AT THIS TIME, WILL CONTINUE TO MONITOR.
--- NOTE | 2016-06-05 22:51 | NUR ---
PER [facility]OSCOPY SPECIALTY TECHNICIAN #[id number] THIS RN SHOULD GIVE PATIENT 1MG PO AND RECHECK BLOOD PRESSURE IN ONE HOUR, WILL CONT TO MONITOR.
[2016-06-05 23:52] VITALS: BP 144/100
--- NOTE | 2016-06-05 23:58 | NUR ---
PT BP RECHECKED 1 HR AFTER ATIVAN AND IS 144/100. MOLD YARN SUPERVISOR 137 MADE AWARE AND WAITING TO HEAR BACK FROM MD. WILL CONTINUE TO MONITOR.
[2016-06-06] VITALS (7 sets, daily range): BP systolic 130–144; BP diastolic 62–98
--- NOTE | 2016-06-06 05:27 | PN- Housestaff ---
GERMAN GLORIA MD 06/06/16 0526: Subjective Follow-up For: EtOH abuse/withdrawal/dependence Subjective: Patient seen and examined. He is seen lying on his side in bed resting comfortably. He appears to be in no acute distress. He reports persistent tremulousness and is requesting more specific doses of Ativan stating that he is "going to have a seizure". He states that he otherwise slept poorly last night and denies any new complaints. Additionally denies any blurred/double vision, headache, fever, chills, chest pain, palpitations, shortness of breath, nausea, vomiting, diarrhea. No overnight events reported. Review of Systems Constitutional: Reports: see HPI. Objective Last 24 Hrs of Vital Signs/I&O Vital Signs Date Time Temp Pulse Resp B/P Pulse O2 O2 Flow FiO2 Ox Delivery Rate 06/06 1427 97.7 95 20 144/98 97 06/06 1353 144/98 06/06 0855 88 136/66 06/06 0845 88 06/06 0645 98.1 69 20 130/82 97 06/06 0600 98.1 69 20 138/62 06/05 2352 144/100 06/05 2225 97.9 84 19 130/100 97 Room Air 06/05 2200 84 130/100 06/05 2200 84 130/100 06/05 1558 88 140/80 Intake & Output 06/06 1600 06/06 0800 06/06 0000 Intake Total 1000 240 850 Output Total Balance 1000 240 850 Intake, Oral 1000 240 850 Physical Exam General Appearance: Alert, Oriented X3, Cooperative, No Acute Distress Other Physical Findings: General -well-developed, well-nourished obese middle-aged man in no acute distress HEENT - NCAT, PERRL, EOMI, anicteric sclera Cardio - S1, S2 w/o murmurs/gallops/rubs Resp - CTA bilaterally w/o wheezing/rhochi/crackles GI - soft, obese, nontender, nondistended, bowel sounds present Neuro - Awake and alert, oriented to person/place/time, CN II - XII grossly intact, speech intact, coordination intact, gait intact, moderate tremor Extremities -no cyanosis/clubbing/edema, normal pulses Current Medications: Current Medications Sig/Genoveva Start time Last Medication Dose Route Stop Time Status Admin Clonidine 0.1 MG TID 06/01 1000 AC 06/06 PO 0852 Enoxaparin Sodium 40 MG DAILY 06/01 1000 AC SC Escitalopram Oxalate 20 MG DAILY 06/07 1000 AC PO Escitalopram Oxalate 10 MG DAILY 06/06 1255 DC PO 06/08 1001 Escitalopram Oxalate 10 MG DAILY 06/03 2028 DC 06/06 PO 06/06 1001 0852 Folic Acid 1 MG DAILY 06/01 1000 AC 06/06 PO 0852 Gabapentin 300 MG Q6 06/02 1800 AC 06/06 PO 1135 Glycerin/Mineral Oil 1 SHIRA TID PRN 06/03 1645 AC TOP Hydrocortisone 1 SHIRA BID 06/03 2200 AC 06/06 EXT 0853 Ibuprofen 400 MG .STK-MED ONE 06/05 1519 DC PO 06/05 1520 Ibuprofen 400 MG Q6P PRN 06/01 1330 AC 06/05 PO 1522 Lorazepam 1 MG ONE ONE 06/06 1430 DC 06/06 PO 06/06 1431 1443 Lorazepam 0.5 MG Q4 PRN 06/06 1306 AC PO 06/09 1044 Lorazepam 0.5 MG Q6 06/06 0600 AC 06/06 PO 06/13 0559 1135 Lorazepam 0.5 MG Q4 06/05 1000 DC 06/06 PO 06/06 0500 0144 Lorazepam 1 MG Q1P PRN 06/02 1045 DC 06/06 PO 06/09 1044 0909 Multivitamins 1 TAB DAILY 06/01 1000 AC 06/06 PO 0852 Nicotine 21 MG DAILY 06/01 1000 AC 06/03 TOP 0849 Omeprazole 40 MG DAILY AC 06/01 0700 AC 06/06 PO 0600 Ondansetron HCl 4 MG Q8P PRN 06/05 1145 AC 06/06 PO 0852 Prazosin HCl 1 MG AT BEDTIME 06/03 2200 AC 06/05 PO 2200 Thiamine HCl 100 MG BID 06/01 1000 AC 06/06 PO 0852 Trazodone HCl 50 MG AT BEDTIME PRN 06/02 1315 AC 06/04 PO 2349 Trazodone HCl 100 MG AT BEDTIME PRN 06/01 2200 AC 06/05 PO 2204 Assessment/Plan Assessment: Patient continues to request additional doses of Ativan while maintained on his Ativan taper. CIWA in the past 24 hours range from 0-12 requiring 3 additional milligrams of oral Ativan. Patient was frustrated this afternoon stating that he would not take any of his medications and was requesting to leave. Shortly thereafter he decided to stay and was requesting increased doses of Ativan. His Ativan taper interval is to be increased to every 12 hours tomorrow. Patient is to be discharged to home after completion of his Ativan taper. He is to be walked over to [facility] for intake immediately after discharge. EtOH abuse/withdrawal/dependence Mated requesting alcohol detox. He states a history of alcohol which are all seizures and multiple admissions for substance abuse/alcohol detox. -Gen. medicine -CIWA protocol -Ativan 0.5 mg by mouth every 6 hours -Ativan when necessary per CIWA -Thiamine/folate/multivitamin -Gabapentin 300 mg by mouth every 6 hours -Omeprazole 40 mg by mouth daily -Zofran 4 mg by mouth every 8 hours as needed for nausea -Psychiatry consult Depression/anxiety -Lexapro 20 Milgrim by mouth daily -Trazodone 100 mg by mouth daily at bedtime -Trazodone 50 mg by mouth daily at bedtime when necessary -Prazosin 1 mg by mouth daily at bedtime -dry kiln worker consult Hypertension-clonidine 0.1 mg by mouth 3 times a day Hyperlipidemia-statin held for elevated liver function tests Current every day smoker-NicoDerm 21 mg patch Pain plan-ibuprofen Diet-regular diet DVT prophylaxis-Lovenox CODE STATUS-full code Problem List: 1. ALCOHOL WITHDRAWAL Pain Ratin Pain Location: None Pain Goal: Remain pain free Pain Plan: See assessment Tomorrow's Labs & Rationales: None MARBELLA COTE MD 06/06/16 1330: Attending MD Review Statement Attending Statement Attending MD Statement: examined this patient, discuss w/resident/PA/CT TECH, agreed w/resident/PA/CT TECH, reviewed EMR data (avail), discussed with nursing, discussed with case mgmt, amended to note Attending Assessment/Plan: Patient continues to observed ambulating freely around the nursing unit. He continues to request for when necessary dose of Ativan from the nursing staff. He shows no evidence of alcohol withdrawal but these obviously agitatedhe reports that he is discharged home he will return should back to drinking stating that he has is requesting to go down to the inpatient psychiatric unit. On examination he is alert and oriented 3. He is not tremulous. He is not tachycardic or tachypneic. He is not hypertensive. Case was discussed with the psychiatric service. Recommendations are for patient to complete his Ativan taperin the hospital. Patient is on low doses of Ativan scheduled however he is requesting frequent case ER and dose of Ativan. He has received a total of 6.5 mg of Ativan from all sources in the past 24 hours. Recommendations: - His when necessary dose of Ativan will be changed to 0.5 mg orally every 4 hours as needed. - His other anxiolytic regimen will be continued. -Continue scheduled Ativan at 0.5 mg orally every 6 hours today. - Further taper of his benzodiazepine therapy which he is receiving for anxiety disorder will be determined by psychiatric service for a safe discharge. - Once this taper is completed he'll be discharged to the intensive outpatient program.
--- NOTE | 2016-06-06 08:45 | NUR ---
NURSING NOTE: PATIENT HAS BEEN SLEEPING ALL MORNING, WHEN PATIENT AWAKE, THIS RN DID A FULL HEAD TO TOE ASSESSMENT AND CIWA ASSESSMENT. AT THIS TIME PATIENT WAS WALKING AROUND ROOM, STANDING PERFECTLY STILL, NO REAL TREMERS NOTED. SANDIN STATED HE HAS A SLIGHT HEADACHE AND WAS SLIGHTLY NAUSEAS AND FELT HIS EARS WERE RINGINGS. THE PATIENT WAS VERY COOPERATIVE AND CALM. THIS RN SCORED THE PATIENT A 6 ON THE CIWA SCALE.
--- NOTE | 2016-06-06 08:55 | NUR ---
NURSING NOTE: THIS RN RETURNED TO GIVE THE PATIENT HIS MORNING MEDICATIONS AND SOME ZOFRAN FOR HIS NAUSEA. WHEN THE PATIENT ASKED FOR HIS NEEDED ATIVAN, THIS RN EXPLAINED TO HIM HOW HE DID NOT SCORE TO RECEIVE THE MEDICATION. THE PATIENT THEN BEGAN TO LOOK PANICKY, START TO TREMER AND EXPLAIEND HOW HE WAS NOW VERY ANGRY BECAUSE HE CLEARLY "SCORES MUCH HIGHER THAN A 12". HE ALSO STATED "WELL THEN FINE, JUST WAIT AND WATCH ME HAVE A SEIZURE." THIS RN EXPLAINED TO THE PATIENT THAT IF HE TRULY FEELS MUCH MORE ANXIOUS THAN HE LOOKS I COULD RESCORE HIM. THE PATIENT THEN STATED "WELL THEN I JUST LOOK LIKE I AM DRUG SEEKING". THE PATIENT THEN ASKED HOW OFTEN HIS SCHEDULED ATIVAN WAS AND WHEN HE WAS TOLD IT IS EVERY 6 HOURS, HE STATED, "WELL THERE IS NO WAY I WILL LAST UNTIL 12, SO FINE, JUST LET ME GO HOME AND I'LL JUST HAVE A DRINK." THE PATIENT WAS THEN RE-SCORED A 15. THIS RN INFORMED THE SLASHER TENDER HELPER ERI ABOUT THE CONVERSATION WITH THE PATIENT. WILL CONTINUE TO MONITOR. PATIENT VSS AT THIS TIME 136/66, 88.
--- NOTE | 2016-06-06 12:40 | NUR ---
NURSING NOTE: PATIENT STATED TO THIS RN. "IF ALL I HAVE TO DO IS BE OFF THE ATIVAN TO BE DISCHARGED THEN I DONT WANT TO TAKE ANY OF IT. NOT EVEN THE SCHEDULED PILLS." FISHING GAME WARDEN 129 NOTIFIED.
--- NOTE | 2016-06-06 13:25 | PN- Student ---
Subjective Subjective: Patient was seen and examined this morning. He denies any pain but does complain of anxiety and depression from alcohol withdrawal. PMH is significant for multiple admissions for EtOH detox, HTN, hyperlipidemia, pancreatitis, bipolar disorder, PTSD, opiod dependence. Problem List: 1. Alcohol withdrawal 2. Depression and Anxiety 3. Hypertension and hyperlipidemia Objective Objective: Vital Signs Date Time Temp Pulse Resp B/P Pulse O2 O2 Flow FiO2 Ox Delivery Rate 06/06 0855 88 136/66 06/06 0845 88 06/06 0645 98.1 69 20 130/82 97 06/06 0600 98.1 69 20 138/62 06/05 2352 144/100 06/05 2225 97.9 84 19 130/100 97 Room Air 06/05 2200 84 130/100 06/05 2200 84 130/100 06/05 1558 88 140/80 06/05 1353 98.0 90 20 132/78 97 Room Air Intake & Output 06/06 1600 06/06 0800 06/06 0000 Intake Total 240 850 Output Total Balance 240 850 Intake, Oral 240 850 Physical Exam General Appearance: Alert, Oriented X3, Cooperative, No Acute Distress Skin: No Rashes, No Breakdown, No Significant Lesion HEENT: Atraumatic, PERRLA, EOMI, Mucous Membr. moist/pink Neck: Supple, No JVD Cardiovascular: Regular Rate, Normal S1, Normal S2, No Murmurs Lungs: Clear to Auscultation, Normal Air Movement Abdomen: Normal Bowel Sounds, Soft, No Tenderness Neurological: Normal Gait, Normal Speech, Strength at 5/5 X4 Ext, Normal Tone, Sensation Intact, Cranial Nerves 3-12 NL, Reflexes 2+ Extremities: No Clubbing, No Cyanosis, No Edema, Normal Pulses Assessment/Plan Assessment: Assessment: This is a 45 year old male with past medical history significant for alcohol abuse, multiple alcohol detoxification admissions, withdrawal seizures, hypertension, hyperlipidemia, pancreatitis, alcohol dependence, anxiety, bipolar disorder, depression, opioid dependence, posttraumatic stress disorder, polysubstance abuse, nerve pain presented to the [facility] emergency department requesting for alcohol detoxification. Problem list 1. Alcohol withdrawl 2. Depression and Anxiety 3. Hypertension and hyperlipidemia Alcohol withdrawal: * Decrease Ativan 0.5 mg every 4 hours today and 0.5 Q6 tomorrow * Lorazepam when necessary dose by mouth 1 mg every per CIWA score (patient is very hard stick and wasn't able to get peripheral IV line) * Ibuprofin 400 mg every 6 when necessary for headache and low back pain * Folic acid, thiamine 100 twice a day and multivitamin daily * Nicotine patch * Omeprazole 40 mg daily for meal Depression and anxiety * Trazodone 100 mg at bedtime and 50 mg at bedtime when necessary * Continue gabapentin 300 every 6 * escitalopram 10 mg daily * Prazosin 1 mg at bedtime for nightmares * Psych recommendation was obtained, thanks the recommendation * Will obtain social science manager consultation for IOP after discharge Hypertension and hyperlipidemia * Clonidine 0.1 mg by mouth 3 times a day * Statin is on hold for elevated AST on admission Plan: Full code Regular diet DVT prophylaxis- subcutaneous Lovenox Consultation psych, social science manager
--- NOTE | 2016-06-06 14:00 | NUR ---
NURSING NOTE: PATIENT JUST INFORMED THIS RN THAT HE CANNOT LEAVE BECAUSE OF HIS INSURANCE ISSUES, AND STATED "IF I HAVE TO STAY HERE I MIGHT WELL TAKE ALL THE ATIVAN I CAN GET, I NEED ATIVAN RIGHT NOW BECAUSE THIS PLACE IS MAKING ME CRAZY I FEEL LIKE THROWING A CHAIR". PROVIDER NETWORK MGR [id number] NOTIFIED AND WILL COME EVALUATE PATIENT.
--- NOTE | 2016-06-06 14:33 | Transfer of Care Summary ---
Hospital Course Course Hospital Course: Mr. Johnson is 45 year old male with past medical history significant for alcohol abuse, multiple alcohol detoxification admissions, withdrawal seizures, hypertension, hyperlipidemia, pancreatitis, alcohol dependence, anxiety, bipolar disorder, depression, opioid dependence, posttraumatic stress disorder, polysubstance abuse, nerve pain presented to ED requesting for alcohol detoxification. Patient has long standing history of alcohol abuse with multiple admissions for alcohol detoxification. He was recently discharged from [facility] on 04/29 after alcohol detoxification treatment. After that he was admitted at [facility] for alcohol detoxification and rehab. Patient was admitted to general [facility] floor for the following problems: Problem list 1. Alcohol withdrawl 2. Depression and Anxiety 3. Hypertension and hyperlipidemia Alcohol withdrawal: * Ativan taper, today 0.5 Q6. Patient has no signs of withdrwal, however, is able to complain to get PRN ativan doses, PRN ativan was decreased fro 1 Q1 to 0.5 Q4 PRN * Recommendation to finish alcohol detox completely before discharge, patient suppose to follow up with IOP at [place] after DC * Ibuprofin 400 mg every 6 when necessary for headache and low back pain * Folic acid, thiamine 100 twice a day and multivitamin daily * Nicotine patch * Omeprazole 40 mg daily for meal Depression and anxiety * Trazodone 100 mg at bedtime and 50 mg at bedtime when necessary * Continue gabapentin 300 every 6 * escitalopram 10 mg daily * Prazosin 1 mg at bedtime for nightmares * Psych recommendation was obtained, thanks the recommendation * air brake worker consultation for IOP after discharge Hypertension and hyperlipidemia * Clonidine 0.1 mg by mouth 3 times a day * Statin is on hold for elevated AST on admission Full code Regular diet DVT prophylaxis- subcutaneous Lovenox Consultation psych, community mental health social worker Assessment/Plan: Please see above
--- NOTE | 2016-06-06 18:39 | PN- Psychiatry ---
Assessment/Plan Impression: The patient had indicated to staff that he wanted to leave to get his [employer] application in at the [place] office, and that he might have a bed at [facility] in a 6 month program. Neither part of this plan is part of the previously agreed upon plan with the patient. The current plan has not changed: a. Finish the benzodiazepine taper, safely, then b. Enter the IOP program, then c. Apply to the [facility] rehab program for admission, checking with them weekly for a bed opening. The patient has a tentative appointment at [facility] for an admission on , 06/09/16, at 2 PM, provided he has finished his lorazepam taper in a safe and controlled manner. We will ask someone to walk the patient to his [facility] appointment at the time of his discharge from [facility]. He has a follow-up appt with Dr. Chan, PCP, on 06/08/16, which will need to be rescheduled. He has an appt with his chief technical officer on 06/14/16. The patient has had lorazepam 6.5 mg in the last 24 hours. CIWA as of 1200: 8-2-31-7-0-0-4-1-1-08-5-8-9-1-53-0-0-0-12-3 VS at 0645: 130/82, 69, 98.1, 20RR, 97% RA Suggestion: 1. Continue the ETOH detox protocol. The patient has had lorazepam/Ativan 6.5 mg in the last 24 hours. If CIWA scores are decreasing, and the vital signs are stable, the total daily dose can decrease by 2 - 2.5 mg. A too rapid reduction may result in the patient leaving [facility]. 2. Please increase escitalopram to 20 mg PO daily, his former home dose. This will help with anxiety and depression. a. Hold for arrhythmia or QTc greater than 475 mS. b. Hold for hyponatremia. 3. Continue prazosin 1 mg PO at bedtime for nightmares, an off-label use. a. Monitor blood pressure and pulse. 4. Continue trazodone 100 mg PO at bedtime as needed for insomnia. Patient may have another dose of 50 mg one hour later if insomnia persists. 5. Continue daily thiamine, folate and MVI. 6. Continue gabapentin 600 mg PO every 6 hours for anxiety, and off-label use. We will continue to follow along with you. Shadi Bravo APRN, Pager [phone] Subjective Subjective: A+OX4 Denies AVH, and presents no luh delusions Denies SI/HI He is mildly agitated that he cannot leave to go to [place] to pursue an insurance matter that has no direct impact on his current care. He is agreeing to stay to complete treatment. Thought processes are logical.
--- NOTE | 2016-06-06 20:21 | NUR ---
Continue to follow patients detox and assist with aftercare planning. current plan is for patient to complete his ativan taper on the medical unit and then start IOP same day. Today patient was demanding and manipulative to multiple medical team members; at first refusing to take his ativan; then demanding it. Insisting that "the hospital" do his redetermination for [facility]. His mother brought the document in today, and I will discuss with patient tomorrow Follow.
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
--- NOTE | 2016-06-06 21:55 | NUR ---
PT STATING HE IS REFUSING TO TAKE ANY MORE ATIVAN, EITHER SCHEDULED OR PRN, FOR REMAINDER OF ADMISSION. PT MADE AWARE BY THIS RN OF DANGER OF ABRUPTLY STOPPING ATIVAN TAPER, WHICH PT VERBALIZED UNDERSTANDING OF BUT STATED HE "IS NOT GOING TO HAVE A SEIZURE". SERVICE ADMINISTRATOR INDUSTRIAL ELECTRICIAN, JUVENTINO NOTIFIED. WILL MONITOR.
[2016-06-07 06:25] VITALS: BP 120/96
--- NOTE | 2016-06-07 07:08 | PN- Housestaff ---
MEE BABIN 06/07/16 0707: Subjective Follow-up For: 1. Alcohol withdrawal 2. Depression and Anxiety 3. Hypertension and hyperlipidemia Subjective: Seen and examined patient, offers no complaints states that he is walking around fine denies any fever, chest pain, shortness of breath, anxiety. Review of Systems Constitutional: Denies: chills, diaphoresis, fever, malaise, weakness, unexplained weight loss. Cardiovascular: Denies: chest pain, edema, orthopena, palpitations, peripheral edema, syncope. Respiratory: Denies: cough, hemoptysis, orthopnea, short of breath, sputum production, stridor, wheezing. Gastrointestinal: Denies: see HPI, abdominal pain, bloating, constipation, diarrhea, distention, bowel incontinence, melena, nausea, bloody stool, changes in stool, vomiting, steatorrhea. Objective Last 24 Hrs of Vital Signs/I&O Vital Signs Date Time Temp Pulse Resp B/P Pulse O2 O2 Flow FiO2 Ox Delivery Rate 06/07 0625 97.6 68 20 120/96 96 Room Air 06/06 2200 98.1 74 18 130/80 06/06 2131 98.1 74 18 130/80 97 Room Air 06/06 2124 74 130/80 06/06 2124 74 130/80 06/06 1427 97.7 95 20 144/98 97 06/06 1353 144/98 06/06 0855 88 136/66 06/06 0845 88 Intake & Output 06/07 1600 06/07 0800 06/07 0000 Intake Total 300 Output Total Balance 300 Intake, Oral 300 Physical Exam General Appearance: Alert, Oriented X3, Cooperative, No Acute Distress HEENT: Atraumatic, PERRLA, EOMI Cardiovascular: Regular Rate, Normal S1, Normal S2 Lungs: Clear to Auscultation, Normal Air Movement Abdomen: Normal Bowel Sounds, Soft Extremities: No Edema Current Medications: Current Medications Sig/Genoveva Start time Last Medication Dose Route Stop Time Status Admin Clonidine 0.1 MG TID 06/01 1000 AC 06/06 PO 2124 Enoxaparin Sodium 40 MG DAILY 06/01 1000 AC SC Escitalopram Oxalate 20 MG DAILY 06/07 1000 AC PO Escitalopram Oxalate 10 MG DAILY 06/06 1255 DC PO 06/08 1001 Escitalopram Oxalate 10 MG DAILY 06/04 2027 DC 04/10 PO 06/06 1001 0852 Folic Acid 1 MG DAILY 06/01 1000 AC 06/06 PO 0852 Gabapentin 300 MG Q6 06/02 1800 AC 06/07 PO 0637 Glycerin/Mineral Oil 1 SHIRA TID PRN 06/03 1645 AC TOP Hydrocortisone 1 SHIRA BID 06/03 2200 AC 06/06 EXT 2125 Ibuprofen 400 MG Q6P PRN 06/01 1330 AC 06/05 PO 1522 Lorazepam 0.5 MG Q6-PRN PRN 06/07 0815 UNVr PO 06/14 0804 Lorazepam 1 MG ONE ONE 06/06 1430 DC 06/06 PO 06/06 1431 1443 Lorazepam 0.5 MG Q4 PRN 06/06 1306 DC PO 06/09 1044 Lorazepam 0.5 MG Q6 06/06 0600 AC 06/07 PO 06/13 0559 0734 Lorazepam 1 MG Q1P PRN 06/02 1045 DC 06/06 PO 06/09 1044 0909 Multivitamins 1 TAB DAILY 06/01 1000 AC 06/06 PO 0852 Nicotine 21 MG DAILY 06/01 1000 AC 06/03 TOP 0849 Omeprazole 40 MG DAILY AC 06/01 0700 AC 06/07 PO 0637 Ondansetron HCl 4 MG .STK-MED ONE 06/06 0848 DC PO 06/06 0849 Ondansetron HCl 4 MG Q8P PRN 06/05 1145 AC 06/06 PO 0852 Prazosin HCl 1 MG AT BEDTIME 06/03 2200 AC 06/06 PO 2124 Thiamine HCl 100 MG BID 06/01 1000 AC 06/06 PO 2124 Trazodone HCl 50 MG .STK-MED ONE 06/07 0003 DC PO 06/07 0004 Trazodone HCl 50 MG AT BEDTIME PRN 06/02 1315 AC 06/07 PO 0006 Trazodone HCl 100 MG AT BEDTIME PRN 06/01 2200 AC 06/05 PO 2204 Assessment/Plan Assessment: 45 year old gentleman with past medical history significant for alcohol abuse, multiple alcohol detoxification admissions, withdrawal seizures, hypertension, hyperlipidemia, pancreatitis, alcohol dependence, anxiety, bipolar disorder, depression, opioid dependence, posttraumatic stress disorder, polysubstance abuse, nerve pain current admission alcohol detoxification. Assessment/plan: Alcohol withdrawal -continue [facility] protocol. scoring 0,0,0,2 -Ativan 0.5 mg by mouth every 6 hours -Ativan when necessary per CIWA -Thiamine/folate/multivitamin -Gabapentin 300 mg by mouth every 6 hours -Omeprazole 40 mg by mouth daily -Zofran 4 mg by mouth every 8 hours as needed for nausea -Psychiatry consult -appointment at [facility] for an admission on , 06/09/16, at 2 PM, he will be walked his appt. Psych feels that he would benefit from staying in the hospital till then. Attempting to wean off the the ativan however due to his anxiety he keeps requesting it. -Keeps stating that he wants to leave AMA. Depression/anxiety -on lexapro 20 mg daily -Trazodone 100 mg by mouth daily at bedtime -Trazodone 50 mg by mouth daily at bedtime when necessary -Prazosin 1 mg by mouth daily at bedtime -latex foam worker consult Hypertension-Stable continue clonidine 0.1 mg by mouth 3 times a day Hyperlipidemia-statin held for elevated liver function tests Current every day smoker-NicoDerm 21 mg patch Pain plan-ibuprofen Diet-regular diet DVT prophylaxis-Lovenox CODE STATUS-full code Problem List: 1. ALCOHOL WITHDRAWAL 2. Bipolar affective disorder 3. Hyperlipidemia 4. Depression Pain Ratin Pain Location: n/a Pain Goal: Pain 4 or less Pain Plan: current regimen Tomorrow's Labs & Rationales: none required KERA ETIENNE,MARBELLA 06/07/16 1228: Attending MD Review Statement Attending Statement Attending MD Statement: examined this patient, discuss w/resident/PA/SALVAGER HELPER, agreed w/resident/PA/SALVAGER HELPER, reviewed EMR data (avail), discussed with nursing, discussed with case mgmt, amended to note Attending Assessment/Plan: Patient sleeping soundly. Do not appear to be in any distress. No issues reported by nursing staff. He did require any when necessary dose of Ativan yesterday after change of dose was made. Psychiatric follow-up this morning appreciated. His Ativan has been tapered down 2.5 mg every 8 hours for total of 1.5 mg today. The psychiatric service anticipate discharging him home in the next 48 hours. He'll be scheduled to receive a total of 1 mg of Ativan tomorrow. We'll continue management of his anxiety disorder as directed by the psychiatric service. Upon discharge he will be referred to the intensive outpatient program. He is not being discharged home with the remaining doses of benzodiazepine due to concern of patient taking this medication while drinking alcohol. Also he will not be accepted into the IOP program if he is on benzodiazepine therapy. His benzodiazepine taper is being done very slowly by the psychiatric service in the left avoid exacerbation of his chronic anxiety disorder.
--- NOTE | 2016-06-07 11:03 | Incdntl Nt Psy ---
Incidental Note Notation: The patient was sleeping soundly at 1000 and 1100 today, but in no apparent respiratory distress. In anticipation of a medical discharge on , I have reduced his scheduled lorazepam from 0.5 mg PO q 6 hours to 0.5 mg PO q 8 hours, and have left the PRN order in place. We will continue to follow. Jesus Bravo APRN, Pager [phone]
[2016-06-07 16:00] VITALS: BP 142/102
[2016-06-07 18:00] VITALS: BP 136/100
[2016-06-07 22:00] VITALS: BP 159/110
[2016-06-07 22:20] VITALS: BP 159/110
[2016-06-07 22:28] VITALS: BP 149/107
--- NOTE | 2016-06-07 22:34 | NUR ---
PATIENT HAS BEEN AGITATED AND COMPLAINING ABOUT ATIVAN TAPER ALL SHIFT. I SCORED HIM A 12 AT 1600, D/T TREMORS, DIAPHORESIS, AGITATION, ANXIETY AND HEADACHE. REMAINDER OF SHIFT PATIENT HAS SCORED AN 8, NOT REQUIRING PRN ATIVAN. STATES HE FEELS THAT HE IS BEING TAPERED TOO QUICKLY, I EXPLAINED THIS IS THE PROTOCOL AND HE FEELS LIKE WE ARE TRYING TO DRIVE HIM CRAZY. SPOKE WITH GOLF CLUB HEAD INSPECTOR AND ADJUSTER BORIS SANTILLAN, EXPLAINED ABOUT INCREASED BP THIS SHIFT AND ABOUT PT'S CONCERN ABOUT ATIVAN TAPER. WILL GIVE PRN DOSE NOW, AND CONTINUE TO MONITOR. IF HE CONTINUES TO BE AGITATED REGARDING ATIVAN, INFORM GOLF CLUB HEAD INSPECTOR AND ADJUSTER.
[2016-06-08 00:46] VITALS: BP 152/98
--- NOTE | 2016-06-08 02:31 | NUR ---
NURSE NOTE: (LATE ENTRY) PT REFUSED TO LET ME GET IV ACCESS ON HIM AT THIS TIME.
[2016-06-08 06:14] VITALS: BP 128/72
--- NOTE | 2016-06-08 08:14 | PN- Housestaff ---
PRICILADARWINMEE 06/08/16 0801: Subjective Follow-up For: 1. Alcohol withdrawal 2. Depression and Anxiety 3. Hypertension and hyperlipidemia Subjective: Seen and examined patient lying in bed. He is agitated about the fact that we are trying to taper his Ativan down. Denies shortness of breath, fever, chills, chest pain. Review of Systems Constitutional: Denies: chills, diaphoresis, fever, malaise, weakness, unexplained weight loss. Cardiovascular: Denies: chest pain, edema, orthopena, palpitations, peripheral edema, syncope. Respiratory: Denies: cough, hemoptysis, orthopnea, short of breath, sputum production, stridor, wheezing. Objective Last 24 Hrs of Vital Signs/I&O Vital Signs Date Time Temp Pulse Resp B/P Pulse O2 O2 Flow FiO2 Ox Delivery Rate 06/08 06 97.6 63 20 128/72 97 Room Air 06/08 0046 87 152/98 06/07 2228 149/107 06/07 2220 98.0 60 18 159/110 06/07 2200 98.0 60 18 159/110 100 Room Air 06/07 2134 60 159/110 06/07 2134 60 159/110 06/07 1800 136/100 06/07 1641 74 142/102 06/07 1600 98.0 74 20 142/102 06/07 0945 68 120/96 Intake & Output 06/08 1600 06/08 0800 06/08 0000 Intake Total 480 800 Output Total Balance 480 800 Intake, Oral 480 800 Number 2 Bowel Movements Physical Exam General Appearance: Alert, Oriented X3, Cooperative, No Acute Distress Cardiovascular: Regular Rate, Normal S1, Normal S2 Lungs: Clear to Auscultation, Normal Air Movement Abdomen: Normal Bowel Sounds, Soft, No Tenderness Extremities: No Edema Current Medications: Current Medications Sig/Genoveva Start time Last Medication Dose Route Stop Time Status Admin Clonidine 0.1 MG TID 06/01 1000 AC 06/07 PO 2134 Enoxaparin Sodium 40 MG DAILY 06/01 1000 AC SC Escitalopram Oxalate 20 MG DAILY 06/07 1000 AC 06/07 PO 0946 Folic Acid 1 MG DAILY 06/01 1000 AC 06/07 PO 0945 Gabapentin 300 MG Q6 06/02 1800 AC 06/08 PO 0515 Glycerin/Mineral Oil 1 SHIRA TID PRN 06/03 1645 AC TOP Hydrocortisone 1 SHIRA BID 06/03 2200 AC 06/07 EXT 1805 Ibuprofen 400 MG Q6P PRN 06/01 1330 AC 06/07 PO 1806 Lorazepam 0.5 MG Q8 06/07 1400 AC 06/08 PO 06/14 1359 0515 Lorazepam 0.5 MG Q6P PRN 06/07 0815 AC 06/07 PO 06/14 0804 2244 Lorazepam 0.5 MG Q6 06/06 0600 DC 06/07 PO 06/13 0559 0734 Multivitamins 1 TAB DAILY 06/01 1000 AC 06/07 PO 0946 Nicotine 21 MG DAILY 06/01 1000 AC 06/03 TOP 0849 Omeprazole 40 MG DAILY AC 06/01 0700 AC 06/08 PO 0515 Ondansetron HCl 4 MG .STK-MED ONE 06/07 1203 DC PO 06/07 1204 Ondansetron HCl 4 MG Q8P PRN 06/05 1145 AC 06/07 PO 1227 Prazosin HCl 1 MG AT BEDTIME 06/03 2200 AC 06/07 PO 2134 Thiamine HCl 100 MG BID 06/01 1000 AC 06/07 PO 2133 Trazodone HCl 50 MG AT BEDTIME PRN 06/02 1315 AC 06/07 PO 0006 Trazodone HCl 100 MG AT BEDTIME PRN 06/01 2200 AC 06/07 PO 2247 Assessment/Plan Assessment: 45 year old gentleman with past medical history significant for alcohol abuse, multiple alcohol detoxification admissions, withdrawal seizures, hypertension, hyperlipidemia, pancreatitis, alcohol dependence, anxiety, bipolar disorder, depression, opioid dependence, posttraumatic stress disorder, polysubstance abuse, nerve pain current admission for alcohol detoxification. Assessment/plan: Alcohol withdrawal -will discontinue CIWA protocol. scoring 0,0,0,0,4 -Will taper Ativan 0.5 mg by mouth to every12 hours -Ativan when necessary per CIWA -Thiamine/folate/multivitamin -Gabapentin 300 mg by mouth every 6 hours -Omeprazole 40 mg by mouth daily -Zofran 4 mg by mouth every 8 hours as needed for nausea -Psychiatry on board -appointment at [facility] for an admission on , 06/09/16, at 2 PM, he will be walked his appt. Psych feels that he would benefit from staying in the hospital till then. Attempting to wean off the the ativan however due to his anxiety he keeps requesting it. -Spoke to Car who recomended starting the patient on olanazepine 5 mg BID with 5 mg PRN for agitation. Baseline EKG also ordered. Depression/anxiety -on lexapro 20 mg daily -Trazodone 100 mg by mouth daily at bedtime -Trazodone 50 mg by mouth daily at bedtime when necessary -Prazosin 1 mg by mouth daily at bedtime -production worker consult Hypertension- Spikes in BP, At this time cannot r/o agitation/anxiety as the cause. Continue to monitor. Continue clonidine 0.1 mg by mouth 3 times a day Hyperlipidemia-statin held for elevated liver function tests Current every day smoker-NicoDerm 21 mg patch Pain plan-ibuprofen Diet-regular diet DVT prophylaxis-Lovenox CODE STATUS-full code Problem List: 1. ALCOHOL WITHDRAWAL 2. Depression 3. Abdominal pain Pain Ratin Pain Location: na Pain Goal: Pain 4 or less Pain Plan: Current regimen Tomorrow's Labs & Rationales: None required MARBELLA COTE MD 06/08/16 1539: Attending MD Review Statement Attending Statement Attending MD Statement: examined this patient, discuss w/resident/PA/PRODUCER DIRECTOR, agreed w/resident/PA/PRODUCER DIRECTOR, reviewed EMR data (avail), discussed with nursing, discussed with case mgmt, amended to note Attending Assessment/Plan: Patient seen and examined. Ambulating freely around the unit. House staff reports that patient verbalizes suicidal and homicidal ideation. Patient however later denied this. He is insistent on remain in the hospital to receive benzodiazepine therapy. He reports weaning himself off benzodiazepine as an outpatient but then was admitted to [facility] for alcohol detox. Soon after discharge she presented here requesting alcohol detox. He believes that all his symptoms resolve simply by using benzodiazepines. His has been discussed in detail with the psychiatry service. I have suggested again consideration of transfer to inpatient psychiatry service for adequate management of his anxiety disorder. I discussed the case is Shadi Celeste APRN. He will discuss with the on-call psychiatrist. His blood pressure has been on acid however he is very agitated. Nursing staff reports that he frequently calls them to check his blood pressure. Acuity of these readings is not clear given his significant anxiety. Recommendations: -Continue to taper his Ativan as recommended by the psychiatric service. -Recommend admission to the inpatient psychiatric unit unless otherwise adviced by the psychiatric service. -Repeat CBC and chemistry tomorrow.
[2016-06-08 11:21] VITALS: BP 154/102
[2016-06-08 14:40] VITALS: BP 130/88
--- NOTE | 2016-06-08 15:33 | PN- Psychiatry ---
Assessment/Plan Impression: I saw the patient twice today after reports that he wanted to kill himself and other people this morning to housesta. Nursing had not heard this from the patient today. The current plan has not changed: a. Finish the benzodiazepine taper, safely, then b. Enter the IOP program, then c. Apply to the [facility] rehab program for admission, checking with them weekly for a bed opening. The patient has an appointment at [facility] for an admission on , 06/09/16, at 2 PM, provided he has finished his lorazepam taper in a safe and controlled manner. We will ask someone to walk the patient to his [facility] appointment at the time of his discharge from [facility]. He has a follow-up appt with Dr. Chan, PCP, on 06/08/16, which will need to be rescheduled. 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 The patient has had lorazepam 2.5 mg in the last 24 hours. CIWA as of 0800: 8-2-7-9-0-0-90-4-3-12-4-6-0-0 VS 1121: 154/102, 0912 128/72, 63 0614 128/72, 87, 97.6, 20RR, 97% RA Suggestion: 1. Continue the ETOH detox protocol. Taper lorazepam to off before discharge. 2. Continue escitalopram 20 mg PO daily 3. Continue prazosin 1 mg PO at bedtime for nightmares, an off-label use. a. Monitor blood pressure and pulse. 4. Continue trazodone 100 mg PO at bedtime as needed for insomnia. Patient may have another dose of 50 mg one hour later if insomnia persists. 5. Continue daily thiamine, folate and MVI. 6. Continue gabapentin 600 mg PO every 6 hours for anxiety, and off-label use. 7. Please order an EKG preparatory to starting olanzapine 8. Please start olanzapine 5 mg PO 2X/day for visual hallucinations and agitation. 9. Please start olanzapine 5 mg PO as needed daily for severe agitation/ disorganized thinking 10 Hold olanzapine for arrhythmia, QTc greater than 475 mS, or oversedation. 11. Social work is helping the patient with his [employer] application. We will continue to follow along with you, and expect to visit the patient to escort him to [facility] . Shadi Bravo APRN, Pager [phone] Subjective Subjective: Patient seen today, 06/08/16 at 1215 and again at 1430. On both occasions, he denied making threats to himself or others, but admits that if he were discharged today, "I would feel like punching someone." He denies thoughts of harming others or himself during both visits. He denies auditory hallucinations, but reports the the floor seems to be moving in waves. The patient is not is distress, and agrees to start olanzapine, which he has tolerated in the past. Thought processes are not always logical, in that he stated at the earlier visit , that he wanted to go to another hospital, but cannot explain why this would improve his situation. Objective Last 24 Hrs of Vital Signs/I&O Vital Signs Date Time Temp Pulse Resp B/P Pulse O2 O2 Flow FiO2 Ox Delivery Rate 06/08 1440 97.9 69 20 130/88 97 06/08 1121 154/102 06/08 0912 63 128/72 06/08 0614 97.6 63 20 128/72 97 Room Air 06/08 0046 87 152/98 06/07 2228 149/107 06/07 2220 98.0 60 18 159/110 06/07 2200 98.0 60 18 159/110 100 Room Air 06/07 2134 60 159/110 06/07 2134 60 159/110 06/07 1800 136/100 06/07 1641 74 142/102 06/07 1600 98.0 74 20 142/102 Intake & Output 06/08 1600 06/08 0800 06/08 0000 Intake Total 480 800 Output Total Balance 480 800 Intake, Oral 480 800 Number 2 Bowel Movements Current Medications: Current Medications Sig/Genoveva Start time Last Medication Dose Route Stop Time Status Admin Clonidine 0.1 MG TID 06/01 1000 AC 06/08 PO 0912 Enoxaparin Sodium 40 MG DAILY 06/01 1000 AC SC Escitalopram Oxalate 20 MG DAILY 06/07 1000 AC 06/08 PO 0910 Folic Acid 1 MG DAILY 06/01 1000 AC 06/08 PO 0910 Gabapentin 300 MG Q6 06/02 1800 AC 06/08 PO 1446 Glycerin/Mineral Oil 1 SHIRA TID PRN 06/03 1645 AC TOP Hydrocortisone 1 SHIRA BID 06/03 2200 AC 06/08 EXT 0912 Ibuprofen 400 MG Q6P PRN 06/01 1330 AC 06/07 PO 1806 Lorazepam 0.5 MG Q12 06/08 1000 AC 06/08 PO 06/15 0959 0910 Lorazepam 0.5 MG Q8 06/07 1400 DC 06/08 PO 06/14 1359 0515 Lorazepam 0.5 MG Q6P PRN 06/07 0815 DC 06/07 PO 06/14 0804 2244 Multivitamins 1 TAB DAILY 06/01 1000 AC 06/08 PO 0910 Nicotine 21 MG DAILY 06/01 1000 AC 06/03 TOP 0849 Olanzapine 5 MG BID 06/08 1330 AC 06/08 PO 1446 Olanzapine 5 MG DAILY PRN 06/08 1330 AC PO Omeprazole 40 MG DAILY AC 06/01 0700 AC 06/08 PO 0515 Ondansetron HCl 4 MG Q8P PRN 06/05 1145 AC 06/08 PO 1109 Prazosin HCl 1 MG AT BEDTIME 06/03 2200 AC 06/07 PO 2134 Thiamine HCl 100 MG BID 06/01 1000 AC 06/08 PO 0910 Trazodone HCl 50 MG AT BEDTIME PRN 06/02 1315 AC 06/07 PO 0006 Trazodone HCl 100 MG AT BEDTIME PRN 06/01 2200 AC 06/07 PO 2247
--- NOTE | 2016-06-08 19:15 | NUR ---
Case discussed at [facility]'s this am. Plan remains for ativan taper and transfer to IOP tomorrow at time of discharge. Assisted patient with completion of redetermination document and will place in mail tomorrow.
[2016-06-08 23:05] VITALS: BP 138/81
[2016-06-09 06:39] VITALS: BP 116/68
--- NOTE | 2016-06-09 06:43 | PN- Housestaff ---
MEE BABIN 06/09/16 0643: Subjective Follow-up For: 1. Alcohol withdrawal 2. Depression and Anxiety 3. Hypertension and hyperlipidemia Subjective: Seen and examined patient. He seemed to feel a bit better this morning. He is tolerating the new medication of olanzapine and says that actually helps some feel a little bit calmer. Denies tachycardia, chest pain, palpitations, shortness of breath. Review of Systems Constitutional: Denies: chills, diaphoresis, fever, malaise, weakness, unexplained weight loss. Cardiovascular: Denies: chest pain, edema, orthopena, palpitations, peripheral edema, syncope. Respiratory: Denies: cough, hemoptysis, orthopnea, short of breath, sputum production, stridor, wheezing. Objective Last 24 Hrs of Vital Signs/I&O Vital Signs Date Time Temp Pulse Resp B/P Pulse O2 O2 Flow FiO2 Ox Delivery Rate 06/09 0853 82 116/60 06/09 0639 97.6 126 18 116/68 99 Room Air 06/08 2305 97.6 59 18 138/81 94 Room Air 06/08 2230 130/88 06/08 2230 130/88 06/08 1607 69 130/88 06/08 1440 97.9 69 20 130/88 97 Intake & Output 06/09 1600 06/09 0800 06/09 0000 Intake Total 500 600 Output Total Balance 500 600 Intake, Oral 500 600 Physical Exam General Appearance: Alert, Oriented X3, Cooperative Cardiovascular: Regular Rate, Normal S1, Normal S2 Lungs: Clear to Auscultation, Normal Air Movement Extremities: No Edema Assessment/Plan Assessment: 45 year old gentleman with past medical history significant for alcohol abuse, multiple alcohol detoxification admissions, withdrawal seizures, hypertension, hyperlipidemia, pancreatitis, alcohol dependence, anxiety, bipolar disorder, depression, opioid dependence, posttraumatic stress disorder, polysubstance abuse, nerve pain current admission for alcohol detoxification. Patient has currently completed his Ativan taper and is stable for discharge today. 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 ALCOHOL WITHDRAWAL 2. Anxiety Pain Ratin Pain Location: Not applicable Pain Goal: Pain 4 or less Pain Plan: Current regimen Tomorrow's Labs & Rationales: None required MARBELLA COTE MD 06/09/16 1328: Attending MD Review Statement Attending Statement Attending MD Statement: examined this patient, discuss w/resident/PA/PAINTER AIRBRUSH, agreed w/resident/PA/PAINTER AIRBRUSH, reviewed EMR data (avail), discussed with nursing, discussed with case mgmt, amended to note Attending Assessment/Plan: Patient seen and examined. He has been weaned off Ativan therapy as recommended by the psychiatric service. He continues to ambulate freely around the nursing unit. He does not appear to be in any distress. He is medically stable to be discharged today. The psychiatric service will escorted over to the intensive outpatient treatment center today for further management of alcohol dependency.
[2016-06-09] MEDS ORDERED: NICOTINE PATCH1 EAC3 TOP (08:01)
[2016-06-09] MEDS ORDERED: OLANZAPINE5 M2 PO (08:01)
--- NOTE | 2016-06-09 08:04 | Patient Discharge Instructions ---
Discharge Instructions General Discharge Information You were seen/treated for: Alcohol withdrawal Special Instructions: please follow up with your primary care physician within two weeks of discharge. Please attend [facility] appointment on , 06/09/16, at 2 PM, Acute Coronary Syndrome Inclusion Criteria At DC or during hospital stay patient has or had the following: ACS DIAGNOSIS No Discharge Core Measures Meds if any: Prescribed or Continued at Discharge Meds if any: NOT Prescribed or Continued at Discharge Congestive Heart Failure Inclusion Criteria At DC or during hospital stay patient has or had the following: CHF DIAGNOSIS No Discharge Core Measures Meds if any: Prescribed or Continued at Discharge Meds if any: NOT Prescribed or Continued at Discharge Cerebrovascular accident Inclusion Criteria At DC or during hospital stay patient has or had the following: CVA/TIA Diagnosis No Discharge Core Measures Meds if any: Prescribed or Continued at Discharge Meds if any: NOT Prescribed or Continued at Discharge Venous thromboembolism Inclusion Criteria VTE Diagnosis No VTE Type NONE VTE Confirmed by (Test) NONE Discharge Core Measures - Per Current guidelines, there needs to be overlap - treatment for the first 5 days of Warfarin therapy. - If discharged on Warfarin prior to 5 days of - overlap therapy, the patient will need to be - assessed for post discharge needs including - *Post discharge parental anticoagulation - *Warfarin and/or parental anticoagulation education - *Follow up date to check INR post discharge At least 5 days overlap therapy as Inpatient No Meds if any: Prescribed or Continued at Discharge Note: Overlap Therapy is Warfarin and Anticoagulant Meds if any: NOT Prescribed or Continued at Discharge
[2016-06-09 08:24] LABS: ABSOLUTE BASOPHIL COUNT 0 /CUMM (0.0-0.2); ABSOLUTE EOSINOPHIL COUNT 0.1 /CUMM (0.0-0.7); ABSOLUTE MONOCYTE COUNT 0.3 /CUMM (0.10-0.60); BASOPHIL % 0.7 % (0.0-2.0); EOSINOPHIL % 2.4 % (0-5); GRANULOCYTE % 44.4 % (42.2-75.2); HEMATOCRIT 39.3 % (42-52); MEAN CORPUSCULAR HGB 32.3 PG (27.0-31.0); MEAN CORPUSCULAR HGB CONC 34.4 G/DL (33.0-37.0); MEAN PLATELET VOLUME 7.4 FL (7.4-10.4); PLATELET COUNT 152 /CUMM (130-400); RBC DISTRIBUTION WIDTH 14.4 % (11.5-14.5); RED BLOOD CELL CT 4.18 /CUMM (4.70-6.10); WHITE BLOOD CELL COUNT 4.4 /CUMM (4.8-10.8)
[2016-06-09 08:53] VITALS: BP 116/60
--- NOTE | 2016-06-10 14:23 | Discharge Summary ---
Visit Information Visit Dates Admission Date: 06/01/16 Discharge Date: 06/09/16 Hospital Course Course Attending Physician: MARBELLA COTE M.D Primary Care Physician: BETTY ETIENNE,GERARD Hammond Hospital Course: Mr. Johnson is 45 year old gentleman with past medical history significant for alcohol abuse, multiple alcohol detoxification admissions, withdrawal seizures, hypertension, hyperlipidemia, pancreatitis, alcohol dependence, anxiety, bipolar disorder, depression, opioid dependence, posttraumatic stress disorder, polysubstance abuse, came to ED for alcohol detoxification. Of note he was last detoxed at [place] (04/26 04/29) then discharged to [facility] for inpatient rehab, again admitted to [facility] 2 weeks prior to admission. Vital signs on admission: Temperature 96.5, pulse rate 84, respiratory rate 16, blood pressure 142/94, oxygen saturation 96% on room air. Labs: Hemoglobin 13.5, hematocrit 39.4, MCV 93.3, platelet 312. No electrolyte abnormality. AST 94, ALT 66, alkaline phosphatase 81. Toxicology screen negative for methadone, opiates and cocaine. Serum alcohol level 367. Admitted to the general medicine floor and the following issues were addressed: Alcohol withdrawal: IV Ativan per CIWA protocal was started and later tapered and transitioned to PO Ativan which was tapered off sucessfully without complications before discharge. An appointment at [facility] for an admission on , 06/09/16, at 2 PM was made. At the time of his discharge from [facility] he was walked the patient to his IOP appointment Depression and anxiety His Trazodone 100 mg at bedtime and 50 mg at bedtime when necessary was continued along with Gabapentin, escitalopram and per psych Prazosin 1 mg at bedtime for nightmares. Social work was also involoved. His Klonopin was discontinued. Hypertension and hyperlipidemia His Clonidine was continued. During his admission his statin was held for elevated AST on admission. Statin was resumed on discharge and was advised to follow up with his PCP. Current every day smoker He was given NicoDerm 21 mg patch during his hospitalization and was continued upon discharge. Full code Regular diet DVT prophylaxis- subcutaneous Lovenox Complications: none Allergies: Coded Allergies: haloperidol (Severe, DIFFICULTY BREATHING 04/13/16) fluoxetine (Intermediate, BECOMES VIOLENT, PT REPORT 06/07/16) quetiapine (Intermediate, Sleeps all day (50mg), pt report 06/07/16) sertraline (Intermediate, becomes violent, pt report 06/07/16) chlorpromazine (DYSTONIC REACTION 04/13/16) risperidone (Uncontrollable shaking, pt report 06/03/16) Disposition Summary Disposition Principal Diagnosis: Alcohol Detox Additional Diagnosis: Depression Hypertension Hyperlipidemia Current Smoker Discharge Disposition: home or self care Discharge Instructions General Discharge Information Code Status: Full Code Patient's Diet: Regular diet Patient's Activity: As tolerated Follow-Up Instructions/Appts: Follow up with your primary care physician within two weeks of discharge, LFTs to follow-up liver enzymes Attend [facility] appointment on , 06/09/16, at 2 PM, Medications at Discharge Discharge Medications: Stop taking the following medications: Clonazepam (Klonopin) 1 MG TABLET ORAL THREE TIMES DAILY Qty = 18 Lorazepam (Ativan) 1 MG TABLET ORAL SEE ADMIN CR Qty = 6 Continue taking these medications: Gabapentin (Neurontin) 300 MG CAPSULE 1 Capsule ORAL THREE TIMES DAILY Comments: Last Taken: 06/09/16 Time: 1230 Folic Acid (Folic Acid) 1 MG TABLET 1 Milligram ORAL DAILY Days = 18 Comments: Last Taken: 06/09/16 Time: 1000 Pravastatin Sodium (Pravastatin Sodium) 40 MG TABLET 1 Tablet ORAL Every night Days = 30 Comments: NOT GIVEN Clonidine HCl (Clonidine HCl) 0.1 MG TABLET 1 Tablet ORAL THREE TIMES DAILY Days = 30 Comments: Last Taken: 06/09/16 Time: 1000 Ondansetron HCl (Zofran) 4 MG TABLET 1 Tablet ORAL DAILY as needed for NAUSEA Qty = 10 Comments: NOT GIVEN IN HOSPITAL ( IV GIVEN IN HOSPITAL ) Trazodone HCl (Trazodone HCl) 100 MG TABLET 1 Tablet ORAL DAILY Comments: NOT GIVEN Thiamine HCl (Vitamin B-1) 100 MG TABLET 100 Milligram ORAL DAILY Qty = 60 Comments: Last Taken: 06/09/16 Time: 10:00AM Multivitamin (One Daily Multivitamin) 1 EACH TABLET 1 Tablet ORAL DAILY Qty = 60 Comments: Last Taken: 06/09/16 Time: 1000 Escitalopram Oxalate (Lexapro) 20 MG TABLET 1 Tablet ORAL DAILY Qty = 30 Comments: Last Taken: 06/09/16 Time: 1000 Pantoprazole Sodium (Protonix) 40 MG TABLET.DR 1 Tablet ORAL DAILY Qty = 30 Comments: NOT GIVEN IN HOSPITAL, PRILOSEC GIVEN 06/09/16 AT 0630 Start taking the following new medications: Nicotine (Nicotine Patch) 21 MG/24 HOUR PATCH.TD24 21 Milligram On the skin DAILY Days = 30 No Refills Olanzapine (Olanzapine) 5 MG TABLET 5 Milligram ORAL TWICE DAILY Days = 30 No Refills Comments: LAST DOSE TAKEN 06/09/16 AT 10:00 AM Copies To: BETTY ETIENNE,GERARD Hammond Attending MD Review Statement Documenting Attending: MARBELLA COTE M.D Other Findings: Patient is medically stable to be discharged
== END 2016-06-09 13:50 | DRG 897 ==
LOC: ENRESERVTM → ENRESERVDT → ERH 13:55 → ERHI 06-01 00:39 → ENPENDDIS 06-01 00:39 → 2NB 06-01 00:39
PROVIDERS: Emergency Medicine; Internal Medicine; ADMIT Student in an Organized Health Care Education/Training Program
DX: F10.229 Alcohol dependence with intoxication, unspecified (principal); F11.20 Opioid dependence, uncomplicated; F10.239 Alcohol dependence with withdrawal, unspecified; I10 Essential (primary) hypertension; Y90.8 Blood alcohol level of 240 mg/100 ml or more; E78.5 Hyperlipidemia, unspecified; F41.9 Anxiety disorder, unspecified; F31.9 Bipolar disorder, unspecified; F19.10 Other psychoactive substance abuse, uncomplicated; F17.200 Nicotine dependence, unspecified, uncomplicated; K21.9 Gastro-esophageal reflux disease without esophagitis
CPT/HCPCS: 2NBSP; 36415; 80307; 82436; 87045; 87328; 87329; 93005; 93010; 96374; 99232; 99233; G0480; J1650; J2405; J2765; J3101; J3490

== ENCOUNTER 2016-06-19 09:21 | Inpatient (IN) | payer OTHER, MEDICARE ==
[~2016-06-19] VITALS: Ht 170.2 cm; Wt 90.3 kg
[~2016-06-19 09:21] MED LIST changes: +NICOTINE PATCH1 EAC3 TOP; +OLANZAPINE5 M2 PO
--- NOTE | 2016-06-19 09:30 | NUR ---
45 YO MALE BIBA FROM HOME ON PEC. PT STATES "I JUST WANT TO " WHEN ASKED IF PT HAS A PLAN PT STATES "IM GOING TO LEAVE HERE, GO DOWN TO ROAD AND BUY A $50 GUN AND SHOOT MYSELF" PT ADMITS TO DRINKING ALCOHOL TODAY, DENIES DRUG USE. PT CALM AND COOPERATIVE AT THIS TIME. SECUIRTY AT BEDSIDE FOR WANDING
--- NOTE | 2016-06-19 09:37 | NUR ---
BLOOD WORK DRAWN AND SENT TO LAB
--- NOTE | 2016-06-19 09:43 | ED PSYCHIATRIC COMPLAINT ---
See Addendum History of Present Illness General Chief Complaint: ETOH/Drug Related Complaint Stated Complaint: BIBA FOR ETOH; +SI Source: patient, old records, EMS Exam Limitations: intoxication Vital Signs & Intake/Output Vital Signs & Intake/Output Vital Signs Date Time Temp Pulse Resp B/P B/P Pulse O2 O2 Flow FiO2 Mean Ox Delivery Rate 06/20 2041 86 168/110 06/20 1929 98.0 86 24 168/110 99 Room Air 06/20 1743 97.8 98 20 160/98 06/20 1743 97.8 98 20 160/98 98 Room Air 06/20 1654 97.0 85 18 159/99 06/20 1651 97.2 84 19 148/78 95 Room Air 06/20 1538 97.0 85 18 159/99 97 Room Air 06/20 1345 96.9 88 16 149/74 06/20 1345 98.3 88 16 149/74 97 Room Air 06/20 1142 97.0 90 18 157/98 06/20 1132 97.0 90 18 157/98 97 Room Air 06/20 0934 96.9 102 18 170/98 06/20 0929 96.9 102 18 170/98 98 Room Air 06/20 0805 97.9 88 16 162/90 98 Room Air 06/20 0801 97.9 88 16 162/90 06/20 0719 97.9 84 16 155/93 06/20 0718 97.9 84 18 155/93 97 Room Air 06/20 0518 98.5 88 16 159/80 06/20 0517 98.2 88 16 159/80 95 06/19 2125 98.2 94 16 144/80 94 Room Air ED Intake and Output 06/20 0000 06/19 1200 Intake Total Output Total 1400 Balance -1400 Output, Urine 1400 Patient 170 lb Weight Weight Estimated Measurement Method Allergies Coded Allergies: haloperidol (Severe, DIFFICULTY BREATHING 04/13/16) fluoxetine (Intermediate, BECOMES VIOLENT, PT REPORT 06/07/16) quetiapine (Intermediate, Sleeps all day (50mg), pt report 06/07/16) sertraline (Intermediate, becomes violent, pt report 06/07/16) chlorpromazine (DYSTONIC REACTION 04/13/16) risperidone (Uncontrollable shaking, pt report 06/03/16) Reconcile Medications Clonidine HCl 0.1 MG TABLET 1 TAB PO TID BP Escitalopram Oxalate (Lexapro) 20 MG TABLET 1 TAB PO DAILY depression Folic Acid 1 MG TABLET 1 MG PO DAILY SUPPLEMENT Gabapentin (Neurontin) 300 MG CAPSULE 1 CAP PO TID MENTAL HEALTH/NERVE PAIN ( Reported) Multivitamin (One Daily Multivitamin) 1 EACH TABLET 1 TAB PO DAILY supplement Nicotine (Nicotine Patch) 21 MG/24 HOUR PATCH.TD24 21 MG TOP DAILY SMOKING CESSATION Olanzapine 5 MG TABLET 5 MG PO BID ANXIETY Ondansetron HCl (Zofran) 4 MG TABLET 1 TAB PO DAILY PRN NAUSEA Pantoprazole Sodium (Protonix) 40 MG TABLET.DR 1 TAB PO DAILY STOMACH Pravastatin Sodium 40 MG TABLET 1 TAB PO QPM CHOLESTEROL Thiamine HCl (Vitamin B-1) 100 MG TABLET 100 MG PO DAILY supplement Trazodone HCl 100 MG TABLET 1 TAB PO DAILY ANXIETY (Reported) Triage Note: 45 YO MALE BIBA FROM HOME ON PEC. PT STATES "I JUST WANT TO " WHEN ASKED IF PT HAS A PLAN PT STATES "IM GOING TO LEAVE HERE, GO DOWN TO ROAD AND BUY A $50 GUN AND SHOOT MYSELF" PT ADMITS TO DRINKING ALCOHOL TODAY, DENIES DRUG USE. PT CALM AND COOPERATIVE AT THIS TIME. SECUIRTY AT BEDSIDE FOR WANDING Triage Nurses Notes Reviewed? yes HPI: Patient presents for evaluation of alcohol intoxication and suicide ideation. Patient states that he drinks "a lot", last use this morning. Patient states he feels suicidal and that he took "half my pills" including trazodone and clonidine this morning. History is limited due to clinical intoxication. (REBEKAH ETIENNE,BJ Kim) Past History Travel History Traveled to [place] past 21 day No Medical History Any Pertinent Medical History? see below for history Neurological: SEIZURE w/d Hx concussion as a child, EENT: NONE Cardiovascular: hypertension Respiratory: NONE Gastrointestinal: PANCREATITIS Hepatic: NONE Renal: NONE Musculoskeletal: left knee multiple tendon r. rotator Psychiatric: alcohol dependence, anxiety, bipolar disease, depression, opioid dependence, PTSD benzodiazepine abuse Endocrine: NONE Blood Disorders: NONE Cancer(s): NONE EMPLOYEE REPRESENTATIVE/Reproductive: NONE History of MRSA: No History of VRE: No History of CDIFF: No Surgical History Surgical History: EXPLORATORY LAPAROTOMY Psychosocial History Who do you live with Mother Services at Home None What is your primary language Armenian Tobacco Use: Cognitive Impairment ETOH Use: alcoholic Illicit Drug Use: denies illicit drug use Family History Family History, If Any: FATHER, . FH: alcohol abuse grandmother FH: diverticulitis MOTHER Anxiety disorder FHx: bipolar disorder Hx Contributory? No (REBEKAH ETIENNE,BJ Kim) Review of Systems Review of Systems Constitutional: Reports: no symptoms. EENTM: Reports: no symptoms. Respiratory: Reports: no symptoms. Cardiovascular: Reports: no symptoms. GI: Reports: no symptoms. Genitourinary: Reports: no symptoms. Musculoskeletal: Reports: no symptoms. Skin: Reports: no symptoms. Neurological/Psychological: Reports: see HPI. Hematologic/Endocrine: Reports: no symptoms. Immunologic/Allergic: Reports: no symptoms. All Other Systems: Reviewed and Negative (BJ WELCH MD) Physical Exam Physical Exam General Appearance: see below Neurological/Psychiatric: see below Comments: General: Alert, calm, cooperative Head: Normocephalic, atraumatic Eyes: Normal inspection, no nystagmus, EOMI Ears: Normal inspection Nose: Normal inspection Throat: Moist mucosa Neck: Supple, no goiter Heart: Regular rate and rhythm, no murmurs rubs or gallops Lungs: Clear to auscultation bilaterally with good air entry Abdomen: Soft nontender nondistended, normal bowel sounds Chest: Nontender Extremities: Normal range of motion grossly, no tremors present, no cyanosis clubbing or edema of the upper extremities Neurologic: cranial nerves II through XII grossly intact, speech clear, gait normal Psychiatric: No apparent delusions or hallucinations, no pressured speech or thought blocking SAD PERSONS Done? deferred to crisis (REBEKAH ETIENNE,BJ Kim) Progress Differential Diagnosis: drug intoxication, drug overdose, drug withdrawal Plan of Care: Orders Procedure Date/time Status Regular Diet 06/21 D Active Regular Diet 06/21 B Active Heart Healthy Diet 06/20 D Active Regular Diet 06/20 B Complete Continuous Observation Monitor 06/20 2014 Active Pathway - chart 06/21 2003 Active Pathway - chart 06/20 2001 Active House Staff 06/20 2001 Active Code Status 06/20 2001 Active Vital Signs 06/20 1738 Active Teach/Educate 06/20 1738 Active Pain Treatment and Response 06/20 1738 Active Nutritional Intake, Monitor 06/20 1738 Active Isolation 06/20 1739 Active Intake & Output 06/20 1738 Active Patient Care Conference 06/20 1738 Active Activity/Ambulation 06/20 1738 Active Patient Data 06/20 1537 Active Admit to inpatient 06/20 1513 Active Code Status 06/20 1513 Complete Continuous Observation Monitor 06/20 0747 Complete Nursing Misc 06/20 UNK Active CIWA 06/20 UNK Active CIWA 06/19 1912 Complete Intake & Output 06/19 1234 Active Current Medications Sig/Genoveva Start time Last Medication Dose Stop Time Status Admin Pravastatin Sodium 40 MG 1700 06/21 170 AC (Pravachol) Escitalopram Oxalate 20 MG DAILY 06/21 1000 AC (Lexapro) Clonidine 0.1 MG TID 06/20 2200 AC 06/20 (Catapres) 2040 Gabapentin 300 MG TID 06/20 2199 AC (Neurontin) Heparin Sodium 5,000 UNIT Q8 06/20 2199 AC (Porcine) Acetaminophen 650 MG Q6P PRN 06/20 2014 AC (Tylenol) Cyanocobalamin/ 1 BAG DAILY 06/20 2005 AC Thiamine/Pyridoxine (Vitamin in I.V.) Sodium Chloride 1,000 ML (Normal Saline 0.9%) Nicotine 21 MG DAILY 06/20 1954 AC (Nicoderm) Lorazepam 2 MG Q6 06/20 1630 AC 06/20 (Ativan) 2040 Lorazepam 0 Q1P PRN 06/20 1630 AC 06/20 (Ativan) 192 Comments: 06/19/2016 7:19:20 PM patient's CIWA score is 15. According to the referring hospital emergency medicine I'll call detoxification protocol, the patient does not quite meet criterion for inpatient detoxification. This patient's clinical condition is complicated by the fact he has benzodiazepines in his urine and has had consistent clonazepam prescriptions up until recently. This places Romulo at risk of a benzodiazepine withdrawal seizure. I have ordered a milligram of Ativan to replace his possible chronic use of benzodiazepines to prevent withdrawal seizure. This medication is not being administered to treat alcohol withdrawal. Plan continued observation/reevaluation/CIWA scores for the possibility of acute alcohol withdrawal. In addition patient will require evaluation by crisis once sober given his overdose of "half his pills". 06/19/2016 8:15:38 PM patient signed out to Dr. 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 (REBEKAH ETIENNE,BJ Kim) Hand-Off Endorsed To: BJ LEON DO Endorsed Time: 0700 Pending: consult (AILIN ETIENNE,JOSEMANUEL Ann) Departure Departure Disposition: STILL A PATIENT Condition: Stable Clinical Impression Primary Impression: Depression Referrals: BETTY ETIENNE,GERARD Hammond (PCP/Family) Departure Forms: Customer Survey General Discharge Information (REBEKAH ETIENNE,BJ Kim) Departure Comments 06/20/16 3:12 PM Patient with elevated CIWA score is greater than 15. Ativan protocol initiated, patient is being admitted to the medical floor for alcohol detox. Admission Note Documentation of Exam: Documentation of any treatments & extenuating circumstances including Concerns Regarding Discharge (functional status, medication knowledge or non-compliance, living conditions, etc.) that warrant an admission rather than observation: [The patient needs admission for Ativan protocol, neuro checks every 6 hours, seizure precautions.] Alcohol Withdrawl Admission ED Alcohol Detox Admission d/t: CIWA Score >15 (BJ LEON DO)
[2016-06-19 10:04] LABS: ABSOLUTE BASOPHIL COUNT 0 /CUMM (0.0-0.2); ABSOLUTE EOSINOPHIL COUNT 0.1 /CUMM (0.0-0.7); ABSOLUTE GRANULOCYTE CT 2.9 /CUMM (1.4-6.5); ABSOLUTE LYMPH COUNT 2.4 /CUMM (1.2-3.4); ABSOLUTE MONOCYTE COUNT 0.3 /CUMM (0.10-0.60); BASOPHIL % 0.6 % (0.0-2.0); EOSINOPHIL % 1.9 % (0-5); GRANULOCYTE % 50.8 % (42.2-75.2); MEAN CORPUSCULAR HGB 32.3 PG (27.0-31.0); MEAN CORPUSCULAR VOLUME 94.9 FL (80.0-94.0); MEAN PLATELET VOLUME 6.7 FL (7.4-10.4); PLATELET COUNT 235 /CUMM (130-400); WHITE BLOOD CELL COUNT 5.6 /CUMM (4.8-10.8)
--- NOTE | 2016-06-19 12:00 | NUR ---
PT HEARD YELLING FROM ROOM 15 "I JUST WANT TO ". SITTER AT DOOR FOR SAFETY.
--- NOTE | 2016-06-19 14:00 | NUR ---
PT ASLEEP AT THIS TIME. RESPIRATIONS EQUAL AND UNLABORED. SITTER AT DOOR FOR SAFETY.
--- NOTE | 2016-06-19 15:54 | NUR ---
URINE TRIO SENT TO LAB
--- NOTE | 2016-06-19 17:25 | NUR ---
PT ASLEEP IN ROOM 15, RESPIRATIONS EQUAL AND UNLABORED. PT VOIDING USING URINAL. SITTER AT DOOR.
--- NOTE | 2016-06-19 18:38 | NUR ---
PT AWOKEN FOR BREATHALYZER. PT STATES HE DOES NOT FEEL WELL - REPORTS HEADACHE AND STOMACH ACHE. SITTER AT DOOR FOR SAFETY.
--- NOTE | 2016-06-19 18:44 | NUR ---
sensory scientist attempted to meet with pt, pt sleeping at this time.
[2016-06-19 19:12] VITALS: BP 130/78
--- NOTE | 2016-06-19 19:23 | NUR ---
PT MEDICATED WITH ATIVAN 1MG PO FOR WITHDRAWAL SYMPTOMS. SITTER AT DOOR FOR SAFETY.
--- NOTE | 2016-06-19 21:15 | NUR ---
PT ASLEEP IN ROOM 15. PT CALM AND COOPERATIVE. SITTERS AT DOORWAY FOR SAFETY.
--- NOTE | 2016-06-19 22:31 | ED PSY CRISIS COLLATERAL NOTE ---
Collateral Note Collateral Note Family/Inform/Vito Contacts: Phone contact with Lida Tsang mother of pt and the person he live with. Lida said she called 911 today on th pt because "he was out of his mind, he was calling me names, horrible names and punching his head really hard with his hand". "He is very mean when he drinks, I can't have him come back here". Pt was recently hospitalized at [facility] for severe alcoholism. She states the pt is on probation because for threates he made toward her when he was intoxicated. She had a restraining order against him 3 years ago. The pt's signals officer is Jesus SampsonWikieup) . Lida believes the pt is diagnosed with Bipolar Diosrder, he has a history of taking the medication Klonopin but he started to abuse the medication and it was discontinued.
--- NOTE | 2016-06-19 22:51 | NUR ---
Crisis completed collateral info., provided by pt's mother Lida Tsang , he cannot return to his mother's home. Pt has a Package Crimper (Peter) EXT. [id number].
--- NOTE | 2016-06-19 23:00 | NUR ---
Pt was Breathalyzed by the nurse at 6:30 and the score was 178, as well he pt reported withdrawal symtoms, shaking visibly, sweating etc. Nurse completed CIWA. Pt needs medical clearance for crisis evaluation.
[2016-06-20] VITALS (11 sets, daily range): BP systolic 140–170; BP diastolic 74–110
--- NOTE | 2016-06-20 02:46 | NUR ---
ASLEEP NO DISTRESS SITTER IN PLACE
--- NOTE | 2016-06-20 05:17 | NUR ---
ASLEEP NO DISTRESS SKIN WARM AND DRY NO S/S OF WITHDRAWAL
--- NOTE | 2016-06-20 07:20 | NUR ---
ASSUMED CARE AT THIS TIME, PT AWAKE AND ALERT FOR VITALS, CIWA 4 AT THIS TIME , COMPLAINS OF 2/10 TEMPORAL HEADACHE. MD AWARE AT THIS TIME.
--- NOTE | 2016-06-20 07:55 | NUR ---
PT MEDICATED WITH MOTRIN PER ORDER FOR HEADACHE.PT UP TO BATHROOM AMBULATED WITH STEADY GAIT . PT NOTED WITH MILD VISIBLE TREMOR TO BILATERAL HANDS WHILE DRINKING WATER
--- NOTE | 2016-06-20 08:02 | NUR ---
ANGELICA 10 AT THIS TIME. MD GUERRA
--- NOTE | 2016-06-20 09:50 | NUR ---
PT MEDICATED AT THIS TIME WITH 1 MG PO ATIVAN PER ORDER FOR CIWA 14. PT NOTED WITH MILD VISIBLE TREMORS, STILL COMPLAINS OF SLIGHT HEADACHE. PT REMAINS CALM AND COPERATIVE
--- NOTE | 2016-06-20 11:15 | NUR ---
PT AWAKE ALERT CALM AND COPERATIVE, PT SITTING BY PHONE TRYING TO CALL [facility] AT THIS TIME, NO VISIBLE TREMORS NOTED
--- NOTE | 2016-06-20 11:42 | NUR ---
CIWA 2 AT THIS TIME, NO VISIBLE TREMORS NOTED
--- NOTE | 2016-06-20 13:50 | NUR ---
PT REMAINS CALM AND COPERATIVE AT THIS TIME. COMPLAINS OF TREMORS BUT NON NOTED AT THIS TIME
--- NOTE | 2016-06-20 15:38 | NUR ---
ASSUMED CARE OF THIS PT FROM MICHAEL DASH. PT ASLEEP AT THIS TIME. RESPIRATIONS EQUAL AND UNLABORED. SITTER PRESENT AT DOOR FOR SAFETY.
--- NOTE | 2016-06-20 16:13 | NUR ---
PT GOING TO ROOM 216-2.
--- NOTE | 2016-06-20 16:18 | History & Physical ---
See Addendum MEE BABIN 06/20/16 1618: General Information and HPI MD Statement: I have seen and personally examined PRAKASH NORRIS and documented this H&P. The patient is a 45 year old M who presented with a patient stated chief complaint of detox Source of Information: patient, old records Exam Limitations: withdrawing History of Present Illness: 45 year old gentleman with past medical history significant for alcohol abuse, multiple alcohol detoxification admissions, withdrawal seizures, hypertension, hyperlipidemia, pancreatitis, alcohol dependence, anxiety, bipolar disorder, depression, opioid dependence, posttraumatic stress disorder, polysubstance abuse, recently discharged on 06/09/16 from [facility] brought by Police alcohol detoxification and suicidal ideation. States his last drink was 2 days ago and does not remember how much he drank. His mother called the police as he would not stop drinking and he was saying that he wanted to kill himself. Reports having many plans. Reports mild abdominal pain. He missed his IOP appt last week and he was supposed go tomorrow. Since stopping his Klonopin he feel that he can't function ( can't go outside his house) Denies fever, headache, chest pain, nausea or vomiting. His insurance does not cover olanzepine which was started on last admission. Allergies/Medications Allergies: Coded Allergies: haloperidol (Severe, DIFFICULTY BREATHING 04/13/16) fluoxetine (Intermediate, BECOMES VIOLENT, PT REPORT 06/07/16) quetiapine (Intermediate, Sleeps all day (50mg), pt report 06/07/16) sertraline (Intermediate, becomes violent, pt report 06/07/16) chlorpromazine (DYSTONIC REACTION 04/13/16) risperidone (Uncontrollable shaking, pt report 06/03/16) Home Med list Clonidine HCl 0.1 MG TABLET 1 TAB PO TID BP Escitalopram Oxalate (Lexapro) 20 MG TABLET 1 TAB PO DAILY depression Folic Acid 1 MG TABLET 1 MG PO DAILY SUPPLEMENT Gabapentin (Neurontin) 300 MG CAPSULE 1 CAP PO TID MENTAL HEALTH/NERVE PAIN ( Reported) Multivitamin (One Daily Multivitamin) 1 EACH TABLET 1 TAB PO DAILY supplement Nicotine (Nicotine Patch) 21 MG/24 HOUR PATCH.TD24 21 MG TOP DAILY SMOKING CESSATION Olanzapine 5 MG TABLET 5 MG PO BID ANXIETY Ondansetron HCl (Zofran) 4 MG TABLET 1 TAB PO DAILY PRN NAUSEA Pantoprazole Sodium (Protonix) 40 MG TABLET.DR 1 TAB PO DAILY STOMACH Pravastatin Sodium 40 MG TABLET 1 TAB PO QPM CHOLESTEROL Thiamine HCl (Vitamin B-1) 100 MG TABLET 100 MG PO DAILY supplement Trazodone HCl 100 MG TABLET 1 TAB PO DAILY ANXIETY (Reported) Compliance With Home Meds: POOR Past History Travel History Traveled to [place] past 21 day No Medical History Neurological: SEIZURE w/d Hx concussion as a child, EENT: NONE Cardiovascular: hypertension Respiratory: NONE Gastrointestinal: PANCREATITIS Hepatic: NONE Renal: NONE Musculoskeletal: left knee multiple tendon r. rotator Psychiatric: alcohol dependence, anxiety, bipolar disease, depression, opioid dependence, PTSD benzodiazepine abuse Endocrine: NONE Blood Disorders: NONE Cancer(s): NONE INTERVENTIONAL PAIN PHYSICIAN/Reproductive: NONE History of MRSA: No History of VRE: No History of CDIFF: No Isolation History: Standard Surgical History Surgical History: EXPLORATORY LAPAROTOMY Past Family/Social History Family History Relations & Conditions if any FATHER, . FH: alcohol abuse grandmother FH: diverticulitis MOTHER Anxiety disorder FHx: bipolar disorder Psychosocial History Who Do You Live With? parent Services at Home: None Primary Language: Maltese ETOH Use: alcoholic Illicit Drug Use: denies illicit drug use Living Will? no Functional Ability ADLs Independent: dressing, eating, toileting, bathing. Ambulation: independent IADLs Independent: shopping, housework, finances, food prep, telephone, transportation , medication admin. Review of Systems Review of Systems Constitutional: Denies: chills, diaphoresis, fever, malaise, weakness, unexplained weight loss. Cardiovascular: Denies: see HPI, edema, orthopena, palpitations, peripheral edema, syncope. Respiratory: Denies: cough, hemoptysis, orthopnea, short of breath, sputum production, stridor, wheezing. GI: Denies: abdominal pain, bloating, constipation, diarrhea, distention, bowel incontinence, melena, nausea, bloody stool, changes in stool, vomiting, steatorrhea. Exam & Diagnostic Data Last 24 Hrs of Vital Signs/I&O Vital Signs Date Time Temp Pulse Resp B/P B/P Pulse O2 O2 Flow FiO2 Mean Ox Delivery Rate 06/20 1928 98.0 86 24 168/110 99 Room Air 06/20 1742 97.8 98 20 160/98 04/24 1743 97.8 98 20 160/98 98 Room Air 06/20 1654 97.0 85 18 159/99 06/20 1651 97.2 84 19 148/78 95 Room Air 06/20 1538 97.0 85 18 159/99 97 Room Air 06/20 1345 96.9 88 16 149/74 06/20 1345 98.3 88 16 149/74 97 Room Air 06/20 1142 97.0 90 18 157/98 06/20 1132 97.0 90 18 157/98 97 Room Air 06/20 0934 96.9 102 18 170/98 06/20 0929 96.9 102 18 170/98 98 Room Air 06/20 0805 97.9 88 16 162/90 98 Room Air 06/20 0801 97.9 88 16 162/90 06/20 0719 97.9 84 16 155/93 06/20 0718 97.9 84 18 155/93 97 Room Air 06/20 0518 98.5 88 16 159/80 04 0517 98.2 88 16 159/80 95 06/19 2125 98.2 94 16 144/80 94 Room Air Physical Exam General Appearance Alert, Oriented X3, tremulous HEENT Atraumatic, PERRLA Neck Supple Cardiovascular Normal S1, Normal S2, tachycardic Lungs Clear to Auscultation, Normal Air Movement Abdomen Normal Bowel Sounds, Soft, No Tenderness Diagnostic Data EKG Results nsr Assessment/Plan Assessment: 45 year old gentleman with past medical history significant for alcohol abuse, multiple alcohol detoxification admissions, withdrawal seizures, hypertension, hyperlipidemia, pancreatitis, alcohol dependence, anxiety, bipolar disorder, depression, opioid dependence, posttraumatic stress disorder, polysubstance abuse, recently discharged on 06/09/16 from [facility] brought by Police alcohol detoxification and suicidal ideation. Problem list Alcohol detox Bipolar disorder Depression Suicidal ideation current smoker HTN/HLD Plan Admit to general medicine floor vitals per protocol One-to-one sitter Ativan per [facility] protocol continue lexapro, clonidine, gabapentin DVT prophylaxis heparin Full code As Ranked By This Provider Problem List: 1. ALCOHOL WITHDRAWAL 2. PTSD (post-traumatic stress disorder) 3. Suicidal ideation Core Measures/Miscellaneous Acute Coronary Syndrome ACS Diagnosis: No Cerebrovascular Accident CVA/TIA Diagnosis: No Congestive Heart Failure CHF Diagnosis: No Venous Thromboembolism VTE Risk Factors: Age > 40 No [facility] VTE prophylaxis d/t: No contraindications No VTE Pharm Prophylaxis d/t: No contraindications VTE Diagnosis: No VTE Type: NONE VTE Confirmed by (Test): NONE Severe Sepsis Severe Sepsis Present: No Septic Shock Septic Shock Present: No Miscellaneous Documentation Attending Case Discussed With: FERN ETIENNE,JESSIE Lee Primary Care Physician: GERARD HERNÁNDEZ MD Patient sees these Specialists none Level of Patient Care: General Medicine INA LOERA MD 06/20/162114: Resident Review Statement Resident Statement: examined this patient, discussed with planning intern, agreed with planning intern Other Findings: 45 YO male with pmh seizure, htn, pancreatitis, anxiety, bipolar disease, depression presents from home with suicidal ideation and requesting etoh detoxifcation. Just discharged last week for ETOH detoxifcation. Reports being suicidal due to his ongoing etoh use. He is being admitted for withdrawl symotoms. He has been in ER for several hours for observation, with his CIWAS ranging from 0, 4, 10, 14, 2, 2. We will admit him to [facility] and continue monitoring CIWAs. Will start Ativan 2mg Q6 hrly with IV PRN. Start banana bag and continue home medications. We will need psychiatry and social work consultation. dvt ppx, full code
--- NOTE | 2016-06-20 16:50 | NUR ---
PT MEDICATED WITH 2MG ATIVAN PER EMAR
--- NOTE | 2016-06-20 17:46 | NUR ---
NURSING NOTE: PATIENT ARRIVED TO FLOOR VIA W/C WITH CONTINUOUS OBSERVATION MONITOR IN PLACE. PATIENT IN BLUE PAPER SCRUBS. VS 160/98, 98, 97.8, 20, 98% ROOM AIR. CIWA SCORE AT THIS TIME 9. MEDICATIONS GIVEN PER ORDER. WILL CONTINUE TO MONITOR. PATIENT BELONGINGS BROUGHT TO FLOOR AND LOCKED IN MEDICATION ROOM. WILL CONTINUE TO MONITOR.
--- NOTE | 2016-06-20 18:13 | Admission Certification ---
Admission Certification Certification Statement - As attending physician, I certify that at the time of - admission, based on clinical presentation, severity of - symptoms, need for further diagnostic testing and - therapeutic interventions, and risk of adverse outcomes - without in-hospital treatment, in my clinical assessment, - this patient requires an acute hospital stay for a minimum - of two nights or longer. I have also considered psychsocial - factors such as support system, advanced age, financial - issues, cognitive issues, and failed out-patient treatments, - past re-admission history, safety of patient, and lack of - compliance as applicable. Specific rationale supporting this admission is: etoh abuse and withdrawl
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
--- NOTE | 2016-06-20 19:29 | NUR ---
PT AO,RA, LSCTA, SKIN INTACT, NO C/O PAIN. CIWA SCORE OF 20, MEDICATED PATIENT WITH 2MG IV ATIVAN, BP 168/110- MD KIN NOTIFIED. WILL CONTINUE TO MONITOR.
--- NOTE | 2016-06-20 22:29 | NUR ---
ADMINISTERED SCHEDULED CLONIDINE EARLY PER MD ORDER, RECHECKED BP AN HOUR LATER @ 2130, BP 142/96, MD SANTILLAN AWARE. WILL CONTINUE TO MONITOR.
--- NOTE | 2016-06-20 23:42 | NUR ---
PT REPORTED BEARING-DOWN AND FEELING IF HE WERE GOING TO PASS OUT WHICH HAPPENS 3X A WEEK, NO CHANGE IN MENTAL STATUS, VSS, PT INCREASINGLY AGITATED. MD SANTILLAN AWARE, COM AWARE PT IS TO BE WATCHED WHILE USING THE BATHROOM. WILL CONTINUE TO MONITOR.
--- NOTE | 2016-06-20 23:45 | NUR ---
PT C/O PAIN IN FLANK AREA AND LOWER ABD, PT ALSO REPORTED NOT BEING SEEN BY MD, OR MEDICATED PROPERLY IN ED, MD SANTILLAN NOTIFIED AND REPORTED HE WILL BE UP TO SEE PATIENT, PATIENT AWARE. WILL CONTINUE TO MONITOR.
--- NOTE | 2016-06-20 23:52 | NUR ---
PT BP 140/110, MD SANTILLAN AWARE, ONCOMING RN AWARE. WILL CONTINUE TO MONITOR.
[2016-06-21] VITALS (16 sets, daily range): BP systolic 130–162; BP diastolic 90–120
--- NOTE | 2016-06-21 09:51 | NUR ---
AT 0030 PATIENT BP 152/110. PATIENT DENIES CP, NO DISTRESS NOTED. PATIENT WAS ASYMPTOMATIC. CIAWA SCORE WAS 16, THEN IT WAS 0 MOST OF THE NIGHT. SHEDULED ATIVAN PO TAPER AND ATIVAN IV PRN GIVEN PER PROTOCOL. BP RE-CHECKED IN 1 HOUR AND WAS 140/106. PATIENT CONTINUES TO HAVE ELEVATED BP THROUGH THIS SHIFT. AT THIS TIME HE CONTINUES WITH SCHEDULED AND PRN ATIVAN. MD ESCALANTE WAS MADE AWARE.
--- NOTE | 2016-06-21 13:22 | Incdntl Nt Psy ---
Incidental Note Notation: Per SW request met pt with SW to discuss disposition and permission to contact chief information security officer. Pt grants permission and SW will contact. Reccomend continue CIWA protocol and medicate as ordered. Please intitate psychiatry consult if needed.
--- NOTE | 2016-06-21 13:47 | PN- Housestaff ---
SHAHRIAR BABINREICKAHua 06/21/16 1346: Subjective Follow-up For: ETOH SI Subjective: seen and examined patient, offers no complaints. Denies, chills, chest pain, shortness of breath. Ambulating without issues frequently. Review of Systems Constitutional: Denies: chills, diaphoresis, fever, malaise, weakness, unexplained weight loss. Cardiovascular: Denies: chest pain, edema, orthopena, palpitations, peripheral edema, syncope. Respiratory: Denies: cough, hemoptysis, orthopnea, short of breath, sputum production, stridor, wheezing. Objective Last 24 Hrs of Vital Signs/I&O Vital Signs Date Time Temp Pulse Resp B/P B/P Pulse O2 O2 Flow FiO2 Mean Ox Delivery Rate 06/21 1444 97.8 95 22 158/100 92 Room Air 06/21 1243 152/104 06/21 0854 82 162/110 06/21 0850 98.7 80 18 162/110 06/21 0626 97.6 97 22 150/110 91 Room Air 06/21 0500 97.6 78 20 140/100 06/21 0500 97.6 78 20 140/100 96 Room Air 06/21 0300 97.6 67 22 156/98 06/21 0300 97.9 67 22 156/98 98 Room Air 06/21 0226 97.9 76 20 140/120 97 Room Air 06/21 0128 98.1 72 20 140/106 97 Room Air 06/21 0100 97.9 76 20 140/106 06/21 0032 98.1 73 20 152/110 97 Room Air 06/21 0000 98.1 73 22 152/110 06/20 2319 97.7 74 24 140/110 97 Room Air 06/20 2154 98.0 88 18 142/96 98 Room Air 06/20 2041 86 168/110 06/20 1929 98.0 86 24 168/110 99 Room Air 06/20 1743 97.8 98 20 160/98 06/20 1743 97.8 98 20 160/98 98 Room Air 06/20 1654 97.0 85 18 159/99 06/20 1651 97.2 84 19 148/78 95 Room Air 06/20 1538 97.0 85 18 159/99 97 Room Air Intake & Output 06/21 1600 04/25 0800 06/21 0000 Intake Total 300 365 Output Total Balance 300 365 Intake, IV 125 Intake, Oral 300 240 Number 0 Bowel Movements Patient 200 lb Weight Weight Reported by Patient Measurement Method Physical Exam General Appearance: Alert, Oriented X3, Cooperative Cardiovascular: Regular Rate, Normal S1, Normal S2 Lungs: Clear to Auscultation, Normal Air Movement Extremities: No Edema Current Medications: Current Medications Sig/Genoveva Start time Last Medication Dose Route Stop Time Status Admin Acetaminophen 650 MG Q6P PRN 06/20 2014 AC PO Amlodipine Besylate 5 MG DAILY 06/21 1430 AC PO Clonidine 0.1 MG TID 06/20 2200 AC 06/21 PO 0854 Codeine 15 MG Q6P PRN 06/20 2345 AC 06/21 PO 0910 Cyanocobalamin/ 1 BAG DAILY 06/20 2005 DC 06/20 Thiamine/Pyridoxine IV 2139 Sodium Chloride 1,000 ML Escitalopram Oxalate 20 MG DAILY 06/21 1000 AC 06/21 PO 0855 Folic Acid 1 MG DAILY 06/21 1000 AC 06/21 PO 0854 Gabapentin 300 MG TID 06/20 2200 AC 06/21 PO 0855 Heparin Sodium 5,000 UNIT Q8 06/20 220 AC (Porcine) SC Lorazepam 0 .STK-MED ONE 06/20 1650 DC PO Lorazepam 2 MG Q6 06/20 1630 AC 06/21 PO 1205 Lorazepam 0 Q1P PRN 06/20 1630 AC 06/21 IV 1055 Multivitamins 1 TAB DAILY 06/21 1000 AC 06/21 PO 0854 Nicotine 21 MG DAILY 06/20 1955 AC TOP Ondansetron HCl 4 MG TIDAC 06/21 0800 AC 06/21 PO 1205 Pravastatin Sodium 40 MG 1700 06/21 1700 AC PO Simethicone 80 MG Q6P PRN 06/20 2345 AC PO Thiamine HCl 100 MG DAILY 06/21 1000 AC 06/21 PO 0854 Tramadol HCl 50 MG Q6 06/20 2359 CAN PO Trazodone HCl 100 MG DAILY 06/22 1000 CAN PO Trazodone HCl 100 MG ONCE ONE 06/21 2200 CAN PO 06/21 2200 Assessment/Plan Assessment: 45 year old gentleman with past medical history significant for alcohol abuse, multiple alcohol detoxification admissions, withdrawal seizures, hypertension, hyperlipidemia, pancreatitis, alcohol dependence, anxiety, bipolar disorder, depression, opioid dependence, posttraumatic stress disorder, polysubstance abuse, recently discharged on 06/09/16 from [facility] brought by Police alcohol detoxification and suicidal ideation. Hospital day 1 afebrile, persistently elevated blood pressures 150-160s systolic and diastolic in 100s, CIWA scores 19,16,0,0,0. recieved a total dose of 10mg PO ativan and 7 mg of IV ativan. Problem list Alcohol detox Bipolar disorder Depression Suicidal ideation current smoker HTN/HLD Plan continue on general medicine floor vitals per protocol continue One-to-one sitter for suicidal ideation. on PO ativan 2mg PO q6 and IV ativan per CIWA protocol His elevated BP can't not completely be explained by withdrawal, as his BP did not respond to extra dose of ativan, No LVH noted on EKG. Will start 5 mg of Norvasc today and continue his clonidine Willl obtain psych consult. continue lexapro, gabapentin declined heart healthy diet, on regular diet. DVT prophylaxis heparin Full code Problem List: 1. ALCOHOL WITHDRAWAL 2. Alcohol withdrawal Pain Ratin Pain Location: na Pain Goal: Pain 4 or less Pain Plan: current regimen Tomorrow's Labs & Rationales: none required MOY ETIENNE,YAYO 06/21/16 1601: Attending MD Review Statement Attending Statement Attending MD Statement: examined this patient, discuss w/resident/PA/CIRCUS PERFORMER, agreed w/resident/PA/CIRCUS PERFORMER, reviewed EMR data (avail), discussed with nursing, discussed with case mgmt, reviewed images Attending Assessment/Plan: Patient is fairly delirious he is walking all over the unit with a sitter and talking a lot about his [employer] officer and why he needs to go to a facility. He is here with multiple admissions for alcohol detox with ongoing alcohol dependence and in addition has hypertension and acute withdrawal with alcoholic hepatitis. Will add meds for blood pressure control given the assisted the elevated blood pressure despite treatment for alcohol withdrawal and clonidine. Will pursue social work and psych help in inpatient alcohol rehabilitation and will follow closely.
--- NOTE | 2016-06-21 13:53 | NUR ---
Referral received via casefind. This patient is a 45 year old man, admitted to the hospital yesterday after presentation to the Emergency Department on 06/19/16. Admitted to the hospital for an ETOH Detox; his 10th in a calender year. Most recently, Romulo was discharged from this hospital on 06/09/16 after an 8 day stay for Detox. He was escorted to the [facility] for an intake, but never showed for treatment. Instead, he was home and he drank; and reports (unconfirmed) that he was hospitalized at [facility]. He is not able to return to the [facility] as they believe he needs a higher level of care. His insurance status makes this difficult to execute as medicare does not pay foe inpatient ETOH Rehab. Romulo is on probation. Call placed to privacy officer, (with patients permission); await return call for assistance with collaborating with privacy officer in securing a [facility] residential rehab bed. Follow,
--- NOTE | 2016-06-21 14:00 | NUR ---
LATE ENTRY: PT REPORTED HE HAD A FEW LOOSE STOOLS TODAY. DR. BABIN NOTIFIED. HAT PLACED IN PT'S TOILET FOR POSSIBLE SPECIMEN COLLECTION. PENDING POSSIBLE NEW ORDERS. WILL CONT TO MONITOR.
--- NOTE | 2016-06-21 14:21 | NUR ---
DR. MARTI NOTIFIED OF PT'S LATEST BP READING. PENDING POSSIBLE NEW ORDERS. PT ASYMPTOMATIC. WILL CONT TO MONITOR.
--- NOTE | 2016-06-21 17:55 | NUR ---
ALERT AND ORIENTED X 3. DENIES CHEST PAIN. + PULSES. ON ROOM AIR MEDICATION GIVEN FOR BP. MEDICATION GIVEN FOR PAIN AND PER CIWA PROTOCOL. STEADY GAIT. SAFETY MONITOR AT BEDSIDE. WILL CONTINUE TO MONITOR
[2016-06-22 06:54] VITALS: BP 128/98
--- NOTE | 2016-06-22 10:09 | Incdntl Nt Psy ---
Incidental Note Notation: Pt denies SI and contracts for safety. Is not a flight risk. Reports his public information officer has secured him a potential placemnt. SW is aware and is in contact with facility, [facility]. They will contact pt for screening interview by phone in his hospital room this afternoon. Plan: 1. Please discontinue sitter 2. Full psychiatric eval to follow
--- NOTE | 2016-06-22 10:41 | NUR ---
Call received from [facility] in [place] this morning. Leo had been referred there by his compliance review officer. plan of care disscussed with loan representative from [facility]; telephone screen will be done this afternoon. I have provided [facility] with phone number directly to Leo's room. Case discussed with insurance case manager and psychiatry PRINT CUTTER. Patient will need to be tapered off benzos completel prior to entering treatment.
--- NOTE | 2016-06-22 11:12 | PN- Housestaff ---
MEE BABIN 06/22/16 1112: Subjective Follow-up For: ETOH withdrawal SI Subjective: Seen and examined patient. He not happy with the tapering of his ativan today. Explained the reasons for the taper as his clinical objectively does not show signs of active withdrawal. He continues to ambulate well and frequently. Review of Systems Constitutional: Denies: chills, diaphoresis, fever, malaise, weakness, unexplained weight loss. Cardiovascular: Denies: chest pain, edema, orthopena, palpitations, peripheral edema, syncope. Respiratory: Denies: cough, hemoptysis, orthopnea, short of breath, sputum production, stridor, wheezing. Gastrointestinal: Denies: abdominal pain, bloating, constipation, diarrhea, distention, bowel incontinence, melena, nausea, bloody stool, changes in stool, vomiting, steatorrhea. Objective Last 24 Hrs of Vital Signs/I&O Vital Signs Date Time Temp Pulse Resp B/P B/P Pulse O2 O2 Flow FiO2 Mean Ox Delivery Rate 06/22 1511 98.0 76 20 118/84 95 Room Air 06/22 0850 71 130/90 06/22 0849 71 130/90 06/22 0654 97.8 81 20 128/98 97 Room Air 06/21 2200 98.0 82 20 130/100 06/21 2120 98.0 82 20 130/100 98 Room Air 06/21 2000 97.8 65 20 145/90 06/21 1800 97.8 65 20 145/90 06/21 1800 97.8 65 20 145/90 94 Room Air 06/21 1630 65 170/100 06/21 1630 65 170/100 06/21 1600 97.8 95 22 158/100 Intake & Output 06/22 1600 06/22 0800 06/22 0000 Intake Total 1000 490 400 Output Total Balance 1000 490 400 Intake, IV 10 Intake, Oral 1000 480 400 Number 0 Bowel Movements Physical Exam General Appearance: Alert, Oriented X3, Cooperative, No Acute Distress Cardiovascular: Regular Rate, Normal S1, Normal S2 Lungs: Clear to Auscultation, Normal Air Movement Abdomen: distended Current Medications: Current Medications Sig/Genoveva Start time Last Medication Dose Route Stop Time Status Admin Acetaminophen 650 MG Q6P PRN 06/20 2014 AC PO Amlodipine Besylate 5 MG DAILY 06/21 1430 AC 06/22 PO 0850 Clonidine 0.1 MG TID 06/20 2200 AC 06/22 PO 0849 Codeine 15 MG Q6P PRN 06/20 2345 AC 06/22 PO 1054 Escitalopram Oxalate 20 MG DAILY 06/21 1000 AC 06/22 PO 0850 Folic Acid 1 MG DAILY 06/21 1000 AC 06/22 PO 0849 Gabapentin 300 MG TID 06/20 2200 AC 06/22 PO 0850 Heparin Sodium 5,000 UNIT Q8 06/20 2200 AC (Porcine) SC Lorazepam 2 MG Q8 06/22 1400 AC 06/22 PO 1249 Lorazepam 2 MG Q6 06/20 1630 DC 06/22 PO 0551 Lorazepam 0 Q1P PRN 06/20 1630 AC 06/21 IV 1631 Multivitamins 1 TAB DAILY 06/21 1000 AC 06/22 PO 0851 Nicotine 21 MG DAILY 06/20 1955 AC TOP Ondansetron HCl 4 MG TIDAC 06/21 0800 AC 06/22 PO 0551 Patient Medication 1 ED .STK-MED ONE 06/22 1410 MN Teaching ED 06/22 1411 Pravastatin Sodium 40 MG 1700 06/21 1700 AC 06/21 PO 1628 Simethicone 80 MG Q6P PRN 06/20 2345 AC PO Thiamine HCl 100 MG DAILY 06/21 1000 AC 06/22 PO 0851 Trazodone HCl 100 MG ONCE ONE 06/21 2130 DC 06/22 PO 06/21 2131 0010 Assessment/Plan Assessment: 45 year old gentleman with past medical history significant for alcohol abuse, multiple alcohol detoxification admissions, withdrawal seizures, hypertension, hyperlipidemia, pancreatitis, alcohol dependence, anxiety, bipolar disorder, depression, opioid dependence, posttraumatic stress disorder, polysubstance abuse, recently discharged on 06/09/16 from [facility] brought by Police alcohol detoxification and suicidal ideation. Hospital day 2 Afebrile, blood pressures 120s-130s systolic and diastolic in 90s, CIWA scores 0 ,1,0,0,0. recieved a total dose of 4 mg PO ativan. Problem list Alcohol detox Bipolar disorder Depression Suicidal ideation current smoker HTN/HLD Plan continue on general medicine floor vitals per protocol Per psych's assessment will discontinue One-to-one sitter PO ativan tapered to 2mg PO q8 and IV ativan per CIWA protocol will taper to 1.5 Po q6 stable pressures continue with 5 mg of Norvasc today and continue his clonidine psych on board, appreciate recomendation Awaiting to [facility]. continue lexapro, gabapentin declined heart healthy diet, on regular diet. DVT prophylaxis heparin (declines however ambulates frequently) Full code Problem List: 1. ALCOHOL WITHDRAWAL Pain Ratin Pain Location: na Pain Goal: Pain 4 or less Pain Plan: current regimen Tomorrow's Labs & Rationales: none required YAYO WINTER MD 06/22/16 1158: Attending MD Review Statement Attending Statement Attending MD Statement: examined this patient, discuss w/resident/PA/SENIOR POWER SCHEDULER, agreed w/resident/PA/SENIOR POWER SCHEDULER, reviewed EMR data (avail), discussed with nursing, discussed with case mgmt, reviewed images Attending Assessment/Plan: Patient is ambulating independently all over the unit. He appears to be a little bit manipulative in the fact that he wants his Ativan and he wants pain meds even though I explained to him at length the risks of replacing one addiction with another. He's been on the Ativan 2mg every 6 scheduled now for over 24 hours and I think we can safely decrease it to 2mg every 8 while keeping the Ativan when necessary per CIWA. He is on codeine for pain. I did speak to psychiatry and at this point he's not a flight risk and not suicidal and we can safely stop the sitter. We are actively working with social work on getting him into residential inpatient alcohol rehabilitation in a correctional [place].
[2016-06-22 15:11] VITALS: BP 118/84
--- NOTE | 2016-06-22 16:16 | NUR ---
CONTINUOUS SAFETY MONITOR DISCONTINUED PER REGINALDO AND AT 11:26 THIS AM. PATIENT IS ALERT AND ORIENTED X 3, COOPERATIVE THROUGHOUT THE SHIFT. NOT DEEMED AN ELOPMENT RISK. PATIENT AMBULATING INDEPENDENTLY AROUND UNIT.
[2016-06-22 18:38] VITALS: BP 128/90
[2016-06-22 21:04] VITALS: BP 120/78
[2016-06-23 06:27] VITALS: BP 114/88
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
--- NOTE | 2016-06-23 12:46 | PN- Housestaff ---
MEE BABIN 06/23/16 1246: Subjective Follow-up For: ETOH withdrawal Subjective: Seen and examined patient. He continues to ambulate well and frequently. Offers no complaints Review of Systems Constitutional: Denies: chills, diaphoresis, fever, malaise, weakness, unexplained weight loss. Cardiovascular: Denies: chest pain, edema, orthopena, palpitations, peripheral edema, syncope. Objective Last 24 Hrs of Vital Signs/I&O Vital Signs Date Time Temp Pulse Resp B/P B/P Pulse O2 O2 Flow FiO2 Mean Ox Delivery Rate 06/23 1427 97.8 74 20 130/90 98 Room Air 06/23 06 98.4 68 20 114/88 97 Room Air 06/22 2104 98.2 72 20 120/78 99 Room Air 06/22 1838 97.7 80 20 128/90 97 Room Air 06/22 1646 76 118/84 06/22 1511 98.0 76 20 118/84 95 Room Air Intake & Output 06/23 1600 06/23 0800 06/23 0000 Intake Total 480 1800 Output Total Balance 480 1800 Intake, Oral 480 1800 Physical Exam General Appearance: Alert, Oriented X3, Cooperative, No Acute Distress Cardiovascular: Normal S1, Normal S2 Lungs: Clear to Auscultation, Normal Air Movement Extremities: No Edema Current Medications: Current Medications Sig/Genoveva Start time Last Medication Dose Route Stop Time Status Admin Acetaminophen 650 MG Q6P PRN 06/20 2015 AC PO Amlodipine Besylate 5 MG DAILY 06/21 1430 AC 06/23 PO 0832 Clonidine 0.1 MG TID 06/20 2200 AC 06/23 PO 0832 Codeine 15 MG Q6P PRN 06/20 2345 AC 06/23 PO 1158 Escitalopram Oxalate 20 MG DAILY 06/21 1000 AC 06/23 PO 0832 Folic Acid 1 MG DAILY 06/21 1000 AC 06/23 PO 0832 Gabapentin 300 MG TID 06/20 2200 AC 06/23 PO 0832 Heparin Sodium 5,000 UNIT Q8 06/20 2199 AC (Porcine) SC Lorazepam 1 MG Q6 06/24 0600 UNVr PO Lorazepam 1.5 MG Q6 06/23 1200 r 06/23 PO 06/24 0000 1158 Lorazepam 2 MG Q8 06/22 1400 DC 06/23 PO 0506 Lorazepam 0 Q1P PRN 06/20 1630 AC 06/21 IV 1631 Multivitamins 1 TAB DAILY 06/21 1000 AC 06/23 PO 0832 Nicotine 21 MG DAILY 06/20 1955 AC TOP Ondansetron HCl 4 MG TIDAC 06/21 0800 AC 06/23 PO 0832 Pravastatin Sodium 40 MG 1700 06/21 1700 AC 06/22 PO 1647 Simethicone 80 MG Q6P PRN 06/20 2345 AC PO Thiamine HCl 100 MG DAILY 06/21 1000 AC 06/23 PO 0832 Trazodone HCl 100 MG ONCE ONE 06/22 2100 DC 06/22 PO 06/22 2101 2227 Assessment/Plan Assessment: 45 year old gentleman with past medical history significant for alcohol abuse, multiple alcohol detoxification admissions, withdrawal seizures, hypertension, hyperlipidemia, pancreatitis, alcohol dependence, anxiety, bipolar disorder, depression, opioid dependence, posttraumatic stress disorder, polysubstance abuse, recently discharged on 06/09/16 from [facility] brought by Police alcohol detoxification and suicidal ideation. Hospital day 3 Afebrile, vitals stable, CIWA 0,0,0,0. Problem list Alcohol detox Bipolar disorder Depression Suicidal ideation-resolved current smoker HTN/HLD Plan continue on general medicine floor vitals per protocol Per psych's assessment will discontinue One-to-one sitter PO ativan 1.5 Po q6, continue taper continue with 5 mg of Norvasc today and continue his clonidine psych on board, appreciate recomendations Awaiting bed to [facility] once he completes his ativan taper continue lexapro, gabapentin declined heart healthy diet, on regular diet. DVT prophylaxis heparin (declines however ambulates frequently) Full code Problem List: 1. Alcohol intoxication 2. Depression 3. PTSD (post-traumatic stress disorder) 4. Hypertension Pain Ratin Pain Location: na Pain Goal: Pain 4 or less Pain Plan: current regimen Tomorrow's Labs & Rationales: none required YAYO WINTER MD 06/23/16 1543: Attending MD Review Statement Attending Statement Attending MD Statement: examined this patient, discuss w/resident/PA/LEVER MILLER, agreed w/resident/PA/LEVER MILLER, discussed with nursing, discussed with case mgmt, reviewed images Attending Assessment/Plan: We are continuing with the Ativan taper of 25% of day. We've noted social work' s recommendations that he needs to be off benzos completely in order to qualify for inpatient residential rehabilitation at a correctional facility. We'll also clarify with social work whether he needs to be off codeine completely and follow closely. Off note blood pressure is better controlled now that he is on the Norvasc.
[2016-06-23 14:27] VITALS: BP 130/90
--- NOTE | 2016-06-23 20:44 | NUR ---
At the request of, and with the permission of the patient, appropriate clinical information FAXED to [facility] for admission consideration. Patient reports that the facility will have a bed for him on Monday-06/27/16. Patient remains on benzo taper. Expect to hear form facility tomorrow.
[2016-06-23 23:19] VITALS: BP 140/90
[2016-06-24] VITALS (10 sets, daily range): BP systolic 112–170; BP diastolic 68–90
--- NOTE | 2016-06-24 09:18 | PN- Housestaff ---
MEE BABIN 06/24/16 0918: Subjective Follow-up For: ETOH withdrawal Subjective: Seen and examined patient. He continues to ambulate well and frequently. Offers no complaints. He is very anxious about getting into the inpatient rehab. Review of Systems Constitutional: Denies: chills, diaphoresis, fever, malaise, weakness, unexplained weight loss. Cardiovascular: Denies: chest pain, edema, orthopena, palpitations, peripheral edema, syncope. Respiratory: Denies: cough, hemoptysis, orthopnea, short of breath, sputum production, stridor, wheezing. Objective Last 24 Hrs of Vital Signs/I&O Vital Signs Date Time Temp Pulse Resp B/P B/P Pulse O2 O2 Flow FiO2 Mean Ox Delivery Rate 06/24 0809 68 123/06/24 0808 97 06/24 0807 68 123/06/24 0745 97.9 68 18 123/76 68 Room Air 06/24 0000 97.6 72 20 140/90 06/23 2319 97.6 72 20 140/90 97 Room Air 06/23 2254 82 128/82 06/23 1427 97.8 74 20 130/90 98 Room Air Intake & Output 06/24 1600 06/24 0800 06/24 0000 Intake Total 220 Output Total 400 Balance -180 Intake, Oral 220 Output, Urine 400 Physical Exam General Appearance: Alert, Oriented X3, Cooperative, No Acute Distress Cardiovascular: Regular Rate, Normal S1, Normal S2 Lungs: Clear to Auscultation, Normal Air Movement Extremities: No Edema Current Medications: Current Medications Sig/Genoveva Start time Last Medication Dose Route Stop Time Status Admin Acetaminophen 650 MG Q6P PRN 06/20 2015 AC PO Amlodipine Besylate 5 MG DAILY 06/21 1430 AC 06/24 PO 0809 Clonidine 0.1 MG TID 06/20 2200 AC 06/24 PO 0807 Codeine 15 MG Q6P PRN 06/20 2345 AC 06/23 PO 2258 Escitalopram Oxalate 20 MG DAILY 06/21 1000 AC 06/24 PO 0808 Folic Acid 1 MG DAILY 06/21 1000 AC 06/24 PO 0807 Gabapentin 300 MG TID 06/20 2200 AC 06/24 PO 0808 Heparin Sodium 5,000 UNIT Q8 06/20 2199 AC (Porcine) SC Lorazepam 1 MG Q8 06/25 0600 AC PO Lorazepam 1 MG Q6 06/24 0600 AC 06/24 PO 06/25 0000 0541 Lorazepam 1.5 MG Q6 06/23 1200 DC 06/23 PO 06/24 0000 2255 Lorazepam 0 Q1P PRN 06/20 1630 AC 06/21 IV 1631 Multivitamins 1 TAB DAILY 06/21 1000 AC 06/24 PO 0809 Nicotine 21 MG DAILY 06/20 1955 AC TOP Ondansetron HCl 4 MG TIDAC 06/21 0800 AC 06/24 PO 0804 Pravastatin Sodium 40 MG 1700 06/21 1700 AC 06/23 PO 1620 Simethicone 80 MG Q6P PRN 06/20 2345 AC PO Thiamine HCl 100 MG DAILY 06/21 1000 AC 06/24 PO 0808 Assessment/Plan Assessment: 45 year old gentleman with past medical history significant for alcohol abuse, multiple alcohol detoxification admissions, withdrawal seizures, hypertension, hyperlipidemia, pancreatitis, alcohol dependence, anxiety, bipolar disorder, depression, opioid dependence, posttraumatic stress disorder, polysubstance abuse, recently discharged on 06/09/16 from [facility] brought by Police alcohol detoxification and suicidal ideation. Hospital day 3 Afebrile, vitals stable, CIWA 0,0,0,3. Of note Mr. Johnson does not have a seizure disorder. The last seizure he had was last summer (2015) and were alcohol withdrawal related. Problem list Alcohol detox Bipolar disorder Depression Suicidal ideation-resolved current smoker HTN/HLD Plan continue on general medicine floor vitals per protocol continue Ativan taper continue with 5 mg of Norvasc today and continue his clonidine SW and psych on board, appreciate recomendations Awaiting bed to [facility] once he completes his ativan taper continue lexapro, gabapentin declined heart healthy diet, on regular diet. DVT prophylaxis heparin (declines however ambulates frequently) Full code Problem List: 1. ALCOHOL WITHDRAWAL Pain Ratin Pain Location: na Pain Goal: Pain 4 or less Pain Plan: current regimen Tomorrow's Labs & Rationales: none required YAYO WINTER MD 06/24/16 1323: Attending MD Review Statement Attending Statement Attending MD Statement: examined this patient, discuss w/resident/PA/MODEL ENGINE MECHANIC, agreed w/resident/PA/MODEL ENGINE MECHANIC, discussed with family, discussed with nursing, discussed with case mgmt, reviewed images Attending Assessment/Plan: Patient is very anxious about inpatient rehabilitation. He is very keen on going to inpatient rehabilitation. Our presumption is that this bed will be secure for Monday, June 27 by which time we'll taper him off his benzos. We are cutting by 25% today and tomorrow he'll be at 1 mg every 8, Monday he'll get 1 mg every 12 and Monday will be 1 mg by mouth here, his last dose of Ativan.
--- NOTE | 2016-06-24 10:00 | NUR ---
NURSING NOTE: PATIENT RECEIVED HIS BELONGING THAT WERE BEING HELD BY THE HOSPITAL 06/24/16 @ 1000 FROM THE QUILL CLEANER
--- NOTE | 2016-06-24 19:51 | NUR ---
Call placed to [facility] this am to discuss possible bed availability for Monday, 06/27. [facility] staff requested additional information regarding the status of Leo's seizures. Leo reports that he has not had a seizure in nearly year, and is maintained on gabapentin. Some concern about the number of different medications he is on; no medical supervision provided. Update provided to patient and his mother, Loulou. Hopeful for bed availability on 06/27.
[2016-06-25] VITALS (10 sets, daily range): BP systolic 110–146; BP diastolic 72–88
--- NOTE | 2016-06-25 07:53 | PN- Housestaff ---
MEE BABIN 06/25/16 0753: Subjective Follow-up For: ETOH withdrawal Subjective: Seen and examined patient. Offers no complaints. Review of Systems Constitutional: Denies: chills, diaphoresis, fever, malaise, weakness, unexplained weight loss. Cardiovascular: Denies: chest pain, edema, orthopena, palpitations, peripheral edema, syncope. Respiratory: Denies: cough, hemoptysis, orthopnea, short of breath, sputum production, stridor, wheezing. Objective Last 24 Hrs of Vital Signs/I&O Vital Signs Date Time Temp Pulse Resp B/P B/P Pulse O2 O2 Flow FiO2 Mean Ox Delivery Rate 06/25 1032 97.9 65 20 120/75 94 Room Air 06/25 0922 67 110/72 06/25 0921 67 110/72 06/25 0600 98.8 67 18 110/72 98 Room Air 06/25 0200 98.7 82 18 120/74 97 Room Air 06/24 2200 97.5 86 18 124/76 96 Room Air 06/24 2200 98.7 85 18 170/80 96 Room Air 06/24 2152 86 124/76 06/24 1800 97.6 82 19 112/80 06/24 1800 97.6 82 19 112/80 97 Room Air 06/24 1648 72 118/68 06/24 1600 97.4 70 18 120/70 06/24 1440 97.9 72 18 118/68 97 Room Air 06/24 1400 97.4 70 18 120/76 06/24 1200 97.0 72 18 120/74 Intake & Output 06/25 1600 06/25 0800 06/25 0000 Intake Total 240 450 Output Total Balance 240 450 Intake, Oral 240 450 Physical Exam General Appearance: Alert, Oriented X3, Cooperative, No Acute Distress Cardiovascular: Regular Rate, Normal S1, Normal S2 Lungs: Clear to Auscultation, Normal Air Movement Current Medications: Current Medications Sig/Genoveva Start time Last Medication Dose Route Stop Time Status Admin Acetaminophen 650 MG Q6P PRN 06/20 2014 AC PO Amlodipine Besylate 5 MG DAILY 06/21 1430 AC 06/25 PO 0921 Clonidine 0.1 MG TID 06/20 2200 AC 06/25 PO 0922 Codeine 15 MG Q6P PRN 06/20 2345 AC 06/24 PO 2310 Escitalopram Oxalate 20 MG DAILY 06/21 1000 AC 06/25 PO 0920 Folic Acid 1 MG DAILY 06/21 1000 AC 06/25 PO 0920 Gabapentin 300 MG TID 06/20 2200 AC 06/25 PO 0921 Heparin Sodium 5,000 UNIT Q8 06/20 2200 AC (Porcine) SC Lorazepam 1 MG ONE ONE 06/27 1000 AC PO 06/27 1001 Lorazepam 1 MG BID 06/26 1000 AC PO 06/27 0000 Lorazepam 1 MG Q8 06/25 0600 AC 06/25 PO 06/26 0000 0518 Lorazepam 1 MG Q6 06/24 0600 DC 06/24 PO 06/25 0000 2310 Lorazepam 0 Q1P PRN 06/20 1630 AC 06/21 IV 1631 Multivitamins 1 TAB DAILY 06/21 1000 AC 06/25 PO 0921 Nicotine 21 MG DAILY 06/20 1955 AC TOP Ondansetron HCl 4 MG TIDAC 06/21 0800 AC 06/25 PO 0802 Pravastatin Sodium 40 MG 1700 06/21 1700 AC 06/24 PO 1647 Simethicone 80 MG Q6P PRN 06/20 2345 AC PO Thiamine HCl 100 MG DAILY 06/21 1000 AC 06/25 PO 0921 Trazodone HCl 100 MG AT BEDTIME 06/25 2200 AC PO Trazodone HCl 50 MG ONCE ONE 06/24 2215 DC 06/24 PO 06/24 2216 2310 Assessment/Plan Assessment: 45 year old gentleman with past medical history significant for alcohol abuse, multiple alcohol detoxification admissions, withdrawal seizures, hypertension, hyperlipidemia, pancreatitis, alcohol dependence, anxiety, bipolar disorder, depression, opioid dependence, posttraumatic stress disorder, polysubstance abuse, recently discharged on 06/09/16 from [facility] brought by Police alcohol detoxification and suicidal ideation. Hospital day 3 Afebrile, vitals stable, scoring zeros on CIWA Problem list Alcohol detox Bipolar disorder Depression Suicidal ideation-resolved current smoker HTN/HLD Plan continue on general medicine floor vitals per protocol continue Ativan taper continue with 5 mg of Norvasc and clonidine SW and psych on board, appreciate recomendations Awaiting bed to [facility] once he completes his ativan taper continue lexapro, gabapentin and his trazodone at night declined heart healthy diet, on regular diet. DVT prophylaxis heparin (declines however ambulates frequently) Full code Problem List: 1. ALCOHOL WITHDRAWAL Pain Ratin Pain Location: na Pain Goal: Pain 4 or less Pain Plan: current regimen Tomorrow's Labs & Rationales: none required YAYO WINTER MD 06/25/16 1103: Attending MD Review Statement Attending Statement Attending MD Statement: examined this patient, discuss w/resident/PA/MACHINE OPERATOR HELPER, agreed w/resident/PA/MACHINE OPERATOR HELPER, reviewed EMR data (avail), discussed with nursing, discussed with case mgmt Attending Assessment/Plan: Pt is doing okay on the current Ativan taper. Tomorrow he will be at Ativan 1mg every 12 and his last dose of by mouth Ativan will be Monday, June 27 where he'll get 1 mg. His blood pressure is well controlled on his current regimen and the plan is inpatient residential rehabilitation on Monday.
--- NOTE | 2016-06-25 07:57 | PN- Housestaff ---
Assessment/Plan Assessment: 45 year old gentleman with past medical history significant for alcohol abuse, multiple alcohol detoxification admissions, withdrawal seizures, hypertension, hyperlipidemia, pancreatitis, alcohol dependence, anxiety, bipolar disorder, depression, opioid dependence, posttraumatic stress disorder, polysubstance abuse, recently discharged on 06/09/16 from [facility] brought by Police alcohol detoxification and suicidal ideation. Hospital day 3 Afebrile, vitals stable, CIWA 0,0,0,3. Of note Mr. Johnson does not have a seizure disorder. The last seizure he had was last summer (2015) and were alcohol withdrawal related. Problem list Alcohol detox Bipolar disorder Depression Suicidal ideation-resolved current smoker HTN/HLD Plan continue on general medicine floor vitals per protocol continue Ativan taper continue with 5 mg of Norvasc today and continue his clonidine SW and psych on board, appreciate recomendations Awaiting bed to [facility] once he completes his ativan taper continue lexapro, gabapentin declined heart healthy diet, on regular diet. DVT prophylaxis heparin (declines however ambulates frequently) Full code
[2016-06-25] MEDS ORDERED: AMLODIPINE BESYL5 M1 PO (10:38)
--- NOTE | 2016-06-25 10:40 | Patient Discharge Instructions ---
Discharge Instructions General Discharge Information You were seen/treated for: Alcohol Withdrawal Suicidal ideation Special Instructions: Please follow-up with your primary care physician within 2 weeks of discharge please repeat bep on June 29 Diet Recommended Diet: Regular Acute Coronary Syndrome Inclusion Criteria At DC or during hospital stay patient has or had the following: ACS DIAGNOSIS No Discharge Core Measures Meds if any: Prescribed or Continued at Discharge Meds if any: NOT Prescribed or Continued at Discharge Congestive Heart Failure Inclusion Criteria At DC or during hospital stay patient has or had the following: CHF DIAGNOSIS No Discharge Core Measures Meds if any: Prescribed or Continued at Discharge Meds if any: NOT Prescribed or Continued at Discharge Cerebrovascular accident Inclusion Criteria At DC or during hospital stay patient has or had the following: CVA/TIA Diagnosis No Discharge Core Measures Meds if any: Prescribed or Continued at Discharge Meds if any: NOT Prescribed or Continued at Discharge Venous thromboembolism Inclusion Criteria VTE Diagnosis No VTE Type NONE VTE Confirmed by (Test) NONE Discharge Core Measures - Per Current guidelines, there needs to be overlap - treatment for the first 5 days of Warfarin therapy. - If discharged on Warfarin prior to 5 days of - overlap therapy, the patient will need to be - assessed for post discharge needs including - *Post discharge parental anticoagulation - *Warfarin and/or parental anticoagulation education - *Follow up date to check INR post discharge At least 5 days overlap therapy as Inpatient No Meds if any: Prescribed or Continued at Discharge Note: Overlap Therapy is Warfarin and Anticoagulant Meds if any: NOT Prescribed or Continued at Discharge
[2016-06-26] VITALS (11 sets, daily range): BP systolic 124–142; BP diastolic 60–92
--- NOTE | 2016-06-26 05:02 | PN- Housestaff ---
JUANI ETIENNE,GERMAN 06/26/16 0501: Subjective Follow-up For: EtOH Withdrawal Subjective: Patient seen and examined. He is seen lying flat in his bed resting comfortably. He appears agitated, but in no acute distress. He is upset that we are tapering his ativan "took quickly". 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 He emphasizes that he will go home and "go back to drinking ". Otherwise he denies any headache, fever, chest pain, shortness of breath, nausea , vomiting. No overnight events reported. Review of Systems Constitutional: Reports: see HPI. Objective Last 24 Hrs of Vital Signs/I&O Vital Signs Date Time Temp Pulse Resp B/P B/P Pulse O2 O2 Flow FiO2 Mean Ox Delivery Rate 06/26 0842 80 132/80 06/26 0840 80 132/80 06/26 0600 97.6 80 18 132/80 96 Room Air 06/26 0200 84 18 142/76 98 Room Air 06/25 2202 86 140/78 06/25 2200 97.9 86 18 140/78 96 Room Air 06/25 1800 97.9 80 20 146/88 06/25 1700 80 146/88 06/25 1449 97.9 80 20 140/88 96 Room Air 06/25 1400 97.9 65 20 120/75 06/25 1200 97.9 65 20 120/75 Intake & Output 06/26 1600 06/26 0800 06/26 0000 Intake Total 240 650 Output Total Balance 240 650 Intake, Oral 240 650 Physical Exam General Appearance: Alert, Oriented X3, Cooperative, No Acute Distress Other Physical Findings: General - well developed, well nourished obese middle aged man in no acute distress HEENT- NCAT, PERRL, EOMI, anicteric sclera CVS- S1, S2 w/o m/g/r Resp- CTA bilaterally GI- soft, obese, distended, nontender, bowel sounds intact Neuro- Awake, alert, agitated, CN II - XII grossly intact, mild tremor Ext- normal pulses, no cyanosis/clubbing/edema Current Medications: Current Medications Sig/Genoveva Start time Last Medication Dose Route Stop Time Status Admin Acetaminophen 650 MG Q6P PRN 06/20 2014 AC PO Amlodipine Besylate 5 MG DAILY 06/21 1430 AC 06/26 PO 0842 Clonidine 0.1 MG TID 06/20 2200 AC 06/26 PO 0840 Codeine 15 MG Q6P PRN 06/20 2345 AC 06/26 PO 0843 Escitalopram Oxalate 20 MG DAILY 06/21 1000 AC 06/26 PO 0840 Folic Acid 1 MG DAILY 06/21 1000 AC 06/26 PO 0840 Gabapentin 300 MG TID 06/20 2200 AC 06/26 PO 0841 Heparin Sodium 5,000 UNIT Q8 06/20 2200 AC (Porcine) SC Lorazepam 1 MG ONE ONE 06/27 1000 AC PO 06/27 1001 Lorazepam 1 MG BID 06/26 1000 AC 06/26 PO 06/27 0000 1015 Lorazepam 1 MG Q8 06/25 0600 DC 06/25 PO 06/26 0000 2202 Lorazepam 0 Q1P PRN 06/20 1630 AC 06/21 IV 1631 Multivitamins 1 TAB DAILY 06/21 1000 AC 06/26 PO 0842 Nicotine 21 MG DAILY 06/20 1955 AC TOP Ondansetron HCl 4 MG TIDAC 06/21 0800 AC 06/26 PO 0823 Pravastatin Sodium 40 MG 1700 06/21 1700 AC 06/25 PO 1738 Simethicone 80 MG Q6P PRN 06/20 2345 AC PO Thiamine HCl 100 MG DAILY 06/21 1000 AC 06/26 PO 0843 Trazodone HCl 100 MG AT BEDTIME 06/25 2200 AC 06/25 PO 2202 Assessment/Plan Assessment: 45 year old gentleman with past medical history significant for alcohol abuse, multiple alcohol detoxification admissions, withdrawal seizures, hypertension, hyperlipidemia, pancreatitis, alcohol dependence, anxiety, bipolar disorder, depression, opioid dependence, posttraumatic stress disorder, polysubstance abuse, recently discharged on 06/09/[address] [facility] brought by Police alcohol detoxification and suicidal ideation. Hospital day 5 CIWA score range 0-2 over the past 24 hours requiring no additional ativan. He is to continue his ativan taper and to receive his last dose tomorrow. Problem list -Alcohol detox -Bipolar disorder -Depression -Suicidal ideation-resolved -current smoker -HTN/HLD Plan : -continue on general medicine floor vitals per protocol -continue Ativan taper, last dose tomorrow -continue with 5 mg of Norvasc and clonidine -SW and psych on board, appreciate recomendations -Awaiting bed to [facility] once he completes his ativan taper -continue lexapro, gabapentin and his trazodone at night -declined heart healthy diet, on regular diet. -DVT prophylaxis heparin (declines however ambulates frequently) -Full code Problem List: 1. ALCOHOL WITHDRAWAL Pain Ratin Pain Location: None Pain Goal: Remain pain free Pain Plan: See assessment Tomorrow's Labs & Rationales: None MOY ETIENNE,YAYO 06/26/16 1150: Attending MD Review Statement Attending Statement Attending MD Statement: examined this patient, discuss w/resident/PA/PHOTOENGRAVING APPRENTICE, agreed w/resident/PA/PHOTOENGRAVING APPRENTICE, reviewed EMR data (avail), discussed with nursing Attending Assessment/Plan: Continue Ativan taper, by tomorrow Monday, June 27 he's down to 1 mg a day which is his last dose. The plan [facility] but we need to confirm this plan tomorrow and anticipate discharge tomorrow.
[2016-06-27 06:52] VITALS: BP 126/94
--- NOTE | 2016-06-27 07:00 | PN- Housestaff ---
TALYAMALVINHua 06/27/16 0700: Subjective Follow-up For: EtOH Withdrawal Subjective: Patient seen and examined. Offers no complaints. Denies any headache, fever, chest pain, shortness of breath, nausea, vomiting. Review of Systems Constitutional: Denies: chills, diaphoresis, fever, malaise, weakness, unexplained weight loss. Cardiovascular: Denies: chest pain, edema, orthopena, palpitations, peripheral edema, syncope. Respiratory: Denies: cough, hemoptysis, orthopnea, short of breath, sputum production, stridor, wheezing. Objective Last 24 Hrs of Vital Signs/I&O Vital Signs Date Time Temp Pulse Resp B/P B/P Pulse O2 O2 Flow FiO2 Mean Ox Delivery Rate 06/27 918 85 126/94 06/27 09 85 126/94 06/27 0652 97.6 85 20 126/94 95 06/26 2215 97.8 82 20 130/92 97 Room Air 06/26 2209 72 124/86 06/26 1800 97.6 80 18 132/80 06/26 1657 78 130/74 06/26 1600 97.5 78 18 130/74 06/26 1419 97.5 78 18 130/74 96 Room Air 06/26 1400 97.5 78 18 130/74 06/26 1200 97.4 82 16 124/60 Intake & Output 06/27 1600 06/27 0800 06/27 0000 Intake Total 240 480 Output Total Balance 240 480 Intake, Oral 240 480 Physical Exam General Appearance: Alert, Oriented X3, Cooperative, No Acute Distress Cardiovascular: Regular Rate, Normal S1, Normal S2 Lungs: Clear to Auscultation, Normal Air Movement Abdomen: Soft Extremities: No Edema Current Medications: Current Medications Sig/Genoveva Start time Last Medication Dose Route Stop Time Status Admin Acetaminophen 650 MG Q6P PRN 06/20 2014 DCD PO Amlodipine Besylate 5 MG DAILY 06/21 1430 DCD 06/27 PO 0919 Clonidine 0.1 MG TID 06/20 2199 DCD 06/27 PO 0919 Codeine 15 MG Q6P PRN 06/20 2345 DCD 06/27 PO 0613 Escitalopram Oxalate 20 MG DAILY 06/21 1000 DCD 06/27 PO 0919 Folic Acid 1 MG DAILY 06/21 1000 DCD 06/27 PO 0919 Gabapentin 300 MG TID 06/20 2199 DCD 06/27 PO 0919 Heparin Sodium 5,000 UNIT Q8 06/20 2200 DCD (Porcine) SC Lorazepam 1 MG ONE ONE 06/27 1000 DC 06/27 PO 06/27 1001 0918 Lorazepam 1 MG BID 06/26 1000 DC 06/26 PO 06/27 0000 2209 Lorazepam 0 Q1P PRN 06/20 1630 DCD 06/21 IV 1631 Multivitamins 1 TAB DAILY 06/21 1000 DCD 06/27 PO 0919 Nicotine 21 MG DAILY 06/20 1955 DCD TOP Ondansetron HCl 4 MG TIDAC 06/21 0800 DCD 06/26 PO 1657 Pravastatin Sodium 40 MG 1700 06/21 1700 DCD 06/26 PO 1656 Simethicone 80 MG Q6P PRN 06/20 2345 DCD PO Thiamine HCl 100 MG DAILY 06/21 1000 DCD 06/27 PO 0919 Trazodone HCl 100 MG AT BEDTIME 06/25 2200 DCD 06/26 PO 220 Assessment/Plan Assessment: 45 year old gentleman with past medical history significant for alcohol abuse, multiple alcohol detoxification admissions, withdrawal seizures, hypertension, hyperlipidemia, pancreatitis, alcohol dependence, anxiety, bipolar disorder, depression, opioid dependence, posttraumatic stress disorder, polysubstance abuse, recently discharged on 06/09/16 from [facility] brought by Police alcohol detoxification and suicidal ideation. Hospital day 6 CIWA score 0s over the past 24 hours requiring no additional ativan. Last dose of ativan today Problem list -Alcohol detox -Bipolar disorder -Depression -Suicidal ideation-resolved -current smoker -HTN/HLD Plan : -continue on general medicine floor vitals per protocol -continue Ativan taper, last dose tomorrow -continue with 5 mg of Norvasc and clonidine -SW and psych on board, appreciate recomendations -continue lexapro, gabapentin and his trazodone at night -declined heart healthy diet, on regular diet. -DVT prophylaxis heparin (declines however ambulates frequently) -Full code -stable for discharge to [facility] rehab Problem List: 1. ALCOHOL WITHDRAWAL Pain Ratin Pain Location: na Pain Goal: Pain 4 or less Pain Plan: current regimen Tomorrow's Labs & Rationales: none required MARBELLA COTE MD 06/27/16 1243: Attending MD Review Statement Attending Statement Attending MD Statement: examined this patient, discuss w/resident/PA/NIGHT CLEANER, agreed w/resident/PA/NIGHT CLEANER, reviewed EMR data (avail), discussed with nursing, discussed with case mgmt, amended to note Attending Assessment/Plan: And examined. Resting comfortably and not in any acute distress. No issues overnight reported by nursing staff. He has completed his Ativan taper and is scheduled to be discharged to alcohol rehabilitation facility. His blood pressure has been on mildly elevated side during this admission. He carries no previous history of hypertension. During review of his blood pressure readings here when his blood pressure was under diastolic it was associated with an elevated CIWA score. He will be discharged home on amlodipine 5 g orally daily only for blood pressure control. His blood pressure will be monitored at the facility with primary care follow-up as needed. He did have an elevated sodium level during this admission. However his oral intake has been added.. He has been advised to stay well hydrated. Labs will be repeated as an outpatient upon discharge. He is medically stable to be discharged today.
[2016-06-27] MEDS ORDERED: NEURONTIN300 M1 PO (08:54)
[2016-06-27] MEDS ORDERED: TRAZODONE HCL100 M1 PO (08:54)
[2016-06-27 09:19] VITALS: BP 126/94
--- NOTE | 2016-06-27 12:28 | NUR ---
Late Entry: Aware of patients discharge this am. Bed had been secured at [facility] in [place]. Patients mother provided transportation. Medciation was provided to patient (30 day supply) via the indigent medication program. Patient eager to start next chapter in his life.
--- NOTE | 2016-06-27 14:07 | Discharge Summary ---
Visit Information Visit Dates Admission Date: 06/20/16 Discharge Date: 06/27/16 Hospital Course Course Attending Physician: MARBELLA COTE M.D Primary Care Physician: BETTY ETIENNE,GERARD Hammond Hospital Course: 45 year old gentleman with past medical history significant for alcohol abuse, multiple alcohol detoxification admissions, withdrawal seizures, hypertension, hyperlipidemia, pancreatitis, alcohol dependence, anxiety, bipolar disorder, depression, opioid dependence, posttraumatic stress disorder, polysubstance abuse, recently discharged on 06/09/16 from [facility] was brought to [facility] by Police for alcohol detoxification and suicidal ideation. Collateral information obtained by ED siphoner from the patient's mother revealed that she had called the police because he was calling her horrible names and punching his head really hard with his hand. Stated that he is on probation because he threatened her while intoxicated. She had a restraining order against him 3 years ago. The pt's budget officer is Jesus SampsonDoon) ." She also reported that he had been misusing his clonazepam so his outpatient provider discontinued it. Admitted to the general medicine floor and the following issues were addressed: Alcohol withdrawal: IV Ativan per CIWA protocal was started and later tapered and transitioned to PO Ativan which was tapered off sucessfully without complications. Bed was secured for him at [facility] in [place]. Suicidal ideation On day 2 of admission psychiatry deemed not suicidal and was not a flight risk and his 1:1 sitter was discontinued. Depression and anxiety His Trazodone 100 mg at bedtime and 50 mg at bedtime when necessary was continued along with Gabapentin, escitalopram and Olanzepine Hypertension and hyperlipidemia His Clonidine and Statin was continued. His Blood pressures remained in 140-170 systolic and Norvsac 5mg was added for better control. After the addition of Norvasc his Blood pressures remained controlled Current every day smoker He was given NicoDerm 21 mg patch during his hospitalization and was continued upon discharge. Full code Regular diet DVT prophylaxis- he refused mechanical as well as pharmaceutical. He ambulated quite frequently. Complications: none Allergies: Coded Allergies: haloperidol (Severe, DIFFICULTY BREATHING 04/13/16) fluoxetine (Intermediate, BECOMES VIOLENT, PT REPORT 06/07/16) quetiapine (Intermediate, Sleeps all day (50mg), pt report 06/07/16) sertraline (Intermediate, becomes violent, pt report 06/07/16) chlorpromazine (DYSTONIC REACTION 04/13/16) risperidone (Uncontrollable shaking, pt report 06/03/16) Disposition Summary Disposition Principal Diagnosis: Alcohol Withdrawal Additional Diagnosis: Hypertension Discharge Disposition: home or self care Discharge Instructions General Discharge Information Code Status: Full Code Patient's Diet: Regular diet (refused heart healthy) Patient's Activity: full activity Follow-Up Instructions/Appts: Follow-up with primary care physician within 2 weeks of discharge Please repeat BEP on June 29 Medications at Discharge Discharge Medications: Continue taking these medications: Folic Acid (Folic Acid) 1 MG TABLET 1 Milligram ORAL DAILY Days = 18 Comments: LAST GIVEN 06/27/16 @ 1000 Pravastatin Sodium (Pravastatin Sodium) 40 MG TABLET 1 Tablet ORAL Every night Days = 30 Comments: LAST GIVEN 06/27/16 @ 1700 Clonidine HCl (Clonidine HCl) 0.1 MG TABLET 1 Tablet ORAL THREE TIMES DAILY Days = 30 Comments: LAST GIVEN 06/27/16 @ 1000 Ondansetron HCl (Zofran) 4 MG TABLET 1 Tablet ORAL DAILY as needed for NAUSEA Qty = 10 Comments: LAST GIVEN 06/26/16 0800 Thiamine HCl (Vitamin B-1) 100 MG TABLET 100 Milligram ORAL DAILY Qty = 60 Comments: LAST GIVEN 06/27/16 @ 1000 Multivitamin (One Daily Multivitamin) 1 EACH TABLET 1 Tablet ORAL DAILY Qty = 60 Comments: LAST GIVEN 06/27/16 @ 1000 Escitalopram Oxalate (Lexapro) 20 MG TABLET 1 Tablet ORAL DAILY Qty = 30 Comments: LAST GIVEN 06/27/16 @ 1000 Pantoprazole Sodium (Protonix) 40 MG TABLET.DR 1 Tablet ORAL DAILY Qty = 30 Comments: NOT GIVEN IN HOSPITAL, PRILOSEC GIVEN 06/09/16 AT 0630 Nicotine (Nicotine Patch) 21 MG/24 HOUR PATCH.TD24 21 Milligram On the skin DAILY Days = 30 Comments: NOT GIVEN Olanzapine (Olanzapine) 5 MG TABLET 5 Milligram ORAL TWICE DAILY Days = 30 Comments: LAST DOSE TAKEN 06/09/16 AT 10:00 AM Gabapentin (Neurontin) 300 MG CAPSULE 1 Capsule ORAL THREE TIMES DAILY Qty = 30 Comments: LAST GIVEN 06/27/16 @ 1000 This prescription has been renewed Trazodone HCl (Trazodone HCl) 100 MG TABLET 1 Tablet ORAL DAILY Qty = 30 Comments: LAST GIVEN 06/26/16 @ 2200 This prescription has been renewed Start taking the following new medications: Amlodipine Besylate (Amlodipine Besylate) 5 MG TABLET 5 Milligram ORAL DAILY Qty = 30 No Refills Comments: LAST GIVEN 06/27/16 @ 1000 Copies To: BETTY ETIENNE,GERARD Hammond Attending Review Statement Documenting Attending: MARBELLA COTE M.D
== END 2016-06-27 10:55 | DRG 897 ==
LOC: ERH 09:21 → 2NB 06-20 15:13 → ERHI 06-20 15:13 → ENRESERV 06-20 16:10 → 2NB 06-20 17:32 → ENPENDDIS 06-27 10:26 → 2NB 06-27 10:55
PROVIDERS: Emergency Medicine; ADMIT Internal Medicine
DX: F10.239 Alcohol dependence with withdrawal, unspecified (principal); F11.20 Opioid dependence, uncomplicated; R45.851 Suicidal ideations; K70.10 Alcoholic hepatitis without ascites; F17.200 Nicotine dependence, unspecified, uncomplicated; Y90.8 Blood alcohol level of 240 mg/100 ml or more; I10 Essential (primary) hypertension; E78.5 Hyperlipidemia, unspecified; F32.9 Major depressive disorder, single episode, unspecified; F43.10 Post-traumatic stress disorder, unspecified
CPT/HCPCS: 2NBSP; 80307; 93005; 93010; G0480; J1644; J3101; J3490

== ENCOUNTER 2017-03-10 10:26 | Emergency (ER) | payer OTHER, MEDICARE ==
[~2017-03-10 10:26] MED LIST changes: +AMLODIPINE BESYL5 M1 PO; +DAILY MULTIPLE1 EACH PO; +ESCITALOPRAM OX10 MG PO; +KLONOPIN0.5 M1 PO; +OMEGA-3 1,0501 EACH PO; +SULFAMETHOXAZO1 EAC1 PO
--- NOTE | 2017-03-10 11:22 | ED PSYCHIATRIC COMPLAINT ---
History of Present Illness General Chief Complaint: Psychiatric Related Complaint Stated Complaint: BIBA,SI, DETOX Source: patient, old records, EMS Exam Limitations: HOSTILE Vital Signs & Intake/Output Vital Signs & Intake/Output Vital Signs Date Time Temp Pulse Resp B/P B/P Pulse O2 O2 Flow FiO2 Mean Ox Delivery Rate 03/11 1142 97.6 109 18 158/89 03/11 1142 97.6 109 18 158/89 98 Room Air 03/11 0934 97.3 113 18 163/94 03/11 0821 97.3 113 20 163/94 95 Room Air 03/11 0553 97.5 94 16 149/93 03/11 0552 97.5 94 16 149/93 95 Room Air Room Air 03/11 0312 92 18 169/72 95 Room Air 03/11 0254 95 18 169/72 03/11 0028 98.0 107 16 156/91 Room Air 03/10 2229 98.8 98 20 118/70 03/10 2148 98.3 86 18 130/82 03/10 1818 97.8 90 18 132/80 03/10 1442 97.1 98 16 122/76 03/10 1442 97.1 98 16 122/76 93 Room Air Allergies Coded Allergies: haloperidol (Severe, DIFFICULTY BREATHING 04/13/16) fluoxetine (Intermediate, BECOMES VIOLENT, PT REPORT 06/07/16) quetiapine (Intermediate, Sleeps all day (50mg), pt report 06/07/16) sertraline (Intermediate, becomes violent, pt report 06/07/16) chlorpromazine (DYSTONIC REACTION 04/13/16) risperidone (Uncontrollable shaking, pt report 06/03/16) Triage Note: PT BIBA FROM HOME FOR MULTIPLE C/O. CALLED EMS FOR CP, ETOH DETOX, AND +SI. PT DENIES ANY HI THOUGHTS. STATES HE DRINKS A 30-PACK OF BEER AND A HALF GALLON OF ESTELA BEAM DAILY. LAST DRINK THIS AM PER PT. STATES HIS PLAN WOULD BE TO JUMP IN FRONT OF A BUS, "THERES LOTS OF OPTIONS I CAN CHOOSE FROM." PT STATES HE HAS NOTHING TO LIVE FOR AND HIS LIFE SUCKS. +SMELL ETOH ON BREATH. RA SAT 90%, PLACED ON 2L O2 VIA NC AND SATS INCREASED TO 95%. PT CURRENTLY DENIES ANY CP. STATES HE FEELS COLD AND THAT IS WHY HE IS SHAKING, DENIES ANY WITHDRAWAL S/S CURRENTLY. PROVIDED WITH WARM BLANKETS. SECURITY AT BEDSIDE ALSO TO WAND PT. Triage Nurses Notes Reviewed? yes HPI: Patient presents for evaluation of suicide ideation and alcohol intoxication. Patient states that he is a daily 1/2 gallon Estela Beam consumer. He states he "hates all people". He repeatedly asks to be "shot". History is limited given the patient's clinical intoxication. Patient admits to alcoholism for years. (Chloé ETIENNE,Raymond Hammond) Reconcile Medications Chlordiazepoxide HCl 25 MG CAPSULE 1-2 TAB PO ONCE DETOX 3 TIMES A DAY FOR 1ST DAY 2 TIMES A DAY FOR 2ND DAY ONCE A DAY FOR 3RD DAY Clonidine HCl 0.1 MG TABLET 0.1 MG PO TID htn Folic Acid 1 MG TABLET 1 TAB PO DAILY ETOH DEPENDENCE Folic Acid 1 MG TABLET 1 TAB PO DAILY NUTRITION Gabapentin 300 MG CAPSULE 2 TAB PO TID anxiety LORazepam (Ativan) 1 MG TAB 1 TAB PO TID ANXIETY (Reported) Multivitamin (Daily Value) 1 EACH TABLET 1 TAB PO DAILY OTHER Multivitamin (Daily Multiple Vitamin) 1 EACH TABLET 1 TAB PO DAILY NUTRITION [place]-3/Dha/Epa/Dpa/Fish Oil ([place]-3 1,050 MG Softgel) 1,050-1200 CAPSULE 2 TAB PO BID triglycerides Ondansetron (Zofran Odt) 4 MG TAB.RAPDIS 1 TAB PO Q6 PRN NAUSEA Pravastatin Sodium 40 MG TABLET 1 TAB PO QPM CHOLESTEROL Thiamine HCl (Vitamin B-1) 100 MG TABLET 1 TAB PO DAILY NUTRITION Trazodone HCl 100 MG TABLET 2 TAB PO QPM insomnia (Pb ETIENNE,Kavita) Past History Travel History Traveled to [place] past 21 day No Medical History Any Pertinent Medical History? see below for history Neurological: SEIZURE w/d Hx concussion as a child, Hx TBI 10 YR OLD EENT: NONE Cardiovascular: hypertension, hyperlipidemia Respiratory: NONE Gastrointestinal: PANCREATITIS Hepatic: NONE Renal: NONE Musculoskeletal: chronic back pain, sciatica, left knee multiple tendon r. 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 FH: alcohol abuse grandmother FH: diverticulitis MOTHER Anxiety disorder FHx: bipolar disorder Hx Contributory? No (Chloé ETIENNE,Raymond Hammond) Review of Systems Review of Systems Constitutional: Reports: no symptoms. EENTM: Reports: no symptoms. Respiratory: Reports: no symptoms. Cardiovascular: Reports: no symptoms. GI: Reports: no symptoms. Genitourinary: Reports: no symptoms. Musculoskeletal: Reports: no symptoms. Skin: Reports: no symptoms. Neurological/Psychological: Reports: see HPI. Hematologic/Endocrine: Reports: no symptoms. Immunologic/Allergic: Reports: no symptoms. All Other Systems: Reviewed and Negative (Chloé ETIENNE,Raymond Hammond) Physical Exam Physical Exam General Appearance: SEE BELOW Neurological/Psychiatric: SEE BELOW Comments: General: Alert, calm, cooperative, but angry and somewhat hostile at times Head: Normocephalic, atraumatic Eyes: Normal inspection, no nystagmus, EOMI Ears: Normal inspection Nose: Normal inspection Throat: Moist mucosa Neck: Supple, no goiter Heart: Regular rate and rhythm Lungs: Quiet respirations Abdomen: Nondistended Extremities: Normal range of motion grossly, No tremors present, no cyanosis clubbing or edema of the upper extremities Neurologic: cranial nerves II through XII grossly intact, speech clear Psychiatric: No apparent delusions or hallucinations, no pressured speech or thought blocking SAD PERSONS Done? deferred to crisis (Chloé ETIENNE,Raymond Hammond) Progress Differential Diagnosis: depression, bipolar disorder, personality disorder, alcohol intoxication Plan of Care: Orders Procedure Date/time Status Heart Healthy Diet 03/11 B Active Pathway - chart 03/10 2022 Active Alternative Nursing Therapy 03/10 190 Active Current Medications Sig/Genoveva Start time Last Medication Dose Stop Time Status Admin Lorazepam 2 MG Q2P PRN 03/10 2029 AC 03/11 (Ativan) 0257 Lorazepam 1 MG Q2P PRN 03/10 2029 AC 03/11 (Ativan) 0600 7:30 AM Patient signed out to me by Dr. Dailey, pending crisis evaluation. 10:59 AM PATIENT SLEEPING, NOT SHAKING, NO ATIVAN GIVEN SINCE 6 AM. CRISIS TO EVALUATE THE PATIENT. 11:54 AM PATIENT DENIES SI/HI. NOT TREMULOUS AFTER IV ZOFRAN AND SALINE. NOT SCORING FOR INPATIENT DETOX. HE DOES NOT WANT TO GO TO ANY OUTPATIENT FREE STANDING ALCOHOL DETOXES BUT WOULD LIKE RX FOR LIBRIUM. 12:16 PM PER CRISIS WILL NEED CLEARANCE FROM THE PSYCHIATRIST BECAUSE HE THREATENED TO KILL HIS MOTHER. 2 PM PATIENT CLEARED BY PSYCHIATRY FOR DISCHARGE HOME. 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 No significant signs or symptoms of alcohol w/d at this time. Awaiting crisis consultation given expressed suicide ideation. (Chloé ETIENNE,Raymond Hammond) Hand-Off Endorsed To: Kavita Ambriz MD Endorsed Time: 0700 Pending: consult, other (crises eval) (Asim ETIENNE,Brandon Ann) Departure Departure Condition: Stable Referrals: Rocio ETIENNE,Kayleen Hammond (PCP/Family) Departure Forms: Customer Survey General Discharge Information (Raymond Luevano MD) Departure Time of Disposition: 1422 Disposition: HOME OR SELF CARE Clinical Impression Primary Impression: Alcoholic intoxication Secondary Impressions: Alcohol dependence Additional Instructions: FOLLOW UP WITH THE LIST OF OUTPATIENT DETOX CLINICS TAKE THE LIBRIUM, ZOFRAN, MVI AND FOLIC ACID DIRECTED Prescriptions: Current Visit Scripts Chlordiazepoxide HCl 1-2 TAB PO ONCE #12 CAP 3 TIMES A DAY FOR 1ST DAY 2 TIMES A DAY FOR 2ND DAY ONCE A DAY FOR 3RD DAY Ondansetron (Zofran Odt) 1 TAB PO Q6 PRN NAUSEA #20 TAB Multivitamin (Daily Value) 1 TAB PO DAILY #30 TAB Folic Acid 1 TAB PO DAILY #30 TAB (Kavita Ambriz MD) (Kavita Ambriz MD)
[2017-03-10 12:27] LABS: ABSOLUTE BASOPHIL COUNT 0.1 /CUMM (0.0-0.2); ABSOLUTE EOSINOPHIL COUNT 0 /CUMM (0.0-0.7); ABSOLUTE LYMPH COUNT 2.3 /CUMM (1.2-3.4); ABSOLUTE MONOCYTE COUNT 0.2 /CUMM (0.10-0.60); BASOPHIL % 0.9 % (0.0-2.0); EOSINOPHIL % 0.7 % (0-5); GRANULOCYTE % 53.3 % (42.2-75.2); HEMATOCRIT 41.7 % (42-52); MEAN CORPUSCULAR HGB 31.8 PG (27.0-31.0); MEAN CORPUSCULAR HGB CONC 34.4 G/DL (33.0-37.0); MEAN CORPUSCULAR VOLUME 92.5 FL (80.0-94.0); MEAN PLATELET VOLUME 6.2 FL (7.4-10.4); PLATELET COUNT 240 /CUMM (130-400); RBC DISTRIBUTION WIDTH 15.3 % (11.5-14.5); RED BLOOD CELL CT 4.51 /CUMM (4.70-6.10); WHITE BLOOD CELL COUNT 5.6 /CUMM (4.8-10.8)
[2017-03-11 11:42] VITALS: BP 158/89
[2017-03-11] MEDS ORDERED: ZOFRAN ODT4 M1 PO (11:57)
[2017-03-11] MEDS ORDERED: DAILY VALUE1 EACH PO (11:57)
[2017-03-11] MEDS ORDERED: CHLORDIAZEPOXID25 M3 PO (11:57)
[2017-03-11] MEDS ORDERED: FOLIC ACID1 M1 PO (11:57)
--- NOTE | 2017-03-11 12:25 | ED PSYCH CRISIS CONSULTATION ---
Crisis Consult Basic Assessment Date of Consult: 03/11/17 Responsible Person/Accompanied By: self Insurance Authorization: Insurance #1: Insurance name: MEDICARE A Phone number: Policy number: [id number] Group number: Authorization number: ED Provider: Patient's ED Provider: Kavita Ambriz MD Primary Care Physician: Patient's PCP: Kayleen Chan MD PCP's Current Psychiatrist: none Chief Complaint: Psychiatric Related Complaint Patient's Quote: "I was drunk. I don't remember any of it." Present Illness: Patient is a 46yo male who was BIBA for alcohol intoxication and SI. He called the ambulance himself and is not on a PEER. His BAL was 390 at 11:20am yesterday. He made a statement that he wanted to kill himself by jumping in front of a car. He also asked the ED staff to shoot him. Upon crisis eval today patient adamantly denied any SI and declined assistance getting into detox. He reports that he is starting treatment at [facility] next week. He expressed that he would like to be discharged. Pt is part of the Community Care Team and has signed a release. [facility] is part of the CCT. Call made to [facility] and a voice message left that client plans to go to treatment there next week. Crisis spoke to pt's Lida Ortiz . She informed that she is afraid of him because he drinks all the time and has anger outbursts. She informed that he threatened to kill her 2 days ago and fears for her safety. She says she would like to be informed if he is released so that she can go stay with her daughter and [facility]. This clinician spoke with patient about Mom's concerns and he adamantly denies any HI toward her and denies that he would hurt her. He says he can remain safe. He says he plans to go to the home with a police escort and get his belongings and leave and he will stay in his truck. Case reviewed with Dr. Edmondson of Psychiatry agrees that patient can be discharged and will come evaluate patient to clear him for discharge due to Mom' s expressed safety concerns (Per Elise Mirza, government contracts manager). Mom was informed that Patient has been cleared for discharge. Patient's Address: [address] [place] [address] Other Phone Number: Who Do You Live With? Mother Family/Informants Interviewed: Mom Allergies - Coded Allergies: haloperidol (Severe, DIFFICULTY BREATHING 04/13/16) fluoxetine (Intermediate, BECOMES VIOLENT, PT REPORT 06/07/16) quetiapine (Intermediate, Sleeps all day (50mg), pt report 06/07/16) sertraline (Intermediate, becomes violent, pt report 06/07/16) chlorpromazine (DYSTONIC REACTION 04/13/16) risperidone (Uncontrollable shaking, pt report 06/03/16) Current Medications - Scheduled Medications Chlordiazepoxide HCl 25 MG CAPSULE 1-2 TAB PO ONCE DETOX #12 CAP Prescribed by Kavita Ambriz MD on 03/11/17 Clonidine HCl 0.1 MG TABLET 0.1 MG PO TID htn #45 TAB Prescribed by Ha Keller on 12/29/16 Folic Acid 1 MG TABLET 1 TAB PO DAILY ETOH DEPENDENCE #30 TAB Prescribed by Kavita Ambriz MD on 03/11/17 Folic Acid 1 MG TABLET 1 TAB PO DAILY NUTRITION #30 TAB Prescribed by Jett Kern MD on 12/15/16 Gabapentin 300 MG CAPSULE 2 TAB PO TID anxiety #60 TAB Prescribed by Juvenal Loyd on 02/14/17 LORazepam (Ativan) 1 MG TAB 1 TAB PO TID ANXIETY (Reported) Entered as Reported by Franky Foster on 02/10/17 1217 Multivitamin (Daily Value) 1 EACH TABLET 1 TAB PO DAILY OTHER #30 TAB Prescribed by Kavita Ambriz MD on 03/11/17 Multivitamin (Daily Multiple Vitamin) 1 EACH TABLET 1 TAB PO DAILY NUTRITION # 30 TAB Prescribed by Jett Kern MD on 12/15/16 [place]-3/Dha/Epa/Dpa/Fish Oil ([place]-3 1,050 MG Softgel) 1,050-1200 CAPSULE 2 TAB PO BID triglycerides #30 TAB Prescribed by Ha Keller on 12/29/16 Pravastatin Sodium 40 MG TABLET 1 TAB PO QPM CHOLESTEROL 30 Days Prescribed by Jorge Alberto Ferguson on 02/08/16 Thiamine HCl (Vitamin B-1) 100 MG TABLET 1 TAB PO DAILY NUTRITION #30 TAB Prescribed by Jett Kern MD on 12/15/16 Trazodone HCl 100 MG TABLET 2 TAB PO QPM insomnia #30 TAB Prescribed by Ha Keller on 12/29/16 Scheduled PRN Medications Ondansetron (Zofran Odt) 4 MG TAB.RAPDIS 1 TAB PO Q6 PRN NAUSEA #20 TAB Prescribed by Kavita Ambriz MD on 03/11/17 Past History Past Medical History Neurological: SEIZURE w/d Hx concussion as a child, Hx TBI 10 YR OLD EENT: NONE Cardiovascular: hypertension, hyperlipidemia Respiratory: NONE Gastrointestinal: PANCREATITIS Hepatic: NONE Renal: NONE Musculoskeletal: chronic back pain, sciatica, left knee multiple tendon r. 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 Past Surgical History Surgical History: EXPLORATORY LAPAROTOMY HERNIA REPAIR Psychosocial History Strengths/Capabilities: accepting of tx Physical Limitations (Interventions): Chronic pattern of relapse Psychiatric Treatment History Psych Treatment Psychiatric Treatment Yes Inpatient Treatment Yes Outpatient Treatment Yes Location of Treatment [facility] Reason for Treatment Depression Dates of Treatment multiple Response to Treatment variable Diagnosis by History: Alcohol use disorder, severe Benzo dependence Hx PTSD R/O bipolar II d/o Opioid use d/o Substance Use/Abuse History Drug Use/Abuse Substances Used/Abused Yes Substance Used/Abused Alcohol First Use years ago Last Used yesterday How much used/taken half gallon of hard alcohol and 20 beers How often daily For how long many years Route of use po Substance Abuse Treatment Substance Abuse Treatment Past Substance Abuse TX Yes Inpatient Treatment Yes Outpatient Treatment Yes Location of Treatment multiple Reason for Treatment alcohol Dates of Treatment multiple Response to Treatment variable Current Mental Status Mental Status Orientation: Person, Place, Situation Affect: WNL Speech: WNL Neuro-vegetative: WNL Appearance Appearance- Dress/Hygiene: unkempt Behaviors Thought Process: WNL Thought Content: WNL Memory: WNL Insight: Poor SI/HI Risk Assessment Past Suicidal Ideation/Attempts Yes Current Suicidal Ideation/Att No Past Homicidal Ideation/Att: Yes Current Homicidal Ideation/Attempts No Degree of Intent: None Gravely Disabled: Lack of Insight Risk Factors: SA/MH hospitalized, male Lethality Ratin (mild) PTSD Checklist PTSD Done? patient declined ED Management Sitter: Yes Restraints: No DSM5/PS Stressors/Medical Prob Diagnosis' (DSM 5, Stressors, Medical): Alcohol use d/o f10.20 Current GAF: 40 Departure Disposition Psych Medical Clearance Date: 03/11/17 Medically Cleared at: 1130 Time Started: 1130 Time Ended: 1230 Psychiatrist Consulted: Debo Date Disposition Established: 03/11/17 Time Disposition Established: 123 Plan for Disposition - Modality: IOP Facility: [facility] Rationale for Disposition: Pt denies SI/HI and declined services Referrals Rocio ETIENNE,Kayleen Hammond (PCP/Family)
--- NOTE | 2017-03-11 14:11 | ED PSYCHIATRIST/APRN CONSULT ---
Psychiatrist/TRANSMISSION WORKER ED Consult Assessment and Plan: Pt seen. Pt reports long-standing interpersonal difficulties with his mother. She currently as a partial RO which allows him to live there. If he violates it any way, she can police and have him arrested. She has decided not to contact the police as does not feel that conflict rises to the level of calling the police, per crisis collateral report. Pt feels that he needs some time away from this situation and plans to go home and get a coat and other items and then go to his friend's Get's house. His mother is planning on going to a friends house in the interim as well. Pt reports he drank alcohol and called 911 on himself. He uttered statement around SI, which he does not recall. He is no longer intoxicated and stating that he does not want to hurt himself and does not want to hurt anyone else, specially asked about mother, which he denied. Pt plans on f/u [facility] and VM was left alerting them to his presence. Pt again denies SI or HI. MSE in hospital gown, calm, cooperative, good eye contact, mood "fine" affect euthymic, full range, non-labile, appropriate, linear and goal directed TP, denied SI or HI, no paranoia noted. I/J: limited As no danger to self or others nor is he gravely disabiled, no indication for inpatient psychiatric stablization. There is no duty to warn as pt denies SI or HI adamantly. He wants to avoid conflict with his mother as there is a partial RO in place and if she calls the police he will go to [facility] for some time. He plans on staying with friend. Pt discharged with plan to f/u to [facility]
== END 2017-03-11 11:58 ==
LOC: ERH 10:26
PROVIDERS: Emergency Medicine
DX: F10.229 Alcohol dependence with intoxication, unspecified (principal)
CPT/HCPCS: 80307; G0480; J2405

== ENCOUNTER 2017-06-20 10:52 | Emergency (ER) | payer OTHER, MEDICARE ==
[~2017-06-20] VITALS: Ht 167.6 cm; Wt 88.5 kg
[~2017-06-20 10:52] MED LIST changes: +DAILY VALUE1 EACH PO; +ZOFRAN ODT4 M1 PO
[2017-06-20 10:54] VITALS: BP 141/90
--- NOTE | 2017-06-20 10:56 | ED ANIMAL BITE/WOUND CHECK ---
History of Present Illness General Chief Complaint: Animal/Insect Bite Stated Complaint: TICK BITE Source: patient, old records Exam Limitations: no limitations Vital Signs & Intake/Output Vital Signs & Intake/Output Vital Signs Date Time Temp Pulse Resp B/P B/P Pulse O2 O2 Flow FiO2 Mean Ox Delivery Rate 06/20 1054 97.2 90 20 141/90 98 Room Air Allergies Coded Allergies: haloperidol (Severe, DIFFICULTY BREATHING 04/13/16) fluoxetine (Intermediate, BECOMES VIOLENT, PT REPORT 06/07/16) quetiapine (Intermediate, Sleeps all day (50mg), pt report 06/07/16) sertraline (Intermediate, becomes violent, pt report 06/07/16) chlorpromazine (DYSTONIC REACTION 04/13/16) risperidone (Uncontrollable shaking, pt report 06/03/16) Reconcile Medications Cephalexin (Keflex) 500 MG CAPSULE 1 CAP PO TID cellulitis Chlordiazepoxide HCl 25 MG CAPSULE 1-2 TAB PO ONCE DETOX 3 TIMES A DAY FOR 1ST DAY 2 TIMES A DAY FOR 2ND DAY ONCE A DAY FOR 3RD DAY Clonidine HCl 0.1 MG TABLET 0.1 MG PO TID htn Folic Acid 1 MG TABLET 1 TAB PO DAILY ETOH DEPENDENCE Folic Acid 1 MG TABLET 1 TAB PO DAILY NUTRITION Gabapentin 300 MG CAPSULE 2 TAB PO TID anxiety LORazepam (Ativan) 1 MG TAB 1 TAB PO TID ANXIETY (Reported) Multivitamin (Daily Value) 1 EACH TABLET 1 TAB PO DAILY OTHER Multivitamin (Daily Multiple Vitamin) 1 EACH TABLET 1 TAB PO DAILY NUTRITION [place]-3/Dha/Epa/Dpa/Fish Oil ([place]-3 1,050 MG Softgel) 1,050-1200 CAPSULE 2 TAB PO BID triglycerides Ondansetron (Zofran Odt) 4 MG TAB.RAPDIS 1 TAB PO Q6 PRN NAUSEA Pravastatin Sodium 40 MG TABLET 1 TAB PO QPM CHOLESTEROL Thiamine HCl (Vitamin B-1) 100 MG TABLET 1 TAB PO DAILY NUTRITION Trazodone HCl 100 MG TABLET 2 TAB PO QPM insomnia Triage Nurses Notes Reviewed? yes Onset: Gradual Duration: week(s): (3), constant Timing: recent history Injury Environment: home Is Injury an Animal Bite? No Severity of Attack: bitten Severity: mild Severity Numbers: 1 No Modifying Factors: none Associated Symptoms: DENIES HPI: 46-year-old male presents to the ER for evaluation concerned that there may be a tick embedded in his right flank for the past 2 and half to 3 weeks. He states that he got the majority of it out however is concerned that there may still be a thickened side his skin. He states over the past week he's had worsening redness at the site. No fever no chills no discharge no bleeding. He denies any bodyaches fever chills no other complaints. Past History Travel History Traveled to [place] past 21 day No Medical History Any Pertinent Medical History? see below for history Neurological: SEIZURE w/d Hx concussion as a child, Hx TBI 10 YR OLD EENT: NONE Cardiovascular: hypertension, hyperlipidemia Respiratory: NONE Gastrointestinal: PANCREATITIS Hepatic: NONE Renal: NONE Musculoskeletal: chronic back pain, sciatica, left knee multiple tendon r. 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 FH: alcohol abuse grandmother FH: diverticulitis MOTHER Anxiety disorder FHx: bipolar disorder Hx Contributory? No Review of Systems Review of Systems Constitutional: Reports: see HPI. Comments Review of systems: See HPI, All other systems negative. Constitutional, no chills no fever, no malaise HEENT: no sore throat no congestion Cardiovascular: No chest pain , no palpitation Skin: SEE HPI Respiratory: No dyspnea no cough GI: No nausea no vomiting Muscle skeletal: No joint pain, no back pain, no neck pain, Neurologic: , no headache Heme/endocrine: No bruising Physical Exam Physical Exam General Appearance: well developed/nourished, no apparent distress, alert Comments: Well-developed well-nourished patient in no apparent distress. HEENT: Atraumatic, extraocular motion intact Neck: Supple, FROM Back: FROM Respiratory: No respiratory distress. Patient speaking in full complete sentences. Extremities: full range of motion Neuro: awake, alert, and oriented to person, place and time. There were no obvious focal neurologic abnormalities. Skin: Warm & dry; there is no visualized tach however there is a 0.5 cm scab with surrounding erythema 2X 3CM and no induration and no fluctuance Psych: Mood affect normal, normal memory normal judgment. Progress Differential Diagnosis: abscess, cellulitis, TICK BORN ILLNESS Plan of Care: Orders Procedure Date/time Status LYME TITRE 06/20 1057 Active Laboratory Tests 06/20/17 1112: Lyme Disease Antibody Pending I discussed with the patient plan of care line titer was sent, there is no visualized tech, I discussed the plan of care and sent home with Keflex to treat for surrounding cellulitis and return precautions were discussed at length he feels comfortable plan Departure Departure Time of Disposition: 1108 Disposition: HOME OR SELF CARE Condition: Stable Clinical Impression Primary Impression: Tick bite Secondary Impressions: Cellulitis Referrals: Rocio ETIENNE,Kayleen Hammond Additional Instructions: As discussed if the blood work is positive you'll receive a phone call. Keflex as directed. Keep area clean and covered return anytime sooner if you develop worsening rash fever chills or any other concerns. Departure Forms: Customer Survey General Discharge Information Prescriptions: Current Visit Scripts Cephalexin (Keflex) 1 CAP PO TID #21 CAP
[2017-06-20] MEDS ORDERED: KEFLEX500 M1 PO (11:09)
== END 2017-06-20 11:21 ==
LOC: ERH 10:52
DX: S30.861A Insect bite (nonvenomous) of abdominal wall, initial encounter (principal); W57.XXXA Bitten or stung by nonvenomous insect and other nonvenomous arthropods, initial encounter; Y92.9 Unspecified place or not applicable; Y93.9 Activity, unspecified
CPT/HCPCS: 86618